=== PATIENT | female | born 1940 | race Caucasian/White ===

== ENCOUNTER → 2018-06-30 | Outpatient (CLI) | payer MEDICARE, MEDICAID ==
--- NOTE | 2018-06-30 11:47 | Diagnostic Imaging Report ---
INDICATION: Swallowing difficulty. TECHNIQUE: The procedure was performed in conjunction with speech pathology. Videofluoroscopy was performed during swallowing of barium of multiple consistencies. Patient ingested water and applesauce consistency as well as pear and ham consistency. Total of 49 seconds of fluoroscopy was utilized. FINDINGS: Oral phase is unremarkable. There is normal epiglottic tilt and laryngeal elevation. No penetration or aspiration was observed. There is moderate residue noted with the ham consistency in the vallecula. IMPRESSION: Vallecular residue. The study is otherwise unremarkable. Dictated by: Dictated on workstation # [id number]
== END ==
LOC: RAD 10:31
PROVIDERS: ATTEND Pediatrics
DX: R13.12 Dysphagia, oropharyngeal phase (principal); R11.2 Nausea with vomiting, unspecified
CPT/HCPCS: 74230

== ENCOUNTER → 2018-12-25 | Outpatient (CLI) | payer MEDICARE, MEDICAID ==
--- NOTE | 2018-12-25 12:21 | Diagnostic Imaging Report ---
INDICATION: Dysphagia. FINDINGS: Procedure was performed in conjunction with speech pathology. Videofluoroscopy was performed during swallowing of barium at multiple consistencies. Patient ingested thin as well as nectar and honey consistency. Patient also ingested pur?e as well as mechanical soft and meat consistency. Total of 59 seconds of fluoroscopic time was utilized. The oral phase is unremarkable. There is normal epiglottic tilt and laryngeal elevation. No laryngeal penetration or aspiration was observed. No significant residue is seen. IMPRESSION: Unremarkable modified barium swallow study. Dictated by: Dictated on workstation # [id number]
== END ==
LOC: RAD 09:57
PROVIDERS: ATTEND Pediatrics
DX: R13.10 Dysphagia, unspecified (principal)
CPT/HCPCS: 74230

== ENCOUNTER → 2019-01-26 | Outpatient (CLI) | payer OTHER, MEDICAID ==
[2019-01-26 09:47] LABS: CALCIUM 8.4 MG/DL (8.5-10.1); CREATININE SERUM 0.95 MG/DL (0.60-1.30); POTASSIUM 3.8 MMOL/L (3.6-5.0)
== END ==
LOC: LAB FS 09:07
PROVIDERS: ATTEND Pediatrics
DX: J44.9 Chronic obstructive pulmonary disease, unspecified (principal); E56.9 Vitamin deficiency, unspecified; I10 Essential (primary) hypertension
CPT/HCPCS: 36415; 80048

== ENCOUNTER 2021-10-07 10:48 | Inpatient (IN) | payer MEDICARE, MEDICAID ==
[~2021-10-07] VITALS: Ht 172.7 cm; Wt 70.0 kg
[2021-10-07] VITALS (8 sets, daily range): BP systolic 114–161; BP diastolic 57–74
[2021-10-07] MEDS ORDERED: NS IV 1000 ML 1,000 ML IV STA (10:59)
--- NOTE | 2021-10-07 11:02 | ED General ---
General Chief Complaint: General Problems/Pain Stated Complaint: CRITICAL LAB VALUES Source of Information: Patient, EMS, Assisted Records History of Present Illness Date Seen by Provider: Oct 07, 2021 Time Seen by Provider: 10:48 Initial Comments 81-year-old female presenting from [facility] by EMS. Patient was sent to the emergency department by the provider covering for Dr. Sandra, her primary care physician. She has been having increased cough and some sore t hroat in the last 2 days. She was found to have a urinary tract infection off of a urinalysis from yesterday. Her chest x-ray showed a pleural effusion and some atelectasis. She does have a history of COPD and uses oxygen by nasal cannula as a supplemental oxygen delivery chronically. She reportedly had a temperature up to 99.9 yesterday. Her labs had shown some worsening of her chronic renal insufficiency where she chronically runs around 1.5-2 for her creatinine with a GFR around 30 she had blood work yesterday that showed her creatinine was up to 2.7 with a GFR of 18 and a BUN of 63. She also has chronic low calcium that tends to run between 7 and 8 but when rechecked yesterday it came back at 6.2. She has chronic anemia with hemoglobin that runs 6.8-7.5. Yesterday when they checked her lab her hemoglobin was at 6.5. She does have an elevated MCV of 100. Her urinalysis showed moderate leukocyte esterase with 3+ bacteria and 40-50 white blood cells. She also had some proteinuria with 100 mg/dL of protein. She was to start Zithromax today for her chest x-ray showing atelectasis and pleural effusion with possible infection in her lung. When the provider covering for Dr. Sandra saw her labs they had EMS transport her for evaluation based on her abnormal lab values. Timing/Duration: 1-2 Days Severity: Moderate Associated Systoms: No Chest Pain; Cough; No Diaphoresis; Fever/Chills (subjective); No Headaches; Malaise; No Nausea/Vomiting; Shortness of Air (increased from baseline), Weakness (generalized) Allergies and Home Medications Allergies Coded Allergies: aspirin (Verified Allergy, Unknown, 08/21/05) diazepam (Verified Allergy, Unknown, 08/21/05) ibuprofen (Verified Allergy, Unknown, 08/21/05) phenobarbital (Verified Allergy, Unknown, 08/21/05) Patient Home Medication List Home Medication List Reviewed: Yes Review of Systems Review of Systems Constitutional: No chills; fever (low grade yesterday), malaise, weakness EENTM: nose congestion Respiratory: cough, phlegm (yellow colored mucus), short of breath; No stridor, No wheezing Cardiovascular: edema (chronic edema in BLE. pt states she does not walk and h as to be pushed in a wheelchair) Gastrointestinal: No abdominal pain, No nausea, No vomiting Genitourinary: frequency Musculoskeletal: joint pain (chronic pain in joints and feet from arthritis) Skin: No rash Psychiatric/Neurological: See HPI Hematologic/Lymphatic: Denies Blood Clots Past Euhuxon-Gfigdf-Xelpfx Hx Patient Social History Tobacco Use?: No Smokeless Tobacco Frequency: Unknown if Ever Used Use of E-Cig and/or Vaping dev: No Substance use?: No Alcohol Use?: No Past Medical History Surgery/Hospitalization HX: COPD, Hypertension, Chronic Atrial Fibrillation, Hypothyroid, Bipolar/Schizophrenia, Chronic Anemia, Seizures, Type II Diabetes, Chronic hypocalcemia Physical Exam Vital Signs Vital Signs - First Documented 10/07/21 10:54 Temp 36.1 Pulse 72 Resp 18 B/P (MAP) 114/57 (76) Pulse Ox 96 O2 Delivery Nasal Cannula O2 Flow Rate 2.00 Capillary Refill : Height, Weight, BMI Height: '" Weight: lbs. oz. kg; BMI Method: General Appearance: No Apparent Distress, Chronically ill, Obese HEENT: PERRL/EOMI, Pharynx Normal, Moist Mucous Membranes Neck: Full Range of Motion, Normal Inspection, Non Tender, Supple Respiratory: Chest Non Tender, No Accessory Muscle Use, No Respiratory Distress, Decreased Breath Sounds, Rales Cardiovascular: Normal Peripheral Pulses, Irregularly Irregular Gastrointestinal: Normal Bowel Sounds, No Pulsatile Mass, Non Tender, Soft Rectal: Deferred Extremity: Normal Capillary Refill, Pedal Edema (1 + BLE edema), Other (protective padded heel and foot wraps in place and wearing support stockings for compression) Neurologic/Psychiatric: Alert, Oriented x3, customer care representative II-XII Norm as Tested Skin: Warm/Dry Focused Exam Lactate Level 10/07/21 10:50: Lactic Acid Level 0.57 Lactic Acid Level Laboratory Tests Test 10/07/21 10:50 Lactic Acid Level 0.57 MMOL/L (0.50-2.00) Progress/Results/Core Measures Suspected Sepsis SIRS Temperature: Pulse: Respiratory Rate: Laboratory Tests 10/07/21 10:50: White Blood Count 9.8 Blood Pressure / Mean: 10/07/21 10:50: Lactic Acid Level 0.57 Laboratory Tests 10/07/21 10:50: Creatinine 2.85H, Platelet Count 191, Total Bilirubin 0.2 Results/Orders Lab Results Laboratory Tests Test 10/07/21 10:50 10/07/21 11:10 10/07/21 11:26 Range/Units White Blood Count 9.8 4.3-11.0 10^3/uL Red Blood Count 2.17 L 3.80-5.11 10^6/uL Hemoglobin 6.7 *L 11.5-16.0 g/dL Hematocrit 21 L 35-52 % Mean Corpuscular Volume 95 80-99 fL Mean Corpuscular Hemoglobin 31 25-34 pg Mean Corpuscular Hemoglobin Concent 33 32-36 g/dL Red Cell Distribution Width 12.9 10.0-14.5 % Platelet Count 191 130-400 10^3/uL Mean Platelet Volume 10.1 9.0-12.2 fL Immature Granulocyte % (Auto) 1 % Neutrophils (%) (Auto) 83 H 42-75 % Lymphocytes (%) (Auto) 10 L 12-44 % Monocytes (%) (Auto) 5 0-12 % Eosinophils (%) (Auto) 1 0-10 % Basophils (%) (Auto) 0 0-10 % Neutrophils # (Auto) 8.1 H 1.8-7.8 10^3/uL Lymphocytes # (Auto) 1.0 1.0-4.0 10^3/uL Monocytes # (Auto) 0.5 0.0-1.0 10^3/uL Eosinophils # (Auto) 0.1 0.0-0.3 10^3/uL Basophils # (Auto) 0.0 0.0-0.1 10^3/uL Immature Granulocyte # (Auto) 0.1 0.0-0.1 10^3/uL Sodium Level 138 135-145 MMOL/L Potassium Level 3.8 3.6-5.0 MMOL/L Chloride Level 105 98-107 MMOL/L Carbon Dioxide Level 18 L 21-32 MMOL/L Anion Gap 15 H 5-14 MMOL/L Blood Urea Nitrogen 65 H 7-18 MG/DL Creatinine 2.85 H 0.60-1.30 MG/DL Estimat Glomerular Filtration Rate 16 BUN/Creatinine Ratio 23 Glucose Level 106 H 70-105 MG/DL Lactic Acid Level 0.57 0.50-2.00 MMOL/L Calcium Level 6.2 L 8.5-10.1 MG/DL Corrected Calcium 6.9 L 8.5-10.1 MG/DL Magnesium Level 1.0 *L 1.6-2.4 MG/DL Total Bilirubin 0.2 0.1-1.0 MG/DL Aspartate Amino Transf (AST/SGOT) 16 5-34 U/L Alanine Aminotransferase (ALT/SGPT) 8 0-55 U/L Alkaline Phosphatase 101 40-136 U/L C-Reactive Protein 23.42 H <0.50 MG/DL Pro-B-Type Natriuretic Peptide 4451.0 H <75.0 PG/ML Total Protein 6.8 6.4-8.2 GM/DL Albumin 3.1 L 3.2-4.5 GM/DL Influenza Type A (RT-PCR) Not Detected Not Detecte Influenza Type B (RT-PCR) Not Detected Not Detecte SARS-CoV-2 RNA (RT-PCR) Not Detected Not Detecte Urine Color YELLOW Urine Clarity SL CLOUDY Urine pH 6.0 5-9 Urine Specific Girard 1.010 L 1.016-1.022 Urine Protein 1+ H NEGATIVE Urine Glucose (UA) NEGATIVE NEGATIVE Urine Ketones NEGATIVE NEGATIVE Urine Nitrite NEGATIVE NEGATIVE Urine Bilirubin NEGATIVE NEGATIVE Urine Urobilinogen 0.2 < = 1.0 MG/DL Urine Leukocyte Esterase 2+ H NEGATIVE Urine RBC (Auto) TRACE-I H NEGATIVE Urine RBC 0-2 /HPF Urine WBC 50-100 H /HPF Urine Squamous Epithelial Cells 0-2 /HPF Urine Crystals NONE /LPF Urine Bacteria LARGE H /HPF Urine Casts NONE /LPF Urine Mucus NEGATIVE /LPF Urine Culture Indicated YES Blood Gas Puncture Site L RADIAL Blood Gas Patient Temperature 36.1 Arterial Blood pH 7.36 L 7.37-7.43 Arterial Blood Partial Pressure CO2 30 L 35-45 MMHG Arterial Blood Partial Pressure O2 135 H 79-93 MMHG Arterial Blood HCO3 17 *L 23-27 MMOL/L Arterial Blood Total CO2 18.0 L 21.0-31.0 MMOL/L Arterial Blood Oxygen Saturation 99 94-100 % Arterial Blood Base Excess -7.4 L -2.5-2.5 MMOL/L John Test NA Blood Gas Ventilator Setting NO Blood Gas Inspired Oxygen 2 L My Orders Orders - DHEERAJ SPENCER MD Cbc With Automated Diff (10/07/21 10:54) Comprehensive Metabolic Panel (10/07/21 10:54) Blood Culture (10/07/21 10:54) Chest 1 View Ap/Pa Only (10/07/21 10:54) Magnesium (10/07/21 10:54) Ekg Tracing (10/07/21 10:54) O2 (10/07/21 10:54) Ed Iv/Invasive Line Start (10/07/21 10:54) Sputum Culture (10/07/21 10:54) Monitor-Rhythm Ecg Trace Only (10/07/21 10:54) Crp Fs (10/07/21 10:54) Lactic Acid Analyzer (10/07/21 10:54) Ua Culture If Indicated (10/07/21 10:54) Probnp Fs (10/07/21 10:54) Straight Cath For Spec.-Adult (10/07/21 10:54) Covid 19 Inhouse Test (10/07/21 10:54) Isolation Central Supply Req (10/07/21 10:54) Arterial Blood Gas (10/07/21 10:54) Ns Iv 1000 Ml (Sodium Chloride 0.9%) (10/07/21 10:59) Code/Resuscitation (10/07/21 11:07) Influenza A And B By Pcr (10/07/21 10:50) Urine Culture (10/07/21 11:10) Magnesium 2 Gm/50 Ml Ivpb (Magnesium 2 G (10/07/21 12:03) Ceftriaxone 1 Gm Pre-Mix (Rocephin 1 Gm (10/07/21 12:03) Magnesium 1 Gm/100 Ml Ivpb (Magnesium Nair (10/07/21 12:40) Ed Admission (Communication) (10/07/21 12:57) Calc Gluc 1 Gm/100 Ml Ivpb (Calcium Gluc (10/07/21 13:17) Vital Signs/I&O 10/07/21 10/07/21 10/07/21 10:54 11:00 13:43 Temp 36.1 Pulse 72 Resp 18 71 B/P (MAP) 114/57 (76) 126/67 Pulse Ox 96 97 100 O2 Delivery Nasal Cannula Nasal Cannula Nasal Cannula O2 Flow Rate 2.00 2.00 2.00 Capillary Refill : Progress Note #1: Progress Note Recheck labs and CXR with blood cultures and UA with culture, sputum culture, Lactic Acid. Give NS 1 Liter bolus for hydration. Differential diagnosis includes pneumonia, sepsis, renal failure, dehydration Progress Note #2: Progress Note Lab continues to show low hemoglobin of 6.9. Her creatinine is at 2.85 with an elevated BUN. This is above her baseline creatinine of 1.7-2. Her lactic acid is normal at 0.5. She does have an elevated CRP and proBNP. Her urine continues to show signs of infection with leukocyte Esterace and white blood cells with bacteria. Magnesium 1.0 and Calcium corrected at 6.9. Will start to supplement her Magnesium and Calcium while giving Rocephin 1 gm IV to help cover her pneumonia and UTI. Will contact Dr. Martin for hospitalist service about admit since her PCP, Dr. Sandra, is out of town this week and not available to manage the patient. Progress Note #3: Progress Note D/w Dr. Martin and she will admit the patient to floor status in [place]. will continue with electrolyte replacement and if additional antibiotics are needed she will add them. ECG Initial ECG Impression Date: Oct 07, 2021 Initial ECG Impression Time: 11:21 Initial ECG Rate: 71 Initial ECG Rhythm: Normal Sinus Initial ECG Comparisson: No Previous ECG Available Comment Normal sinus rhythm with a heart rate of 71 bpm. Low QRS voltage. IN interval [address] elevation. QT interval 447 ms with a QTc interval 469 ms. No prior tracing available for comparison. Diagnostic Imaging Diagonstic Imaging: Xray Plain Films/CT/US/NM/MRI: chest Comments [facility], [place] NAME: VADIM SHARMA [facility] REC#: [id number] PT STATUS: REG ER : 1940 PHYSICIAN: DHEERAJ SPENCER MD ADMIT DATE: 10/07/21/ER FS Draft Date of Exam:10/07/21 CHEST 1 VIEW AP/PA ONLY Indication Chest pain and shortness of breath. Findings: The left diaphragm is obscured. There is dense airspace opacity in the left lung base. There is likely at least some component of volume loss however while an element of atelectasis is felt present pneumonia radiographically suspected, correlate clinically. There are background emphysematous changes in the lungs. The right lung nonfocal. Heart size within normal limits. No failure pattern. Impression: Findings suspicious for left lower lobe pneumonia and partial atelectasis, underlying COPD with clear right lung and no overt failure pattern. Dictated on workstation # [id number] Dict: 10/07/21 1126 Trans: 10/07/21 1133 CV [id number] Interpreted by: VERA PA Electronically signed by: Reviewed: Reviewed by Me Departure Communication (Admissions) Time/Spoke to Admitting Phy: 12:53 d/w Dr. Martin for hospitalist service since pt follows with Dr. Sandra. Dr. Sandra is out of town this week so will admit to [facility] for hydration and electrolyte replacement as well as antibiotics for pneumonia and UTI Impression Primary Impression: Pneumonia of left lower lobe due to infectious organism Additional Impressions: Cystitis without hematuria Anemia Qualified Codes: D64.9 - Anemia, unspecified Hypomagnesemia Hypocalcemia Acute kidney injury superimposed on CKD Disposition: 30 STILL A PATIENT Condition: Stable Admissions Decision to Admit Reason: Admit from ER (General) Decision to Admit/Date: Oct 07, 2021 Time/Decision to Admit Time: 12:53 Departure-Patient Inst. Referrals: SHOSHANA SANDRA MD (PCP/Family) Primary Care Physician DHEERAJ SPENCER MD Oct 07, 2021 11:02
[2021-10-07 11:12] LABS: BASOPHILS % (AUTO) 0 % (0-10); EOSINOPHILS # (AUTO) 0.1 10^3/uL (0.0-0.3); EOSINOPHILS % (AUTO) 1 % (0-10); HEMATOCRIT 21 % (35-52); LYMPHOCYTES % (AUTO) 10 % (12-44); MEAN CORPUSCULAR HEMOGLOBIN 31 pg (25-34); MEAN CORPUSCULAR HGB CONC 33 g/dL (32-36); MEAN CORPUSCULAR VOLUME 95 fL (80-99); MEAN PLATELET VOLUME 10.1 fL (9.0-12.2); MONOCYTES # (AUTO) 0.5 10^3/uL (0.0-1.0); MONOCYTES % (AUTO) 5 % (0-12); NEUTROPHILS # (AUTO) 8.1 10^3/uL (1.8-7.8); NEUTROPHILS % (AUTO) 83 % (42-75); PLATELET COUNT 191 10^3/uL (130-400); WHITE BLOOD COUNT 9.8 10^3/uL (4.3-11.0)
[2021-10-07 11:23] LABS: BILIRUBIN,URINE NEGATIVE (NEGATIVE); CLARITY,URINE SL CLOUDY; COLOR,URINE YELLOW; GLUCOSE, URINE (UA) NEGATIVE (NEGATIVE); KETONES,URINE NEGATIVE (NEGATIVE); LEUKOCYTE ESTERASE ,URINE 2+ (NEGATIVE); NITRITE,URINE NEGATIVE (NEGATIVE); PROTEIN,URINE 1+ (NEGATIVE)
[2021-10-07 11:24] LABS: HEMOGLOBIN 6.7 g/dL (11.5-16.0)
--- NOTE | 2021-10-07 11:34 | Diagnostic Imaging Report ---
Indication Chest pain and shortness of breath. Findings: The left diaphragm is obscured. There is dense airspace opacity in the left lung base. There is likely at least some component of volume loss however while an element of atelectasis is felt present pneumonia radiographically suspected, correlate clinically. There are background emphysematous changes in the lungs. The right lung nonfocal. Heart size within normal limits. No failure pattern. Impression: Findings suspicious for left lower lobe pneumonia and partial atelectasis, underlying COPD with clear right lung and no overt failure pattern. Dictated by: Dictated on workstation # [id number]
[2021-10-07 11:47] LABS: BACTERIA,URINE LARGE /HPF; RBC,URINE 0-2 /HPF; SQUAMOUS EPITHELIAL CELL,UR 0-2 /HPF; WBC,URINE 50-100 /HPF
[2021-10-07 11:50] LABS: CALCIUM 6.2 MG/DL (8.5-10.1); CREATININE SERUM 2.85 MG/DL (0.60-1.30); POTASSIUM 3.8 MMOL/L (3.6-5.0)
[2021-10-07 11:51] LABS: BILIRUBIN,TOTAL 0.2 MG/DL (0.1-1.0); TOTAL PROTEIN 6.8 GM/DL (6.4-8.2)
[2021-10-07 11:52] LABS: ALBUMIN 3.1 GM/DL (3.2-4.5)
[2021-10-07 11:54] LABS: ABG PCO2 30 MMHG (35-45); ABG PH 7.36 (7.37-7.43); ABG PO2 135 MMHG (79-93)
[2021-10-07 11:56] LABS: ABG BASE EXCESS -7.4 MMOL/L (-2.5-2.5); ABG OXYGEN SATURATION 99 % (94-100)
[2021-10-07 11:57] LABS: INSPIRED O2 2 L; PATIENT TEMP 36.1; VENTILATOR NO
[2021-10-07] MEDS ORDERED: cefTRIAXone 1 GM PRE-MIX 50 ML IV STA (12:03)
[2021-10-07] MEDS ORDERED: MAGNESIUM 2 GM/50 ML IVPB 50 ML IV STA (12:03)
[2021-10-07] MEDS ORDERED: MAGNESIUM 1 GM/100 ML IVPB 100 ML IV STA (12:40)
[2021-10-07] MEDS ORDERED: CALC GLUC 1 GM/100 ML IV ONE (13:17)
[2021-10-07] MEDS ORDERED: ANTACID SUSP 30 ML UDC (MYLANTA) PO PRN (15:30)
[2021-10-07] MEDS ORDERED: ONDANSETRON 4 MG/2 ML (SDV) Z0FRAN IV PRN (15:30)
[2021-10-07] MEDS ORDERED: polyethylene glycoL POWDER 17 GM (MIRALAX) PACK PO PRN (15:30)
--- NOTE | 2021-10-07 15:39 | History & Physical-Hospitalist ---
History of Present Illness HPI/Chief Complaint Patient is an 81-year-old female who was sent to the emergency department by [facility] due to abnormal labs and cough. Patient is able to tell me that she has had increased cough and a little bit of sore throat. She at first denies any sputum production but then endorses this. She had lab work done which showed multiple abnormalities that were slightly worse than her baseline. She had a hemoglobin of 6.7 down from her baseline around 7.5 and had a mildly elevated creatinine and BUN. She was also found to be hypokalemic and quite hypomagnesemic. She was admitted for further management. Source: patient Date Seen 10/07/21 Time Seen by a Provider: 15:26 Attending Physician Peng Cueva MD PCP Admitting Physician: Oneida Martin MD Attending Physician: Oneida Martin MD Referring Physician Date of Admission Oct 07, 2021 at 14:52 Home Medications & Allergies Home Medications Reviewed patient Home Medication Reconciliation performed by pharmacy medication reconciliations computer system technician and/or nursing. Patients Allergies have been reviewed. Allergies Allergies Coded Allergies aspirin (Verified Allergy, Unknown, 08/21/05) diazepam (Verified Allergy, Unknown, 08/21/05) ibuprofen (Verified Allergy, Unknown, 08/21/05) phenobarbital (Verified Allergy, Unknown, 08/21/05) Past Eflyzkg-Hdvetz-Uwcvav Hx Patient Social History Employed/Student: retired Tobacco Use?: No Smokeless Tobacco Frequency: Unknown if Ever Used Use of E-Cig and/or Vaping dev: No Substance use?: No Alcohol Use?: No Current Status Primary Language: Indonesian Preferred Spoken Language: Indonesian Family Medical History Reviewed Nursing Family Hx No Pertinent Family Hx Review of Systems Constitutional: No chills, No fever; malaise EENTM: no symptoms reported Respiratory: cough Cardiovascular: no symptoms reported Gastrointestinal: no symptoms reported Genitourinary: no symptoms reported Musculoskeletal: no symptoms reported Skin: no symptoms reported Psychiatric/Neurological: No Symptoms Reported Physical Exam Physical Exam Vital Signs Vital Signs - First Documented 10/08/21 10/08/21 01:00 03:29 Temp 36.1 Pulse 74 Resp 22 B/P (MAP) 112/59 (76) Pulse Ox 99 O2 Delivery Nasal Cannula O2 Flow Rate 2.00 Capillary Refill : Height, Weight, BMI Height: '" Weight: lbs. oz. kg; BMI Method: General Appearance: No Apparent Distress, Chronically ill HEENT: PERRL/EOMI, Moist Mucous Membranes; No Scleral Icterus (L), No Scleral Icterus (R) Neck: Normal Inspection, Supple Respiratory: Lungs Clear Cardiovascular: Regular Rate, Rhythm, No Murmur Gastrointestinal: Normal Bowel Sounds, Non Tender, Soft Extremity: Normal Capillary Refill, No Calf Tenderness, No Pedal Edema Neurologic/Psychiatric: Alert, Oriented x3, Normal Mood/Affect; No Aphasia, No Facial Droop Skin: Normal Color, Warm/Dry Results Results/Procedures Labs Patient resulted labs reviewed. Imaging: Reviewed Imaging Report Imaging [facility], [place] NAME: VADIM SHARMA [facility] REC#: [id number] PT STATUS: REG ER : 1940 PHYSICIAN: DHEERAJ SPENCER MD ADMIT DATE: 10/07/21/ER FS Signed Date of Exam:10/07/21 CHEST 1 VIEW AP/PA ONLY Indication Chest pain and shortness of breath. Findings: The left diaphragm is obscured. There is dense airspace opacity in the left lung base. There is likely at least some component of volume loss however while an element of atelectasis is felt present pneumonia radiographically suspected, correlate clinically. There are background emphysematous changes in the lungs. The right lung nonfocal. Heart size within normal limits. No failure pattern. Impression: Findings suspicious for left lower lobe pneumonia and partial atelectasis, underlying COPD with clear right lung and no overt failure pattern. Dictated by: Dictated on workstation # [id number] Dict: 10/07/21 1126 Trans: 10/07/21 1205 [facility] [id number] Interpreted by: VERA PA Electronically signed by: VERA PA 10/07/21 1205 Assessment/Plan Admission Diagnosis PNA UTI Admission Status: Inpatient Order (span 2 midnights) Reason for Inpatient Admission: see below Assessment and Plan PNA- left lowe lobe UTI Continue on IV abx Await cultures Does not met sepsis criteria Acute kidney injury Hypomagnesemia Hypocalcemia Creatinine 2.85 Last check years ago was 0.8 IVF Monitor UOP Attempt to get records Replace electrolytes as needed Anemia last check was many years ago and 14 Now 6.7 Has not complaints of bleeding Will recheck prior to transfusion but if accurate transfuse x1 DVT ppx: SCDs only for anemia Diagnosis/Problems Diagnosis/Problems (1) Acute kidney injury superimposed on CKD Status: Acute (2) Pneumonia of left lower lobe due to infectious organism Status: Acute (3) Hypocalcemia Status: Acute (4) Hypomagnesemia Status: Acute (5) Cystitis without hematuria Status: Acute (6) Anemia Status: Acute Qualifiers: Anemia type: unspecified type Qualified Codes: D64.9 - Anemia, unspecified ONEIDA MARTIN MD Oct 07, 2021 15:39
--- NOTE | 2021-10-07 15:44 | Physical Therapy Evaluation ---
PT Evaluation-General Medical Diagnosis Admission Date Oct 07, 2021 at 14:52 Medical Diagnosis: TRICE, anemia Onset Date: Oct 07, 2021 Therapy Diagnosis Therapy Diagnosis: impaired mobility Referral Physician: Mario Reason for Referral: Evaluation/Treatment Medical History Additional Medical History Past Medical History Surgery/Hospitalization HX: COPD, Hypertension, Chronic Atrial Fibrillation, Hypothyroid, Bipolar/Schizophrenia, Chronic Anemia, Seizures, Type II Diabetes, Chronic hypocalcemia Reviewed History: Yes Social History Home: Retirement Prior Prior Level of Function SCALE: Activities may be completed with or without assistive devices. 2-Evdwhrbgko-foffojj completes the activity by him/herself with no assistance from a helper. 5-Set-up or Clean-up Assistance-helper sets up or cleans up; patient completes activity. [place] assists only prior to or following the activity. 4-Supervision or Touching Assistance-helper provides verbal cues and/or touching/steadying and/or contact guard assistance as patient completes activity. Assistance may be provided throughout the activity or intermittently. 3-Partial/Moderate Assistance-helper does LESS THAN HALF the effort. [place] lifts, holds or supports trunk or limbs, but provides less than half the effort. 2-Substantial/Maximal Assistance-helper does MORE THAN HALF the effort. [place] lifts or holds trunk or limbs and provides more than half the effort. 7-Hbrtfzuuh-tvbrzm does ALL the effort. Patient does none of the effort to complete the activity. Or, the assistance of 2 or more helpers is required for the patient to complete the activity. If activity was not attempted, code reason: 7-Patient Refused. 9-Not Applicable-not attempted and the patient did not perform the activity before the current illness, exacerbation or injury. 10-Not Attempted due to Environmental Limitations-(lack of equipment, weather restraints, etc.). 88-Not Attempted due to Medical Conditions or Safety Concerns. Bed Mobility: 2 Transfers (B,C,W/C): 2 Gait: 88 Stairs: 9 Wheelchair Mobility: 3 Prior Devices Use: Manual wheelchair PT Evaluation-Current Subjective Patient in bed pre tx, has no pain at rest but states severe pain with activity in legs due to arthritis, patient just got to her room from the ER and states she doesn't want to get out of bed or sit to the side of the bed at this time. Pt/Family Goals none stated Objective Patient Orientation: Person, Place, Situation Attachments: Oxygen ROM/Strength ROM Lower Extremities significantly limited in both legs, has bilateral plantarflexion contractures, left knee flexion contracture Strength Lower Extremities LLE (hip flexion 2/5, knee flexion 3/5, knee extension 3/5, dorsiflexion 1/5), RLE (hip flexion 2/5, knee flexion 3/5, knee extension 3/5, dorsiflexion 1/5) Sensory Hearing: Impaired Treatment BLE supine exercises x20 HS, AP, AAROM Assessment/Needs Patient in bed post tx with nurse call, phone, tray, all needs met. Patient states she doesn't ambulate at the custodial and that staff transfers her to a . Rehab Potential: Poor PT Spare Hand Carding Goals [facility]iary Goals PT [facility]it[facility]iary Goals Time Frame: Oct 14, 2021 Roll Left & Right (QC): 3 Sit to Lying (QC): 3 Lying-Sitting on Side/Bed(QC): 3 Sit to Stand (QC): 3 Chair/Ylj-hh-Usrjm Xfer(QC): 3 PT Plan Problem List Problem List: Activity Tolerance, Functional Strength, Safety, Balance, Gait, Transfer, Bed Mobility, ROM Treatment/Plan Treatment Plan: Continue Plan of Care Treatment Plan: Bed Mobility, Education, Functional Activity Cassi, Functional Strength, Gait, Safety, Therapeutic Exercise, Transfers Treatment Duration: Oct 14, 2021 Frequency: 6 times per week Estimated Hrs Per Day: .25 hour per day Patient and/or Family Agrees t: Yes Safety Risks/Education Patient Education: Correct Positioning, Safety Issues Teaching Recipient: Patient Teaching Methods: Demonstration, Discussion Response to Teaching: Reinforcement Needed Discharge Recommendations Plan Patient will perform bed mobility and transfer training, balance and endurance training, functional strengthening, and education, to improve functional mobility and independence at home. Therapy Discharge Recommendati: Other, See Comments (NH) Time/GCodes Time In: 1529 Time Out: 1538 Total Billed Treatment Time: 9 Total Billed Treatment 1 visit BRONWYN HOLMAN PT Oct 07, 2021 15:44
[2021-10-07] MEDS ORDERED: RT-ALBUTEROL/IPRATROPIUM 3 ML (DUONEB) VIAL INH PRN (15:45)
--- NOTE | 2021-10-07 15:46 | Occupational Therapy Eval ---
OT Evaluation-General/PLF Medical Diagnosis Admission Date Oct 07, 2021 at 14:52 Medical Diagnosis: TRICE, anemia Onset Date: Oct 05, 2021 Therapy Diagnosis Therapy Diagnosis: n/a Referral Physician: Mario Referral Reason: Evaluation/Treatment Medical History Additional Medical History COPD, Hypertension, Chronic Atrial Fibrillation, Hypothyroid, Bipolar/Schizophrenia, Chronic Anemia, Seizures, Type II Diabetes, Chronic hypocalcemia Current History ED by provider due to increased cough, sore throat last couple of days. Found to have UTI, pleural effusion and atelectasis Social History Home: [facility] ADL-Prior Level of Function SCALE: Activities may be completed with or without assistive devices. 2-Neitdjzrrd-ysamlmu completes the activity by him/herself with no assistance from a helper. 5-Set-up or Clean-up Assistance-helper sets up or cleans up; patient completes activity. [place] assists only prior to or following the activity. 4-Supervision or Touching Assistance-helper provides verbal cues and/or touching/steadying and/or contact guard assistance as patient completes activity. Assistance may be provided throughout the activity or intermittently. 3-Partial/Moderate Assistance-helper does LESS THAN HALF the effort. [place] lifts, holds or supports trunk or limbs, but provides less than half the effort. 2-Substantial/Maximal Assistance-helper does MORE THAN HALF the effort. [place] lifts or holds trunk or limbs and provides more than half the effort. 8-Vdwvchphi-qhwevv does ALL the effort. Patient does none of the effort to complete the activity. Or, the assistance of 2 or more helpers is required for the patient to complete the activity. If activity was not attempted, code reason: 7-Patient Refused. 9-Not Applicable-not attempted and the patient did not perform the activity before the current illness, exacerbation or injury. 10-Not Attempted due to Environmental Limitations-(lack of equipment, weather restraints, etc.). 88-Not Attempted due to Medical Conditions or Safety Concerns. ADL PLOF Comments Pt reports having assistance with all ADLS at PLOF, UE/LE dressing, bathing, and toileting. She does not ambulate, transfers to w/c with assistance from NH staff, and assistance with w/c mobility. Self Care: Needed Some Help Functional Cognition: Unknown OT Current Status Subjective Pt in bed, agreeable to OT evaluation. Mental Status/Objective Patient Orientation: Person, Situation Attachments: Oxygen Current Upper Extremity ROM BUE WFL, shoulder flexion to approx 90 degrees. Decreased finger movement due to arthritis Upper Extremity Coordination decreased due to arthritis Upper Extremity Strength grossly 3/5 ADL-Treatment Eating (QC): 5 (Per pt report.) On/Off Footwear (QC): 1 (Per clinical judgment.) Toileting Hygiene (QC): 1 (Per clinical judgment) Other Treatments Pt in bed, agreeable to OT evaluation. Pt provided information about PLOF at alf, indicating she requires assistance with all ADLS. She declined transferring OOB or getting EOB on this date due to just getting admitted to her room. OT educated pt on UE exercises in order to increase BUE Strength, activity tolerance, and pulmonary function, she verbalized understanding. Pt completes x5 reps BUE shoulder flexion, elbow flexion/extension and finger flexion/extension within her ROM. Post tx, pt in bed, call light in reach and all needs met. Education OT Patient Education: Correct positioning, Energy conservation, Exercise program, Modified ADL techniques, Progress toward Goal/Update tx plan, Purpose of tx/functional activities, Rehab process Teaching Recipient: Patient Teaching Methods: Demonstration, Discussion Response to Teaching: Verbalize Understanding, Return Demonstration OT Cathode Maker Goals Cathode Maker Goals 1=Demonstrate adherence to instructed precautions during ADL tasks. 2=Patient will verbalize/demonstrate understanding of assistive devices/modifications for ADL. 3=Patient will improve strength/tolerance for activity to enable patient to perform ADL's. OT Education/Plan Problem List/Assessment Assessment: No Skilled OT Needs ID'd No skilled OT services indicates, as pt is at her PLOF, requiring assistance with all ADLS and functional transfers/mobility. D/C from OT. Discharge Recommendations Plan/Recommendations: Discharge/Goals Met Treatment Plan/Plan of Care Patient would benefit from OT for education, treatment and training to promote independence in ADL's, mobility, safety and/or upper extremity function for ADL's. Plan of Care: ADL Retraining, UE Funct Exercise/Act Treatment Duration: Oct 07, 2021 Frequency: 1 time per week (eval only) Estimated Hrs Per Day: .25 hour per day Rehab Potential: Guarded Time/GCodes Start Time: 15:29 Stop Time: 15:38 Total Time Billed (hr/min): 9 Billed Treatment Time 1, EVL RM COOPER OT Oct 07, 2021 15:46
[2021-10-07 15:52] LABS: HEMATOCRIT 22 % (35-52); MEAN CORPUSCULAR HEMOGLOBIN 31 pg (25-34); MEAN CORPUSCULAR HGB CONC 31 g/dL (32-36); MEAN CORPUSCULAR VOLUME 100 fL (80-99); MEAN PLATELET VOLUME 9.7 fL (9.0-12.2); PLATELET COUNT 190 10^3/uL (130-400); WHITE BLOOD COUNT 8.4 10^3/uL (4.3-11.0)
[2021-10-07 15:56] LABS: HEMOGLOBIN 6.8 g/dL (11.5-16.0)
[2021-10-07 15:57] LABS: POTASSIUM 3.9 MMOL/L (3.6-5.0)
[2021-10-07 15:58] LABS: CALCIUM 6.7 MG/DL (8.5-10.1)
[2021-10-07 16:03] LABS: CREATININE SERUM 2.62 MG/DL (0.60-1.30)
[2021-10-07 16:05] LABS: MAGNESIUM 1.4 MG/DL (1.6-2.4)
[2021-10-07] MEDS ORDERED: NS IV 500 ML 500 ML IV SCH (17:30)
[2021-10-07] MEDS ORDERED: MAGNESIUM 1 GM/100 ML IVPB 100 ML IV ONE (18:00)
[2021-10-07] MEDS: RT-ALBUTEROL/IPRATROPIUM 3 ML (DUONEB) VIAL INH SCH (19:50)
[2021-10-07] MEDS: ACETAMINOPHEN 325 MG TABLET PO PRN (22:38)
[2021-10-07] MEDS: MELATONIN 3 MG TABLET PO PRN (22:38)
[2021-10-08] VITALS (7 sets, daily range): BP systolic 112–131; BP diastolic 57–64
[2021-10-08] MEDS: RT-ALBUTEROL/IPRATROPIUM 3 ML (DUONEB) VIAL INH SCH ×3 (03:31→21:27)
[2021-10-08 06:36] LABS: POTASSIUM 4.3 MMOL/L (3.6-5.0)
[2021-10-08 06:37] LABS: CALCIUM 6.8 MG/DL (8.5-10.1)
[2021-10-08 06:40] LABS: HEMATOCRIT 23 % (35-52); HEMOGLOBIN 7.6 g/dL (11.5-16.0); MEAN CORPUSCULAR HEMOGLOBIN 31 pg (25-34); MEAN CORPUSCULAR HGB CONC 33 g/dL (32-36); MEAN CORPUSCULAR VOLUME 94 fL (80-99); PLATELET COUNT 199 10^3/uL (130-400)
[2021-10-08 06:42] LABS: CREATININE SERUM 2.54 MG/DL (0.60-1.30)
[2021-10-08 06:44] LABS: MAGNESIUM 1.6 MG/DL (1.6-2.4)
--- NOTE | 2021-10-08 09:27 | Progress Note - Hospitalist ---
Subjective HPI/CC On Admission Date Seen by Provider: Oct 08, 2021 Time Seen by Provider: 09:20 Subjective/Events-last exam Pt reports doing well. No complaints. Making jokes even. Reports feeling much better from yesterday. Finishing up breakfast. Focused Exam Lactate Level 10/07/21 10:50: Lactic Acid Level 0.57 Objective Exam Vital Signs Vital Signs Date Time Temp Pulse Resp B/P (MAP) Pulse Ox O2 Delivery O2 Flow Rate FiO2 10/08/21 08:44 36.4 67 29 118/58 (78) 97 Nasal Cannula 2.00 10/07/21 15:37 28 Capillary Refill : General Appearance: No Apparent Distress, Chronically ill Respiratory: Lungs Clear, No Respiratory Distress Cardiovascular: Regular Rate, Rhythm, No Murmur Gastrointestinal: Normal Bowel Sounds, Non Tender, Soft Neurologic/Psychiatric: Alert, Oriented x3 Results/Procedures Lab Laboratory Tests 10/07/21 10:50 10/07/21 15:40 10/08/21 05:42 10/08/21 06:27 Patient resulted labs reviewed. Imaging: Reviewed Imaging Report Assessment/Plan Assessment and Plan Assess & Plan/Chief Complaint PNA- left lower lobe UTI Continue on IV abx Await cultures Does not met sepsis criteria Wean oxygen as able Acute kidney injury on CKD-POA Hypomagnesemia Hypocalcemia Creatinine 2.54- near baseline [facility] records indicate baseline around 2 Replace electrolytes as needed- improved today Anemia- acute on chronic last check was many years ago and 14 [facility] records reveal baseline around 7.5 Has not complaints of bleeding s/p 1 unit pRBCs and up to 7.6 DVT ppx: SCDs only for anemia Diagnosis/Problems Diagnosis/Problems (1) Acute kidney injury superimposed on CKD Status: Acute (2) Pneumonia of left lower lobe due to infectious organism Status: Acute (3) Hypocalcemia Status: Acute (4) Hypomagnesemia Status: Acute (5) Cystitis without hematuria Status: Acute (6) Anemia Status: Acute Qualifiers: Anemia type: unspecified type Qualified Codes: D64.9 - Anemia, unspecified ONEIDA BLANCHARD MD Oct 08, 2021 09:27
--- NOTE | 2021-10-08 10:29 | Physical Therapy Daily Note ---
PT Daily Note-Current Subjective Patient reports they use a [place] lift on her at the [place]. Noted bilateral LE edema and redness with increase c/o patient to palpation. Incontinent BM. Mental Status Patient Orientation: Person Transfers SCALE: Activities may be completed with or without assistive devices. 4-Phscvnfjcz-rkewaps completes the activity by him/herself with no assistance from a helper. 5-Set-up or Clean-up Assistance-helper sets up or cleans up; patient completes activity. [place] assists only prior to or following the activity. 4-Supervision or Touching Assistance-helper provides verbal cues and/or touching/steadying and/or contact guard assistance as patient completes activity. Assistance may be provided throughout the activity or intermittently. 3-Partial/Moderate Assistance-helper does LESS THAN HALF the effort. [place] lifts, holds or supports trunk or limbs, but provides less than half the effort. 2-Substantial/Maximal Assistance-helper does MORE THAN HALF the effort. [place] lifts or holds trunk or limbs and provides more than half the effort. 6-Gpfxrudzc-rytbbg does ALL the effort. Patient does none of the effort to complete the activity. Or, the assistance of 2 or more helpers is required for the patient to complete the activity. If activity was not attempted, code reason: 7-Patient Refused. 9-Not Applicable-not attempted and the patient did not perform the activity before the current illness, exacerbation or injury. 10-Not Attempted due to Environmental Limitations-(lack of equipment, weather restraints, etc.). 88-Not Attempted due to Medical Conditions or Safety Concerns. Roll Left & Right (QC): 1 (x 2 with patient yelling with all movement) Gait Training Does the Patient Walk?: No and Walking Goal NOT indicated Exercises Supine Ex: Heel Slides, Straight leg raise, Hip abd/add Supine Reps: 12 Assessment Patient incontinent BM requiring complete bed change. Dependent of 2 with all rolling and repositioning. Patient tolerates minimal activity. PT Adjunct Instructor In Economics Goals Adjunct Instructor In Economics Goals PT Retirement Goals Time Frame: Oct 14, 2021 Roll Left & Right (QC): 3 Sit to Lying (QC): 3 Lying-Sitting on Side/Bed(QC): 3 Sit to Stand (QC): 3 Chair/Zaw-wb-Foidg Xfer(QC): 3 PT Plan Treatment/Plan Treatment Plan: Continue Plan of Care, Modify Plan, see comments (decrease to 5/wk due to LOF) Treatment Plan: Bed Mobility, Education, Functional Activity Cassi, Functional Strength, Gait, Safety, Therapeutic Exercise, Transfers Treatment Duration: Oct 14, 2021 Frequency: 5 times per week Estimated Hrs Per Day: .25 hour per day Patient and/or Family Agrees t: Yes Time/GCodes Time In: 915 Time Out: 925 Total Billed Treatment Time: 10 Total Billed Treatment 1 visit FA 10 min LOUIS PRINCE PT Oct 08, 2021 10:29
[2021-10-08] MEDS ORDERED: cefTRIAXone 1 GM IV (PRE-MIX) 50 ML IV SCH (12:00)
[2021-10-08] MEDS ORDERED: LISI2.5T13 PO (12:53)
[2021-10-08] MEDS ORDERED: FLT11013 IH (12:53)
[2021-10-08] MEDS ORDERED: SODI104S3 NSEACH (12:53)
[2021-10-08] MEDS ORDERED: POLY17PO6 PO ×2 (12:53)
[2021-10-08] MEDS ORDERED: METO2.5T PO (12:53)
[2021-10-08] MEDS ORDERED: AMIO400T5 PO (12:53)
[2021-10-08] MEDS ORDERED: FURO20TA4 PO (12:53)
[2021-10-08] MEDS ORDERED: MENT118G TP (12:53)
[2021-10-08] MEDS ORDERED: CEPH500C PO (12:53)
[2021-10-08] MEDS ORDERED: CYCL10TA25 PO (12:53)
[2021-10-08] MEDS ORDERED: CETI10TA17 PO (12:53)
[2021-10-08] MEDS ORDERED: LORA-404 PO (12:53)
[2021-10-08] MEDS ORDERED: GUAI118S37 PO (12:53)
[2021-10-08] MEDS ORDERED: LOPE2CAP PO (12:53)
[2021-10-08] MEDS ORDERED: SIMV20TA26 PO (12:53)
[2021-10-08] MEDS ORDERED: AZIT250T12 PO (12:53)
[2021-10-08] MEDS ORDERED: SERT-413 PO (12:53)
[2021-10-08] MEDS ORDERED: TRM50T PO (12:53)
[2021-10-08] MEDS ORDERED: MULT-422 PO (12:53)
[2021-10-08] MEDS ORDERED: ONDA-105 PO (12:53)
[2021-10-08] MEDS ORDERED: MONT-40 PO (12:53)
[2021-10-08] MEDS ORDERED: ALBU90AE IH (12:53)
[2021-10-08] MEDS ORDERED: LEVO88TA54 PO (12:53)
[2021-10-08] MEDS ORDERED: NYST15OI13 TP (12:53)
[2021-10-08] MEDS ORDERED: MENT71OI TP ×2 (12:53)
[2021-10-08] MEDS ORDERED: CYAN-41 PO (12:53)
[2021-10-08] MEDS ORDERED: ACHD5005 PO ×2 (12:53)
[2021-10-08] MEDS ORDERED: ACET325T38 PO (12:53)
[2021-10-08] MEDS ORDERED: DEXA6TAB PO (12:53)
[2021-10-08] MEDS ORDERED: PHEN100C11 PO (12:53)
[2021-10-08] MEDS ORDERED: LURA40TA2 PO (12:53)
[2021-10-08] MEDS ORDERED: DONE10TA41 PO (12:53)
[2021-10-08] MEDS ORDERED: MAG355OR16 PO (12:53)
[2021-10-08] MEDS ORDERED: OXYB5TAB13 PO (12:53)
[2021-10-08] MEDS ORDERED: FERR325T18 PO (12:53)
[2021-10-08] MEDS ORDERED: ARIP10TA55 PO (12:53)
[2021-10-08] MEDS: MELATONIN 3 MG TABLET PO PRN (20:20)
[2021-10-08] MEDS: ACETAMINOPHEN 325 MG TABLET PO PRN (20:20)
[2021-10-09 03:46] VITALS: BP 154/69
[2021-10-09 05:55] LABS: HEMATOCRIT 24 % (35-52); HEMOGLOBIN 7.6 g/dL (11.5-16.0); MEAN CORPUSCULAR HEMOGLOBIN 30 pg (25-34); MEAN CORPUSCULAR HGB CONC 32 g/dL (32-36); MEAN CORPUSCULAR VOLUME 94 fL (80-99); MEAN PLATELET VOLUME 10.3 fL (9.0-12.2); PLATELET COUNT 239 10^3/uL (130-400); WHITE BLOOD COUNT 6.8 10^3/uL (4.3-11.0)
[2021-10-09 06:09] LABS: POTASSIUM 3.7 MMOL/L (3.6-5.0)
[2021-10-09 06:10] LABS: CALCIUM 7.2 MG/DL (8.5-10.1)
[2021-10-09 06:14] LABS: CREATININE SERUM 2.58 MG/DL (0.60-1.30)
[2021-10-09] MEDS: RT-ALBUTEROL/IPRATROPIUM 3 ML (DUONEB) VIAL INH SCH (07:38)
[2021-10-09 08:42] VITALS: BP 158/67
[2021-10-09] MEDS ORDERED: cefTRIAXone 1 GM PRE-MIX 50 ML IV SCH (09:00)
--- NOTE | 2021-10-09 09:06 | Discharge Inst-Simple/Standard ---
Discharge Inst-Standard Discharge Medications New, Converted or Re-Newed RX: Transmitted to Pharmacy Patient Instructions/Follow Up Plan of Care/Instructions/FU: Please continue to take your medications as written. Please follow up with your primary care doctor to follow up this hospital stay. Activity as Tolerated: Yes Discharge Diet: Low Sodium Diet Return to The Hospital For: Chest pain, shortness of breath, cough, fever, weakness, if you feel you are getting worse. ONEIDA BLANCHARD MD Oct 09, 2021 09:01
--- NOTE | 2021-10-09 09:25 | Discharge Summary ---
Diagnosis/Chief Complaint Date of Admission Oct 07, 2021 at 14:52 Date of Discharge Discharge Date: Oct 09, 2021 Admission Diagnosis PNA UTI Primary Care Peng Cueva MD Discharge Diagnosis (1) Acute kidney injury superimposed on CKD Status: Acute (2) Pneumonia of left lower lobe due to infectious organism Status: Acute (3) Hypocalcemia Status: Acute (4) Hypomagnesemia Status: Acute (5) Cystitis without hematuria Status: Acute (6) Anemia Status: Acute Discharge Summary Discharge Physical Exam Allergies: Coded Allergies: aspirin (Verified Allergy, Unknown, 08/21/05) diazepam (Verified Allergy, Unknown, 08/21/05) ibuprofen (Verified Allergy, Unknown, 08/21/05) phenobarbital (Verified Allergy, Unknown, 08/21/05) Vitals & I&Os Vital Signs Date Time Temp Pulse Resp B/P (MAP) Pulse Ox O2 Delivery O2 Flow Rate FiO2 10/09/21 12:16 10/09/21 08:42 36.5 65 18 96 Room Air 10/08/21 11:57 2.00 General Appearance: No Apparent Distress, Chronically ill Cardiovascular: Regular Rate, Rhythm Neurologic/Psychiatric: Alert, Oriented x3 Hospital Course Patient was admitted to the hospital secondary to multiple electrolyte abnormalities in conjunction with anemia and CKD. She was given 1 unit packed red blood cells which improved her hemoglobin. Her electrolytes were replaced. She was also found to have pneumonia and was treated with IV antibiotics. She was able to be discharged back home to her group home in stable improved condition to follow-up with her primary care physician, Dr. Cueva. Labs (last 24 hrs) Microbiology 10/07/21 Blood Culture - Final, Complete Staph, Coag Neg (EDUCATION REVIEWER) 10/07/21 Urine Culture - Final, Complete Mixed Bacterial [place] Klebsiella aerogenes Susceptibility To Follow 10/07/21 Gram Stain - Final, Complete 10/07/21 Sputum Culture - Final, Complete Usual upper respiratory [place] Patient resulted labs reviewed. Pending Labs Imaging: Reviewed Imaging Report Discussion & Recommendations Discharge Planning: >30 minutes discharge planning Discharge Home Medications: Active Scripts Active Reported Nystatin 100,000 Unit/Gram Oint...g. 1 Applic TP Q6H PRN APPLY TO OPAL/BUTTOCK AREA Calmoseptine Ointment (Menthol/Lanolin/Calamine/Znox) 0.44 %-20.6 % Oint 1 Applic TP DAILY PRN APPLY TO BUTTOCKS Calmoseptine Ointment (Menthol/Lanolin/Calamine/Znox) 0.44 %-20.6 % Oint 1 Applic TP BID APPLY TO BUTTOCKS Biofreeze (Menthol) 4 % Gel..ml. 1 Applic TP BID APPLY TO THE RIGHT SIDE OF THE NECK Tussin Dm Syrup (Guaifenesin/Dextromethorphan) 100 Mg-10 Mg/5 Ml Syrup 10 Ml PO Q4H PRN Miralax (Polyethylene Glycol 3350) 17 Gram Powd.pack 17 Gm PO Q12H PRN Maalox Advanced Suspension (Mag Hydrox/Aluminum Hyd/Simeth) 200 Mg-200 Mg-20 Mg/5 Ml Oral.susp 30 Ml PO Q4H PRN Loperamide (Loperamide HCl) 2 Mg Capsule 2 Mg PO Q4H PRN MDD 8 CAPS Hydrocodone-Acetamin 5-325 mg (Hydrocodone/Acetaminophen) 5 Mg-325 Mg Tablet 1 Tab PO Q6H PRN Tylenol (Acetaminophen) 325 Mg Tablet 650 Mg PO Q4H PRN Ativan (Lorazepam) 0.5 Mg Tablet 0.5 Mg PO TID Tramadol HCl 50 Mg Tablet 100 Mg PO HS TAKES 2 (50MG) TABS Hydrocodone-Acetamin 5-325 mg (Hydrocodone/Acetaminophen) 5 Mg-325 Mg Tablet 1 Tab PO DAILY Proair Respiclick (Albuterol Sulfate) 90 Mcg Aer.pow.ba 2 Puff IH Q4H PRN Cephalexin 500 Mg Capsule 500 Mg PO TID Phenytoin Sodium Extended 100 Mg Capsule 100 Mg PO BID [place] (Sodium Chloride) 0.65 % [place] 1 [place] NSEACH BID Flovent Hfa 110 mcg (Fluticasone Propionate) 110 Mcg/Actuation Aero 2 Puff IH BID Ferrous Sulfate 325 Mg (65 Mg Iron) Tablet 325 Mg PO BID Cyclobenzaprine HCl 10 Mg Tablet 10 Mg PO BID Amiodarone HCl 400 Mg Tablet 200 Mg PO BID TAKES OF A 400MG TAB Cetirizine HCl 10 Mg Tablet 10 Mg PO DAILY Azithromycin 250 Mg Tablet 250 Mg PO DAILY FIRST DOSE 10-07-2021 #6/5 DAY SUPPLY Vitamin B-12 (Cyanocobalamin (Vitamin B-12)) 1,000 Mcg Tablet 1,000 Mcg PO DAILY One Daily Plus Minerals (Multivitamin with Minerals) 1 Each Tablet 1 Each PO DAILY Simvastatin 20 Mg Tablet 20 Mg PO HS Sertraline HCl 50 Mg Tablet 50 Mg PO DAILY Oxybutynin Chloride 5 Mg Tablet 5 Mg PO DAILY Montelukast Sodium 10 Mg Tablet 10 Mg PO DAILY Miralax (Polyethylene Glycol 3350) 17 Gram Powd.pack 17 Gm PO DAILY Metolazone 2.5 Mg Tablet 2.5 Mg PO DAILY Lisinopril 2.5 Mg Tablet 2.5 Mg PO DAILY HOLD IS SBP IS LESS THAN 100 Levothyroxine Sodium 88 Mcg Tablet 88 Mcg PO DAILY Latuda (Lurasidone HCl) 40 Mg Tablet 40 Mg PO 1700 ADMINISTER WITH FOOD Furosemide 20 Mg Tablet 20 Mg PO DAILY Donepezil HCl 10 Mg Tablet 10 Mg PO DAILY Dexamethasone 6 Mg Tablet 6 Mg PO DAILY START DATE 10-07-2021 X 8 DAYS, LAST DOSE 10-15-2021 Aripiprazole 10 Mg Tablet 10 Mg PO DAILY Instructions to patient/family Please see electronic discharge instructions given to patient. Problem Qualifiers (1) Anemia: Anemia type: unspecified type Qualified Codes: D64.9 - Anemia, unspecified ONEIDA BLANCHARD MD Oct 09, 2021 09:25
== END 2021-10-09 12:16 | DRG 682 ==
LOC: EDUNIT# 10:48 → ER FS 10:50 → 4TH 14:52
PROVIDERS: ADMIT Family Medicine; ATTEND Family Medicine
DX: N17.9 Acute kidney failure, unspecified (principal); J18.9 Pneumonia, unspecified organism; N39.0 Urinary tract infection, site not specified; J44.0 Chronic obstructive pulmonary disease with (acute) lower respiratory infection; I48.20 Chronic atrial fibrillation, unspecified; E83.42 Hypomagnesemia; E83.51 Hypocalcemia; F31.9 Bipolar disorder, unspecified; F20.9 Schizophrenia, unspecified; E03.9 Hypothyroidism, unspecified; N18.9 Chronic kidney disease, unspecified; I12.9 Hypertensive chronic kidney disease with stage 1 through stage 4 chronic kidney disease, or unspecified chronic kidney disease; D63.1 Anemia in chronic kidney disease; Z99.81 Dependence on supplemental oxygen; Z20.822 Contact with and (suspected) exposure to COVID-19
CPT/HCPCS: 36415; 51701; 71045; 80048; 80053; 81000; 82805; 83605; 83735; 83880; 85025; 85027; 86141; 86850; 86900; 86901; 86920; 87040; 87070; 87077; 87088; 87186; 87205; 87636; 93005; 94640; 94760

== ENCOUNTER → 2021-10-16 | Outpatient (CLI) | payer MEDICARE, MEDICAID ==
[~2021-10-16] MED LIST: ACET325T38 PO; ACHD5005 PO; ALBU90AE IH; AMIO400T5 PO; ARIP10TA55 PO; AZIT250T12 PO; CEPH500C PO; CETI10TA17 PO; CYAN-41 PO; CYCL10TA25 PO; DEXA6TAB PO; DONE10TA41 PO; FERR325T18 PO; FLT11013 IH; FURO20TA4 PO; GUAI118S37 PO; LEVO88TA54 PO; LISI2.5T13 PO; LOPE2CAP PO; LORA-404 PO; LURA40TA2 PO; MAG355OR16 PO; MENT118G TP; MENT71OI TP; METO2.5T PO; MONT-40 PO; MULT-422 PO; NYST15OI13 TP; ONDA-105 PO; OXYB5TAB13 PO; PHEN100C11 PO; POLY17PO6 PO; SERT-413 PO; SIMV20TA26 PO; SODI104S3 NSEACH; TRM50T PO
[2021-10-16 16:23] LABS: HEMATOCRIT 29 % (35-52); HEMOGLOBIN 9.4 g/dL (11.5-16.0); MEAN CORPUSCULAR HEMOGLOBIN 30 pg (25-34); MEAN CORPUSCULAR HGB CONC 32 g/dL (32-36); MEAN CORPUSCULAR VOLUME 93 fL (80-99); MEAN PLATELET VOLUME 10.3 fL (9.0-12.2); PLATELET COUNT 371 10^3/uL (130-400); WHITE BLOOD COUNT 9.4 10^3/uL (4.3-11.0)
[2021-10-16 16:42] LABS: CREATININE SERUM 2.17 MG/DL (0.60-1.30); POTASSIUM 5.8 MMOL/L (3.6-5.0)
== END ==
PROVIDERS: ATTEND Pediatrics
DX: N18.9 Chronic kidney disease, unspecified (principal); D63.1 Anemia in chronic kidney disease
CPT/HCPCS: 80048; 85027

== ENCOUNTER → 2021-10-26 | Outpatient (CLI) | payer MEDICARE, MEDICAID ==
[2021-10-26 18:23] LABS: POTASSIUM 4.4 MMOL/L (3.6-5.0)
[2021-10-26 18:24] LABS: ALBUMIN 3.4 GM/DL (3.2-4.5); BILIRUBIN,TOTAL 0.2 MG/DL (0.1-1.0); CREATININE SERUM 2.71 MG/DL (0.60-1.30); TOTAL PROTEIN 6.3 GM/DL (6.4-8.2)
[2021-10-26 18:31] LABS: CALCIUM 5.9 MG/DL (8.5-10.1)
== END ==
PROVIDERS: ATTEND Pediatrics
DX: E56.9 Vitamin deficiency, unspecified (principal)
CPT/HCPCS: 80053

== ENCOUNTER → 2021-10-27 | Outpatient (CLI) | payer MEDICARE, MEDICAID ==
[2021-10-27 10:16] LABS: HEMATOCRIT 23 % (35-52); HEMOGLOBIN 7.4 g/dL (11.5-16.0); MEAN CORPUSCULAR HEMOGLOBIN 30 pg (25-34); MEAN CORPUSCULAR HGB CONC 32 g/dL (32-36); MEAN CORPUSCULAR VOLUME 94 fL (80-99); MEAN PLATELET VOLUME 10.4 fL (9.0-12.2); PLATELET COUNT 224 10^3/uL (130-400); WHITE BLOOD COUNT 8.2 10^3/uL (4.3-11.0)
== END ==
LOC: LAB FS 10:08
PROVIDERS: ATTEND Pediatrics
DX: E56.9 Vitamin deficiency, unspecified (principal)
CPT/HCPCS: 83970; 84100; 85027

== ENCOUNTER 2021-10-30 13:40 | Inpatient (IN) | payer MEDICARE, MEDICAID ==
[~2021-10-30] VITALS: Ht 170 cm; Wt 90.4 kg
--- NOTE | 2021-10-30 13:47 | ED General ---
General Stated Complaint: LOW HEMOGLOBIN History of Present Illness Date Seen by Provider: Oct 30, 2021 Time Seen by Provider: 13:47 Initial Comments 81-year-old female with PMH of Alzheimer's dementia/anemia of chronic disease/COPD/HTN/GERD/schizophrenia/A. fib/seizure disorder/hypothyroidism/CHF, is brought in by EMS from the long-term for labs drawn yesterday which resulted in low Hb . [place] staff also stated pt had diarrhea yesterday and her neighbor is positive for COVID. Pt appears pale and lethargic in the ER. Patien t complains of abdominal pain as well. Denies chest pain, nausea and vomiting, SOB, palpitations, cough. Allergies and Home Medications Allergies Coded Allergies: aspirin (Verified Allergy, Unknown, 08/21/05) diazepam (Verified Allergy, Unknown, 08/21/05) ibuprofen (Verified Allergy, Unknown, 08/21/05) phenobarbital (Verified Allergy, Unknown, 08/21/05) Patient Home Medication List Home Medication List Reviewed: Yes Acetaminophen (Tylenol) 325 Mg Tablet, 650 MG PO Q4H PRN for PAIN-MILD (1-4), (Reported) Entered as Reported by: CANDELARIO GARCIA on 10/08/21 1253 Albuterol Sulfate (Proair Respiclick) 90 Mcg Aer.pow.ba, 2 PUFF IH Q4H PRN for SHORTNESS OF BREATH, (Reported) Entered as Reported by: CANDELARIO GARCIA on 10/08/21 1253 Amiodarone HCl (Amiodarone HCl) 400 Mg Tablet, 200 MG PO BID, (Reported) Entered as Reported by: CANDELARIO GARCIA on 10/08/21 1253 Aripiprazole (Aripiprazole) 10 Mg Tablet, 10 MG PO DAILY, (Reported) Entered as Reported by: CANDELARIO GARCIA on 10/08/21 1253 Azithromycin (Azithromycin) 250 Mg Tablet, 250 MG PO DAILY, (Reported) Entered as Reported by: CANDELARIO GARCIA on 10/08/21 1253 Cephalexin (Cephalexin) 500 Mg Capsule, 500 MG PO TID, (Reported) Entered as Reported by: CANDELARIO GARCIA on 10/08/21 1253 Cetirizine HCl (Cetirizine HCl) 10 Mg Tablet, 10 MG PO DAILY, (Reported) Entered as Reported by: CANDELARIO GARCIA on 10/08/21 125 Cyanocobalamin (Vitamin B-12) (Vitamin B-12) 1,000 Mcg Tablet, 1,000 MCG PO DAILY, (Reported) Entered as Reported by: CANDELARIO GARCIA on 10/08/21 125 Cyclobenzaprine HCl (Cyclobenzaprine HCl) 10 Mg Tablet, 10 MG PO BID, (Reported) Entered as Reported by: CANDELARIO GARCIA on 10/08/21 125 Dexamethasone (Dexamethasone) 6 Mg Tablet, 6 MG PO DAILY, (Reported) Entered as Reported by: CANDELARIO GARCIA on 10/08/21 125 Donepezil HCl (Donepezil HCl) 10 Mg Tablet, 10 MG PO DAILY, (Reported) Entered as Reported by: CANDELARIO GARCIA on 10/08/21 125 Ferrous Sulfate (Ferrous Sulfate) 325 Mg (65 Mg Iron) Tablet, 325 MG PO BID, (Reported) Entered as Reported by: CANDELARIO GARCIA on 10/08/21 125 Fluticasone Propionate (Flovent Hfa 110 mcg) 110 Mcg/Actuation Aero, 2 PUFF IH BID, (Reported) Entered as Reported by: CANDELARIO GARCIA on 10/08/21 125 Furosemide (Furosemide) 20 Mg Tablet, 20 MG PO DAILY, (Reported) Entered as Reported by: CANDELARIO GARCIA on 10/08/21 125 Guaifenesin/Dextromethorphan (Tussin Dm Syrup) 100 Mg-10 Mg/5 Ml Syrup, 10 ML PO Q4H PRN for COUGH, (Reported) Entered as Reported by: CANDELARIO GARCIA on 10/08/21 125 Hydrocodone/Acetaminophen (Hydrocodone-Acetamin 5-325 mg) 5 Mg-325 Mg Tablet, 1 TAB PO DAILY, (Reported) Entered as Reported by: CANDELARIO GARCIA on 10/08/21 125 Hydrocodone/Acetaminophen (Hydrocodone-Acetamin 5-325 mg) 5 Mg-325 Mg Tablet, 1 TAB PO Q6H PRN for PAIN-MODERATE (5-7), (Reported) Entered as Reported by: CANDELARIO GARCIA on 10/08/21 125 Levothyroxine Sodium (Levothyroxine Sodium) 88 Mcg Tablet, 88 MCG PO DAILY, (Reported) Entered as Reported by: CANDELARIO GARCIA on 10/08/21 125 Lisinopril (Lisinopril) 2.5 Mg Tablet, 2.5 MG PO DAILY, (Reported) Entered as Reported by: CANDELARIO GARCIA on 10/08/21 125 Loperamide HCl (Loperamide) 2 Mg Capsule, 2 MG PO Q4H PRN for DIARRHEA, (Reported) Entered as Reported by: CANDELARIO GARCIA on 10/08/21 125 Lorazepam (Ativan) 0.5 Mg Tablet, 0.5 MG PO TID, (Reported) Entered as Reported by: CANDELARIO GARCIA on 10/08/21 125 Lurasidone HCl (Latuda) 40 Mg Tablet, 40 MG PO 1700, (Reported) Entered as Reported by: CANDELARIO GARCIA on 10/08/21 125 Mag Hydrox/Aluminum Hyd/Simeth (Maalox Advanced Suspension) 200 Mg-200 Mg-20 Mg/5 Ml Oral.susp, 30 ML PO Q4H PRN for INDIGESTION, (Reported) Entered as Reported by: CANDELARIO GARCIA on 10/08/21 125 Menthol (Biofreeze) 4 % Gel..ml., 1 APPLIC TP BID, (Reported) Entered as Reported by: CANDELARIO GARCIA on 10/08/211252 Menthol/Lanolin/Calamine/Znox (Calmoseptine Ointment) 0.44 %-20.6 % Oint, 1 APPLIC TP BID, (Reported) Entered as Reported by: CANDELARIO GARCIA on 10/08/211252 Menthol/Lanolin/Calamine/Znox (Calmoseptine Ointment) 0.44 %-20.6 % Oint, 1 APPLIC TP DAILY PRN for REDNESS, (Reported) Entered as Reported by: CANDELARIO GARCIA on 10/08/21 125 Metolazone (Metolazone) 2.5 Mg Tablet, 2.5 MG PO DAILY, (Reported) Entered as Reported by: CANDELARIO GARCIA on 10/08/21 125 Montelukast Sodium (Montelukast Sodium) 10 Mg Tablet, 10 MG PO DAILY, (Reported) Entered as Reported by: CANDELARIO GARCIA on 10/08/21 125 Multivitamin with Minerals (One Daily Plus Minerals) 1 Each Tablet, 1 EACH PO DAILY, (Reported) Entered as Reported by: CANDELARIO GARCIA on 10/08/21 125 Nystatin (Nystatin) 100,000 Unit/Gram Oint...g., 1 APPLIC TP Q6H PRN for RASH, (Reported) Entered as Reported by: CANDELARIO GARCIA on 10/08/21 125 Oxybutynin Chloride (Oxybutynin Chloride) 5 Mg Tablet, 5 MG PO DAILY, (Reported) Entered as Reported by: CANDELARIO GARCIA on 10/08/21 125 Phenytoin Sodium Extended (Phenytoin Sodium Extended) 100 Mg Capsule, 100 MG PO BID, (Reported) Entered as Reported by: CANDELARIO GARCIA on 10/08/21 125 Polyethylene Glycol 3350 (Miralax) 17 Gram Powd.pack, 17 GM PO DAILY, (Reported) Entered as Reported by: CANDELARIO GARCIA on 10/08/21 125 Polyethylene Glycol 3350 (Miralax) 17 Gram Powd.pack, 17 GM PO Q12H PRN for CONSTIPATION-2ND LINE, (Reported) Entered as Reported by: CANDELARIO GARCIA on 10/08/21 125 Sertraline HCl (Sertraline HCl) 50 Mg Tablet, 50 MG PO DAILY, (Reported) Entered as Reported by: CANDELARIO GARCIA on 10/08/21 125 Simvastatin (Simvastatin) 20 Mg Tablet, 20 MG PO HS, (Reported) Entered as Reported by: CANDELARIO GARCIA on 10/08/21 125 Sodium Chloride ([place]) 0.65 % [place], 1 SPRAY NSEACH BID, (Reported) Entered as Reported by: CANDELARIO GARCIA on 10/08/21 125 Tramadol HCl (Tramadol HCl) 50 Mg Tablet, 100 MG PO HS, (Reported) Entered as Reported by: CANDELARIO GARCIA on 10/08/21 125 Review of Systems Review of Systems Constitutional: no symptoms reported EENTM: no symptoms reported Respiratory: no symptoms reported Cardiovascular: no symptoms reported Gastrointestinal: abdominal pain, diarrhea Genitourinary: no symptoms reported Musculoskeletal: no symptoms reported Skin: no symptoms reported Psychiatric/Neurological: No Symptoms Reported Hematologic/Lymphatic: No Symptoms Reported Immunological/Allergic: no symptoms reported Past [place] Hx Past Medical History Surgery/Hospitalization HX: COPD, Hypertension, Chronic Atrial Fibrillation, Hypothyroid, Bipolar/Schizophrenia, Chronic Anemia, Seizures, Type II Diabetes, Chronic hypocalcemia Family Medical History No Pertinent Family Hx Physical Exam Vital Signs Vital Signs - First Documented 10/30/21 13:55 Temp 37.2 Pulse 80 Resp 18 B/P (MAP) 138/56 (83) Pulse Ox 93 O2 Delivery Nasal Cannula Capillary Refill : Height, Weight, BMI Height: '" Weight: lbs. oz. kg; 23.47 BMI Method: General Appearance: No Apparent Distress HEENT: PERRL/EOMI, Normal ENT Inspection, Pharynx Normal Neck: Full Range of Motion, Normal Inspection, Non Tender, Supple Respiratory: Chest Non Tender, Lungs Clear, Normal Breath Sounds, No Accessory Muscle Use, No Respiratory Distress Cardiovascular: Regular Rate, Rhythm, Other (pedal edema present bilaterally) Gastrointestinal: Normal Bowel Sounds, No Organomegaly, Soft, Tenderness (appears to be diffuse but more in the ivan-umbilical area) Back: Normal Inspection, No CVA Tenderness, No Vertebral Tenderness Extremity: Normal Range of Motion Neurologic/Psychiatric: Alert, Oriented x3, No Motor/Sensory Deficits, Normal Mood/Affect Skin: Normal Color, Warm/Dry Lymphatic: No Adenopathy Focused Exam Lactate Level 10/30/21 13:50: Lactic Acid Level 0.58 Lactic Acid Level Laboratory Tests Test 10/30/21 13:50 Lactic Acid Level 0.58 MMOL/L (0.50-2.00) Progress/Results/Core Measures Suspected Sepsis SIRS Temperature: Pulse: Respiratory Rate: Laboratory Tests 10/30/21 13:50: White Blood Count 5.3 Blood Pressure / Mean: 10/30/21 13:50: Lactic Acid Level 0.58 Laboratory Tests 10/30/21 13:50: Creatinine 2.76H, INR Comment 1.1, Platelet Count 197, Total Bilirubin 0.2 Results/Orders Lab Results Laboratory Tests Test 10/30/21 13:50 10/30/21 14:20 10/30/21 14:25 10/30/21 14:40 Range/Units White Blood Count 5.3 4.3-11.0 10^3/uL Red Blood Count 2.21 L 3.80-5.11 10^6/uL Hemoglobin 6.7 *L 11.5-16.0 g/dL Hematocrit 21 L 35-52 % Mean Corpuscular Volume 93 80-99 fL Mean Corpuscular Hemoglobin 30 25-34 pg Mean Corpuscular Hemoglobin Concent 33 32-36 g/dL Red Cell Distribution Width 12.9 10.0-14.5 % Platelet Count 197 130-400 10^3/uL Mean Platelet Volume 9.5 9.0-12.2 fL Immature Granulocyte % (Auto) 0 % Neutrophils (%) (Auto) 59 42-75 % Lymphocytes (%) (Auto) 26 12-44 % Monocytes (%) (Auto) 11 0-12 % Eosinophils (%) (Auto) 3 0-10 % Basophils (%) (Auto) 0 0-10 % Neutrophils # (Auto) 3.1 1.8-7.8 10^3/uL Lymphocytes # (Auto) 1.4 1.0-4.0 10^3/uL Monocytes # (Auto) 0.6 0.0-1.0 10^3/uL Eosinophils # (Auto) 0.2 0.0-0.3 10^3/uL Basophils # (Auto) 0.0 0.0-0.1 10^3/uL Immature Granulocyte # (Auto) 0.0 0.0-0.1 10^3/uL Prothrombin Time 14.1 12.2-14.7 SEC INR Comment 1.1 0.8-1.4 Activated Partial Thromboplast Time 34 24-35 SEC D-Dimer 3.62 H 0.00-0.49 UG/ML Sodium Level 139 135-145 MMOL/L Potassium Level 4.0 3.6-5.0 MMOL/L Chloride Level 100 98-107 MMOL/L Carbon Dioxide Level 24 21-32 MMOL/L Anion Gap 15 H 5-14 MMOL/L Blood Urea Nitrogen 57 H 7-18 MG/DL Creatinine 2.76 H 0.60-1.30 MG/DL Estimat Glomerular Filtration Rate 17 BUN/Creatinine Ratio 21 Glucose Level 91 70-105 MG/DL Lactic Acid Level 0.58 0.50-2.00 MMOL/L Calcium Level 5.8 *L 8.5-10.1 MG/DL Corrected Calcium 6.6 L 8.5-10.1 MG/DL Magnesium Level 0.9 *L 1.6-2.4 MG/DL Total Bilirubin 0.2 0.1-1.0 MG/DL Aspartate Amino Transf (AST/SGOT) 11 5-34 U/L Alanine Aminotransferase (ALT/SGPT) 9 0-55 U/L Alkaline Phosphatase 119 40-136 U/L Troponin I < 0.30 <0.30 NG/ML C-Reactive Protein 11.89 H <0.50 MG/DL Pro-B-Type Natriuretic Peptide 4750.0 H <450.0 PG/ML Total Protein 6.7 6.4-8.2 GM/DL Albumin 3.0 L 3.2-4.5 GM/DL Influenza Type A (RT-PCR) Not Detected Not Detecte Influenza Type B (RT-PCR) Not Detected Not Detecte SARS-CoV-2 RNA (RT-PCR) Not Detected Not Detecte Stool Occult Blood Immunoassay NEGATIVE NEGATIVE Urine Color PALE YELLOW Urine Clarity CLOUDY Urine pH 6.5 5-9 Urine Specific [place] 1.010 L 1.016-1.022 Urine Protein TRACE H NEGATIVE Urine Glucose (UA) NEGATIVE NEGATIVE Urine Ketones NEGATIVE NEGATIVE Urine Nitrite NEGATIVE NEGATIVE Urine Bilirubin NEGATIVE NEGATIVE Urine Urobilinogen 0.2 < = 1.0 MG/DL Urine Leukocyte Esterase 3+ H NEGATIVE Urine RBC (Auto) TRACE-I H NEGATIVE Urine RBC NONE /HPF Urine WBC >100 H /HPF Urine Squamous Epithelial Cells RARE /HPF Urine Crystals NONE /LPF Urine Bacteria LARGE H /HPF Urine Casts NONE /LPF Urine Mucus NEGATIVE /LPF Urine Culture Indicated YES My Orders Orders - PADMINI LEWIS MD Cbc With Automated Diff (10/30/21 13:48) Comprehensive Metabolic Panel (10/30/21 13:48) Fibrin Degradation Products (10/30/21 13:48) Lactic Acid Analyzer (10/30/21 13:48) Magnesium (10/30/21 13:48) Protime With Inr (10/30/21 13:48) Partial Thromboplastin Time (10/30/21 13:48) Ua Culture If Indicated (10/30/21 13:48) Blood Culture (10/30/21 13:48) Probnp Fs (10/30/21 13:48) Crp Fs (10/30/21 13:48) Troponin I Fs (10/30/21 13:48) Chest 1 View Ap/Pa Only (10/30/21 13:57) Occult Blood Stool (10/30/21 13:57) Covid 19 Inhouse Test (10/30/21 14:13) Influenza A And B By Pcr (10/30/21 14:13) Fecal Occult Bedside (10/30/21 14:13) Ct Abdomen/Pelvis Wo (10/30/21 13:56) Urine Culture (10/30/21 14:40) Magnesium 1 Gm/100 Ml Ivpb (Magnesium Nair (10/30/21 15:15) Bumetanide Injection (Bumex Injection) (10/30/21 15:15) Magnesium 1 Gm/100 Ml Ivpb (Magnesium Nair (10/30/21 15:27) Bumetanide Injection (Bumex Injection) (10/30/21 15:28) Piperacillin Sodium/Tazobactam (Zosyn Vi (10/30/21 15:45) Vancomycin Injection (Vancomycin Injecti (10/30/21 15:45) Vancomycin Injection (Vancomycin Injecti (10/30/21 15:40) Piperacillin Sodium/Tazobactam (Zosyn Vi (10/30/21 15:40) Ns (Ivpb) (Sodium Chloride 0.9%) (10/30/21 15:40) Ns (Ivpb) (Sodium Chloride 0.9% Ivpb Bag (10/30/21 15:41) Medications Given in ED Current Medications Medications Dose Ordered Sig/Jay Route Start Time Stop Time Status Last Admin Dose Admin Bumetanide 1 mg ONCE ONCE IV 10/30/21 15:15 10/30/21 15:16 UNV 10/30/21 15:34 1 MG Magnesium Sulfate/ Dextrose 100 ml @ 100 mls/hr ONCE ONCE IV 10/30/21 15:15 10/30/21 16:14 10/30/21 15:30 100 MLS/HR Piperacillin Sod/ Tazobactam Sod 4.5 gm/Sodium Chloride 100 ml @ 200 mls/hr ONCE ONCE IV 10/30/21 15:45 10/30/21 16:14 UNV 10/30/21 15:51 200 MLS/HR Vital Signs/I&O 10/30/21 13:55 Temp 37.2 Pulse 80 Resp 18 B/P (MAP) 138/56 (83) Pulse Ox 93 O2 Delivery Nasal Cannula Capillary Refill : Progress Note : Progress Note 1. ACUTE ON CHRONIC ANEMIA: - Hb is 6.7, Hct is 21 - Occult blood is negative - CT ABD: - Needs to be transferred for blood transfusion, no blood in [place] ER 2. UTI with HYDROURETERONEPHRITIS: - UA is positive for leukocyte esterase, WBC, bacteria, RBCs - ZOSYN iv will cover this 3. PNEUMONIA/ EPYEMA: - Vanc & Zosyn iv - WIll need transfer to ICU, and will need surgical / IR assessment for drainage 4. HYPOMAGNESEMIA: - s. Mg is 0.9 - Mag sulfate iv STAT given 5. ELEVATED D-DIMER: - D-dimer is 3.62 - Cannot do CTA chest due to elevated creatinine level. - Will need to transfer to do VQ scan, and will need u/s dopplers to rule out DVT 6. ACUTE KIDNEY INJURY: - s. creatinine is 2.76, BUN is 57 - Unable to give contrast with these numbers 7. ABDOMINAL PAIN: ACUTE COLITIS - CT ABD: Bowel wall thickening in the descending and sigmoid colon suggestive of colitis. Fatty infiltration is noted in the bowel wall of the ascending and proximal transverse colon suggestive of prior colitis. No bowel obstruction. No free fluid or free air. Jbinctpx-nt-ivrzke bilateral hydroureteronephrosis with moderate distention of the urinary bladder. No obstructing calculi are seen. There is bladder wall thickening which may suggest cystitis. Small left-sided pleural effusion with thickening of the pleura. This appearance can be seen with chronic pleural effusion or empyema. Additional left basilar opacities are present, which could represent atelectasis or infection. Distended gallbladder with small gallstones layering in the neck of the gallbladder. If indicated, consider liver/gallbladder ultrasound to further evaluate. - COVID Test negative 8. BILATERAL CELLULITIS: - Based on clinical exam - Blood cultures sent - CRP elevated: 11.89 - Will start on Zosyn iv and Vanco - Will need u/s dopplers to rule out DVT 9. ACUTE CHF EXACERBATION: - BNP is 4750 - s. Albumin is 3.0 - Bumetanide 1mg iv STAT - Would benefit from Cardiology consult Diagnostic Imaging Diagonstic Imaging: Xray, CT Plain Films/CT/US/NM/MRI: chest, abdomen Comments [facility], [place] NAME: VADIM SHARMA [facility] REC#: [id number] PT STATUS: REG ER : 1940 PHYSICIAN: PADMINI LEWIS MD ADMIT DATE: 10/30/21/ER FS Signed Date of Exam:10/30/21 CT ABDOMEN/PELVIS WO PROCEDURE: CT abdomen and pelvis without contrast. TECHNIQUE: Multiple contiguous axial images were obtained through the abdomen and pelvis without the use of intravenous contrast. Auto Exposure Controls were utilized during the CT exam to meet ALARA standards for radiation dose reduction. INDICATION: Abdominal pain. Diarrhea. COMPARISON: None. FINDINGS: The heart is prominent. Small pleural effusion is seen on the left with thickening of the pleura. Consolidative opacities are visualized in the left lung base. There is trace right-sided pleural effusion with right basilar opacities. Bilateral wvjnzapb-qk-eqtpsm hydroureteronephrosis is visualized with moderate distention of the urinary bladder. No obstructing calculi are seen. There is bladder wall thickening. The gallbladder is distended. Small gallstones are layering within the neck of the gallbladder. The liver, spleen, pancreas, and adrenal glands have a normal noncontrast CT appearance. There is no pathologically enlarged mesenteric or retroperitoneal adenopathy. The bowel loops are nondilated. There is fatty infiltration of the bowel wall of the ascending and proximal transverse colon. Mild bowel wall thickening is seen in the descending and sigmoid colon. There is no free fluid or free air. No acute osseous abnormalities. There is calcified aortic and iliac atherosclerotic plaque without aneurysm. There is no free air, loculated collection, or adenopathy in the pelvis. IMPRESSION: 1. Bowel wall thickening in the descending and sigmoid colon, suggestive of colitis. Fatty infiltration is noted in the bowel wall of the ascending and proximal transverse colon suggestive of prior colitis. No bowel obstruction. No free fluid or free air. 2. Xobqusaf-rc-rreyss bilateral hydroureteronephrosis with moderate distention of the urinary bladder. No obstructing calculi are seen. There is bladder wall thickening which may suggest cystitis. Recommend correlation with UA. Tan catheterization may also be indicated to decompress. 3. Small left-sided pleural effusion with thickening of the pleura. This appearance can be seen with chronic pleural effusion or empyema. Additional left basilar opacities are present, which could represent atelectasis or infection. 4. Distended gallbladder with small gallstones layering in the neck of the gallbladder. If indicated, consider liver/gallbladder ultrasound to further evaluate. Dictated by: Dictated on workstation # [id number] Dict: 10/30/21 1459 Trans: 10/30/21 1520 [id number] Interpreted by: PATRICE WOODY DO Electronically signed by: PATRICE WOODY DO 10/30/21 1520 [facility], [place] NAME: VADIM SHARMA [facility] REC#: [id number] PT STATUS: REG ER : 1940 PHYSICIAN: PADMINI LEWIS MD ADMIT DATE: 10/30/21/ER FS Draft Date of Exam:10/30/21 CHEST 1 VIEW AP/PA ONLY CLINICAL INDICATION: Patient with low hemoglobin. EXAM: Portable chest x-ray upright view. COMPARISON: Chest x-ray dated 10/07/2021. FINDINGS: There is stable consolidation involving left lung base. Left pleural effusion cannot be completely excluded. There is no pneumothorax. Pulmonary vasculature and cardiac silhouette within normal limits. There are degenerative spurs involving the thoracic spine. IMPRESSION: Stable consolidation of the left lung base which may represent atelectasis versus infiltrate. There is also concern for left pleural effusion. Chest x-ray PA and lateral views may help better evaluate. Dictated on workstation # [id number] Dict: 10/30/21 1407 Trans: 10/30/21 1414 CVB [id number] Interpreted by: DMITRY MORILLO MD Electronically signed by: Departure Communication (Admissions) Time/Spoke to Admitting Phy: 16:[address] Ortiz, will admit to ICU Impression Primary Impression: Acute anemia Additional Impressions: CAP (community acquired pneumonia) Qualified Codes: J18.9 - Pneumonia, unspecified organism Empyema Acute exacerbation of CHF (congestive heart failure) Qualified Codes: I50.9 - Heart failure, unspecified Elevated d-dimer Cellulitis of lower extremity Qualified Codes: L03.119 - Cellulitis of unspecified part of limb Hypomagnesemia Acute cystitis with hematuria Disposition: 30 STILL A PATIENT Condition: Stable Admissions Decision to Admit Reason: Admit from ER (General) Decision to Admit/Date: Oct 30, 2021 Time/Decision to Admit Time: 15:00 Transfer Transfer Reason: Exceeds level of care Time Spoke to Accepting Phy: 16:00 Transfer Facility: [facility] Method of Transfer: EMS Departure-Patient Inst. Referrals: SHOSHANA SANDRA MD (PCP) Primary Care Physician PADMINI LEWIS MD Oct 30, 2021 13:47
[2021-10-30 14:02] LABS: BASOPHILS % (AUTO) 0 % (0-10); EOSINOPHILS # (AUTO) 0.2 10^3/uL (0.0-0.3); EOSINOPHILS % (AUTO) 3 % (0-10); HEMATOCRIT 21 % (35-52); LYMPHOCYTES # (AUTO) 1.4 10^3/uL (1.0-4.0); LYMPHOCYTES % (AUTO) 26 % (12-44); MEAN CORPUSCULAR HEMOGLOBIN 30 pg (25-34); MEAN CORPUSCULAR HGB CONC 33 g/dL (32-36); MEAN CORPUSCULAR VOLUME 93 fL (80-99); MEAN PLATELET VOLUME 9.5 fL (9.0-12.2); MONOCYTES # (AUTO) 0.6 10^3/uL (0.0-1.0); MONOCYTES % (AUTO) 11 % (0-12); NEUTROPHILS # (AUTO) 3.1 10^3/uL (1.8-7.8); NEUTROPHILS % (AUTO) 59 % (42-75); PLATELET COUNT 197 10^3/uL (130-400); WHITE BLOOD COUNT 5.3 10^3/uL (4.3-11.0)
[2021-10-30 14:08] LABS: HEMOGLOBIN 6.7 g/dL (11.5-16.0)
--- NOTE | 2021-10-30 14:14 | Diagnostic Imaging Report ---
CLINICAL INDICATION: Patient with low hemoglobin. EXAM: Portable chest x-ray upright view. COMPARISON: Chest x-ray dated 10/07/2021. FINDINGS: There is stable consolidation involving left lung base. Left pleural effusion cannot be completely excluded. There is no pneumothorax. Pulmonary vasculature and cardiac silhouette within normal limits. There are degenerative spurs involving the thoracic spine. IMPRESSION: Stable consolidation of the left lung base which may represent atelectasis versus infiltrate. There is also concern for left pleural effusion. Chest x-ray PA and lateral views may help better evaluate. Dictated by: Dictated on workstation # [id number]
[2021-10-30 14:29] LABS: CARBON DIOXIDE 24 MMOL/L (21-32); CHLORIDE 100 MMOL/L (98-107); SODIUM 139 MMOL/L (135-145)
[2021-10-30 14:30] LABS: BUN/CREATININE RATIO 21; CREATININE SERUM 2.76 MG/DL (0.60-1.30); GFR ESTIMATED 17; GLUCOSE 91 MG/DL (70-105)
[2021-10-30 14:31] LABS: CALCIUM 5.8 MG/DL (8.5-10.1)
[2021-10-30 14:32] LABS: ALANINE AMINOTRANSFERASE 9 U/L (0-55); ALKALINE PHOSPHATASE 119 U/L (40-136); BILIRUBIN,TOTAL 0.2 MG/DL (0.1-1.0); MAGNESIUM 0.9 MG/DL (1.6-2.4); TOTAL PROTEIN 6.7 GM/DL (6.4-8.2)
[2021-10-30 14:36] LABS: FIBRIN DEGRADATION PRODUCTS 3.62 UG/ML (0.00-0.49); INR 1.1 (0.8-1.4); PROTHROMBIN TIME PATIENT 14.1 SEC (12.2-14.7)
[2021-10-30 14:44] LABS: BILIRUBIN,URINE NEGATIVE (NEGATIVE); CLARITY,URINE CLOUDY; GLUCOSE, URINE (UA) NEGATIVE (NEGATIVE); KETONES,URINE NEGATIVE (NEGATIVE); LEUKOCYTE ESTERASE ,URINE 3+ (NEGATIVE); NITRITE,URINE NEGATIVE (NEGATIVE); PH,URINE 6.5 (5-9); PROTEIN,URINE TRACE (NEGATIVE)
[2021-10-30 14:51] LABS: BACTERIA,URINE LARGE /HPF; COLOR,URINE PALE YELLOW; SQUAMOUS EPITHELIAL CELL,UR RARE /HPF; WBC,URINE >100 /HPF
[2021-10-30] MEDS ORDERED: BUMETANIDE 1 MG/4 ML (BUMEX) VIAL IV ONE (15:15)
[2021-10-30] MEDS ORDERED: MAGNESIUM 1 GM/100 ML IVPB 100 ML IV ONE ×2 (15:15→15:27)
--- NOTE | 2021-10-30 15:16 | Diagnostic Imaging Report ---
PROCEDURE: CT abdomen and pelvis without contrast. TECHNIQUE: Multiple contiguous axial images were obtained through the abdomen and pelvis without the use of intravenous contrast. Auto Exposure Controls were utilized during the CT exam to meet ALARA standards for radiation dose reduction. INDICATION: Abdominal pain. Diarrhea. COMPARISON: None. FINDINGS: The heart is prominent. Small pleural effusion is seen on the left with thickening of the pleura. Consolidative opacities are visualized in the left lung base. There is trace right-sided pleural effusion with right basilar opacities. Bilateral alixsqbu-cv-ygwumu hydroureteronephrosis is visualized with moderate distention of the urinary bladder. No obstructing calculi are seen. There is bladder wall thickening. The gallbladder is distended. Small gallstones are layering within the neck of the gallbladder. The liver, spleen, pancreas, and adrenal glands have a normal noncontrast CT appearance. There is no pathologically enlarged mesenteric or retroperitoneal adenopathy. The bowel loops are nondilated. There is fatty infiltration of the bowel wall of the ascending and proximal transverse colon. Mild bowel wall thickening is seen in the descending and sigmoid colon. There is no free fluid or free air. No acute osseous abnormalities. There is calcified aortic and iliac atherosclerotic plaque without aneurysm. There is no free air, loculated collection, or adenopathy in the pelvis. IMPRESSION: 1. Bowel wall thickening in the descending and sigmoid colon, suggestive of colitis. Fatty infiltration is noted in the bowel wall of the ascending and proximal transverse colon suggestive of prior colitis. No bowel obstruction. No free fluid or free air. 2. Rhdgpeal-dw-tpebuf bilateral hydroureteronephrosis with moderate distention of the urinary bladder. No obstructing calculi are seen. There is bladder wall thickening which may suggest cystitis. Recommend correlation with UA. Tan catheterization may also be indicated to decompress. 3. Small left-sided pleural effusion with thickening of the pleura. This appearance can be seen with chronic pleural effusion or empyema. Additional left basilar opacities are present, which could represent atelectasis or infection. 4. Distended gallbladder with small gallstones layering in the neck of the gallbladder. If indicated, consider liver/gallbladder ultrasound to further evaluate. Dictated by: Dictated on workstation # [id number]
[2021-10-30] MEDS ORDERED: BUMETANIDE 2.5 MG/10 ML (BUMEX) VIAL ONE (15:28)
[2021-10-30] MEDS ORDERED: PIPERACILLIN/TAZO 4.5 GM VIAL (ZOSYN) IV ONE (15:40)
[2021-10-30] MEDS ORDERED: VANCOMYCIN 1000 MG/VIAL ONE (15:40)
[2021-10-30] MEDS ORDERED: NS (IVPB) 250 ML ONE (15:40)
[2021-10-30] MEDS ORDERED: NS (IVPB) 100 ML ONE (15:41)
[2021-10-30] MEDS ORDERED: VANCOMYCIN INJECTION 1,000 MG in NS (IVPB) 250 ML IV ONE (15:45)
[2021-10-30] MEDS ORDERED: PIPERACILLIN SODIUM/TAZOBACTAM 4.5 GM in NS (IVPB) 100 ML IV ONE (15:45)
[2021-10-30] MEDS ORDERED: ONDANSETRON 4 MG (ZOFRAN) ORAL DISSOLVE TAB PO PRN (17:45)
[2021-10-30] MEDS ORDERED: diphenhydrAMINE 25 MG TAB (BENADRYL) PO PRN (17:45)
[2021-10-30] MEDS ORDERED: ANTACID SUSP 30 ML UDC (MYLANTA) PO PRN (17:45)
[2021-10-30] MEDS ORDERED: polyethylene glycoL POWDER 17 GM (MIRALAX) PACK PO PRN (17:45)
[2021-10-30] MEDS ORDERED: diphenhydrAMINE 50 MG/ML INJ (BENADRYL) IVP PRN (17:45)
[2021-10-30] MEDS ORDERED: ACETAMINOPHEN 325 MG TABLET PO PRN (17:45)
[2021-10-30] MEDS ORDERED: ONDANSETRON 4 MG/2 ML (SDV) Z0FRAN IV PRN (17:45)
[2021-10-30] MEDS ORDERED: BISACODYL 10 MG SUPP (DULCOLAX) PR PRN (17:45)
[2021-10-30 18:20] VITALS: BP 130/51
[2021-10-30] MEDS ORDERED: RT-ALBUTEROL SULF 2.5 MG/3 ML PRE-MIX VIAL INH PRN (18:30)
[2021-10-30] MEDS: MAGNESIUM 1 GM/100 ML IVPB 100 ML IV SCH ×3 (18:32→20:00)
[2021-10-30] MEDS: cefTRIAXone 1 GM PRE-MIX 50 ML IV SCH (18:32)
[2021-10-30] MEDS ORDERED: NS IV 500 ML 500 ML ONE (19:23)
[2021-10-30] MEDS: PHENYTOIN 100 MG (DILANTIN) CAP PO SCH (20:19)
[2021-10-30 20:45] VITALS: BP 136/62
[2021-10-30 21:10] VITALS: BP 149/76
--- NOTE | 2021-10-30 21:14 | Tele-ICU Progress Note ---
Subjective Date Seen by a Provider: Oct 30, 2021 Time Seen by a Provider: 20:30 Subjective/Events-last exam TeleICU consult (Tele-ICU Physician , consultation) 81 yo F new ICU admission for possible pneumonia, symptomatic anemia. Awake on video assessment. Not in distress on RA. Admitted via ED with symptomatic anemia, dyspnea. CXR showed LLL opacity and effusion present since 10/07/21. No fever or leukocytosis. COVID and influenza negative. Orders received for blood cultures, pRBC transfusion and antibiotics per Dr. Ortiz. Available chart/ vitals / labs / Images reviewed H&P is from ER notes Patient's information available about PMH, allergy reviewed in EMR. ROS as per chart and RN report Video assessment done using teleICU camera, rest of exam as per RN Consultants: N/A Hospital course: 81 yo F admitted with LLL opacity, pleural effusion, anemia. A/P 1. Possible pneumonia. Empiric IV abx have been ordered per Dr. Ortiz. Check procal in AM. Rule out other causes. Findings appear similar to prior CXR in September. Consider chest CT and/or Pulmonary consult in AM 2. Dyspnea. Multifactorial. Not in distress or hypoxic at this time 3. Anemia. pRBC ordered for Hgb < 7. Montior for acute bleed Lines: (Central Line Necessity Reviewed) Tan: N/A OG: N/A Nutrition: Per routine Analgesia: N/A VTE Prophylaxis: SCDs Stress Ulcer Prophylaxis: N/A Plans in collaboration with bedside consultants and Primary MD. Recommend RN to reach out if any questions or concerns Sepsis Event Evaluation Height, Weight, BMI Height: '" Weight: lbs. oz. kg; 29.75 BMI Method: Focused Exam Lactate Level 10/30/21 13:50: Lactic Acid Level 0.58 Exam Exam Patient acknowledged, consented, and participated in this virtual visit which was conducted using real time audio/video Vital Signs Date Time Temp Pulse Resp B/P (MAP) Pulse Ox O2 Delivery O2 Flow Rate FiO2 10/30/21 20:45 36.3 105 29 136/62 98 Room Air 10/30/21 20:00 92 20 136/62 97 Room Air 10/30/21 19:00 84 20 144/64 98 Room Air 10/30/21 19:00 90 10/30/21 18:38 99 Room Air 10/30/21 18:20 36.9 80 98 21 10/30/21 18:15 98 Room Air 10/30/21 18:15 36.9 92 16 134/74 99 Room Air 10/30/21 18:04 81 10/30/21 18:00 84 25 115/67 99 Room Air 10/30/21 16:23 36.9 81 18 130/51 98 Room Air 10/30/21 13:55 37.2 80 18 138/56 (83) 93 Nasal Cannula Height & Weight Height: '" Weight: lbs. oz. kg; 29.75 BMI Method: General Appearance: No Apparent Distress HEENT: PERRL/EOMI, Normal ENT Inspection, Pharynx Normal Neck: Full Range of Motion, Normal Inspection, Non Tender, Supple Respiratory: Chest Non Tender, Lungs Clear, Normal Breath Sounds, No Accessory Muscle Use, No Respiratory Distress Cardiovascular: Regular Rate, Rhythm, Other Extremity: Normal Range of Motion Neurologic/Psychiatric: Alert, Oriented x3, No Motor/Sensory Deficits, Normal Mood/Affect Skin: Normal Color, Warm/Dry Lymphatic: No Adenopathy Results Lab Laboratory Tests 10/30/21 13:50 Assessment/Plan Assessment/Plan See above ISRRAEL JACQUES MD Oct 30, 2021 21:14
[2021-10-30] MEDS: MELATONIN 3 MG TABLET PO PRN (21:20)
[2021-10-30] MEDS: DOCUSATE SODIUM 100 MG (COLACE) CAP PO SCH (21:59)
[2021-10-30] MEDS: CYCLOBENZAPRINE 10 MG (FLEXERIL) TAB PO PRN (22:27)
[2021-10-30 23:07] LABS: CALCIUM 6.3 MG/DL (8.5-10.1)
[2021-10-30 23:11] LABS: CREATININE SERUM 2.75 MG/DL (0.60-1.30)
[2021-10-30 23:13] LABS: MAGNESIUM 1.5 MG/DL (1.6-2.4)
[2021-10-30 23:30] VITALS: BP 136/69
[2021-10-31 04:58] LABS: BASOPHILS % (AUTO) 0 % (0-10); EOSINOPHILS % (AUTO) 0 % (0-10); HEMATOCRIT 32 % (35-52); HEMOGLOBIN 10.6 g/dL (11.5-16.0); LYMPHOCYTES # (AUTO) 0.9 10^3/uL (1.0-4.0); LYMPHOCYTES % (AUTO) 9 % (12-44); MEAN CORPUSCULAR HEMOGLOBIN 30 pg (25-34); MEAN CORPUSCULAR HGB CONC 33 g/dL (32-36); MEAN CORPUSCULAR VOLUME 90 fL (80-99); MEAN PLATELET VOLUME 9.5 fL (9.0-12.2); MONOCYTES # (AUTO) 0.8 10^3/uL (0.0-1.0); MONOCYTES % (AUTO) 8 % (0-12); NEUTROPHILS # (AUTO) 8.1 10^3/uL (1.8-7.8); NEUTROPHILS % (AUTO) 82 % (42-75); PLATELET COUNT 249 10^3/uL (130-400); WHITE BLOOD COUNT 9.9 10^3/uL (4.3-11.0)
[2021-10-31 05:20] LABS: CALCIUM 6.5 MG/DL (8.5-10.1); CREATININE SERUM 2.69 MG/DL (0.60-1.30); MAGNESIUM 1.5 MG/DL (1.6-2.4); PHOSPHORUS 5.2 MG/DL (2.3-4.7); POTASSIUM 4.1 MMOL/L (3.6-5.0)
[2021-10-31] MEDS: POTASSIUM CL 10MEQ/50ML IVPB 50 ML IV SCH (05:23)
[2021-10-31] MEDS: KCL 20 MEQ TAB (K-DUR) PO SCH (05:23)
[2021-10-31] MEDS: MAGNESIUM 1 GM/100 ML IVPB 100 ML IV SCH ×2 (05:23→06:06)
[2021-10-31] MEDS: LEVOTHYROXINE 88 MCG (LEVOTHORID) TAB PO SCH (06:06)
[2021-10-31] MEDS ORDERED: LEVOTHYROXINE 75 MCG (LEVOTHROID) TABLET PO SCH (06:30)
[2021-10-31] MEDS: AMIODARONE 200 MG (CORDARONE) TAB PO SCH ×2 (08:28→20:08)
[2021-10-31] MEDS: PHENYTOIN 100 MG (DILANTIN) CAP PO SCH ×2 (08:29→20:07)
[2021-10-31] MEDS: CYCLOBENZAPRINE 10 MG (FLEXERIL) TAB PO PRN ×2 (08:29→22:03)
[2021-10-31] MEDS: OXYBUTYNIN (DITROPAN) 5 MG TAB PO SCH ×2 (08:29→20:07)
[2021-10-31] MEDS: DOCUSATE SODIUM 100 MG (COLACE) CAP PO SCH ×2 (08:35→20:07)
--- NOTE | 2021-10-31 09:02 | Tele-ICU Progress Note ---
Progress Note video rounds completed 81 y/o female admitted with PNA and anemia Received 1 unit PRBC Hgb this am 10.6 Focused Exam Lactate Level 10/30/21 13:50: Lactic Acid Level 0.58 Height, Weight, BMI Height: '" Weight: lbs. oz. kg; 29.75 BMI Method: Labs Laboratory Tests 10/30/21 13:50 10/30/21 22:43 10/31/21 04:48 Results Results/Procedures Labs Laboratory Tests 10/30/21 13:50 10/30/21 22:43 10/31/21 04:48 Patient resulted labs reviewed. Results Labs Labs Laboratory Tests 10/30/21 13:50: White Blood Count 5.3, Red Blood Count 2.21L, Hemoglobin 6.7*L, Hematocrit 21L, Mean Corpuscular Volume 93, Mean Corpuscular Hemoglobin 30, Mean Corpuscular Hemoglobin Concent 33, Red Cell Distribution Width 12.9, Platelet Count 197, Mean Platelet Volume 9.5, Immature Granulocyte % (Auto) 0, Neutrophils (%) (Auto) 59, Lymphocytes (%) (Auto) 26, Monocytes (%) (Auto) 11, Eosinophils (%) (Auto) 3, Basophils (%) (Auto) 0, Neutrophils # (Auto) 3.1, Lymphocytes # (Auto) 1.4, Monocytes # (Auto) 0.6, Eosinophils # (Auto) 0.2, Basophils # (Auto) 0.0, Immature Granulocyte # (Auto) 0.0, Prothrombin Time 14.1, INR Comment 1.1, Activated Partial Thromboplast Time 34, D-Dimer 3.62H, Sodium Level 139, Potassium Level 4.0, Chloride Level 100, Carbon Dioxide Level 24, Anion Gap 15H, Blood Urea Nitrogen 57H, Creatinine 2.76H, Estimat Glomerular Filtration Rate 17, BUN/Creatinine Ratio 21, Glucose Level 91, Lactic Acid Level 0.58, Calcium Level 5.8*L, Corrected Calcium 6.6L, Magnesium Level 0.9*L, Total Bilirubin 0.2, Aspartate Amino Transf (AST/SGOT) 11, Alanine Aminotransferase (ALT/SGPT) 9, Alkaline Phosphatase 119, Troponin I < 0.30, C-Reactive Protein 11.89H, Pro-B-Type Natriuretic Peptide 4750.0H, Total Protein 6.7, Albumin 3.0L 7/22/22 14:20: Influenza Type A (RT-PCR) Not Detected, Influenza Type B (RT-PCR) Not Detected, SARS-CoV-2 RNA (RT-PCR) Not Detected 10/30/21 14:25: Stool Occult Blood Immunoassay NEGATIVE 10/30/21 14:40: Urine Color PALE YELLOW, Urine Clarity CLOUDY, Urine pH 6.5, Urine Specific [place] 1.010L, Urine Protein TRACEH, Urine Glucose (UA) NEGATIVE, Urine Ketones NEGATIVE, Urine Nitrite NEGATIVE, Urine Bilirubin NEGATIVE, Urine Urobilinogen 0.2, Urine Leukocyte Esterase 3+H, Urine RBC (Auto) TRACE-IH, Urine RBC NONE, Urine WBC >100H, Urine Squamous Epithelial Cells RARE, Urine Crystals NONE, Urine Bacteria LARGEH, Urine Casts NONE, Urine Mucus NEGATIVE, Urine Culture Indicated YES 10/30/21 18:20: 10/30/21 22:43: Sodium Level 141, Potassium Level 4.0, Chloride Level 102, Carbon Dioxide Level 19L, Anion Gap 20H, Blood Urea Nitrogen 53H, Creatinine 2.75H, Estimat Glomerular Filtration Rate 17, BUN/Creatinine Ratio 19, Glucose Level 121H, Calcium Level 6.3L, Magnesium Level 1.5L, Procalcitonin 0.27H 10/31/21 04:48: Sodium Level 141, Potassium Level 4.1, Chloride Level 103, Carbon Dioxide Level 17L, Anion Gap 21H, Blood Urea Nitrogen 53H, Creatinine 2.69H, Estimat Glomerular Filtration Rate 17, BUN/Creatinine Ratio 20, Glucose Level 140H, Calcium Level 6.5L, Magnesium Level 1.5L, White Blood Count 9.9, Red Blood Count 3.57L, Hemoglobin 10.6#L, Hematocrit 32L, Mean Corpuscular Volume 90, Mean Corpuscular Hemoglobin 30, Mean Corpuscular Hemoglobin Concent 33, Red Cell Distribution Width 14.1, Platelet Count 249, Mean Platelet Volume 9.5, Immature Granulocyte % (Auto) 1, Neutrophils (%) (Auto) 82H, Lymphocytes (%) (Auto) 9L, Monocytes (%) (Auto) 8, Eosinophils (%) (Auto) 0, Basophils (%) (Auto) 0, Neutrophils # (Auto) 8.1H, Lymphocytes # (Auto) 0.9L, Monocytes # (Auto) 0.8, Eosinophils # (Auto) 0.0, Basophils # (Auto) 0.0, Immature Granulocyte # (Auto) 0.1, Phosphorus Level 5.2H ADILENE MEDINA MD Oct 31, 2021 09:02
--- NOTE | 2021-10-31 10:03 | Diagnostic Imaging Report ---
PROCEDURE: US Venous Lower Ext Roc. TECHNIQUE: Multiple Real-time grayscale images were obtained over the lower extremities in various projections, bilaterally. Additional duplex Doppler and color Doppler images were also obtained. INDICATION: Swelling. COMPARISON: None available. FINDINGS: Normal flow, compression, and augmentation within the visualized deep venous structures of the bilateral lower extremities. IMPRESSION: No evidence of deep venous thrombosis within the bilateral lower extremities. Dictated by: Dictated on workstation # [id number]
--- NOTE | 2021-10-31 13:25 | History & Physical-Hospitalist ---
History of Present Illness HPI/Chief Complaint Joi Abreu is an 81 year old female with PMH HTN, AFib, CHF, CKD 4, COPD, hypothyroidism, seizure disorder, dementia, who presented from [facility] with low hemoglobin. She is not lightheaded or dizzy. She denies fevers and chills. She is not short of breath. She denies cough. She denies abdominal pain. She denies nausea and vomiting. She reports diarrhea. She has not had any blood in her stools. She denies dysuria. She is incontinent. She has not noticed any blood in her urine. She has bilateral foot pain which she says is due to arthritis. She has not noticed any change in leg swelling. She is not ambulatory at baseline. Source: patient Exam Limitations: no limitations Date Seen 10/31/21 Time Seen by a Provider: 09:00 Attending Physician Peng Cueva MD PCP Admitting Physician: David Baltazar MD Attending Physician: David Baltazar MD Referring Physician Date of Admission Oct 30, 2021 at 17:43 Home Medications & Allergies Home Medications Reviewed patient Home Medication Reconciliation performed by pharmacy medication reconciliations sanitation technician and/or nursing. Patients Allergies have been reviewed. Allergies Allergies Coded Allergies aspirin (Verified Allergy, Unknown, 08/21/05) diazepam (Verified Allergy, Unknown, 08/21/05) ibuprofen (Verified Allergy, Unknown, 08/21/05) phenobarbital (Verified Allergy, Unknown, 08/21/05) Past Nnaifjb-Nfuhhd-Kihdiu Hx Patient Social History Tobacco Use?: No Use of E-Cig and/or Vaping dev: No Substance use?: No Alcohol Use?: No Alcohol Frequency: Once in a while Current Status Primary Language: Bermudian Preferred Spoken Language: Bermudian Past Medical History COPD Atrial Fibrillation, Hypertension Seizure Disorder Renal Failure Hypothyroidsim Family Medical History No Pertinent Family Hx Review of Systems Constitutional: no symptoms reported EENTM: no symptoms reported Respiratory: no symptoms reported Cardiovascular: no symptoms reported Gastrointestinal: diarrhea Genitourinary: no symptoms reported Physical Exam Physical Exam Vital Signs Vital Signs - First Documented 10/30/21 10/30/21 13:55 18:20 Temp 37.2 Pulse 80 Resp 18 B/P (MAP) 138/56 (83) Pulse Ox 93 O2 Delivery Nasal Cannula FiO2 21 Capillary Refill : Height, Weight, BMI Height: '" Weight: lbs. oz. kg; 29.75 BMI Method: General Appearance: No Apparent Distress, WD/WN HEENT: PERRL/EOMI, Pharynx Normal Neck: Normal Inspection, Supple Respiratory: Lungs Clear, Normal Breath Sounds, No Respiratory Distress Cardiovascular: Regular Rate, Rhythm, No Edema, No Murmur Gastrointestinal: Normal Bowel Sounds, Non Tender, Soft Genital/Rectal: Other (bright red blood and clots in catheter) Extremity: Non Tender, Inflammation, Pedal Edema Neurologic/Psychiatric: Alert, Oriented x3, Normal Mood/Affect, Motor Weakness Skin: Normal Color, Warm/Dry Results Results/Procedures Labs Laboratory Tests 10/30/21 13:50 10/30/21 22:43 10/31/21 04:48 Patient resulted labs reviewed. Imaging: Reviewed Imaging Report Assessment/Plan Admission Diagnosis Symptomatic anemia Admission Status: Inpatient Order (span 2 midnights) Reason for Inpatient Admission: Urinary retention UTI Assessment and Plan Symptomatic anemia Hgb 6.7 on arrival Likely due to CKD Iron stueies, B12, folate pending Occult blood negative Bright red blood in melchor s/p 1 unit PRBC Hgb increased to 10 CKD 4 Urinary retention Bilateral hydroureteronephrosis UTI Hyperphosphatemia Melchor in place Urine culture pending Started on Rocephin Cr 2.5, stable Consult Urology Hypomagnesemia Monitor and replace as needed Pleural effusion Small, peristent, stable Likely due to chronic heart failure Elevated d-dimer Venous doppler negative No symptoms of PE Low risk for PE per Wells Score HTN AFib Hypothyroidism COPD Seizure disorder Dementia Continue home meds DVT prophylaxis: Lovenox Diagnosis/Problems Diagnosis/Problems (1) Symptomatic anemia Status: Acute (2) Urinary tract obstruction Status: Acute (3) UTI (urinary tract infection) Status: Acute (4) CKD (chronic kidney disease) stage 4, GFR 15-29 ml/min Status: Chronic (5) Bilateral hydronephrosis Status: Acute (6) Pleural effusion Status: Chronic (7) Elevated d-dimer Status: Acute (8) Hypomagnesemia Status: Acute DAVID BALTAZAR MD Oct 31, 2021 13:25
[2021-10-31] MEDS: ENOXAPARIN INJECTION 30 MG/0.3 ML SYR SC SCH (15:56)
[2021-10-31] MEDS: cefTRIAXone 1 GM PRE-MIX 50 ML IV SCH (17:17)
[2021-10-31] MEDS: DONEPEZIL 10 MG (ARICEPT) TAB PO SCH (20:07)
[2021-10-31] MEDS: MONTELUKAST 10 MG (SINGULAIR) TAB PO SCH (20:07)
[2021-10-31] MEDS: MELATONIN 3 MG TABLET PO PRN (20:08)
[2021-10-31] MEDS: SERTRALINE 50 MG (ZOLOFT) TABLET PO SCH (20:08)
[2021-11-01] MEDS: LORazepam 0.5 MG (ATIVAN) TABLET PO PRN ×2 (04:42→11:52)
[2021-11-01] MEDS: LEVOTHYROXINE 88 MCG (LEVOTHORID) TAB PO SCH (04:42)
[2021-11-01 06:24] LABS: BASOPHILS % (AUTO) 0 % (0-10); EOSINOPHILS # (AUTO) 0.3 10^3/uL (0.0-0.3); EOSINOPHILS % (AUTO) 4 % (0-10); HEMATOCRIT 27 % (35-52); HEMOGLOBIN 8.9 g/dL (11.5-16.0); LYMPHOCYTES % (AUTO) 14 % (12-44); MEAN CORPUSCULAR HEMOGLOBIN 31 pg (25-34); MEAN CORPUSCULAR HGB CONC 33 g/dL (32-36); MEAN CORPUSCULAR VOLUME 94 fL (80-99); MEAN PLATELET VOLUME 9.7 fL (9.0-12.2); MONOCYTES # (AUTO) 0.7 10^3/uL (0.0-1.0); MONOCYTES % (AUTO) 9 % (0-12); NEUTROPHILS # (AUTO) 5.1 10^3/uL (1.8-7.8); NEUTROPHILS % (AUTO) 71 % (42-75); PLATELET COUNT 214 10^3/uL (130-400); WHITE BLOOD COUNT 7.2 10^3/uL (4.3-11.0)
[2021-11-01 06:30] LABS: POTASSIUM 3.8 MMOL/L (3.6-5.0)
[2021-11-01 06:32] LABS: CALCIUM 6.7 MG/DL (8.5-10.1)
[2021-11-01] MEDS: POTASSIUM CL 10MEQ/50ML IVPB 50 ML IV SCH (06:33)
[2021-11-01] MEDS: KCL 20 MEQ TAB (K-DUR) PO SCH (06:33)
[2021-11-01 06:36] LABS: CREATININE SERUM 2.57 MG/DL (0.60-1.30); PHOSPHORUS 4.8 MG/DL (2.3-4.7)
[2021-11-01 06:39] LABS: MAGNESIUM 1.9 MG/DL (1.6-2.4)
[2021-11-01] MEDS: MAGNESIUM 1 GM/100 ML IVPB 100 ML IV SCH (06:41)
[2021-11-01] MEDS: OXYBUTYNIN (DITROPAN) 5 MG TAB PO SCH ×2 (08:37→19:29)
[2021-11-01] MEDS: DOCUSATE SODIUM 100 MG (COLACE) CAP PO SCH ×2 (08:37→19:29)
[2021-11-01] MEDS: PHENYTOIN 100 MG (DILANTIN) CAP PO SCH ×2 (08:37→19:29)
[2021-11-01] MEDS: AMIODARONE 200 MG (CORDARONE) TAB PO SCH ×2 (08:37→19:29)
[2021-11-01] MEDS: CYCLOBENZAPRINE 10 MG (FLEXERIL) TAB PO PRN (14:17)
[2021-11-01] MEDS: ENOXAPARIN INJECTION 30 MG/0.3 ML SYR SC SCH (14:18)
[2021-11-01] MEDS: cefTRIAXone 1 GM PRE-MIX 50 ML IV SCH (17:19)
--- NOTE | 2021-11-01 17:28 | Progress Note - Hospitalist ---
Subjective HPI/CC On Admission Date Seen by Provider: Nov 01, 2021 Time Seen by Provider: 11:25 Joi Abreu is an 81 year old female with PMH HTN, AFib, CHF, CKD 4, COPD, hypothyroidism, seizure disorder, dementia, who presented from [facility] with low hemoglobin. She is not lightheaded or dizzy. She denies fevers and chills. She is not short of breath. She denies cough. She denies abdominal pain. She denies nausea and vomiting. She reports diarrhea. She has not had any blood in her stools. She denies dysuria. She is incontinent. She has not noticed any blood in her urine. She has bilateral foot pain which she says is due to arthritis. She has not noticed any change in leg swelling. She is not ambulatory at baseline. Subjective/Events-last exam She is feeling better. She asks about removing her melchor. We discussed her urinary retention and the need to leave it in for now. She wants to go back home today but we discussed waiting for urology evaluation tomorrow and then reassessing for possible discharge. Focused Exam Lactate Level 10/30/21 13:50: Lactic Acid Level 0.58 Objective Exam Vital Signs Vital Signs Date Time Temp Pulse Resp B/P (MAP) Pulse Ox O2 Delivery O2 Flow Rate FiO2 11/01/21 08:32 98 Room Air 11/01/21 07:57 36.4 75 18 149/68 10/30/21 18:20 21 Capillary Refill : General Appearance: No Apparent Distress, Obese Respiratory: Lungs Clear, No Respiratory Distress Cardiovascular: Regular Rate, Rhythm, No Murmur Gastrointestinal: Normal Bowel Sounds, Soft Genital/Rectal: Other (melchor with gross hematuria and clots visible in the catheter tubing) Extremity: Normal Inspection, No Pedal Edema Neurologic/Psychiatric: Alert, Normal Mood/Affect Skin: Normal Color, Warm/Dry Results/Procedures Lab Laboratory Tests 11/01/21 06:12 Patient resulted labs reviewed. Imaging: Reviewed Imaging Report Assessment/Plan Assessment and Plan Assess & Plan/Chief Complaint Symptomatic anemia Anemia of chronic disease Hgb 6.7 on arrival Likely due to CKD Iron studies indicative of anemia of chronic disease B12 and folate normal Occult blood negative Bright red blood in melchor s/p 1 unit PRBC Hgb improved, stable CKD 4 Urinary retention Bilateral hydroureteronephrosis UTI Hyperphosphatemia Metabolic acidosis Melchor in place Urine culture pending Continue Rocephin Cr 2.5, stable Urology consulted, will see Tuesday morning Begin sodium bicarb and phoslo Pleural effusion Small, peristent, stable Likely due to chronic heart failure Elevated d-dimer Venous doppler negative No symptoms of PE Low risk for PE per Wells Score HTN AFib Hypothyroidism COPD Seizure disorder Dementia Continue home meds DVT prophylaxis: Lovenox Hypomagnesemia, resolved Diagnosis/Problems Diagnosis/Problems (1) Symptomatic anemia Status: Acute (2) Urinary tract obstruction Status: Acute (3) UTI (urinary tract infection) Status: Acute (4) CKD (chronic kidney disease) stage 4, GFR 15-29 ml/min Status: Chronic (5) Bilateral hydronephrosis Status: Acute (6) Pleural effusion Status: Chronic (7) Elevated d-dimer Status: Acute (8) Hypomagnesemia Status: Acute DAVID BALTAZAR MD Nov 01, 2021 17:28
[2021-11-01] MEDS: CALCIUM ACETATE 667 MG CAP (PHOSLO) PO SCH ×2 (18:30→19:34)
[2021-11-01] MEDS: MELATONIN 3 MG TABLET PO PRN (19:29)
[2021-11-01] MEDS: SERTRALINE 50 MG (ZOLOFT) TABLET PO SCH (19:30)
[2021-11-01] MEDS: MONTELUKAST 10 MG (SINGULAIR) TAB PO SCH (19:30)
[2021-11-01] MEDS: SODIUM BICARBONATE 650 MG TABLET PO SCH (19:30)
[2021-11-01] MEDS: DONEPEZIL 10 MG (ARICEPT) TAB PO SCH (19:34)
[2021-11-02] MEDS: CYCLOBENZAPRINE 10 MG (FLEXERIL) TAB PO PRN (03:09)
[2021-11-02 03:26] LABS: BASOPHILS % (AUTO) 1 % (0-10); EOSINOPHILS # (AUTO) 0.5 10^3/uL (0.0-0.3); EOSINOPHILS % (AUTO) 7 % (0-10); HEMATOCRIT 26 % (35-52); HEMOGLOBIN 8.5 g/dL (11.5-16.0); LYMPHOCYTES # (AUTO) 1.8 10^3/uL (1.0-4.0); LYMPHOCYTES % (AUTO) 26 % (12-44); MEAN CORPUSCULAR HEMOGLOBIN 30 pg (25-34); MEAN CORPUSCULAR HGB CONC 33 g/dL (32-36); MEAN CORPUSCULAR VOLUME 92 fL (80-99); MEAN PLATELET VOLUME 9.8 fL (9.0-12.2); MONOCYTES # (AUTO) 0.7 10^3/uL (0.0-1.0); MONOCYTES % (AUTO) 10 % (0-12); NEUTROPHILS % (AUTO) 56 % (42-75); PLATELET COUNT 243 10^3/uL (130-400); WHITE BLOOD COUNT 7.1 10^3/uL (4.3-11.0)
[2021-11-02 03:34] LABS: POTASSIUM 4.1 MMOL/L (3.6-5.0)
[2021-11-02 03:35] LABS: CALCIUM 7.1 MG/DL (8.5-10.1)
[2021-11-02 03:39] LABS: CREATININE SERUM 2.39 MG/DL (0.60-1.30)
[2021-11-02 03:42] LABS: MAGNESIUM 1.8 MG/DL (1.6-2.4)
[2021-11-02] MEDS: KCL 20 MEQ TAB (K-DUR) PO SCH (04:29)
[2021-11-02] MEDS: MAGNESIUM 1 GM/100 ML IVPB 100 ML IV SCH (04:29)
[2021-11-02] MEDS: POTASSIUM CL 10MEQ/50ML IVPB 50 ML IV SCH (04:29)
[2021-11-02] MEDS: LEVOTHYROXINE 88 MCG (LEVOTHORID) TAB PO SCH (05:42)
[2021-11-02] MEDS: CALCIUM ACETATE 667 MG CAP (PHOSLO) PO SCH ×2 (08:59→12:26)
[2021-11-02] MEDS: SODIUM BICARBONATE 650 MG TABLET PO SCH ×2 (09:00→12:26)
[2021-11-02] MEDS: DOCUSATE SODIUM 100 MG (COLACE) CAP PO SCH (09:00)
[2021-11-02] MEDS: OXYBUTYNIN (DITROPAN) 5 MG TAB PO SCH (09:00)
[2021-11-02] MEDS: AMIODARONE 200 MG (CORDARONE) TAB PO SCH (09:00)
[2021-11-02] MEDS: PHENYTOIN 100 MG (DILANTIN) CAP PO SCH (09:00)
--- NOTE | 2021-11-02 09:39 | Discharge Inst-Simple/Standard ---
Discharge Inst-Standard Discharge Medications New, Converted or Re-Newed RX: Transmitted to Pharmacy Patient Instructions/Follow Up Plan of Care/Instructions/FU: Please continue to take your medications as written. Please follow up with your primary care doctor to follow up this hospital stay. Activity as Tolerated: Yes Discharge Diet: Low Sodium Diet Return to The Hospital For: Chest pain, shortness of breath, fever, weakness, if you feel you are getting worse. ONEIDA BLANCHARD MD Nov 02, 2021 09:39
[2021-11-02] MEDS ORDERED: FERR325T18 PO (09:41)
--- NOTE | 2021-11-02 09:55 | Physical Therapy Evaluation ---
PT Evaluation-General Medical Diagnosis Admission Date Oct 30, 2021 at 17:43 Medical Diagnosis: pneumonia Onset Date: Oct 30, 2021 Therapy Diagnosis Therapy Diagnosis: debility/weakness Precautions Precautions/Isolations: Seizure, Fall Prevention Referral Physician: Mario Reason for Referral: Evaluation/Treatment Medical History Pertinent Medical History: Atrial Fib, COPD, Dementia, Heart Failure, HTN, Renal Insufficiency Additional Medical History schizophrenia Current History EMS from [place] due to SOA Reviewed History: Yes Social History Home: Retirement Prior Prior Level of Function SCALE: Activities may be completed with or without assistive devices. 1-Vplbebsajk-svsigab completes the activity by him/herself with no assistance from a helper. 5-Set-up or Clean-up Assistance-helper sets up or cleans up; patient completes activity. [place] assists only prior to or following the activity. 4-Supervision or Touching Assistance-helper provides verbal cues and/or touching/steadying and/or contact guard assistance as patient completes activity. Assistance may be provided throughout the activity or intermittently. 3-Partial/Moderate Assistance-helper does LESS THAN HALF the effort. [place] lifts, holds or supports trunk or limbs, but provides less than half the effort. 2-Substantial/Maximal Assistance-helper does MORE THAN HALF the effort. [place] lifts or holds trunk or limbs and provides more than half the effort. 3-Kxzklqnlh-rzxmpb does ALL the effort. Patient does none of the effort to complete the activity. Or, the assistance of 2 or more helpers is required for the patient to complete the activity. If activity was not attempted, code reason: 7-Patient Refused. 9-Not Applicable-not attempted and the patient did not perform the activity before the current illness, exacerbation or injury. 10-Not Attempted due to Environmental Limitations-(lack of equipment, weather restraints, etc.). 88-Not Attempted due to Medical Conditions or Safety Concerns. Bed Mobility: 1 Transfers (B,C,W/C): 1 (Jonas Lift) Indoor Mobility (Ambulation): Not [place] Stairs: Not [place] Prior Devices Use: Manual wheelchair, Mechanical lift PT Evaluation-Current Subjective Patient incontinent BM. PCT present with PT to cleanse and change patient. Pain Numeric Pain Scale: 10-Worst Possible Pain Location: Right, Left Location Body Site: Knee Pain Description: Chronic Comment: with PROM Objective Patient Orientation: Confused Attachments: Tan Catheter ROM/Strength ROM Lower Extremities bilateral limited due to arthritis and pain Strength Lower Extremities 2-/5 grossly bilateral LE Integumentary/Posture Integumentary refer to nursing notes Bowel Incontinence: Yes Bladder Incontinence: Tan Cath Neuromuscular (Tone, Coordination, Reflexes) diminished with all Sensory Vision: Functional Hearing: Functional Transfers Roll Left to Right (QC): 1 (x 2) Assessment/Needs Patient is currently at [facility] with all mobility and is a Jonas lift transfer at [place]. No skilled PT indicated. Rehab Potential: Poor PT Plan Treatment/Plan Treatment Plan: Discontinue PT, goals met Treatment Duration: Nov 02, 2021 Frequency: 1 time per week Estimated Hrs Per Day: .25 hour per day Time/GCodes Time In: 813 Time Out: 833 Total Billed Treatment Time: 20 Total Billed Treatment 1 visit EVModC 20 min LOUIS PRINCE PT Nov 02, 2021 09:55
--- NOTE | 2021-11-02 13:22 | Discharge Summary ---
Diagnosis/Chief Complaint Date of Admission Oct 30, 2021 at 17:43 Date of Discharge Discharge Date: Nov 02, 2021 Admission Diagnosis Symptomatic anemia Primary Care Peng Cueva MD Discharge Diagnosis (1) Symptomatic anemia Status: Acute (2) Urinary tract obstruction Status: Acute (3) UTI (urinary tract infection) Status: Acute (4) CKD (chronic kidney disease) stage 4, GFR 15-29 ml/min Status: Chronic (5) Bilateral hydronephrosis Status: Acute (6) Pleural effusion Status: Chronic (7) Elevated d-dimer Status: Acute (8) Hypomagnesemia Status: Acute Discharge Summary Discharge Physical Exam Allergies: Coded Allergies: aspirin (Verified Allergy, Unknown, 08/21/05) diazepam (Verified Allergy, Unknown, 08/21/05) ibuprofen (Verified Allergy, Unknown, 08/21/05) phenobarbital (Verified Allergy, Unknown, 08/21/05) Vitals & I&Os Vital Signs Date Time Temp Pulse Resp B/P (MAP) Pulse Ox O2 Delivery O2 Flow Rate FiO2 11/02/21 08:28 36.6 82 20 130/60 98 Room Air 10/30/21 18:20 21 Hospital Course Labs (last 24 hrs) Laboratory Tests 11/02/21 03:14: White Blood Count 7.1, Red Blood Count 2.83L, Hemoglobin 8.5L, Hematocrit 26L, Mean Corpuscular Volume 92, Mean Corpuscular Hemoglobin 30, Mean Corpuscular Hemoglobin Concent 33, Red Cell Distribution Width 13.8, Platelet Count 243, Mean Platelet Volume 9.8, Immature Granulocyte % (Auto) 1, Neutrophils (%) (Auto) 56, Lymphocytes (%) (Auto) 26, Monocytes (%) (Auto) 10, Eosinophils (%) (Auto) 7, Basophils (%) (Auto) 1, Neutrophils # (Auto) 4.0, Lymphocytes # (Auto) 1.8, Monocytes # (Auto) 0.7, Eosinophils # (Auto) 0.5H, Basophils # (Auto) 0.0, Immature Granulocyte # (Auto) 0.1, Sodium Level 137, Potassium Level 4.1, Chloride Level 100, Carbon Dioxide Level 20L, Anion Gap 17H, Blood Urea Nitrogen 59H, Creatinine 2.39H, Estimat Glomerular Filtration Rate 20, BUN/Creatinine Ratio 25, Glucose Level 93, Calcium Level 7.1L, Phosphorus Level 4.0, Magnesium Level 1.8 Microbiology 10/30/21 MRSA Screen - Final, Complete MRSA not isolated 10/30/21 Urine Culture - Preliminary, Resulted Enterococcus faecium Mixed Bacterial Lalita 10/30/21 Blood Culture - Preliminary, Resulted No growth Patient resulted labs reviewed. Imaging: Reviewed Imaging Report Discharge Home Medications: Active Scripts Active Ferrous Sulfate 325 Mg (65 Mg Iron) Tablet 325 Mg PO Q48H 30 Days Reported Nystatin 100,000 Unit/Gram Oint...g. 1 Applic TP Q6H PRN APPLY TO OPAL/BUTTOCK AREA Calmoseptine Ointment (Menthol/Lanolin/Calamine/Znox) 0.44 %-20.6 % Oint 1 Applic TP DAILY PRN APPLY TO BUTTOCKS Calmoseptine Ointment (Menthol/Lanolin/Calamine/Znox) 0.44 %-20.6 % Oint 1 Applic TP BID APPLY TO BUTTOCKS Biofreeze (Menthol) 4 % Gel..ml. 1 Applic TP BID APPLY TO THE RIGHT SIDE OF THE NECK Tussin Dm Syrup (Guaifenesin/Dextromethorphan) 100 Mg-10 Mg/5 Ml Syrup 10 Ml PO Q4H PRN Miralax (Polyethylene Glycol 3350) 17 Gram Powd.pack 17 Gm PO Q12H PRN Maalox Advanced Suspension (Mag Hydrox/Aluminum Hyd/Simeth) 200 Mg-200 Mg-20 Mg/5 Ml Oral.susp 30 Ml PO Q4H PRN Loperamide (Loperamide HCl) 2 Mg Capsule 2 Mg PO Q4H PRN MDD 8 CAPS Hydrocodone-Acetamin 5-325 mg (Hydrocodone/Acetaminophen) 5 Mg-325 Mg Tablet 1 Tab PO Q6H PRN Tylenol (Acetaminophen) 325 Mg Tablet 650 Mg PO Q4H PRN Ativan (Lorazepam) 0.5 Mg Tablet 0.5 Mg PO TID Tramadol HCl 50 Mg Tablet 100 Mg PO HS TAKES 2 (50MG) TABS Hydrocodone-Acetamin 5-325 mg (Hydrocodone/Acetaminophen) 5 Mg-325 Mg Tablet 1 Tab PO DAILY Proair Respiclick (Albuterol Sulfate) 90 Mcg Aer.pow.ba 2 Puff IH Q4H PRN Cephalexin 500 Mg Capsule 500 Mg PO TID Phenytoin Sodium Extended 100 Mg Capsule 100 Mg PO BID [place] (Sodium Chloride) 0.65 % [place] 1 [place] NSEACH BID Flovent Hfa 110 mcg (Fluticasone Propionate) 110 Mcg/Actuation Aero 2 Puff IH BID Cyclobenzaprine HCl 10 Mg Tablet 10 Mg PO BID Amiodarone HCl 400 Mg Tablet 200 Mg PO BID TAKES OF A 400MG TAB Cetirizine HCl 10 Mg Tablet 10 Mg PO DAILY Vitamin B-12 (Cyanocobalamin (Vitamin B-12)) 1,000 Mcg Tablet 1,000 Mcg PO DAILY One Daily Plus Minerals (Multivitamin with Minerals) 1 Each Tablet 1 Each PO DAILY Simvastatin 20 Mg Tablet 20 Mg PO HS Sertraline HCl 50 Mg Tablet 50 Mg PO DAILY Oxybutynin Chloride 5 Mg Tablet 5 Mg PO DAILY Montelukast Sodium 10 Mg Tablet 10 Mg PO DAILY Miralax (Polyethylene Glycol 3350) 17 Gram Powd.pack 17 Gm PO DAILY Metolazone 2.5 Mg Tablet 2.5 Mg PO DAILY Lisinopril 2.5 Mg Tablet 2.5 Mg PO DAILY HOLD IS SBP IS LESS THAN 100 Levothyroxine Sodium 88 Mcg Tablet 88 Mcg PO DAILY Latuda (Lurasidone HCl) 40 Mg Tablet 40 Mg PO 1700 ADMINISTER WITH FOOD Furosemide 20 Mg Tablet 20 Mg PO DAILY Donepezil HCl 10 Mg Tablet 10 Mg PO DAILY Aripiprazole 10 Mg Tablet 10 Mg PO DAILY Instructions to patient/family Please see electronic discharge instructions given to patient. ONEIDA BLANCHARD MD Nov 02, 2021 13:22
[2021-11-02 15:00] VITALS: BP 130/60
[2021-11-02] MEDS: ENOXAPARIN INJECTION 30 MG/0.3 ML SYR SC SCH (15:00)
--- NOTE | 2021-11-03 04:02 | CONSULTATION REPORT ---
DATE OF SERVICE: SUMMARY: An 81-year-old white lady admitted because of acute pneumonia, but also cystitis without hematuria. She was started on antibiotic. Tan catheter was inserted because a CAT scan showing bilateral hydronephrosis secondary to a large bladder and retention. Again, the catheter showed some gross hematuria. We will start hydration. The patient denies any previous similar episodes. She apparently has history of retention. She wants to go home and wanted the catheter out before dismissal. The plan from Dr. Martin states we [facility], which I do not have any objection. IMPRESSION: Gross hematuria, possibly either cystitis or decompression of bladder distention. PLAN: We will remove the Tan catheter lateral cord to the jail. I would like to see her back tomorrow at the office and we will perform a cystoscopy to check with the inside of the bladder or any mucosal lesions. Then we will manage accordingly. No lesions. We will address the neurogenic bladder retention to prevent this from happening again and to take care of the bilateral hydronephrosis. The plan was fully explained to the patient. She seems to understand and she said that she signed her own consents. CC: Sintia Martin - requested, unable to deliver. Job ID: [id number] DocumentID: [id number] Dictated Date: 11/02/2021 21:29:55 Social Media Marketing Analyst Date: 11/03/2021 04:02:28 Dictated By: INDY GREEN MD
--- NOTE | 2021-11-03 18:24 | Physician Query Clarification ---
Physician Query-General Query to Physician: The medical record reflects the following clinical scenario: The patient, in the setting of History/Risk factors, Advanced age, COPD Clinical Findings Per Chest Xray: "Stable consolidation of the left lung base which may represent atelectasis versus infiltrate", CT Scan: "...Additional left basilar opacities are present, which could represent atelectasis or infection". No Sputum, on RA, no cough, Documentation of decreased lung sounds, Wheezes, RR 18 on admission increased as high as 29, Admission T 37.2, PCT 0.27. Treatment IV Vancomycin and Zosyn and Ceftriaxone, albuterol, Question: Do you agree with the impression of Pneumonia per Alejandro York? 1. Yes; will document Pneumonia, present on admission in the Progress Notes 2. No; will continue current documentation in the Progress Notes 3. Other; will document explanation of clinical findings 4. Clinically undetermined; no explanation for clinical findings Please clarify and document your clinical opinion in the Progress Notes and Discharge Summary including the definitive and/or presumptive diagnosis, (suspected or probable), related to the above clinical findings. Please include clinical findings supporting your diagnosis. In responding to this query, please exercise your independent professional judgment. The purpose of this communication is to more accurately reflect the complexity of your patients condition. The fact that a question is asked does not imply that any particular answer is desired or expected. Thank you for timely response to this clarification. Hailey Krueger RN, MSN Clinical Front Desk [phone] [email or web address] PHYSICIAN RESPONSE: Based on the clinical findings in the record, please respond to the query above on this document as an addendum. Physician Response: Physician Response 2 If you have questions please contact: Scrubber System Attendant: Ext: Thank you for your time and cooperation. Clinical Front Desk/Scrubber System Attendant This is a permanent part of the medical record HAILEY KRUEGER Nov 03, 2021 18:24 ONEIDA BLANCHARD MD Nov 04, 2021 11:57
--- NOTE | 2021-11-04 03:17 | Physician Query Clarification ---
PQ-Uncertain Diagnosis Admission/Discharge Admission Date: Oct 30, 2021 at 17:43 Discharge Date: Nov 02, 2021 at 15:00 ONEIDA Hernandez MD The medical record reflects the following clinical scenario: History/Risk Factors: 81 y/o female patient presented with symptomatic anemia likely due to CKD, pneumonia was documented in medical record. Clinical Findings: WBC- 5.3, chest X-ray may present atelectasis or infiltrates, wheezing, RR-18. Treatment: IV Vancomycin and Zosyn and Ceftriaxone, Albuterol. Question: Is pneumonia a clinically valid diagnosis? Pneumonia was documented in the ER provider notes, 10/30 with no further documentation in the medical record. Please document a response in Progress Note or Discharge Summary. 1. Yes, clinically valid, condition resolved. 2. No, condition ruled out. 3. Other, with explanation of clinical findings. 4. Undetermined, no explanation for clinical findings. PHYSICIAN RESPONSE Diagnosis clinically valid: No, conditon ruled out In responding to this query, please exercise your independent professional judgment. The purpose of this communication is to more accurately reflect the complexity of your patients condition. The fact that a question is asked does not imply that any particular answer is desired or expected. Thank you for your timely response to this clarification. Requestors name: [ ] Phone # [ ] THIS PHYSICIAN QUERY FORM IS A PERMANENT PART OF THE MEDICAL RECORD GOYOMEHNAZ Nov 04, 2021 03:17 ONEIDA BLANCHARD MD Nov 04, 2021 11:57
== END 2021-11-02 15:00 | DRG 292 ==
LOC: ER FS 13:40 → EDUNIT# 13:40 → ICU 17:43 → 4TH 10-31 15:13
PROVIDERS: ADMIT Internal Medicine; ATTEND Internal Medicine
DX: I13.0 Hypertensive heart and chronic kidney disease with heart failure and stage 1 through stage 4 chronic kidney disease, or unspecified chronic kidney disease (principal); N18.4 Chronic kidney disease, stage 4 (severe); N13.6 Pyonephrosis; J90 Pleural effusion, not elsewhere classified; L03.119 Cellulitis of unspecified part of limb; E87.2 Acidosis; I50.9 Heart failure, unspecified; D63.1 Anemia in chronic kidney disease; I48.91 Unspecified atrial fibrillation; E03.9 Hypothyroidism, unspecified; G40.909 Epilepsy, unspecified, not intractable, without status epilepticus; F03.90 Unspecified dementia, unspecified severity, without behavioral disturbance, psychotic disturbance, mood disturbance, and anxiety; R33.9 Retention of urine, unspecified; E83.39 Other disorders of phosphorus metabolism; E83.42 Hypomagnesemia; F20.9 Schizophrenia, unspecified; E11.22 Type 2 diabetes mellitus with diabetic chronic kidney disease; Z20.822 Contact with and (suspected) exposure to COVID-19; J43.9 Emphysema, unspecified; R06.00 Dyspnea, unspecified; E83.51 Hypocalcemia; R31.0 Gross hematuria
CPT/HCPCS: 36415; 71045; 74176; 80048; 80053; 81000; 82274; 82607; 82728; 82746; 83540; 83550; 83605; 83735; 83880; 84100; 84145; 84484; 85025; 85379; 85610; 85730; 86141; 86850; 86900; 86901; 86920; 87040; 87077; 87081; 87088; 87186; 87636; 93970; 94664; 94760

== ENCOUNTER → 2021-10-30 | Outpatient (CLI) | payer MEDICARE, MEDICAID ==
[2021-10-30 11:05] LABS: BASOPHILS % (AUTO) 0 % (0-10); EOSINOPHILS # (AUTO) 0.2 10^3/uL (0.0-0.3); EOSINOPHILS % (AUTO) 4 % (0-10); LYMPHOCYTES # (AUTO) 1.2 10^3/uL (1.0-4.0); LYMPHOCYTES % (AUTO) 24 % (12-44); MEAN CORPUSCULAR HEMOGLOBIN 29 pg (25-34); MEAN CORPUSCULAR HGB CONC 32 g/dL (32-36); MEAN CORPUSCULAR VOLUME 92 fL (80-99); MONOCYTES # (AUTO) 0.6 10^3/uL (0.0-1.0); MONOCYTES % (AUTO) 11 % (0-12); NEUTROPHILS # (AUTO) 3.1 10^3/uL (1.8-7.8); NEUTROPHILS % (AUTO) 61 % (42-75); PLATELET COUNT 199 10^3/uL (130-400); WHITE BLOOD COUNT 5.1 10^3/uL (4.3-11.0)
[2021-10-30 11:10] LABS: HEMATOCRIT 20 % (35-52); HEMOGLOBIN 6.5 g/dL (11.5-16.0)
[2021-10-30 12:03] LABS: POTASSIUM 4.2 MMOL/L (3.6-5.0)
[2021-10-30 12:04] LABS: CREATININE SERUM 2.76 MG/DL (0.60-1.30)
[2021-10-30 12:06] LABS: BILIRUBIN,TOTAL 0.2 MG/DL (0.1-1.0); CALCIUM 5.4 MG/DL (8.5-10.1); TOTAL PROTEIN 5.7 GM/DL (6.4-8.2)
== END ==
PROVIDERS: ATTEND Pediatrics
DX: E56.9 Vitamin deficiency, unspecified (principal)
CPT/HCPCS: 80053; 80185; 85025

== ENCOUNTER 2022-02-24 12:20 | Emergency (ER) | payer MEDICARE, MEDICAID ==
--- NOTE | 2022-02-24 12:29 | ED General ---
General Stated Complaint: SEIZURE-LIKE ACTIVITY Source of Information: EMS Exam Limitations: Physical Impairments History of Present Illness Date Seen by Provider: Feb 24, 2022 Time Seen by Provider: 12:20 Initial Comments 81-year-old female presents from [facility] facility for seizure-like activity. She has a known seizure disorder, takes phenytoin. It was recently decreased from 3 times daily to twice daily, and then increased once again a couple of days ago to 3 times daily. She had a witnessed seizure activity prior to arrival. The patient is nonverbal at baseline and is reportedly back to her normal mental baseline. She is unable to provide any history and history obtained via EMS. Did not know much about the seizure, without a lasted a few minutes and was reported as generalized tonic-clonic type activity. No reported trauma. The patient is a DNR, DNI Allergies and Home Medications Allergies Coded Allergies: aspirin (Verified Allergy, Unknown, 08/21/05) diazepam (Verified Allergy, Unknown, 08/21/05) ibuprofen (Verified Allergy, Unknown, 08/21/05) phenobarbital (Verified Allergy, Unknown, 08/21/05) Patient Home Medication List Home Medication List Reviewed: Yes Acetaminophen (Tylenol) 325 Mg Tablet, 650 MG PO Q4H PRN for PAIN-MILD (1-4), (Reported) Entered as Reported by: CANDELARIO GARCIA on 10/08/21 1253 Albuterol Sulfate (Proair Respiclick) 90 Mcg Aer.pow.ba, 2 PUFF IH Q4H PRN for SHORTNESS OF BREATH, (Reported) Entered as Reported by: CANDELARIO GARCIA on 10/08/21 1253 Amiodarone HCl (Amiodarone HCl) 400 Mg Tablet, 200 MG PO BID, (Reported) Entered as Reported by: CANDELARIO GARCIA on 10/08/21 1253 Aripiprazole (Aripiprazole) 10 Mg Tablet, 10 MG PO DAILY, (Reported) Entered as Reported by: CANDELARIO GARCIA on 10/08/21 1253 Cephalexin (Cephalexin) 500 Mg Capsule, 500 MG PO TID, (Reported) Entered as Reported by: CANDELARIO GARCIA on 10/08/21 1253 Cetirizine HCl (Cetirizine HCl) 10 Mg Tablet, 10 MG PO DAILY, (Reported) Entered as Reported by: CANDELARIO GARCIA on 10/08/21 1253 Cyanocobalamin (Vitamin B-12) (Vitamin B-12) 1,000 Mcg Tablet, 1,000 MCG PO DAILY, (Reported) Entered as Reported by: CANDELARIO GARCIA on 10/08/21 125 Cyclobenzaprine HCl (Cyclobenzaprine HCl) 10 Mg Tablet, 10 MG PO BID, (Reported) Entered as Reported by: CANDELARIO GARCIA on 10/08/21 125 Donepezil HCl (Donepezil HCl) 10 Mg Tablet, 10 MG PO DAILY, (Reported) Entered as Reported by: CANDELARIO GARCIA on 10/08/21 125 Ferrous Sulfate (Ferrous Sulfate) 325 Mg (65 Mg Iron) Tablet, 325 MG PO Q48H Prescribed by: ONEIDA BLANCHARD on 11/02/21 0941 Fluticasone Propionate (Flovent Hfa 110 mcg) 110 Mcg/Actuation Aero, 2 PUFF IH BID, (Reported) Entered as Reported by: CANDELARIO GARCIA on 10/08/21 125 Furosemide (Furosemide) 20 Mg Tablet, 20 MG PO DAILY, (Reported) Entered as Reported by: CANDELARIO GARCIA on 10/08/21 125 Guaifenesin/Dextromethorphan (Tussin Dm Syrup) 100 Mg-10 Mg/5 Ml Syrup, 10 ML PO Q4H PRN for COUGH, (Reported) Entered as Reported by: CANDELARIO GARCIA on 10/08/21 125 Hydrocodone/Acetaminophen (Hydrocodone-Acetamin 5-325 mg) 5 Mg-325 Mg Tablet, 1 TAB PO DAILY, (Reported) Entered as Reported by: CANDELARIO GARCIA on 10/08/21 125 Hydrocodone/Acetaminophen (Hydrocodone-Acetamin 5-325 mg) 5 Mg-325 Mg Tablet, 1 TAB PO Q6H PRN for PAIN-MODERATE (5-7), (Reported) Entered as Reported by: CANDELARIO GARCIA on 10/08/21 125 Levothyroxine Sodium (Levothyroxine Sodium) 88 Mcg Tablet, 88 MCG PO DAILY, (Reported) Entered as Reported by: CANDELARIO GARCIA on 10/08/21 125 Lisinopril (Lisinopril) 2.5 Mg Tablet, 2.5 MG PO DAILY, (Reported) Entered as Reported by: CANDELARIO GARCIA on 10/08/21 125 Loperamide HCl (Loperamide) 2 Mg Capsule, 2 MG PO Q4H PRN for DIARRHEA, (Reported) Entered as Reported by: CANDELARIO GARCIA on 10/08/21 125 Lorazepam (Ativan) 0.5 Mg Tablet, 0.5 MG PO TID, (Reported) Entered as Reported by: CANDELARIO GARCIA on 10/08/21 125 Lurasidone HCl (Latuda) 40 Mg Tablet, 40 MG PO 1700, (Reported) Entered as Reported by: CANDELARIO GARCIA on 10/08/21 125 Mag Hydrox/Aluminum Hyd/Simeth (Maalox Advanced Suspension) 200 Mg-200 Mg-20 Mg/5 Ml Oral.susp, 30 ML PO Q4H PRN for INDIGESTION, (Reported) Entered as Reported by: CANDELARIO GARCIA on 10/08/21 125 Menthol (Biofreeze) 4 % Gel..ml., 1 APPLIC TP BID, (Reported) Entered as Reported by: CANDELARIO GARCIA on 10/08/21 125 Menthol/Lanolin/Calamine/Znox (Calmoseptine Ointment) 0.44 %-20.6 % Oint, 1 AP PLIC TP BID, (Reported) Entered as Reported by: CANDELARIO GARCIA on 10/08/211252 Menthol/Lanolin/Calamine/Znox (Calmoseptine Ointment) 0.44 %-20.6 % Oint, 1 APPLIC TP DAILY PRN for REDNESS, (Reported) Entered as Reported by: CANDELARIO GARCIA on 10/08/21 125 Metolazone (Metolazone) 2.5 Mg Tablet, 2.5 MG PO DAILY, (Reported) Entered as Reported by: CANDELARIO GARCIA on 10/08/21 125 Montelukast Sodium (Montelukast Sodium) 10 Mg Tablet, 10 MG PO DAILY, (Reported) Entered as Reported by: CANDELARIO GARCIA on 10/08/21 125 Multivitamin with Minerals (One Daily Plus Minerals) 1 Each Tablet, 1 EACH PO DAILY, (Reported) Entered as Reported by: CANDELARIO GARCIA on 10/08/21 125 Nystatin (Nystatin) 100,000 Unit/Gram Oint...g., 1 APPLIC TP Q6H PRN for RASH, (Reported) Entered as Reported by: CANDELARIO GARCIA on 10/08/21 125 Oxybutynin Chloride (Oxybutynin Chloride) 5 Mg Tablet, 5 MG PO DAILY, (Reported) Entered as Reported by: CANDELARIO GARCIA on 10/08/21 125 Phenytoin Sodium Extended (Phenytoin Sodium Extended) 100 Mg Capsule, 100 MG PO BID, (Reported) Entered as Reported by: CANDELARIO GARCIA on 10/08/21 125 Polyethylene Glycol 3350 (Miralax) 17 Gram Powd.pack, 17 GM PO DAILY, (Reported) Entered as Reported by: CANDELARIO GARCIA on 10/08/21 125 Polyethylene Glycol 3350 (Miralax) 17 Gram Powd.pack, 17 GM PO Q12H PRN for CONSTIPATION-2ND LINE, (Reported) Entered as Reported by: CANDELARIO GARCIA on 10/08/21 125 Sertraline HCl (Sertraline HCl) 50 Mg Tablet, 50 MG PO DAILY, (Reported) Entered as Reported by: CANDELARIO GARCIA on 10/08/21 125 Simvastatin (Simvastatin) 20 Mg Tablet, 20 MG PO HS, (Reported) Entered as Reported by: CANDELARIO GARCIA on 10/08/21 125 Sodium Chloride (Moore) 0.65 % [place], 1 SPRAY NSEACH BID, (Reported) Entered as Reported by: CANDELARIO GARCIA on 10/08/21 125 Tramadol HCl (Tramadol HCl) 50 Mg Tablet, 100 MG PO HS, (Reported) Entered as Reported by: CANDELARIO GARCIA on 10/08/21 125 Review of Systems Review of Systems Constitutional: no symptoms reported EENTM: no symptoms reported Respiratory: no symptoms reported Cardiovascular: no symptoms reported Gastrointestinal: no symptoms reported Genitourinary: no symptoms reported Musculoskeletal: no symptoms reported Skin: no symptoms reported Psychiatric/Neurological: No Symptoms Reported Hematologic/Lymphatic: No Symptoms Reported Immunological/Allergic: no symptoms reported History obtained mostly from EMS report. Patient unable to give any review of systems Past Sakdeyw-Plokcm-Zyrpaa Hx Past Medical History Surgery/Hospitalization HX: COPD, Hypertension, Chronic Atrial Fibrillation, Hypothyroid, Bipolar/Schizophrenia, Chronic Anemia, Seizures, Type II Diabetes, Chronic hypocalcemia COPD Atrial Fibrillation, Hypertension Seizure Disorder Renal Failure Hypothyroidsim Family Medical History No Pertinent Family Hx All provided history is obtained via previous records. Patient unable to give any history. Physical Exam Vital Signs Vital Signs - First Documented 02/24/22 12:21 Temp 36.1 Pulse 94 Resp 18 B/P (MAP) 169/77 (107) Pulse Ox 98 Capillary Refill : Height, Weight, BMI Height: '" Weight: lbs. oz. kg; 31.28 BMI Method: General Appearance: No Apparent Distress, WD/WN HEENT: PERRL/EOMI, TMs Normal, Normal ENT Inspection, Pharynx Normal Neck: Full Range of Motion, Normal Inspection, Non Tender, Supple Respiratory: Chest Non Tender, Lungs Clear, Normal Breath Sounds, No Accessory Muscle Use, No Respiratory Distress Cardiovascular: Regular Rate, Rhythm, No Edema, No Gallop, No JVD, No Murmur, Normal Peripheral Pulses Gastrointestinal: Normal Bowel Sounds, No Organomegaly, No Pulsatile Mass, Non Tender, Soft Extremity: Normal Capillary Refill, Normal Range of Motion, Non Tender, Swelling (3+ pitting edema bilateral lower extremities) Neurologic/Psychiatric: Alert, Other (Patient is unable to comply with a full neurologic exam however she does move her upper extremities spontaneously. Lower extremities have chronic edema. I have not seen her move her lower extremities.) Skin: Normal Color, Warm/Dry Lymphatic: No Adenopathy Progress/Results/Core Measures Suspected Sepsis SIRS Temperature: Pulse: Respiratory Rate: Blood Pressure / Mean: Results/Orders Lab Results Laboratory Tests Test 02/24/22 12:27 Range/Units My Orders Orders - TRENT GOMEZantin (Phenytoin) (02/24/22 12:29) Vital Signs/I&O 02/24/22 12:21 Temp 36.1 Pulse 94 Resp 18 B/P (MAP) 169/77 (107) Pulse Ox 98 Capillary Refill : Departure Communication (Admissions) Patient is hemodynamically stable. She is nonverbal at baseline reported. Her mental baseline. This facility does not process phenytoin levels directly. This is a send out. We did go ahead and draw this today with a reference later. She had recently been increased back to 3 times daily from her phenytoin. She is discharged in stable condition back to the nursing facility. Impression Primary Impression: Seizure Disposition: 01 HOME, SELF-CARE Condition: Stable Departure-Patient Inst. Referrals: SHOSHANA SANDRA MD (PCP) Primary Care Physician Patient Instructions: Seizures, Adult ED Add. Discharge Instructions: Continue medication as previously prescribed. We have sent a phenytoin level a nd your doctor will need to follow this up. Return to the emergency department for any severe concerns. Follow-up with your primary doctor for any nonemergent needs. TRENT GOMEZ DO Feb 24, 2022 12:29
[2022-02-24 12:53] VITALS: BP 169/77
== END 2022-02-24 13:19 | disposition home or self-care (01) ==
LOC: EDUNIT# 12:20 → ER FS 12:22
DX: G40.909 Epilepsy, unspecified, not intractable, without status epilepticus (principal)
CPT/HCPCS: 36415; 80185; 99283

== ENCOUNTER 2022-04-06 03:07 | Inpatient (IN) | payer MEDICARE, MEDICAID ==
[~2022-04-06] VITALS: Ht 167 cm; Wt 84.9 kg
[2022-04-06] MEDS ORDERED: RT-ALBUTEROL/IPRATROPIUM 3 ML (DUONEB) VIAL INH ONE (03:45)
[2022-04-06] MEDS ORDERED: methylPREDNISolone 125 MG (Solu-MEDROL) VIAL IVP ONE (03:45)
--- NOTE | 2022-04-06 03:53 | ED Dyspnea ---
General Stated Complaint: TROUBLE BREATHING Source of Information: EMS, Residential Records Exam Limitations: Other (On CPAP) History of Present Illness Date Seen by Provider: Apr 06, 2022 Time Seen by Provider: 03:27 Initial Comments 81-year-old female patient resident of [facility] with DNR brought in by EMS because of shortness of breath on high pox ER. Patient had O2 sat of 86% reported by [facility] and had DuoNeb and oxygen without improvement of her condition. EMS gave another dose of DuoNeb and started on CPAP with increase of O2 sat to 92%. Patient had tachypnea with respiratory rate of 44. Patient roommate was positive for COVID and flu and the patient had negative COVID and flu test 1 day ago. Patient was seen by CPAP and unable to give history. Allergies and Home Medications Allergies Coded Allergies: aspirin (Verified Allergy, Unknown, 08/21/05) diazepam (Verified Allergy, Unknown, 08/21/05) ibuprofen (Verified Allergy, Unknown, 08/21/05) phenobarbital (Verified Allergy, Unknown, 08/21/05) Patient Home Medication List Home Medication List Reviewed: Yes Acetaminophen (Tylenol) 325 Mg Tablet, 650 MG PO Q4H PRN for PAIN-MILD (1-4), (Reported) Entered as Reported by: CANDELARIO GARCIA on 10/08/21 1253 Albuterol Sulfate (Proair Respiclick) 90 Mcg Aer.pow.ba, 2 PUFF IH Q4H PRN for SHORTNESS OF BREATH, (Reported) Entered as Reported by: CANDELARIO GARCIA on 10/08/21 1253 Amiodarone HCl (Amiodarone HCl) 400 Mg Tablet, 200 MG PO BID, (Reported) Entered as Reported by: CANDELARIO GARCIA on 10/08/21 1253 Aripiprazole (Aripiprazole) 10 Mg Tablet, 10 MG PO DAILY, (Reported) Entered as Reported by: CANDELAROI GARCIA on 10/08/21 1253 Cephalexin (Cephalexin) 500 Mg Capsule, 500 MG PO TID, (Reported) Entered as Reported by: CANDELARIO GARCIA on 10/08/21 1253 Cetirizine HCl (Cetirizine HCl) 10 Mg Tablet, 10 MG PO DAILY, (Reported) Entered as Reported by: CANDELARIO GARCIA on 10/08/21 1253 Cyanocobalamin (Vitamin B-12) (Vitamin B-12) 1,000 Mcg Tablet, 1,000 MCG PO DAILY, (Reported) Entered as Reported by: CANDELARIO GARCIA on 10/08/21 125 Cyclobenzaprine HCl (Cyclobenzaprine HCl) 10 Mg Tablet, 10 MG PO BID, (Reported) Entered as Reported by: CANDELARIO GARCIA on 10/08/21 125 Donepezil HCl (Donepezil HCl) 10 Mg Tablet, 10 MG PO DAILY, (Reported) Entered as Reported by: CANDELARIO GARCIA on 10/08/21 125 Ferrous Sulfate (Ferrous Sulfate) 325 Mg (65 Mg Iron) Tablet, 325 MG PO Q48H Prescribed by: ONEIDA BLANCHARD on 11/02/21 0941 Fluticasone Propionate (Flovent Hfa 110 mcg) 110 Mcg/Actuation Aero, 2 PUFF IH BID, (Reported) Entered as Reported by: CANDELARIO GARCIA on 10/08/21 125 Furosemide (Furosemide) 20 Mg Tablet, 20 MG PO DAILY, (Reported) Entered as Reported by: CANDELARIO GARCIA on 10/08/21 125 Guaifenesin/Dextromethorphan (Tussin Dm Syrup) 100 Mg-10 Mg/5 Ml Syrup, 10 ML PO Q4H PRN for COUGH, (Reported) Entered as Reported by: CANDELARIO GARCIA on 10/08/21 125 Hydrocodone/Acetaminophen (Hydrocodone-Acetamin 5-325 mg) 5 Mg-325 Mg Tablet, 1 TAB PO DAILY, (Reported) Entered as Reported by: CANDELARIO GARCIA on 10/08/21 125 Hydrocodone/Acetaminophen (Hydrocodone-Acetamin 5-325 mg) 5 Mg-325 Mg Tablet, 1 TAB PO Q6H PRN for PAIN-MODERATE (5-7), (Reported) Entered as Reported by: CANDELARIO GARCIA on 10/08/21 125 Levothyroxine Sodium (Levothyroxine Sodium) 88 Mcg Tablet, 88 MCG PO DAILY, (Re ported) Entered as Reported by: CANDELARIO GARCIA on 10/08/21 125 Lisinopril (Lisinopril) 2.5 Mg Tablet, 2.5 MG PO DAILY, (Reported) Entered as Reported by: CANDELARIO GARCIA on 10/08/21 125 Loperamide HCl (Loperamide) 2 Mg Capsule, 2 MG PO Q4H PRN for DIARRHEA, (Reported) Entered as Reported by: CANDELARIO GARCIA on 10/08/21 125 Lorazepam (Ativan) 0.5 Mg Tablet, 0.5 MG PO TID, (Reported) Entered as Reported by: CANDELARIO GARCIA on 10/08/21 125 Lurasidone HCl (Latuda) 40 Mg Tablet, 40 MG PO 1700, (Reported) Entered as Reported by: CANDELARIO GARCIA on 10/08/21 125 Mag Hydrox/Aluminum Hyd/Simeth (Maalox Advanced Suspension) 200 Mg-200 Mg-20 Mg/5 Ml Oral.susp, 30 ML PO Q4H PRN for INDIGESTION, (Reported) Entered as Reported by: CANDELARIO GARCIA on 10/08/21 125 Menthol (Biofreeze) 4 % Gel..ml., 1 APPLIC TP BID, (Reported) Entered as Reported by: CANDELARIO GARCIA on 10/08/211252 Menthol/Lanolin/Calamine/Znox (Calmoseptine Ointment) 0.44 %-20.6 % Oint, 1 APPLIC TP BID, (Reported) Entered as Reported by: CANDELARIO GARCIA on 10/08/211252 Menthol/Lanolin/Calamine/Znox (Calmoseptine Ointment) 0.44 %-20.6 % Oint, 1 APPLIC TP DAILY PRN for REDNESS, (Reported) Entered as Reported by: CADNELARIO GARCIA on 10/08/21 125 Metolazone (Metolazone) 2.5 Mg Tablet, 2.5 MG PO DAILY, (Reported) Entered as Reported by: CANDELARIO GARCIA on 10/08/21 125 Montelukast Sodium (Montelukast Sodium) 10 Mg Tablet, 10 MG PO DAILY, (Reported) Entered as Reported by: CANDELARIO GARCIA on 10/08/21 125 Multivitamin with Minerals (One Daily Plus Minerals) 1 Each Tablet, 1 EACH PO DAILY, (Reported) Entered as Reported by: CANDELARIO GARCIA on 10/08/21 125 Nystatin (Nystatin) 100,000 Unit/Gram Oint...g., 1 APPLIC TP Q6H PRN for RASH, (Reported) Entered as Reported by: CANDELARIO GARCIA on 10/08/21 125 Oxybutynin Chloride (Oxybutynin Chloride) 5 Mg Tablet, 5 MG PO DAILY, (Reported) Entered as Reported by: CANDELARIO GARCIA on 10/08/21 125 Phenytoin Sodium Extended (Phenytoin Sodium Extended) 100 Mg Capsule, 100 MG PO BID, (Reported) Entered as Reported by: CANDELARIO GARCIA on 10/08/21 125 Polyethylene Glycol 3350 (Miralax) 17 Gram Powd.pack, 17 GM PO DAILY, (Reported) Entered as Reported by: CANDELARIO GARCIA on 10/08/21 125 Polyethylene Glycol 3350 (Miralax) 17 Gram Powd.pack, 17 GM PO Q12H PRN for CONSTIPATION-2ND LINE, (Reported) Entered as Reported by: CANDELARIO GARCIA on 10/08/21 125 Sertraline HCl (Sertraline HCl) 50 Mg Tablet, 50 MG PO DAILY, (Reported) Entered as Reported by: CANDELARIO GARCIA on 10/08/21 125 Simvastatin (Simvastatin) 20 Mg Tablet, 20 MG PO HS, (Reported) Entered as Reported by: CANDELARIO GARCIA on 10/08/21 125 Sodium Chloride ([place]) 0.65 % [place], 1 SPRAY NSEACH BID, (Reported) Entered as Reported by: CANDELARIO GARCIA on 10/08/21 125 Tramadol HCl (Tramadol HCl) 50 Mg Tablet, 100 MG PO HS, (Reported) Entered as Reported by: CANDELARIO GARCIA on 10/08/21 125 Review of Systems Review of Systems Constitutional: other (Unable to obtain because patient has respiratory distress on CPAP) Past Uaaniwo-Mipwkx-Jkvhag Hx Past Medical History Surgery/Hospitalization HX: COPD, Hypertension, Chronic Atrial Fibrillation, Hypothyroid, Bipolar/Schizophrenia, Chronic Anemia, Seizures, Type II Diabetes, Chronic hypocalcemia COPD Atrial Fibrillation, Hypertension Seizure Disorder Renal Failure Hypothyroidsim Family Medical History No Pertinent Family Hx All provided history is obtained via previous records. Patient unable to give any history. Physical Exam Vital Signs Vital Signs - First Documented 04/06/22 04/06/22 03:27 03:50 Temp 37.3 Pulse 134 Resp 44 B/P (MAP) 159/68 (98) Pulse Ox 92 O2 Delivery NIV CPAP O2 Flow Rate 15.00 FiO2 60 Capillary Refill : Height, Weight, BMI Height: '" Weight: lbs. oz. kg; 31.28 BMI Method: General Appearance: Moderate Distress HEENT: PERRL/EOMI, TMs Normal Neck: Full Range of Motion Respiratory: Accessory Muscle Use, Decreased Breath Sounds, Rales, Respiratory Distress Cardiovascular: Tachycardia Gastrointestinal: Non Tender, Soft Extremity: Pedal Edema (3+ bilateral) Neurologic/Psychiatric: Alert, Other (Moves all extremities) Skin: Normal Color Focused Exam Lactate Level 04/06/22 03:50: Lactic Acid Level 2.69*H 04/06/22 05:50: Lactic Acid Level 1.35 Lactic Acid Level Laboratory Tests Test 04/06/22 03:50 04/06/22 05:50 Lactic Acid Level 2.69 MMOL/L (0.50-2.00) *H 1.35 MMOL/L (0.50-2.00) Progress/Results/Core Measures Results/Orders Lab Results Laboratory Tests Test 04/06/22 03:43 04/06/22 03:44 04/06/22 03:50 04/06/22 04:02 Range/Units Bedside Blood Gas pH (LAB) 7.331 7.310-7.410 Bedside Blood Gas pCO2 (LAB) 39.0 L 41.0-51.0 mmHg Bedside Blood Gas pO2 (LAB) 16 *L 80-105 mmHg Bedside Blood Gas HCO3 (LAB) 20.6 L 23.0-28.0 mmol/L POC Blood Gas Total CO2 Calc 22 L 24-29 mmol/L Bedside Bl Gas O2 Saturation (Calc) 19 L 95-98 % Bedside Arterial Blood Base Excess -5 L -2-3 mmol/L Venous Blood pH 7.33 7.31-7.41 Venous Blood Partial Pressure CO2 39 L 40-52 MMHG Venous Blood HCO3 21 L 22-28 MMOL/L White Blood Count 14.6 H 4.3-11.0 10^3/uL Red Blood Count 2.76 L 3.80-5.11 10^6/uL Hemoglobin 8.5 L 11.5-16.0 g/dL Hematocrit 25 L 35-52 % Mean Corpuscular Volume 91 80-99 fL Mean Corpuscular Hemoglobin 31 25-34 pg Mean Corpuscular Hemoglobin Concent 34 32-36 g/dL Red Cell Distribution Width 13.8 10.0-14.5 % Platelet Count 337 130-400 10^3/uL Mean Platelet Volume 10.2 9.0-12.2 fL Immature Granulocyte % (Auto) 1 % Neutrophils (%) (Auto) 84 H 42-75 % Lymphocytes (%) (Auto) 8 L 12-44 % Monocytes (%) (Auto) 7 0-12 % Eosinophils (%) (Auto) 0 0-10 % Basophils (%) (Auto) 0 0-10 % Neutrophils # (Auto) 12.2 H 1.8-7.8 10^3/uL Lymphocytes # (Auto) 1.2 1.0-4.0 10^3/uL Monocytes # (Auto) 1.0 0.0-1.0 10^3/uL Eosinophils # (Auto) 0.1 0.0-0.3 10^3/uL Basophils # (Auto) 0.0 0.0-0.1 10^3/uL Immature Granulocyte # (Auto) 0.1 0.0-0.1 10^3/uL Neutrophils % (Manual) 79 % Lymphocytes % (Manual) 13 % Monocytes % (Manual) 4 % Band Neutrophils 4 % Platelet Estimate NORMAL Blood Morphology Comment NORMAL Prothrombin Time 14.1 12.2-14.7 SEC INR Comment 1.0 0.8-1.4 Activated Partial Thromboplast Time 33 24-35 SEC Sodium Level 132 L 135-145 MMOL/L Potassium Level 5.0 3.6-5.0 MMOL/L Chloride Level 90 L 98-107 MMOL/L Carbon Dioxide Level 18 L 21-32 MMOL/L Anion Gap 24 H 5-14 MMOL/L Blood Urea Nitrogen 67 H 7-18 MG/DL Creatinine 2.82 H 0.60-1.30 MG/DL Estimat Glomerular Filtration Rate 16 BUN/Creatinine Ratio 24 Glucose Level 171 H 70-105 MG/DL Lactic Acid Level 2.69 *H 0.50-2.00 MMOL/L Calcium Level 5.9 *L 8.5-10.1 MG/DL Corrected Calcium 6.2 L 8.5-10.1 MG/DL Magnesium Level 1.0 *L 1.6-2.4 MG/DL Total Bilirubin 0.3 0.1-1.0 MG/DL Direct Bilirubin 0.2 0.0-0.3 MG/DL Aspartate Amino Transf (AST/SGOT) 21 5-34 U/L Alanine Aminotransferase (ALT/SGPT) 13 0-55 U/L Alkaline Phosphatase 144 H 40-136 U/L Troponin I < 0.30 <0.30 NG/ML Pro-B-Type Natriuretic Peptide 94483.0 H <450.0 PG/ML Total Protein 8.3 H 6.4-8.2 GM/DL Albumin 3.6 3.2-4.5 GM/DL Influenza Type A (RT-PCR) Not Detected Not Detecte Influenza Type B (RT-PCR) Not Detected Not Detecte SARS-CoV-2 RNA (RT-PCR) Not Detected Not Detecte Test 04/06/22 04:43 04/06/22 05:50 Range/Units Lactic Acid Level 1.35 0.50-2.00 MMOL/L My Orders Orders - ANTONIO TATE MD Cbc With Automated Diff (04/06/22 03:34) Comprehensive Metabolic Panel (04/06/22 03:34) Chest 1 View Ap/Pa Only (04/06/22 03:34) Albuterol/Ipra Inhalation Soln (Duoneb I (04/06/22 03:45) Magnesium (04/06/22 03:34) Ekg Tracing (04/06/22 03:34) O2 (04/06/22 03:34) Ed Iv/Invasive Line Start (04/06/22 03:34) Monitor-Rhythm Ecg Trace Only (04/06/22 03:34) Urinalysis (04/06/22 03:34) Urine Culture (04/06/22 03:34) Protime With Inr (04/06/22 03:34) Partial Thromboplastin Time (04/06/22 03:34) Ed Iv/Invasive Line Start (04/06/22 03:34) Ed Iv/Invasive Line Start (04/06/22 03:34) Troponin I Riley (04/06/22 03:34) O2 (04/06/22 03:34) Lactic Acid Analyzer (04/06/22 03:34) Influenza A And B By Pcr (04/06/22 03:34) Svn Small Volume Nebulizer (04/06/22 03:34) Covid 19 Inhouse Test (04/06/22 03:34) Methylprednisolone Sod Succ (Solu-Medrol (04/06/22 03:45) Albuterol Pre-Mix Nebs (Rt) (Proventil (04/06/22 04:10) Manual Differential (04/06/22 03:50) Albuterol Pre-Mix Nebs (Rt) (Proventil (04/06/22 04:30) Svn Small Volume Nebulizer (04/06/22 04:24) Ceftriaxone 1 Gm Pre-Mix (Rocephin 1 Gm (04/06/22 04:30) Blood Culture (04/06/22 04:24) Probnp Fs (04/06/22 03:50) Magnesium 1 Gm/100 Ml Ivpb (Magnesium Nair (04/06/22 04:45) Calc Gluc 1 Gm/100 Ml Ivpb (Calcium Gluc (04/06/22 04:45) Hiv 1/2 Antibody (04/06/22 04:36) Hiv 1 Rna Quant Viral Load Pcr (04/06/22 04:36) Hepatitis C Antibody (04/06/22 04:36) Hepatitis B Surface Antibody (04/06/22 04:36) Venous Blood Gas (04/06/22 03:44) Cefepime Injection (Maxipime Injection) (04/06/22 05:00) Bilirubin,Direct (04/06/22 04:43) Blood Culture (04/06/22 04:43) Medications Given in ED Current Medications Medications Dose Ordered Sig/Jay Route Start Time Stop Time Status Last Admin Dose Admin Albuterol Sulfate 2.5 mg ONCE ONCE INH 04/06/22 04:30 04/06/22 04:31 DC 04/06/22 04:26 2.5 MG Calcium Gluconate/ Sodium Chloride 100 ml @ 120 mls/hr ONCE ONCE IV 04/06/22 04:45 04/06/22 05:34 DC 04/06/22 05:04 120 MLS/HR Cefepime HCl 1000 mg/Sodium Chloride 50 ml @ 100 mls/hr ONCE ONCE IV 04/06/22 05:00 04/06/22 05:29 DC 04/06/22 05:01 100 MLS/HR Ceftriaxone Sodium/Dextrose 50 ml @ 100 mls/hr ONCE ONCE IV 04/06/22 04:30 04/06/22 04:59 DC 04/06/22 04:45 100 MLS/HR Methylprednisolone Sodium Succinate 125 mg ONCE ONCE IVP 04/06/22 03:45 04/06/22 03:46 DC 04/06/22 04:08 125 MG Vital Signs/I&O 04/06/22 04/06/22 04/06/22 04/06/22 03:27 03:50 03:55 04:26 Temp 37.3 Pulse 134 Resp 44 B/P (MAP) 159/68 (98) Pulse Ox 92 92 94 94 O2 Delivery NIV CPAP NIV Bilevel NIV Bilevel NIV Bilevel O2 Flow Rate 15.00 FiO2 60 50 60 04/06/22 04:30 O2 Delivery NIV Bilevel FiO2 50 Progress Progress Note : Progress Note 81-year-old patient with history of DNR and exposure to COVID and flu at her [facility] brought in by EMS because of hypoxia at 86 and tachypnea at 44. Patient was a started on CPAP by EMS and had O2 sat of high 80s. Patient was changed to BiPAP with using smaller size facial mask (medium size ) with improvement of O2 sat at 99% and 60% of oxygen and oxygen decreased to 50%. Heart rate gradually decreased to 90s. Tachycardia improved. Chest x-ray showed right lower lobe infiltrate and increased pulmonary markers. Rocephin was started after blood culture. Patient had magnesium of 1.0 and calcium of 6.2 and IV calcium and magnesium was ordered. Patient had history of hypomagnesemia and hypocalcemia but the last lab in November 02, 2021 was in normal range. Patient had elevation of BUN/creatinine without new change and hemoglobin of 8.5 with history of chronic anemia with hemoglobin of 8.5 in October 2021. BNP was more than 10,000. Lactic acid was 2.6. Because of sepsis and CHF no IV fluid or Lasix was started. Contacted [facility] for possible transfer but they did not have telemetry bed. On-call hospitalist at [facility] Dr. Brown was consulted at 0449 and recommended to start cefepime and also advance diet as tolerated. He was informed that patient is on BiPAP and most likely is not able to tolerate taking off of the BiPAP or oral feeding but he recommended to put order for later on today. Initial ECG Impression Date: Apr 06, 2022 Initial ECG Impression Time: 04:05 Initial ECG Rhythm: S.Tach Initial ECG Intervals EKG interpreted by me. EKG at 0405 showed sinus tachycardia at rate of 110. Right axis deviation, VT interval of 171 and QT of 383, Q waves in anteroseptal leads, no acute ST and T wave elevation. Diagnostic Imaging Plain Films/CT/US/NM/MRI: chest Comments 1 view chest x-ray interpreted by me and showed cardiomegaly with right lower lobe infiltrate and increased vascular markings. Critical Care Note Critical Care Start Time: 03:27 Stop Time: 05:02 Total Time (minutes) 95 minutes Departure Communication (Admissions) Time/Spoke to Admitting Phy: 04:49 Dr Brown accepted admission at 0 449. He recommended to start cefepime. He recommended to start diet and advance as tolerated, informed that patient is in respiratory distress on BiPAP but he recommended to put the order for blue leather sorter order. Impression Primary Impression: Acute respiratory distress Additional Impressions: Right lower lobe pneumonia Qualified Codes: J18.9 - Pneumonia, unspecified organism Hypomagnesemia Hypocalcemia Chronic anemia Chronic renal insufficiency Qualified Codes: N18.9 - Chronic kidney disease, unspecified Sepsis Qualified Codes: A41.9 - Sepsis, unspecified organism Acute exacerbation of CHF (congestive heart failure) Qualified Codes: I50.9 - Heart failure, unspecified Hypoxia Disposition: 30 STILL A PATIENT Condition: Critical Admissions Decision to Admit Reason: Admit from ER (General) Decision to Admit/Date: Apr 06, 2022 Time/Decision to Admit Time: 04:49 Transfer Method of Transfer: EMS Departure-Patient Inst. Referrals: SHOSHANA SANDRA MD (PCP/Family) Primary Care Physician ANTONIO TATE MD Apr 06, 2022 03:53
[2022-04-06 04:04] LABS: BASOPHILS % (AUTO) 0 % (0-10); EOSINOPHILS # (AUTO) 0.1 10^3/uL (0.0-0.3); EOSINOPHILS % (AUTO) 0 % (0-10); HEMATOCRIT 25 % (35-52); HEMOGLOBIN 8.5 g/dL (11.5-16.0); LYMPHOCYTES # (AUTO) 1.2 10^3/uL (1.0-4.0); LYMPHOCYTES % (AUTO) 8 % (12-44); MEAN CORPUSCULAR HEMOGLOBIN 31 pg (25-34); MEAN CORPUSCULAR HGB CONC 34 g/dL (32-36); MEAN CORPUSCULAR VOLUME 91 fL (80-99); MEAN PLATELET VOLUME 10.2 fL (9.0-12.2); MONOCYTES % (AUTO) 7 % (0-12); NEUTROPHILS # (AUTO) 12.2 10^3/uL (1.8-7.8); NEUTROPHILS % (AUTO) 84 % (42-75); PLATELET COUNT 337 10^3/uL (130-400); WHITE BLOOD COUNT 14.6 10^3/uL (4.3-11.0)
[2022-04-06] MEDS ORDERED: RT-ALBUTEROL SULF 2.5 MG/3 ML PRE-MIX VIAL ONE (04:10)
[2022-04-06 04:30] LABS: CARBON DIOXIDE 18 MMOL/L (21-32); CHLORIDE 90 MMOL/L (98-107); SODIUM 132 MMOL/L (135-145)
[2022-04-06] MEDS ORDERED: cefTRIAXone 1 GM PRE-MIX 50 ML IV ONE (04:30)
[2022-04-06] MEDS ORDERED: RT-ALBUTEROL SULF 2.5 MG/3 ML PRE-MIX VIAL INH ONE (04:30)
[2022-04-06 04:31] LABS: ALANINE AMINOTRANSFERASE 13 U/L (0-55); ALKALINE PHOSPHATASE 144 U/L (40-136); BILIRUBIN,TOTAL 0.3 MG/DL (0.1-1.0); BUN/CREATININE RATIO 24; CREATININE SERUM 2.82 MG/DL (0.60-1.30); GFR ESTIMATED 16; GLUCOSE 171 MG/DL (70-105)
[2022-04-06 04:32] LABS: ALBUMIN 3.6 GM/DL (3.2-4.5); TOTAL PROTEIN 8.3 GM/DL (6.4-8.2)
[2022-04-06 04:34] LABS: CALCIUM 5.9 MG/DL (8.5-10.1)
[2022-04-06] MEDS ORDERED: CALC GLUC 1 GM/100 ML IVPB 100 ML IV ONE (04:45)
[2022-04-06] MEDS ORDERED: CEFEPIME INJECTION 1,000 MG in NS (IVPB) 50 ML IV ONE (05:00)
[2022-04-06 05:02] LABS: PROTHROMBIN TIME PATIENT 14.1 SEC (12.2-14.7)
[2022-04-06 05:17] LABS: BAND NEUTROPHILS 4 %; LYMPHOCYTES % (MANUAL) 13 %; MONOCYTES % (MANUAL) 4 %; NEUTROPHILS % (MANUAL) 79 %
[2022-04-06 05:18] LABS: PLATELET ESTIMATE NORMAL; RBC MORPH NORMAL
[2022-04-06] MEDS: MAGNESIUM 1 GM/100 ML IVPB 100 ML IV SCH ×2 (05:35→12:04)
--- NOTE | 2022-04-06 06:05 | Diagnostic Imaging Report ---
CHEST 1 VIEW AP/PA ONLY Indication: Shortness of breath. Comparison: 10/30/2021 Findings: Persistent left lower lobe consolidations with air bronchograms. Potential small left pleural effusion is unchanged. No pneumothorax. Stable cardiac silhouette. Impression: 1. Unchanged left lower lobe consolidations and small pleural effusion. Dictated by: Dictated on workstation # [id number]
[2022-04-06 07:55] LABS: CLARITY,URINE CLOUDY; COLOR,URINE YELLOW
[2022-04-06 07:56] LABS: BILIRUBIN,URINE NEGATIVE (NEGATIVE); GLUCOSE, URINE (UA) NEGATIVE (NEGATIVE); KETONES,URINE NEGATIVE (NEGATIVE); LEUKOCYTE ESTERASE ,URINE 3+ (NEGATIVE); NITRITE,URINE NEGATIVE (NEGATIVE); PROTEIN,URINE 3+ (NEGATIVE); WBC,URINE >100 /HPF
[2022-04-06 07:57] LABS: AMORPHOUS SEDIMENT,UR FEW AMOR PHOSPHATE /LPF; BACTERIA,URINE MODERATE /HPF
--- NOTE | 2022-04-06 09:08 | History & Physical ---
MEÑO MCBRIDE 04/06/22 0908: History of Present Illness History of Present Illness Reason for visit/HPI Ms. Abreu is an 81 year old female with a PMHx of COPD, HTN, atrial fibrillation, T2 DM, chronic anemia, seizure disorder, hypothyroidism, and bipolar/schizophrenia who presents to [facility] via EMS transfer with acute respira tory failure with hypoxia. Per the ED provider report, this patient is a long term resident who began demonstrating SOA with an SpO2 of 86%. Duoneb therapy was initiated and the patient was placed on CPAP with some improvement. The patient's roommate has recently tested positive for COVID and influenza. The patient's serology for COVID and flu is negative. The patient was transferred to the ICU for BiPap therapy and monitoring. The patient is resting in bed this morning and is drifting in and out of sleep. The patient denies CP and SOA. Patient reports pain in bilateral lower extremities. A complete history and ROS is unable to be obtained due to patient disposition. The patient is oriented to person and place. Date of Admission Apr 06, 2022 at 07:03 Date Seen by a Provider: Apr 06, 2022 Time Seen by a Provider: 08:45 I consulted on this patient on 04/06/22 09:01 Attending Physician Peng Cueva MD Admitting Physician Admitting Physician: Joseluis Brown MD Attending Physician: Joseluis Brown MD Consult Allergies and Home Medications Allergies Coded Allergies: aspirin (Verified Allergy, Unknown, 08/21/05) diazepam (Verified Allergy, Unknown, 08/21/05) ibuprofen (Verified Allergy, Unknown, 08/21/05) phenobarbital (Verified Allergy, Unknown, 08/21/05) Patient Home Medication List Home Medication List Reviewed: Yes Acetaminophen (Tylenol) 325 Mg Tablet, 650 MG PO Q4H PRN for PAIN-MILD (1-4), (Reported) Entered as Reported by: CANDELARIO GARCIA on 10/08/211252 Last Action: Continued Albuterol Sulfate (Proair Respiclick) 90 Mcg Aer.pow.ba, 2 PUFF IH Q4H PRN for SHORTNESS OF BREATH, (Reported) Entered as Reported by: CANDELARIO GARCIA on 10/08/211252 Last Action: Held Amiodarone HCl (Amiodarone HCl) 200 Mg Tablet, 200 MG PO BID, (Reported) Entered as Reported by: CANDELARIO GARCIA on 04/06/221137 Last Action: Continued Aripiprazole (Aripiprazole) 10 Mg Tablet, 10 MG PO DAILY, (Reported) Entered as Reported by: CANDELARIO GARCIA on 10/08/211252 Last Action: Continued Ascorbate Calcium (Vitamin C) 500 Mg Tablet, 500 MG PO BID, (Reported) Entered as Reported by: CANDELARIO GARCIA on 04/06/221137 Last Action: Held Bisacodyl (Bisacodyl) 10 Mg Supp.rect, 10 MG RC Q12H PRN for CONSTIPATION-4TH LINE, (Reported) Entered as Reported by: CANDELARIO GARCIA on 04/06/221137 Last Action: Held Cephalexin (Cephalexin) 500 Mg Capsule, 500 MG PO TID, (Reported) Entered as Reported by: CANDELARIO GARCIA on 10/08/211252 Last Action: Held Cetirizine HCl (Cetirizine HCl) 10 Mg Tablet, 10 MG PO DAILY, (Reported) Entered as Reported by: CANDELARIO GARCIA on 10/08/211252 Last Action: Converted Cyanocobalamin (Vitamin B-12) (Vitamin B-12) 1,000 Mcg Tablet, 1,000 MCG PO DAILY, (Reported) Entered as Reported by: CANDELARIO GARCIA on 10/08/211252 Last Action: Held Cyclobenzaprine HCl (Cyclobenzaprine HCl) 10 Mg Tablet, 10 MG PO BID, (Reported) Entered as Reported by: CANDELARIO GARCIA on 10/08/211252 Last Action: Held Donepezil HCl (Donepezil HCl) 10 Mg Tablet, 10 MG PO 1800, (Reported) Entered as Reported by: CANDELARIO GARCIA on 10/08/211252 Last Action: Continued Ferrous Sulfate (Ferrous Sulfate) 325 Mg (65 Mg Iron) Tablet, 325 MG PO Q48H, (Reported) Entered as Reported by: CANDELARIO GARCIA on 04/06/221137 Last Action: Held Fluticasone Propionate (Flovent Hfa 110 mcg) 110 Mcg/Actuation Aero, 2 PUFF IH BID, (Reported) Entered as Reported by: CANDELARIO GARCIA on 10/08/211252 Last Action: Converted Furosemide (Furosemide) 40 Mg Tablet, 40 MG PO DAILY, (Reported) Entered as Reported by: CANDELARIO GARCIA on 04/06/221137 Last Action: Held Guaifenesin/Dextromethorphan (Tussin Dm Syrup) 100 Mg-10 Mg/5 Ml Syrup, 10 ML PO Q4H PRN for COUGH, (Reported) Entered as Reported by: CANDELARIO GARCIA on 10/08/211252 Last Action: Continued Hydrocodone/Acetaminophen (Hydrocodone-Acetamin 5-325 mg) 5 Mg-325 Mg Tablet, 1 TAB PO DAILY, (Reported) Entered as Reported by: CANDELARIO GARCIA on 10/08/211252 Last Action: Held Hydrocodone/Acetaminophen (Hydrocodone-Acetamin 5-325 mg) 5 Mg-325 Mg Tablet, 1 TAB PO Q6H PRN for PAIN-MODERATE (5-7), (Reported) Entered as Reported by: CANDELARIO GARCIA on 10/08/211252 Last Action: Continued Levothyroxine Sodium (Levothyroxine Sodium) 88 Mcg Tablet, 88 MCG PO DAILY, (Reported) Entered as Reported by: CANDELARIO GARCIA on 10/08/211252 Last Action: Continued Lisinopril (Lisinopril) 2.5 Mg Tablet, 2.5 MG PO DAILY, (Reported) Entered as Reported by: CANDELARIO GARCIA on 10/08/211252 Last Action: Converted Loperamide HCl (Loperamide) 2 Mg Capsule, 2 MG PO Q4H PRN for DIARRHEA, (Reported) Entered as Reported by: CANDELARIO GARCIA on 10/08/211252 Last Action: Held Lorazepam (Ativan) 0.5 Mg Tablet, 0.25 MG PO TID, (Reported) Entered as Reported by: CANDELARIO GARCIA on 04/06/221137 Last Action: Held Lurasidone HCl (Latuda) 40 Mg Tablet, 40 MG PO 1700, (Reported) Entered as Reported by: CANDELARIO GARCIA on 10/08/211252 Last Action: Converted Mag Hydrox/Aluminum Hyd/Simeth (Maalox Advanced Suspension) 200 Mg-200 Mg-20 Mg/5 Ml Oral.susp, 30 ML PO Q4H PRN for INDIGESTION, (Reported) Entered as Reported by: CANDELARIO GARCIA on 10/08/211252 Last Action: Held Menthol (Biofreeze) 4 % Gel..ml., 1 APPLIC TP Q4H PRN for PAIN-BREAKTHROUGH, (Reported) Entered as Reported by: CANDELARIO GARCIA on 10/08/211252 Last Action: Held Menthol/Lanolin/Calamine/Znox (Calmoseptine Ointment) 0.44 %-20.6 % Oint, 1 APPLIC TP Q6H PRN for SKIN CONDITIONS, (Reported) Entered as Reported by: CANDELARIO GARCIA on 10/08/211252 Last Action: Held Metolazone (Metolazone) 2.5 Mg Tablet, 2.5 MG PO DAILY, (Reported) Entered as Reported by: CANDELARIO GARCIA on 10/08/211252 Last Action: Held Montelukast Sodium (Montelukast Sodium) 10 Mg Tablet, 10 MG PO DAILY, (Reported) Entered as Reported by: CANDELARIO GARCIA on 10/08/211252 Last Action: Continued Multivitamin with Minerals (One Daily Plus Minerals) 1 Each Tablet, 1 EACH PO DAILY, (Reported) Entered as Reported by: CANDELARIO GARCIA on 10/08/211252 Last Action: Held Oxybutynin Chloride (Oxybutynin Chloride) 5 Mg Tablet, 5 MG PO DAILY, (Reported) Entered as Reported by: CANDELARIO GARCIA on 10/08/211252 Last Action: Continued Phenytoin Sodium Extended (Phenytoin Sodium Extended) 100 Mg Capsule, 200 MG PO BID, (Reported) Entered as Reported by: CANDELARIO GARCIA on 10/08/211252 Last Action: Continued Polyethylene Glycol 3350 (Miralax) 17 Gram Powd.pack, 17 GM PO DAILY, (Reported) Entered as Reported by: CANDELARIO GARCIA on 10/08/211252 Last Action: Held Polyethylene Glycol 3350 (Miralax) 17 Gram Powd.pack, 17 GM PO Q12H PRN for CONSTIPATION-2ND LINE, (Reported) Entered as Reported by: CANDELARIO GARCIA on 10/08/211252 Last Action: Continued Potassium Chloride (Potassium Chloride) 20 Meq Tab.er.prt, 20 MEQ PO DAILY, (Reported) Entered as Reported by: CANDELARIO GARCIA on 04/06/22 1138 Last Action: Held Sertraline HCl (Sertraline HCl) 50 Mg Tablet, 50 MG PO DAILY, (Reported) Entered as Reported by: CANDELARIO GARCIA on 10/08/211252 Last Action: Continued Simvastatin (Simvastatin) 20 Mg Tablet, 20 MG PO HS, (Reported) Entered as Reported by: CANDELARIO GARCIA on 10/08/211252 Last Action: Converted Sodium Bicarbonate (Sodium Bicarbonate) 650 Mg Tablet, 1,300 MG PO TID, (Reported) Entered as Reported by: CANDELARIO GARCIA on 04/06/22 115 Last Action: Continued Sodium Chloride ([place]) 0.65 % [facility], 1 SPRAY NSEACH BID, (Reported) Entered as Reported by: CANDELARIO GARCIA on 10/08/211252 Last Action: Held Tramadol HCl (Tramadol HCl) 50 Mg Tablet, 100 MG PO HS, (Reported) Entered as Reported by: CANDELARIO GARCIA on 10/08/211252 Last Action: Continued Discontinued Medications Amiodarone HCl (Amiodarone HCl) 400 Mg Tablet, 200 MG PO BID, (Reported) Discontinued Reason: Duplicate Order Entered as Reported by: CANDELARIO GARCIA on 10/08/211252 Last Action: Discontinued Ferrous Sulfate (Ferrous Sulfate) 325 Mg (65 Mg Iron) Tablet, 325 MG PO Q48H Discontinued Reason: Duplicate Order Prescribed by: ONEIDA MARTIN on 11/02/21 0953 Last Action: Discontinued Furosemide (Furosemide) 20 Mg Tablet, 20 MG PO DAILY, (Reported) Discontinued Reason: No Longer Taking Entered as Reported by: CANDELARIO GARCIA on 10/08/211252 Last Action: Discontinued Lorazepam (Ativan) 0.5 Mg Tablet, 0.5 MG PO TID, (Reported) Discontinued Reason: Duplicate Order Entered as Reported by: CANDELARIO GARCIA on 10/08/211252 Last Action: Discontinued Menthol/Lanolin/Calamine/Znox (Calmoseptine Ointment) 0.44 %-20.6 % Oint, 1 APPLIC TP BID, (Reported) Discontinued Reason: Duplicate Order Entered as Reported by: CANDELARIO GARCIA on 10/08/211252 Last Action: Discontinued Nystatin (Nystatin) 100,000 Unit/Gram Oint...g., 1 APPLIC TP Q6H PRN for RASH, (Reported) Discontinued Reason: No Longer Taking Entered as Reported by: CANDELARIO GARCIA on 10/08/21 1253 Last Action: Discontinued Past Etewovw-Tlvxwc-Cpugiq Hx Immunizations Up To Date First/Initial COVID19 Vaccinat: 2020 Second COVID19 Vaccination Julio: 2020 Current Status Advance Directives: Yes Advance Directive Location: Copy from prev record Primary Language: Cambodian Preferred Spoken Language: Cambodian Sensory deficits: Vision impairment Past Medical History COPD Atrial Fibrillation, Hypertension Seizure Disorder Renal Failure Hypothyroidsim Family Medical History No Pertinent Family Hx All provided history is obtained via previous records. Patient unable to give any history. Review of Systems ROS-Unable to Obtain: Unable to obtain complete ROS Respiratory: No short of breath Cardiovascular: No chest pain Musculoskeletal: other (bilateral lower extremity pain) Physical Exam Vital Signs Vital Signs - First Documented 04/06/22 04/06/22 03:27 03:50 Temp 37.3 Pulse 134 Resp 44 B/P (MAP) 159/68 (98) Pulse Ox 92 O2 Delivery NIV CPAP O2 Flow Rate 15.00 FiO2 60 Capillary Refill : Less Than 3 Seconds Height, Weight, BMI Height: '" Weight: lbs. oz. kg; 31.28 BMI Method: General Appearance: No Apparent Distress, Other (Resting in bed with BiPap therapy.) Respiratory: No Accessory Muscle Use, Crackles (bilateral and diffuse, more significant in the R upper and lower lung gifford) Cardiovascular: Regular Rate, Rhythm; No No Edema (+3 bilateral LE edema); Other Gastrointestinal: Normal Bowel Sounds, Non Tender, Soft Extremity: No Calf Tenderness; No No Pedal Edema; Pedal Edema (+3 bilateral), Other (Erythema of bilateral LE) Neurologic/Psychiatric: No Alert; Other (Oriented to person and place) Skin: Warm/Dry Comments NAME: VADIM ABREU João FRIED REC#: [id number] PT STATUS: ADM IN : 1940 PHYSICIAN: ANTONIO TATE MD ADMIT DATE: 04/06/22/ICU Signed Date of Exam:04/06/22 CHEST 1 VIEW AP/PA ONLY CHEST 1 VIEW AP/PA ONLY Indication: Shortness of breath. Comparison: 10/30/2021 Findings: Persistent left lower lobe consolidations with air bronchograms. Potential small left pleural effusion is unchanged. No pneumothorax. Stable cardiac silhouette. Impression: 1. Unchanged left lower lobe consolidations and small pleural effusion. Dictated by: Dictated on workstation # [id number] Dict: 04/06/2203 Trans: 04/06/2251 [id number] Interpreted by: MICHAEL HOBSON MD Electronically signed by: MICHAEL HOBSON MD 04/06/2251 Assessment/Plan Assessment and Plan 1. Acute respiratory failure with hypoxia likely secondary to pneumonia vs. COPD exacerbation vs. CHF exacerbation -BiPap therapy and monitoring. Wean as tolerated -Solumedrol 62.5mg Q8H IV -Duoneb 3ml RTQ4H IH 2. Heart failure -ProBNP of 10,307 on 04/06 with significant bilateral LE edema -Echocardiogram -Lasix therapy after afternoon labs have resulted to prevent further electrolyte imbalance 3. Left lower lobe pneumonia - health care associated due to patient's residence in long term -Cefepime 1000mg - 50mls @ 1000mls/hr Q8H IV -BiPap therapy for respiratory support 4. Hypocalcemia - Corrected Ca 6.2 on 04/06 -04/06 PM BMP -Calcium glutamate 1gm once IV administered in [place] [facility] 5. Hypomagnesemia - Mg 1.0 on 04/06 -04/06 PM Mg -Magnesium sulfate 1gm once IV administered in [place] [facility] - confirm with ED, patient should receive 2gm total for initial replacement 6. Possible acute cystitis - +3 leuk. esterase, neg nitrite on 04/06 -Coverage with cefepime, send urine for culture -Monitor for symptoms 7. Hyponatremia - Na 132 on 04/06 -Monitor with AM CMP 8. Bipolar & Schizophrenia -Resume home medication aripiprazole 10mg PO qd 9. HTN -Monitor BP 10. Chronic anemia - Hgb 8.5 -Monitor with AM CBC 11. Elevated anion gap - 24 on 04/06 -Likely secondary to lactic acidosis (lactic acid 2.69 -> 1.35 on 04/06) and/or uremia with BUN 67, Cr 2.82 -Monitor with AM BMP 12. Acute on chronic kidney injury/disease -Monitor BUN, Cr -Do not initiate IV fluids due to CHF Admission Diagnosis Admission Status: Inpatient Order (span 2 midnights) Reason for Inpatient Admission: Acute respiratory failure with hypoxia ONEIDA MARTIN MD 04/06/22 1233: Allergies and Home Medications Allergies Coded Allergies: aspirin (Verified Allergy, Unknown, 08/21/05) diazepam (Verified Allergy, Unknown, 08/21/05) ibuprofen (Verified Allergy, Unknown, 08/21/05) phenobarbital (Verified Allergy, Unknown, 08/21/05) Patient Home Medication List Home Medication List Reviewed: Yes Acetaminophen (Tylenol) 325 Mg Tablet, 650 MG PO Q4H PRN for PAIN-MILD (1-4), (Reported) Entered as Reported by: CANDELARIO GARCIA on 10/08/211252 Last Action: Continued Albuterol Sulfate (Proair Respiclick) 90 Mcg Aer.pow.ba, 2 PUFF IH Q4H PRN for SHORTNESS OF BREATH, (Reported) Entered as Reported by: CANDELARIO GARCIA on 10/08/211252 Last Action: Held Amiodarone HCl (Amiodarone HCl) 200 Mg Tablet, 200 MG PO BID, (Reported) Entered as Reported by: CANDELARIO GARCIA on 04/06/221137 Last Action: Continued Aripiprazole (Aripiprazole) 10 Mg Tablet, 10 MG PO DAILY, (Reported) Entered as Reported by: CANDELARIO GARCIA on 10/08/211252 Last Action: Continued Ascorbate Calcium (Vitamin C) 500 Mg Tablet, 500 MG PO BID, (Reported) Entered as Reported by: CANDELARIO GARCIA on 04/06/221137 Last Action: Held Bisacodyl (Bisacodyl) 10 Mg Supp.rect, 10 MG RC Q12H PRN for CONSTIPATION-4TH LINE, (Reported) Entered as Reported by: CANDELARIO GARCIA on 04/06/221137 Last Action: Held Cephalexin (Cephalexin) 500 Mg Capsule, 500 MG PO TID, (Reported) Entered as Reported by: CANDELARIO GARCIA on 10/08/211252 Last Action: Held Cetirizine HCl (Cetirizine HCl) 10 Mg Tablet, 10 MG PO DAILY, (Reported) Entered as Reported by: CANDELARIO GARCIA on 10/08/211252 Last Action: Converted Cyanocobalamin (Vitamin B-12) (Vitamin B-12) 1,000 Mcg Tablet, 1,000 MCG PO DAILY, (Reported) Entered as Reported by: CANDELARIO GARCIA on 10/08/211252 Last Action: Held Cyclobenzaprine HCl (Cyclobenzaprine HCl) 10 Mg Tablet, 10 MG PO BID, (Reported) Entered as Reported by: CANDELARIO GARCIA on 10/08/211252 Last Action: Held Donepezil HCl (Donepezil HCl) 10 Mg Tablet, 10 MG PO 1800, (Reported) Entered as Reported by: CANDELARIO GARCIA on 10/08/211252 Last Action: Continued Ferrous Sulfate (Ferrous Sulfate) 325 Mg (65 Mg Iron) Tablet, 325 MG PO Q48H, (Reported) Entered as Reported by: CANDELARIO GARCIA on 04/06/221137 Last Action: Held Fluticasone Propionate (Flovent Hfa 110 mcg) 110 Mcg/Actuation Aero, 2 PUFF IH BID, (Reported) Entered as Reported by: CANDELARIO GARCIA on 10/08/211252 Last Action: Converted Furosemide (Furosemide) 40 Mg Tablet, 40 MG PO DAILY, (Reported) Entered as Reported by: CANDELARIO GARCIA on 04/06/221137 Last Action: Held Guaifenesin/Dextromethorphan (Tussin Dm Syrup) 100 Mg-10 Mg/5 Ml Syrup, 10 ML PO Q4H PRN for COUGH, (Reported) Entered as Reported by: CANDELARIO GARCIA on 10/08/211252 Last Action: Continued Hydrocodone/Acetaminophen (Hydrocodone-Acetamin 5-325 mg) 5 Mg-325 Mg Tablet, 1 TAB PO DAILY, (Reported) Entered as Reported by: CANDELARIO GARCIA on 10/08/211252 Last Action: Held Hydrocodone/Acetaminophen (Hydrocodone-Acetamin 5-325 mg) 5 Mg-325 Mg Tablet, 1 TAB PO Q6H PRN for PAIN-MODERATE (5-7), (Reported) Entered as Reported by: CANDELARIO GARCIA on 10/08/211252 Last Action: Continued Levothyroxine Sodium (Levothyroxine Sodium) 88 Mcg Tablet, 88 MCG PO DAILY, (Reported) Entered as Reported by: CANDELARIO GARCIA on 10/08/211252 Last Action: Continued Lisinopril (Lisinopril) 2.5 Mg Tablet, 2.5 MG PO DAILY, (Reported) Entered as Reported by: CANDELARIO GARCIA on 10/08/211252 Last Action: Converted Loperamide HCl (Loperamide) 2 Mg Capsule, 2 MG PO Q4H PRN for DIARRHEA, (Rep orted) Entered as Reported by: CANDELARIO GARCIA on 10/08/211252 Last Action: Held Lorazepam (Ativan) 0.5 Mg Tablet, 0.25 MG PO TID, (Reported) Entered as Reported by: CANDELARIO GARCIA on 04/06/22 113 Last Action: Held Lurasidone HCl (Latuda) 40 Mg Tablet, 40 MG PO 1700, (Reported) Entered as Reported by: CANDELARIO GARCIA on 10/08/211252 Last Action: Converted Mag Hydrox/Aluminum Hyd/Simeth (Maalox Advanced Suspension) 200 Mg-200 Mg-20 Mg/5 Ml Oral.susp, 30 ML PO Q4H PRN for INDIGESTION, (Reported) Entered as Reported by: CANDELARIO GARCIA on 10/08/211252 Last Action: Held Menthol (Biofreeze) 4 % Gel..ml., 1 APPLIC TP Q4H PRN for PAIN-BREAKTHROUGH, (Reported) Entered as Reported by: CANDELARIO GARCIA on 10/08/211252 Last Action: Held Menthol/Lanolin/Calamine/Znox (Calmoseptine Ointment) 0.44 %-20.6 % Oint, 1 APPLIC TP Q6H PRN for SKIN CONDITIONS, (Reported) Entered as Reported by: CANDELARIO GARCIA on 10/08/211252 Last Action: Held Metolazone (Metolazone) 2.5 Mg Tablet, 2.5 MG PO DAILY, (Reported) Entered as Reported by: CANDELARIO GARCIA on 10/08/211252 Last Action: Held Montelukast Sodium (Montelukast Sodium) 10 Mg Tablet, 10 MG PO DAILY, (Reported) Entered as Reported by: CANDELARIO GARCIA on 10/08/211252 Last Action: Continued Multivitamin with Minerals (One Daily Plus Minerals) 1 Each Tablet, 1 EACH PO DAILY, (Reported) Entered as Reported by: CANDELARIO GARCIA on 10/08/211252 Last Action: Held Oxybutynin Chloride (Oxybutynin Chloride) 5 Mg Tablet, 5 MG PO DAILY, (Reported) Entered as Reported by: CANDELARIO GARCIA on 10/08/211252 Last Action: Continued Phenytoin Sodium Extended (Phenytoin Sodium Extended) 100 Mg Capsule, 200 MG PO BID, (Reported) Entered as Reported by: CANDELARIO GARCIA on 10/08/211252 Last Action: Continued Polyethylene Glycol 3350 (Miralax) 17 Gram Powd.pack, 17 GM PO DAILY, (Reported) Entered as Reported by: CANDELARIO GARCIA on 10/08/211252 Last Action: Held Polyethylene Glycol 3350 (Miralax) 17 Gram Powd.pack, 17 GM PO Q12H PRN for CONSTIPATION-2ND LINE, (Reported) Entered as Reported by: CANDELARIO GARCIA on 10/08/211252 Last Action: Continued Potassium Chloride (Potassium Chloride) 20 Meq Tab.er.prt, 20 MEQ PO DAILY, (Reported) Entered as Reported by: CANDELARIO GARCIA on 04/06/22 113 Last Action: Held Sertraline HCl (Sertraline HCl) 50 Mg Tablet, 50 MG PO DAILY, (Reported) Entered as Reported by: CANDELARIO GARCIA on 10/08/211252 Last Action: Continued Simvastatin (Simvastatin) 20 Mg Tablet, 20 MG PO HS, (Reported) Entered as Reported by: CANDELARIO GARCIA on 10/08/211252 Last Action: Converted Sodium Bicarbonate (Sodium Bicarbonate) 650 Mg Tablet, 1,300 MG PO TID, (Reporte d) Entered as Reported by: CANDELARIO GARCIA on 04/06/22 115 Last Action: Continued Sodium Chloride ([place]) 0.65 % [facility], 1 SPRAY NSEACH BID, (Reported) Entered as Reported by: CANDELARIO GARCIA on 10/08/211252 Last Action: Held Tramadol HCl (Tramadol HCl) 50 Mg Tablet, 100 MG PO HS, (Reported) Entered as Reported by: CANDELARIO GARCIA on 10/08/211252 Last Action: Continued Discontinued Medications Amiodarone HCl (Amiodarone HCl) 400 Mg Tablet, 200 MG PO BID, (Reported) Discontinued Reason: Duplicate Order Entered as Reported by: CANDELARIO GARCIA on 10/08/211252 Last Action: Discontinued Ferrous Sulfate (Ferrous Sulfate) 325 Mg (65 Mg Iron) Tablet, 325 MG PO Q48H Discontinued Reason: Duplicate Order Prescribed by: ONEIDA MARTIN on 11/02/21 0928 Last Action: Discontinued Furosemide (Furosemide) 20 Mg Tablet, 20 MG PO DAILY, (Reported) Discontinued Reason: No Longer Taking Entered as Reported by: CANDELARIO GARCIA on 10/08/211252 Last Action: Discontinued Lorazepam (Ativan) 0.5 Mg Tablet, 0.5 MG PO TID, (Reported) Discontinued Reason: Duplicate Order Entered as Reported by: CANDELARIO GARCIA on 10/08/211252 Last Action: Discontinued Menthol/Lanolin/Calamine/Znox (Calmoseptine Ointment) 0.44 %-20.6 % Oint, 1 APPLIC TP BID, (Reported) Discontinued Reason: Duplicate Order Entered as Reported by: CANDELARIO GARCIA on 10/08/211252 Last Action: Discontinued Nystatin (Nystatin) 100,000 Unit/Gram Oint...g., 1 APPLIC TP Q6H PRN for RASH, (Reported) Discontinued Reason: No Longer Taking Entered as Reported by: CANDELARIO GARCIA on 10/08/211252 Last Action: Discontinued Review of Systems Constitutional: see HPI Assessment/Plan Assessment and Plan Patient is being admitted to the hospital due to acute respiratory failure that is likely multifactorial from pneumonia and COPD exacerbation with a component of CHF. She does not not have a known history here of heart failure but does take amiodarone so likely has a history of atrial fibrillation. I will get a 2D echo we will consult cardiology. She does have a leukocytosis and will be t reated with cefepime given consolidation on x-ray. She does have known COPD and we will continue steroids as well. Her roommate in the long term is positive for COVID so will discuss with pharmacy about prophylactic therapy for her exposure. She had multiple electrolyte abnormalities in the emergency room which were replaced and appear to be somewhat chronic. I will repeat a BMP now. We will continue care in the ICU and consult telemetry ICU. She will be placed on COVID precautions given exposure. I will consider repeating COVID swab in a couple of days as today's test was negative. Supervisory-Addendum Brief Verification & Attestation Participated in pt care: history, MDM, physical Personally performed: exam, history, MDM, supervision of care Care discussed with: Medical Student Procedures: n/a Results interpretation: Verified all documentation Verification and Attestation of Medical Student E/M Service A medical student performed and documented this service in my presence. I reviewed and verified all information documented by the medical student and made modifications to such information, when appropriate. I personally performed the physical exam and medical decision making. Oneida Martin, Apr 06, 2022,12:31 MEÑO MCBRIDE Apr 06, 2022 09:08 ONEIDA MARTIN MD Apr 06, 2022 12:33
[2022-04-06 10:54] VITALS: BP 119/68
[2022-04-06] MEDS: RT-ALBUTEROL/IPRATROPIUM 3 ML (DUONEB) VIAL IH SCH ×4 (10:54→22:21)
[2022-04-06] MEDS ORDERED: AMIO200T65 PO (11:38)
[2022-04-06] MEDS ORDERED: POTA-179 PO (11:38)
[2022-04-06] MEDS ORDERED: FURO40TA4 PO (11:38)
[2022-04-06] MEDS ORDERED: LORA-404 PO (11:38)
[2022-04-06] MEDS ORDERED: FERR-74 PO (11:38)
[2022-04-06] MEDS ORDERED: BISA10SU8 RC (11:38)
[2022-04-06] MEDS ORDERED: ASCO-262 PO (11:38)
[2022-04-06] MEDS ORDERED: NF-SODBICA PO (11:58)
[2022-04-06] MEDS ORDERED: MAGNESIUM 1 GM/100 ML IVPB 100 ML IV ONE (12:01)
[2022-04-06] MEDS: LORazepam 0.5 MG (ATIVAN) TABLET PO PRN (12:05)
[2022-04-06] MEDS: methylPREDNISolone 125 MG (Solu-MEDROL) VIAL IV SCH ×2 (12:05→20:30)
[2022-04-06] MEDS ORDERED: HYDROcodone/APAP 5 MG/325 MG (LORTAB) TAB PO PRN (12:15)
[2022-04-06] MEDS ORDERED: guaiFENesin/DM (ROBITUSSIN DM) 10 ML UDC PO PRN (12:15)
[2022-04-06] MEDS ORDERED: polyethylene glycoL POWDER 17 GM (MIRALAX) PACK PO PRN (12:15)
[2022-04-06] MEDS ORDERED: ACETAMINOPHEN 325 MG TABLET PO PRN (12:15)
[2022-04-06 12:18] LABS: POTASSIUM 4.4 MMOL/L (3.6-5.0)
[2022-04-06 12:19] LABS: CALCIUM 6.1 MG/DL (8.5-10.1)
[2022-04-06 12:24] LABS: CREATININE SERUM 3.15 MG/DL (0.60-1.30)
[2022-04-06 12:26] LABS: MAGNESIUM 1.4 MG/DL (1.6-2.4)
[2022-04-06] MEDS ORDERED: FUROSEMIDE 40 MG/4 ML INJ (LASIX) IVP ONE (12:30)
--- NOTE | 2022-04-06 12:57 | Consultation-Cardiology ---
HPI-Cardiology Cardiology Consultation Date of Consultation 04/06/22 Date of Admission Time Seen by Provider: 12:51 Indication: Acute respiratory failure HPI 81-year-old lady with history of COPD, hypertension, atrial fibrillation and diabetes mellitus. Patient is a [facility] resident, she was transferred to the hospital by EMS due to hypoxia and respiratory failure, during my evaluation patient was on BiPAP. Unable to provide full history, history was obtained by reviewing her record and visiting with her briefly. Patient's roommate was diagnosed with COVID-19 and pneumonia, she has been having increasing dyspnea and fatigue. She was noted to have hypoxemia and she was placed on CPAP. She was tested negative for COVID and influenza. She was noted to have few episodes of tachycardia with questionable atrial fibrillation. Home Medications & Allergies Allergies: Coded Allergies: aspirin (Verified Allergy, Unknown, 08/21/05) diazepam (Verified Allergy, Unknown, 08/21/05) ibuprofen (Verified Allergy, Unknown, 08/21/05) phenobarbital (Verified Allergy, Unknown, 08/21/05) Home Medication List Reviewed: Yes [id number] Hx Patient Social History Marital Status: single Employed/Student: retired Have you traveled recently?: No Immunizations Up To Date Date of Influenza Vaccine: Feb 04, 2022 Past Medical History Discussed below Family Medical History Significant Family History: No Pertinent Family Hx Review of Systems-General Review of Systems Constitutional: malaise, other (Unable to obtain because patient has respiratory distress on CPAP) Respiratory: short of breath Cardiovascular: see HPI Gastrointestinal: see HPI Genitourinary: see HPI Musculoskeletal: see HPI, other (bilateral lower extremity pain) Reviewed Test Results Reviewed Test Results Lab Laboratory Tests Test 04/06/22 03:43 04/06/22 03:44 04/06/22 03:50 04/06/22 04:02 Range/Units Bedside Blood Gas pH (LAB) 7.331 7.310-7.410 Bedside Blood Gas pCO2 (LAB) 39.0 L 41.0-51.0 mmHg Bedside Blood Gas pO2 (LAB) 16 *L 80-105 mmHg Bedside Blood Gas HCO3 (LAB) 20.6 L 23.0-28.0 mmol/L POC Blood Gas Total CO2 Calc 22 L 24-29 mmol/L Bedside Bl Gas O2 Saturation (Calc) 19 L 95-98 % Bedside Arterial Blood Base Excess -5 L -2-3 mmol/L Venous Blood pH 7.33 7.31-7.41 Venous Blood Partial Pressure CO2 39 L 40-52 MMHG Venous Blood HCO3 21 L 22-28 MMOL/L White Blood Count 14.6 H 4.3-11.0 10^3/uL Red Blood Count 2.76 L 3.80-5.11 10^6/uL Hemoglobin 8.5 L 11.5-16.0 g/dL Hematocrit 25 L 35-52 % Mean Corpuscular Volume 91 80-99 fL Mean Corpuscular Hemoglobin 31 25-34 pg Mean Corpuscular Hemoglobin Concent 34 32-36 g/dL Red Cell Distribution Width 13.8 10.0-14.5 % Platelet Count 337 130-400 10^3/uL Mean Platelet Volume 10.2 9.0-12.2 fL Immature Granulocyte % (Auto) 1 % Neutrophils (%) (Auto) 84 H 42-75 % Lymphocytes (%) (Auto) 8 L 12-44 % Monocytes (%) (Auto) 7 0-12 % Eosinophils (%) (Auto) 0 0-10 % Basophils (%) (Auto) 0 0-10 % Neutrophils # (Auto) 12.2 H 1.8-7.8 10^3/uL Lymphocytes # (Auto) 1.2 1.0-4.0 10^3/uL Monocytes # (Auto) 1.0 0.0-1.0 10^3/uL Eosinophils # (Auto) 0.1 0.0-0.3 10^3/uL Basophils # (Auto) 0.0 0.0-0.1 10^3/uL Immature Granulocyte # (Auto) 0.1 0.0-0.1 10^3/uL Neutrophils % (Manual) 79 % Lymphocytes % (Manual) 13 % Monocytes % (Manual) 4 % Band Neutrophils 4 % Platelet Estimate NORMAL Blood Morphology Comment NORMAL Prothrombin Time 14.1 12.2-14.7 SEC INR Comment 1.0 0.8-1.4 Activated Partial Thromboplast Time 33 24-35 SEC Sodium Level 132 L 135-145 MMOL/L Potassium Level 5.0 3.6-5.0 MMOL/L Chloride Level 90 L 98-107 MMOL/L Carbon Dioxide Level 18 L 21-32 MMOL/L Anion Gap 24 H 5-14 MMOL/L Blood Urea Nitrogen 67 H 7-18 MG/DL Creatinine 2.82 H 0.60-1.30 MG/DL Estimat Glomerular Filtration Rate 16 BUN/Creatinine Ratio 24 Glucose Level 171 H 70-105 MG/DL Lactic Acid Level 2.69 *H 0.50-2.00 MMOL/L Calcium Level 5.9 *L 8.5-10.1 MG/DL Corrected Calcium 6.2 L 8.5-10.1 MG/DL Magnesium Level 1.0 *L 1.6-2.4 MG/DL Total Bilirubin 0.3 0.1-1.0 MG/DL Direct Bilirubin 0.2 0.0-0.3 MG/DL Aspartate Amino Transf (AST/SGOT) 21 5-34 U/L Alanine Aminotransferase (ALT/SGPT) 13 0-55 U/L Alkaline Phosphatase 144 H 40-136 U/L Troponin I < 0.30 <0.30 NG/ML Pro-B-Type Natriuretic Peptide 02455.0 H <450.0 PG/ML Total Protein 8.3 H 6.4-8.2 GM/DL Albumin 3.6 3.2-4.5 GM/DL HIV (1&2) Antibody Rapid NEGATIVE Influenza Type A (RT-PCR) Not Detected Not Detecte Influenza Type B (RT-PCR) Not Detected Not Detecte SARS-CoV-2 RNA (RT-PCR) Not Detected Not Detecte Test 04/06/22 04:43 04/06/22 05:50 04/06/22 07:05 04/06/22 11:45 Range/Units Lactic Acid Level 1.35 0.50-2.00 MMOL/L Urine Color YELLOW Urine Clarity CLOUDY Urine pH 7.0 5-9 Urine Specific Blain 1.01 1.016-1.022 Urine Protein 3+ H NEGATIVE Urine Glucose (UA) NEGATIVE NEGATIVE Urine Ketones NEGATIVE NEGATIVE Urine Nitrite NEGATIVE NEGATIVE Urine Bilirubin NEGATIVE NEGATIVE Urine Urobilinogen 0.2 < = 1.0 MG/DL Urine Leukocyte Esterase 3+ H NEGATIVE Urine RBC (Auto) 2+ H NEGATIVE Urine RBC NONE /HPF Urine WBC >100 H /HPF Urine Squamous Epithelial Cells 10-25 H /HPF Urine Crystals PRESENT H /LPF Urine Amorphous Sediment FEW PIPPA PHOSPHATE H /LPF Urine Bacteria MODERATE H /HPF Urine Casts NONE /LPF Urine Mucus NEGATIVE /LPF Urine Culture Indicated YES Sodium Level 133 L 135-145 MMOL/L Potassium Level 4.4 3.6-5.0 MMOL/L Chloride Level 93 L 98-107 MMOL/L Carbon Dioxide Level 16 L 21-32 MMOL/L Anion Gap 24 H 5-14 MMOL/L Blood Urea Nitrogen 69 H 7-18 MG/DL Creatinine 3.15 H 0.60-1.30 MG/DL Estimat Glomerular Filtration Rate 14 BUN/Creatinine Ratio 22 Glucose Level 154 H 70-105 MG/DL Calcium Level 6.1 L 8.5-10.1 MG/DL Magnesium Level 1.4 L 1.6-2.4 MG/DL Physical Exam Physical Exam Vital Signs Vital Signs - First Documented 04/06/22 04/06/22 03:27 03:50 Temp 37.3 Pulse 134 Resp 44 B/P (MAP) 159/68 (98) Pulse Ox 92 O2 Delivery NIV CPAP O2 Flow Rate 15.00 FiO2 60 Capillary Refill : Less Than 3 Seconds Height, Weight, BMI Height: '" Weight: lbs. oz. kg; 32.32 BMI Method: General Appearance: No Apparent Distress, Other (Resting in bed with BiPap therapy.) HEENT: PERRL/EOMI, TMs Normal Neck: Full Range of Motion Respiratory: No Accessory Muscle Use, Crackles (bilateral and diffuse, more significant in the R upper and lower lung gifford) Cardiovascular: Regular Rate, Rhythm; No No Edema (+3 bilateral LE edema); Other Gastrointestinal: Normal Bowel Sounds, Non Tender, Soft Extremity: No Calf Tenderness; No No Pedal Edema; Pedal Edema (+3 bilateral), Other (Erythema of bilateral LE) Neurologic/Psychiatric: No Alert; Other (Oriented to person and place) Skin: Warm/Dry A/P-Cardiology Admission Diagnosis Acute respiratory failure Pneumonia Congestive heart failure Paroxysmal atrial fibrillation Assessment/Plan Acute respiratory failure, currently on BiPAP Patient has chest x-ray suggestive of pneumonia. Started on Solu-Medrol and BiPAP Managed by medical team Congestive heart failure, acute left ventricular systolic dysfunction Her proBNP was 10,307. We do not have previous evaluation, no previous echo We will evaluate 2D echocardiogram, patient has been on metolazone as an outpatient Will hold for now and use Lasix and monitor closely Paroxysmal atrial fibrillation, patient was noted to be on amiodarone, I do not have any previous cardiac history. There was questionable transient episode of atrial fibrillation on telemetry. Could be artifact. We will continue monitoring for now. Has not been on oral anticoagulation, will use DVT prophylaxis for now and monitor Evaluate 2D echo Exposures to COVID-19 and influenza recently. Patient was tested negative. Electrolyte imbalance, being corrected and monitored Acute on chronic renal failure, history of chronic kidney disease. Worsening at this time, continue to monitor closely UTI, managed by medical team History of bipolar disorder and schizophrenia, managed by medical team Hypertension, monitor blood pressure Hyperlipidemia maintained on simvastatin Hypothyroidism, maintained on levothyroxine, managed by medical team Anemia, continue to monitor H&H EV ARMANDO MD Apr 06, 2022 12:57
[2022-04-06] MEDS: SODIUM BICARBONATE 650 MG TABLET PO SCH ×2 (12:58→21:25)
[2022-04-06] MEDS: CEFEPIME INJECTION 1,000 MG in NS (IVPB) 50 ML IV SCH ×2 (13:05→21:27)
--- NOTE | 2022-04-06 13:46 | Tele-ICU Consult ---
History of Present Illness History of Present Illness Date Seen by Provider: Apr 06, 2022 Time Seen by Provider: 10:22 Date of Admission (Tele-ICU Physician , consultation as per request of PCP Service provided via interactive audio and video telecommunications E-CARE system to a patient admitted to ICU bed in [facility]. Available chart/ vitals / labs / Images reviewed H&P is from ER notes Patient's information available about PMH, Shx, Fhx allergy reviewed inEMR. ROS as per chart and RN report Now in ICU, hemodynamically stable Video assessment done using teleICU camera, rest of exam as per RN Discussed with RN. Consultants: uri Hospital course: 04-06: +Sev Sepsis Covid/Flu Neg 81 y/o F (from [place]) - Pneumonia - Resp Filure - CHF - BiPAP. 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 Discussed with RN to reach out if any questions or concerns A total of 31 minutes of critical care time was devoted to this patient today, required to treat and/or prevent further deterioration of critical care condition ( as above ) I am remotely monitoring this patient from another state. I am unable to do the bedside exam, and history/physical and pertinent information is taken from other notes in the computer and bedside staff. . Reason for Visit: Acute respiratory failure Allergies and Home Medications Allergies Coded Allergies: aspirin (Verified Allergy, Unknown, 08/21/05) diazepam (Verified Allergy, Unknown, 08/21/05) ibuprofen (Verified Allergy, Unknown, 08/21/05) phenobarbital (Verified Allergy, Unknown, 08/21/05) Home Medications Acetaminophen 325 Mg Tablet, 650 MG PO Q4H PRN for PAIN-MILD (1-4), (Reported) Albuterol Sulfate 90 Mcg Aer.pow.ba, 2 PUFF IH Q4H PRN for SHORTNESS OF BREATH, (Reported) Amiodarone HCl 200 Mg Tablet, 200 MG PO BID, (Reported) Aripiprazole 10 Mg Tablet, 10 MG PO DAILY, (Reported) Ascorbate Calcium 500 Mg Tablet, 500 MG PO BID, (Reported) Bisacodyl 10 Mg Supp.rect, 10 MG RC Q12H PRN for CONSTIPATION-4TH LINE, (Re ported) Cephalexin 500 Mg Capsule, 500 MG PO TID, (Reported) Cetirizine HCl 10 Mg Tablet, 10 MG PO DAILY, (Reported) Cyanocobalamin (Vitamin B-12) 1,000 Mcg Tablet, 1,000 MCG PO DAILY, (Reported) Cyclobenzaprine HCl 10 Mg Tablet, 10 MG PO BID, (Reported) Donepezil HCl 10 Mg Tablet, 10 MG PO 1800, (Reported) Ferrous Sulfate 325 Mg (65 Mg Iron) Tablet, 325 MG PO Q48H, (Reported) Fluticasone Propionate 110 Mcg/Actuation Aero, 2 PUFF IH BID, (Reported) Furosemide 40 Mg Tablet, 40 MG PO DAILY, (Reported) Guaifenesin/Dextromethorphan 100 Mg-10 Mg/5 Ml Syrup, 10 ML PO Q4H PRN for COUGH, (Reported) Hydrocodone/Acetaminophen 5 Mg-325 Mg Tablet, 1 TAB PO DAILY, (Reported) Hydrocodone/Acetaminophen 5 Mg-325 Mg Tablet, 1 TAB PO Q6H PRN for PAIN-MODERATE (5-7), (Reported) Levothyroxine Sodium 88 Mcg Tablet, 88 MCG PO DAILY, (Reported) Lisinopril 2.5 Mg Tablet, 2.5 MG PO DAILY, (Reported) HOLD IS SBP IS LESS THAN 100 Loperamide HCl 2 Mg Capsule, 2 MG PO Q4H PRN for DIARRHEA, (Reported) Lorazepam 0.5 Mg Tablet, 0.25 MG PO TID, (Reported) TAKES OF A 0.5MG TAB Lurasidone HCl 40 Mg Tablet, 40 MG PO 1700, (Reported) ADMINISTER WITH FOOD Mag Hydrox/Aluminum Hyd/Simeth 200 Mg-200 Mg-20 Mg/5 Ml Oral.susp, 30 ML PO Q4H PRN for INDIGESTION, (Reported) Menthol 4 % Gel..ml., 1 APPLIC TP Q4H PRN for PAIN-BREAKTHROUGH, (Reported) APPLY NECK Menthol/Lanolin/Calamine/Znox 0.44 %-20.6 % Oint, 1 APPLIC TP Q6H PRN for SKIN CONDITIONS, (Reported) Metolazone 2.5 Mg Tablet, 2.5 MG PO DAILY, (Reported) Montelukast Sodium 10 Mg Tablet, 10 MG PO DAILY, (Reported) Multivitamin with Minerals 1 Each Tablet, 1 EACH PO DAILY, (Reported) Oxybutynin Chloride 5 Mg Tablet, 5 MG PO DAILY, (Reported) Phenytoin Sodium Extended 100 Mg Capsule, 200 MG PO BID, (Reported) TAKES 2 (100MG) CAPS Polyethylene Glycol 3350 17 Gram Powd.pack, 17 GM PO DAILY, (Reported) Polyethylene Glycol 3350 17 Gram Powd.pack, 17 GM PO Q12H PRN for CONSTIPATION- 2ND LINE, (Reported) Potassium Chloride 20 Meq Tab.er.prt, 20 MEQ PO DAILY, (Reported) Sertraline HCl 50 Mg Tablet, 50 MG PO DAILY, (Reported) Simvastatin 20 Mg Tablet, 20 MG PO HS, (Reported) Sodium Bicarbonate 650 Mg Tablet, 1,300 MG PO TID, (Reported) TAKES 2 (650MG) TABS Sodium Chloride 0.65 % Alfred, 1 SPRAY NSEACH BID, (Reported) Tramadol HCl 50 Mg Tablet, 100 MG PO HS, (Reported) TAKES 2 (50MG) TABS Past Medical/Social/Family Hx Patient Social History Marrital Status: single Employed/Student: retired Tobacco Use?: No Pt stated abuse/neglect: No Immunizations Up To Date Influenza Vaccine Up-to-Date: Yes; Up-to-Date First/Initial COVID19 Vaccinat: 2020 Second COVID19 Vaccination Julio: 2020 Current Status Advance Directives: Yes Advance Directive Location: Copy from prev record Communicates: Verbally Primary Language: Burundian Preferred Spoken Language: Burundian Is interpretation needed?: No Sensory deficits: Vision impairment, Hearing impairment Family Medical History Family Hx: All provided history is obtained via previous records. Patient unable to give any history. Review of Systems Constitutional: see HPI Focused Exam Lactate Level 04/06/22 03:50: Lactic Acid Level 2.69*H 04/06/22 05:50: Lactic Acid Level 1.35 Height, Weight, BMI Height: '" Weight: lbs. oz. kg; 32.32 BMI Method: Exam Exam Patient acknowledged, consented, and participated in this virtual visit which was conducted using real time audio/video Vital Signs Date Time Temp Pulse Resp B/P (MAP) Pulse Ox O2 Delivery O2 Flow Rate FiO2 04/06/22 13:00 85 28 131/76 (94) 98 NIV Bilevel 40.00 04/06/22 12:57 88 04/06/22 12:00 36.4 04/06/22 12:00 90 32 151/84 (106) 96 NIV Bilevel 40.00 04/06/22 12:00 NIV Bilevel 95.00 40 04/06/22 11:20 NIV Bilevel 40.00 04/06/22 11:00 78 22 121/70 (87) 96 NIV Bilevel 50.00 04/06/22 10:54 99 24 99 35.00 04/06/22 10:00 81 24 124/71 (88) 97 NIV Bilevel 50.00 04/06/22 09:00 83 26 126/72 (90) 98 NIV Bilevel 50.00 04/06/22 08:00 89 26 135/73 (93) 98 NIV Bilevel 50.00 04/06/22 07:45 93 32 139/75 (96) 99 NIV Bilevel 50.00 04/06/22 07:41 98 04/06/22 07:30 99 42 151/99 (116) 99 NIV Bilevel 50.00 04/06/22 07:15 99 13 133/78 (96) 100 NIV Bilevel 50.00 04/06/22 07:10 101 13 118/84 (95) 100 NIV Bilevel 50.00 04/06/22 07:00 NIV Bilevel 98.00 50 04/06/22 07:00 99 38 100 50.00 04/06/22 06:27 37.3 85 25 122/53 99 NIV Bilevel 50.00 04/06/22 04:30 NIV Bilevel 50 04/06/22 04:26 94 NIV Bilevel 60 04/06/22 03:55 94 NIV Bilevel 50 04/06/22 03:50 92 NIV Bilevel 60 04/06/22 03:27 37.3 134 44 159/68 (98) 92 NIV CPAP 15.00 I & O 04/06/22 07:00 Intake Total 275 ml Balance 275 ml Height & Weight Height: '" Weight: lbs. oz. kg; 32.32 BMI Method: General Appearance: No Apparent Distress, Other (Resting in bed with BiPap therapy.) HEENT: PERRL/EOMI, TMs Normal Neck: Full Range of Motion Respiratory: No Accessory Muscle Use, Crackles (bilateral and diffuse, more significant in the R upper and lower lung gifford) Cardiovascular: Regular Rate, Rhythm; No No Edema (+3 bilateral LE edema); Other Capillary Refill: Less Than 3 Seconds Extremity: No Calf Tenderness; No No Pedal Edema; Pedal Edema (+3 bilateral), O ther (Erythema of bilateral LE) Neurologic/Psychiatric: No Alert; Other (Oriented to person and place) Skin: Warm/Dry Results Lab Laboratory Tests 04/06/22 03:50 04/06/22 11:45 Assessment/Plan Assessment/Plan 1 JOHN CRUZ MD Apr 06, 2022 13:46
[2022-04-06 14:23] VITALS: BP 119/68
[2022-04-06] MEDS ORDERED: NON-FORMULARY MEDICATION 1 EA EA (Lurasidone HCl (Latuda) 40 MG) PO SCH (17:00)
[2022-04-06] MEDS: DONEPEZIL 10 MG (ARICEPT) TAB PO SCH (17:17)
[2022-04-06 19:21] VITALS: BP 114/66
[2022-04-06] MEDS: AMIODARONE 200 MG (CORDARONE) TAB PO SCH (21:24)
[2022-04-06] MEDS: AtorvaSTATin TABLET 10 MG TABLET PO SCH (21:25)
[2022-04-06] MEDS: PHENYTOIN 100 MG (DILANTIN) CAP PO SCH (21:25)
[2022-04-06 21:32] LABS: HEPATITIS C ANTIBODY C Non-Reactive (Non-Reactive)
[2022-04-06 22:21] VITALS: BP 184/83
[2022-04-07] VITALS (7 sets, daily range): BP systolic 106–129; BP diastolic 50–72
[2022-04-07] MEDS: RT-ALBUTEROL/IPRATROPIUM 3 ML (DUONEB) VIAL IH SCH (02:15)
[2022-04-07] MEDS: methylPREDNISolone 125 MG (Solu-MEDROL) VIAL IV SCH ×3 (03:54→20:31)
[2022-04-07 04:24] LABS: POTASSIUM 3.8 MMOL/L (3.6-5.0)
[2022-04-07 04:26] LABS: BASOPHILS % (AUTO) 0 % (0-10); EOSINOPHILS % (AUTO) 0 % (0-10); LYMPHOCYTES # (AUTO) 0.5 10^3/uL (1.0-4.0); LYMPHOCYTES % (AUTO) 5 % (12-44); MEAN CORPUSCULAR HEMOGLOBIN 31 pg (25-34); MEAN CORPUSCULAR HGB CONC 34 g/dL (32-36); MEAN CORPUSCULAR VOLUME 92 fL (80-99); MEAN PLATELET VOLUME 10.5 fL (9.0-12.2); MONOCYTES # (AUTO) 0.5 10^3/uL (0.0-1.0); MONOCYTES % (AUTO) 5 % (0-12); NEUTROPHILS # (AUTO) 8.4 10^3/uL (1.8-7.8); NEUTROPHILS % (AUTO) 89 % (42-75); PLATELET COUNT 255 10^3/uL (130-400); WHITE BLOOD COUNT 9.4 10^3/uL (4.3-11.0)
[2022-04-07 04:29] LABS: CREATININE SERUM 3.21 MG/DL (0.60-1.30); PHOSPHORUS 7.3 MG/DL (2.3-4.7)
[2022-04-07 04:32] LABS: MAGNESIUM 1.7 MG/DL (1.6-2.4)
[2022-04-07 04:38] LABS: HEMOGLOBIN 6.5 g/dL (11.5-16.0)
[2022-04-07 04:39] LABS: HEMATOCRIT 19 % (35-52)
[2022-04-07] MEDS ORDERED: NS IV 500 ML 500 ML IV SCH ×2 (05:15)
[2022-04-07] MEDS ORDERED: CALC GLUC 1 GM/100 ML IVPB 100 ML IV ONE (05:15)
[2022-04-07] MEDS: CEFEPIME INJECTION 1,000 MG in NS (IVPB) 50 ML IV SCH ×2 (05:20→17:10)
[2022-04-07] MEDS: LEVOTHYROXINE 88 MCG (LEVOTHORID) TAB PO SCH (05:34)
[2022-04-07] MEDS: AMIODARONE 200 MG (CORDARONE) TAB PO SCH ×2 (08:51→20:32)
[2022-04-07] MEDS: SERTRALINE 50 MG (ZOLOFT) TABLET PO SCH (08:51)
[2022-04-07] MEDS: PHENYTOIN 100 MG (DILANTIN) CAP PO SCH ×2 (08:51→20:32)
[2022-04-07] MEDS: MONTELUKAST 10 MG (SINGULAIR) TAB PO SCH (08:51)
[2022-04-07] MEDS: LORATADINE (CLARITIN) 10 MG TAB PO SCH (08:51)
[2022-04-07] MEDS: OXYBUTYNIN (DITROPAN) 5 MG TAB PO SCH (08:51)
[2022-04-07] MEDS: SODIUM BICARBONATE 650 MG TABLET PO SCH ×3 (08:51→20:32)
[2022-04-07] MEDS: lisINopril 5 MG (PRINIVIL) TABLET PO SCH (08:52)
--- NOTE | 2022-04-07 09:29 | Progress Note ---
MEÑO MCBRIDE 04/07/22 0929: Subjective Date Seen by a Provider: Apr 07, 2022 Time Seen by a Provider: 08:30 Subjective/Events-last exam Ms. Abreu is an 81 year old female with a PMHx of COPD, HTN, atrial fibrillation, T2 DM, chronic anemia, seizure disorder, hypothyroidism, and bipolar/schizophrenia who presents to [facility] via EMS transfer with acute respiratory failure with hypoxia. This morning patient is resting upright in bed receiving a blood transfusion due to Hgb of 6.5. Patient reports fatigue but denies dizziness or weakness. Patient has a PMHx of chronic anemia. Patient denies having a BM since arrival. Patient denies abdominal pain, N/V/D. Patient denies CP, SOA at rest, or heart palpitations. Patient was transitioned from BiPap to supplemental O2 via nasal cannula around 00:00 on 04/07. Patient has been tolerating this well using 6L -> 3L. Cardiology has been consulted s/p episodes of tachycardia on 04/06 and has seen the patient. Review of Systems General: Fatigue HEENT: No Head Aches Pulmonary: No Dyspnea, No Cough Cardiovascular: No: Chest Pain, Palpitations Gastrointestinal: No: Nausea, Vomiting, Abdominal Pain, Diarrhea Genitourinary: No Dysuria Neurological: No: Weakness, Numbness Focused Exam Lactate Level 04/06/22 03:50: Lactic Acid Level 2.69*H 04/06/22 05:50: Lactic Acid Level 1.35 Objective Exam Last Set of Vital Signs Vital Signs Date Time Temp Pulse Resp B/P (MAP) Pulse Ox O2 Delivery O2 Flow Rate FiO2 04/07/22 08:16 Nasal Cannula 3.00 04/07/22 08:08 36.1 84 20 95 04/06/22 19:45 40 Capillary Refill : Less Than 3 Seconds I&O Intake and Output 04/07/22 00:00 Intake Total 1200 ml Output Total 1140 ml Balance 60 ml Intake Oral 750 ml IV Total 450 ml Output Urine Total 1140 ml # Bowel Movements 1 Daily Weight Change No General: Alert Lungs: Other (bilateral diffuse coarse breath sounds) Heart: Regular Rate, No Murmurs Abdomen: Normal Bowel Sounds, Soft, No Tenderness Extremities: Other (bilateral LE/pedal edema +3) Neuro: Normal Speech Psych/Mental Status: Mood NL Results Lab Laboratory Tests 04/06/22 11:45: Sodium Level 133L, Potassium Level 4.4, Chloride Level 93L, Carbon Dioxide Level 16L, Anion Gap 24H, Blood Urea Nitrogen 69H, Creatinine 3.15H, Estimat Glomerular Filtration Rate 14, BUN/Creatinine Ratio 22, Glucose Level 154H, Ca lcium Level 6.1L, Magnesium Level 1.4L 04/07/22 03:47: Sodium Level 135, Potassium Level 3.8, Chloride Level 97L, Carbon Dioxide Level 16L, Anion Gap 22H, Blood Urea Nitrogen 78H, Creatinine 3.21H, Estimat Glomerular Filtration Rate 14, BUN/Creatinine Ratio 24, Glucose Level 123H, Calcium Level 6.0*L, Magnesium Level 1.7, White Blood Count 9.4, Red Blood Count 2.09L, Hemoglobin 6.5#*L, Hematocrit 19*L, Mean Corpuscular Volume 92, Mean Corpuscular Hemoglobin 31, Mean Corpuscular Hemoglobin Concent 34, Red Cell Distribution Width 13.6, Platelet Count 255, Mean Platelet Volume 10.5, Immature Granulocyte % (Auto) 1, Neutrophils (%) (Auto) 89H, Lymphocytes (%) (Auto) 5L, Monocytes (%) (Auto) 5, Eosinophils (%) (Auto) 0, Basophils (%) (Auto) 0, Neutrophils # (Auto) 8.4H, Lymphocytes # (Auto) 0.5L, Monocytes # (Auto) 0.5, Eosinophils # (Auto) 0.0, Basophils # (Auto) 0.0, Immature Granulocyte # (Auto) 0.1, Phosphorus Level 7.3H 04/07/22 06:50: Influenza Type A (RT-PCR) DetectedH, Influenza Type B (RT-PCR) Not Detected, SARS-CoV-2 RNA (RT-PCR) Not Detected Microbiology 04/06/22 Urine Culture - Preliminary, Resulted Gram Positive Cocci In Chains Assessment/Plan Assessment/Plan Assess & Plan/Chief Complaint 1. Acute respiratory failure with hypoxia likely secondary to pneumonia vs. COPD exacerbation vs. CHF exacerbation -BiPap therapy and monitoring. Wean as tolerated -> transitioned to 3L NC, plan to transfer to fourth floor with telemetry on 04/07 -Solumedrol 62.5mg Q8H IV -Duoneb 3ml RTQ4H IH -PT once Hgb stabilizes -Flu A positive - administer Tamiflu 30mg PO BID x5 days 2. Heart failure -ProBNP of 10,307 on 04/06 with significant bilateral LE edema -Echocardiogram -Lasix therapy if Mg and Ca are stable -Appreciate plan per Cardiology 3. Left lower lobe pneumonia - health care associated due to [facility] [place] [facility] -Cefepime 1000mg - 50mls @ 1000mls/hr Q8H IV -Supplemental O2 for respiratory support 4. Hypocalcemia - Corrected Ca 6.2 on 04/06 -> Ca 6.0 on 04/07 -Replace with calcium glutamate 1gm once IV -AM BMP 5. Hypomagnesemia - Mg 1.0 on 04/06 -> 1.7 on 04/07 -Continue to monitor, replace if Mg <1.7 6. Possible acute cystitis - +3 leuk. esterase, neg nitrite on 04/06 -Coverage with cefepime, send urine for culture -> gram + cocci in chains -Monitor for symptoms 7. Hyponatremia - Na 132 on 04/06 -> resolved with 135 on 04/07 -Monitor with AM CMP 8. Bipolar & Schizophrenia -Resume home medication aripiprazole 10mg PO qd 9. HTN -Monitor BP -Resume home medications and appreciate plan per Cardiology 10. Chronic anemia, likely secondary to CKD - Hgb 8.5 on 04/06 -> Hgb 6.5 on 04/07 -Monitor with AM CBC and INR -Blood transfusion administered -PM Hgb/Hct/ Monitor for signs/symptoms of bleeding ie hypotension, tachycardia, hematemasis, hemoptysis, hematochezia/melena, pallor -FOBT once patient has BM 11. Elevated anion gap - 24 on 04/06 -> 22 on 04/07 -Likely secondary to lactic acidosis (lactic acid 2.69 -> 1.35 on 04/06) and/or uremia with BUN 67, Cr 2.82 -Monitor with AM BMP 12. Acute on chronic kidney injury/disease -Monitor BUN, Cr -Do not initiate IV fluids due to CHF -Worsening BUN, Cr on 04/07: BUN 78, Cr 3.21. Run NS 500ml IV with blood products. Continue to monitor 13. Hyperphosphatemia - 7.3 on 04/07 -Likely secondary to CKD -Continue to monitor, consider calcium acetate if kidney function continues to decline with increasing PO4 14. Pulmonary hypertension with pulm artery pressure of 25-30mmHg -Continue plan per Cardiology Clinical Quality Measures Admission Status Admission Dx 1. Acute respiratory failure with hypoxia likely secondary to pneumonia vs. COPD exacerbation vs. CHF exacerbation -BiPap therapy and monitoring. Wean as tolerated -Solumedrol 62.5mg Q8H IV -Duoneb 3ml RTQ4H IH 2. Heart failure -ProBNP of 10,307 on 04/06 with significant bilateral LE edema -Echocardiogram -Lasix therapy after afternoon labs have resulted to prevent further electrolyte imbalance 3. Left lower lobe pneumonia - health care associated due to patient's residence [facility] -Cefepime 1000mg - 50mls @ 1000mls/hr Q8H IV -BiPap therapy for respiratory support 4. Hypocalcemia - Corrected Ca 6.2 on 04/06 -04/06 PM BMP -Calcium glutamate 1gm once IV administered in [place] [facility] 5. Hypomagnesemia - Mg 1.0 on 04/06 -04/06 PM Mg -Magnesium sulfate 1gm once IV administered in [place] [facility] - confirm with ED, patient should receive 2gm total for initial replacement 6. Possible acute cystitis - +3 leuk. esterase, neg nitrite on 04/06 -Coverage with cefepime, send urine for culture -Monitor for symptoms 7. Hyponatremia - Na 132 on 04/06 -Monitor with AM CMP 8. Bipolar & Schizophrenia -Resume home medication aripiprazole 10mg PO qd 9. HTN -Monitor BP 10. Chronic anemia - Hgb 8.5 -Monitor with AM CBC 11. Elevated anion gap - 24 on 04/06 -Likely secondary to lactic acidosis (lactic acid 2.69 -> 1.35 on 04/06) and/or uremia with BUN 67, Cr 2.82 -Monitor with AM BMP 12. Acute on chronic kidney injury/disease -Monitor BUN, Cr -Do not initiate IV fluids due to CHF SINTIA MARTIN MD 04/07/22 1205: Assessment/Plan Assessment/Plan Assess & Plan/Chief Complaint Patient reports feeling better today. Asking about when she can go home. Discussed her lab results and need for transfusion and further workup for her heart. Unit of blood finishing now. Will transfer out of the ICU as is on 3lpm NC. Supervisory-Addendum Brief Verification & Attestation Participated in pt care: history, MDM, physical Personally performed: exam, history, MDM, supervision of care Care discussed with: Medical Student Procedures: n/a Results interpretation: Verified all documentation Verification and Attestation of Medical Student E/M Service A medical student performed and documented this service in my presence. I reviewed and verified all information documented by the medical student and made modifications to such information, when appropriate. I personally performed the physical exam and medical decision making. Sintia Martin, Apr 07, 2022,11:57 MEÑO MCBRIDE Apr 07, 2022 09:29 SINTIA MARTIN MD Apr 07, 2022 12:05
[2022-04-07] MEDS: FLUTICASONE 100 MCG 14's (ARNUITY) IH SCH (10:27)
[2022-04-07] MEDS: RT-ALBUTEROL HFA 8.5 GM INHALER IH SCH ×4 (10:27→22:11)
[2022-04-07] MEDS ORDERED: OSELTAMIVIR 30 MG (TAMIFLU) CAPSULE PO ONE (11:00)
--- NOTE | 2022-04-07 11:10 | Tele-ICU Progress Note ---
Subjective Date Seen by a Provider: Apr 07, 2022 Time Seen by a Provider: 11:10 Subjective/Events-last exam (Tele-ICU Physician , Progress Note ) Service provided via interactive audio and video telecommunications E-CARE system to a patient admitted to ICU bed in [facility]. Available chart/ vitals / labs / Images reviewed Video assessment done using teleICU camera, rest of exam as per RN Discussed with RN Events overnight : Afebrile hemodynamically stable Respiratory - I/O = Drips: Pressors- no Consultants: uri Hospital course: 04-06: +Sev Sepsis Covid/Flu Neg 81 y/o F (from [place]) - Pneumonia - Resp Filure - CHF - BiPAP. 04/07 - 3 L nc A/P Acute hypoxic resp failure, AECOPD +CHF-?viral syndrome + PNA - BIPAPA 23/11 50% , rr 25 TV 550s MV 13L - today on 3 L nc AECOPD - nebs and SM IV - ? 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 Discussed with RN to reach out if any questions or concerns A total of 22 minutes of critical care time was devoted to this patient today, required to treat and/or prevent further deterioration of critical care condition ( as above ) I am remotely monitoring this patient from another state. I am unable to do the bedside exam, and history/physical and pertinent information is taken from other notes in the computer and bedside staff. . Sepsis Event Evaluation Height, Weight, BMI Height: '" Weight: lbs. oz. kg; 32.32 BMI Method: Focused Exam Lactate Level 04/06/22 03:50: Lactic Acid Level 2.69*H 04/06/22 05:50: Lactic Acid Level 1.35 Exam Exam Patient acknowledged, consented, and participated in this virtual visit which was conducted using real time audio/video Vital Signs Date Time Temp Pulse Resp B/P (MAP) Pulse Ox O2 Delivery O2 Flow Rate FiO2 04/07/22 10:27 95 High Flow N/C 3.00 04/07/22 10:00 89 43 111/52 (71) 97 Nasal Cannula 3.00 04/07/22 09:00 80 20 115/54 (74) 97 Nasal Cannula 3.00 04/07/22 08:16 Nasal Cannula 3.00 04/07/22 08:08 36.1 84 20 106/50 95 Nasal Cannula 3.00 04/07/22 08:00 80 16 117/58 (77) 96 Nasal Cannula 6.00 04/07/22 07:55 95 Nasal Cannula 3.00 04/07/22 07:52 36.4 79 24 107/53 Nasal Cannula 6.00 04/07/22 07:06 75 04/07/22 07:00 78 18 114/52 (72) 97 Nasal Cannula 6.00 04/07/22 06:00 81 16 116/58 (77) 97 Nasal Cannula 6.00 04/07/22 05:00 74 21 103/47 (65) 100 Nasal Cannula 6.00 04/07/22 04:00 36.2 90 24 114/53 (73) 97 Nasal Cannula 6.00 04/07/22 04:00 Nasal Cannula 6.00 04/07/22 03:00 81 18 99/51 (67) 98 04/07/22 02:15 96 High Flow N/C 8.00 04/07/22 02:00 85 18 101/53 (69) 97 Nasal Cannula 8.00 04/07/22 01:00 90 04/07/22 01:00 91 24 119/ 100 04/07/22 00:00 36.7 80 20 110/54 (72) 97 Nasal Cannula 6.00 04/06/22 23:58 Nasal Cannula 6.00 04/06/22 23:00 93 28 130/63 (85) 99 NIV Bilevel 40.00 04/06/22 22:21 99 31 99 40.00 04/06/22 22:00 90 34 184/85 (118) 98 40.00 04/06/22 21:00 73 20 101/50 (67) 99 NIV Bilevel 40.00 04/06/22 20:00 88 24 112/86 (95) 98 NIV Bilevel 40.00 04/06/22 19:45 NIV Bilevel 40 04/06/22 19:45 36.5 04/06/22 19:21 99 24 99 40.00 04/06/22 19:00 75 20 114/62 (79) 99 NIV Bilevel 40.00 04/06/22 19:00 80 04/06/22 18:05 High Flow N/C 8.00 04/06/22 18:00 80 22 112/58 (76) 100 NIV Bilevel 40.00 04/06/22 17:00 87 20 132/68 (89) 99 NIV Bilevel 40.00 04/06/22 16:00 76 23 123/66 (85) 98 NIV Bilevel 40.00 04/06/22 16:00 NIV Bilevel 95.00 40 04/06/22 15:49 36.3 04/06/22 15:00 81 24 135/68 (90) 99 NIV Bilevel 40.00 04/06/22 14:30 NIV Bilevel 40.00 04/06/22 14:23 99 24 99 40.00 04/06/22 14:00 77 21 133/78 (96) 90 NIV Bilevel 40.00 04/06/22 13:00 85 28 131/76 (94) 98 NIV Bilevel 40.00 04/06/22 12:57 88 04/06/22 12:00 36.4 04/06/22 12:00 90 32 151/84 (106) 96 NIV Bilevel 40.00 04/06/22 12:00 NIV Bilevel 95.00 40 04/06/22 11:20 NIV Bilevel 40.00 I & O 04/07/22 07:00 Intake Total 975 ml Output Total 1340 ml Balance -365 ml Height & Weight Height: '" Weight: lbs. oz. kg; 32.32 BMI Method: General Appearance: No Apparent Distress, Other (Resting in bed with BiPap therapy.) HEENT: PERRL/EOMI, TMs Normal Neck: Full Range of Motion Respiratory: No Accessory Muscle Use, Crackles (bilateral and diffuse, more significant in the R upper and lower lung gifford) Cardiovascular: Regular Rate, Rhythm; No No Edema (+3 bilateral LE edema); Other Capillary Refill: Less Than 3 Seconds Extremity: No Calf Tenderness; No No Pedal Edema; Pedal Edema (+3 bilateral), Other (Erythema of bilateral LE) Neurologic/Psychiatric: No Alert; Other (Oriented to person and place) Skin: Warm/Dry Results Lab Laboratory Tests 04/06/22 03:50 04/06/22 11:45 04/07/22 03:47 Assessment/Plan Assessment/Plan 1 JOHN CRUZ MD Apr 07, 2022 11:10
--- NOTE | 2022-04-07 11:30 | Physical Therapy Evaluation ---
PT Evaluation-General Medical Diagnosis Admission Date Apr 06, 2022 at 07:03 Medical Diagnosis: acute resp. failure, flu Onset Date: Apr 06, 2022 Therapy Diagnosis Therapy Diagnosis: impaired mobility Precautions Precautions/Isolations: Contact Isolation, Droplet Isolation Referral Physician: Mario Reason for Referral: Evaluation/Treatment Medical History Pertinent Medical History: Atrial Fib, COPD, Dementia, Heart Failure, HTN, Renal Insufficiency Additional Medical History Past Medical History COPD Atrial Fibrillation, Hypertension Seizure Disorder Renal Failure Hypothyroidsim Reviewed History: Yes Social History Home: Intermediate Prior Prior Level of Function SCALE: Activities may be completed with or without assistive devices. 4-Ytxozteskj-zlhmuhg completes the activity by him/herself with no assistance from a helper. 5-Set-up or Clean-up Assistance-helper sets up or cleans up; patient completes activity. Kuna assists only prior to or following the activity. 4-Supervision or Touching Assistance-helper provides verbal cues and/or touching/steadying and/or contact guard assistance as patient completes activity. Assistance may be provided throughout the activity or intermittently. 3-Partial/Moderate Assistance-helper does LESS THAN HALF the effort. Kuna lifts, holds or supports trunk or limbs, but provides less than half the effort. 2-Substantial/Maximal Assistance-helper does MORE THAN HALF the effort. Kuna lifts or holds trunk or limbs and provides more than half the effort. 8-Yubzxnodd-xmnthw does ALL the effort. Patient does none of the effort to complete the activity. Or, the assistance of 2 or more helpers is required for the patient to complete the activity. If activity was not attempted, code reason: 7-Patient Refused. 9-Not Applicable-not attempted and the patient did not perform the activity before the current illness, exacerbation or injury. 10-Not Attempted due to Environmental Limitations-(lack of equipment, weather restraints, etc.). 88-Not Attempted due to Medical Conditions or Safety Concerns. Bed Mobility: 1 Transfers (B,C,W/C): 1 Patient uses a kalin lift from bed to WC PT Evaluation-Current Subjective Patient in bed pre tx, agrees to PT, has no complaints of pain. Patient has had a BM and needs cleaned. Pt/Family Goals none stated Objective Patient Orientation: Person, Place Attachments: Oxygen, Tan Catheter, IV ROM/Strength ROM Lower Extremities limited knee extension and dorsiflexion Sensory Hearing: Functional Transfers Roll Left to Right (QC): 1 Patient rolls from side to side with dependence, nurse aide assists with cleaning and turning and changing pads and sheets. Treatment BLE supine exercises x15 (QS, GS, HS) Assessment/Needs Patient in bed post tx with nurse call, phone, tray, all needs met. Nurse in room. Patient has impaired mobility, doesn't ambulate or perform transfers on her own. 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 Goals PT Printing Machine Operator Goals Time Frame: Apr 14, 2022 Roll Left & Right (QC): 2 Sit to Lying (QC): 2 Lying-Sitting on Side/Bed(QC): 2 PT Plan Problem List Problem List: Activity Tolerance, Functional Strength, Safety, Balance, Gait, Transfer, Bed Mobility, ROM Treatment/Plan Treatment Plan: Continue Plan of Care Treatment Plan: Bed Mobility, Education, Functional Activity Cassi, Functional Strength, Safety, Therapeutic Exercise Treatment Duration: Apr 14, 2022 Frequency: 6 times per week Estimated Hrs Per Day: .25 hour per day Patient and/or Family Agrees t: Yes Safety Risks/Education Patient Education: Correct Positioning, Safety Issues Teaching Recipient: Patient Teaching Methods: Demonstration, Discussion Response to Teaching: Reinforcement Needed Discharge Recommendations Plan Patient will perform bed mobility and transfer training, balance and endurance training, functional strengthening, and education, to improve functional mobility and independence at home. Therapy Discharge Recommendati: Other, See Comments (NH) Time Time In: 1055 Time Out: 1117 DATE: Apr 07, 2022 Total Billed Treatment Time: 22 Total Billed Treatment 1 visit BRONWYN STEPHENSON PT Apr 07, 2022 11:30
--- NOTE | 2022-04-07 12:28 | Cardiology Progress Note ---
Subjective Date Seen by Provider: Apr 07, 2022 Time Seen by Provider: 12:24 Subjective/Events-last exam Patient is sitting up in bed, reports dyspnea is improving. Denies any chest pain. Focused Exam Lactate Level 04/06/22 03:50: Lactic Acid Level 2.69*H 04/06/22 05:50: Lactic Acid Level 1.35 Objective-Cardiology Exam Last Set of Vital Signs Vital Signs 04/07/22 04/07/22 13:44 16:25 Temp 36.7 Pulse 74 Resp 20 B/P (MAP) 109/62 (78) Pulse Ox 100 O2 Delivery High Flow N/C O2 Flow Rate 3.00 FiO2 50 I&O Intake and Output 04/07/22 00:00 Intake Total 1200 ml Output Total 1140 ml Balance 60 ml Intake Oral 750 ml IV Total 450 ml Output Urine Total 1140 ml # Bowel Movements 1 Daily Weight Change No General: Alert Lungs: Other (bilateral diffuse coarse breath sounds) Heart: Regular Rate, No Murmurs Abdomen: Normal Bowel Sounds, Soft, No Tenderness Extremities: Other (bilateral LE/pedal edema +2) Neuro: Normal Speech Psych/Mental Status: Mood NL Results Lab Laboratory Tests 04/07/22 03:47 A/P-Cardiology Admission Diagnosis Acute respiratory failure Pneumonia Congestive heart failure Paroxysmal atrial fibrillation Assessment/Plan Influenza A +, acute respiratory insufficiency, improving slowly Acute respiratory failure, slowly improving. Patient has chest x-ray suggestive of pneumonia. Started on Solu-Medrol and BiPAP Managed by medical team Congestive heart failure, acute left ventricular systolic dysfunction 2D Echo done 04/06/22 showing EF 40-45%, grade 1 diastolic dysfunction, mild MR, Pa 25-30mmHg. Bilateral pleural effusions noted. Patient has been on metolazone as an outpatient. Will hold for now and use Lasix and monitor closely Paroxysmal atrial fibrillation, patient was noted to be on amiodarone. There was questionable transient episode of atrial fibrillation on telemetry. Could be artifact. We will continue monitoring for now. Has not been on oral anticoagulation, will use DVT prophylaxis for now and monitor Electrolyte imbalance, being corrected and monitored Acute on chronic renal failure, history of chronic kidney disease. Worsening at this time, continue to monitor closely UTI, managed by medical team History of bipolar disorder and schizophrenia, managed by medical team Hypertension, monitor blood pressure Hyperlipidemia maintained on simvastatin Hypothyroidism, maintained on levothyroxine, managed by medical team Anemia, continue to monitor H&H Supervisory-Addendum Brief Supervisory Addendum Participated in pt care: history, MDM, physical Personally performed: exam, history, MDM Care discussed with: ODIN Results interpretation: Verified all documentation Notes: Patient was seen and evaluated with Evin, examination performed, management plan was discussed, agree with the current scribed note, I made few changes to the note using Italic font Patient was seen at bedside, laying down comfortably, still having some shortness of breath, having significant tremor affecting the quality of her telemetry. Continue to monitor blood pressure and lipids, no changes are recommended. EVIN SIMON Apr 07, 2022 12:28 EV ARMANDO MD Apr 07, 2022 17:02
[2022-04-07] MEDS: DONEPEZIL 10 MG (ARICEPT) TAB PO SCH (17:10)
[2022-04-07] MEDS: AtorvaSTATin TABLET 10 MG TABLET PO SCH (20:32)
[2022-04-07] MEDS: LORazepam 0.5 MG (ATIVAN) TABLET PO PRN (22:10)
[2022-04-08] VITALS (8 sets, daily range): BP systolic 106–123; BP diastolic 54–62
[2022-04-08] MEDS: RT-ALBUTEROL HFA 8.5 GM INHALER IH SCH ×5 (02:38→22:38)
[2022-04-08] MEDS: methylPREDNISolone 125 MG (Solu-MEDROL) VIAL IV SCH ×3 (04:03→22:43)
[2022-04-08 05:36] LABS: BASOPHILS % (AUTO) 0 % (0-10); EOSINOPHILS % (AUTO) 0 % (0-10); LYMPHOCYTES # (AUTO) 0.4 10^3/uL (1.0-4.0); LYMPHOCYTES % (AUTO) 5 % (12-44); MEAN CORPUSCULAR HGB CONC 34 g/dL (32-36); MEAN CORPUSCULAR VOLUME 91 fL (80-99); MEAN PLATELET VOLUME 10.4 fL (9.0-12.2); MONOCYTES # (AUTO) 0.5 10^3/uL (0.0-1.0); MONOCYTES % (AUTO) 7 % (0-12); NEUTROPHILS # (AUTO) 6.6 10^3/uL (1.8-7.8); NEUTROPHILS % (AUTO) 87 % (42-75); PLATELET COUNT 238 10^3/uL (130-400); WHITE BLOOD COUNT 7.6 10^3/uL (4.3-11.0)
[2022-04-08 05:42] LABS: MEAN CORPUSCULAR HEMOGLOBIN 30 pg (25-34)
[2022-04-08 05:43] LABS: HEMOGLOBIN 6.8 g/dL (11.5-16.0)
[2022-04-08 05:44] LABS: HEMATOCRIT 20 % (35-52)
[2022-04-08 05:49] LABS: POTASSIUM 3.4 MMOL/L (3.6-5.0)
[2022-04-08] MEDS: LEVOTHYROXINE 88 MCG (LEVOTHORID) TAB PO SCH (05:53)
[2022-04-08] MEDS: CEFEPIME INJECTION 1,000 MG in NS (IVPB) 50 ML IV SCH ×2 (05:54→17:45)
[2022-04-08 05:55] LABS: CREATININE SERUM 3.31 MG/DL (0.60-1.30); PHOSPHORUS 6.8 MG/DL (2.3-4.7)
[2022-04-08 05:57] LABS: MAGNESIUM 1.5 MG/DL (1.6-2.4)
[2022-04-08 05:59] LABS: CALCIUM 5.6 MG/DL (8.5-10.1)
[2022-04-08] MEDS ORDERED: NS IV 500 ML 500 ML IV SCH (08:15)
--- NOTE | 2022-04-08 08:25 | Cardiology Progress Note ---
Subjective Date Seen by Provider: Apr 08, 2022 Time Seen by Provider: 08:24 Subjective/Events-last exam Patient in bed, no new complaints. Continues to complain of nonproductive cough Focused Exam Lactate Level 04/06/22 03:50: Lactic Acid Level 2.69*H 04/06/22 05:50: Lactic Acid Level 1.35 Objective-Cardiology Exam Last Set of Vital Signs Vital Signs 04/07/22 04/08/22 13:44 09:31 Temp 37.2 Pulse 80 Resp 20 B/P (MAP) 122/61 Pulse Ox 97 O2 Delivery Nasal Cannula O2 Flow Rate 2.00 FiO2 50 I&O Intake and Output 04/08/22 00:00 Intake Total 2087 ml Output Total 550 ml Balance 1537 ml Intake Oral 1437 ml IV Total 650 ml Output Urine Total 550 ml General: Alert Lungs: Other (bilateral diffuse coarse breath sounds) Heart: Regular Rate, No Murmurs Abdomen: Normal Bowel Sounds, Soft, No Tenderness Extremities: Other (bilateral LE/pedal edema +2) Neuro: Normal Speech Psych/Mental Status: Mood NL Results Lab Laboratory Tests 04/08/22 05:24 A/P-Cardiology Admission Diagnosis Acute respiratory failure Pneumonia Congestive heart failure Paroxysmal atrial fibrillation Assessment/Plan Influenza A +, acute respiratory insufficiency, improving slowly. Patient has chest x-ray suggestive of pneumonia. Managed by medical team Congestive heart failure, acute left ventricular systolic dysfunction 2D Echo done 04/06/22 showing EF 40-45%, grade 1 diastolic dysfunction, mild MR, Pa 25-30mmHg. Bilateral pleural effusions noted. Patient has been on metolazone as an outpatient. Will hold for now and use Lasix and monitor closely Paroxysmal atrial fibrillation, patient was noted to be on amiodarone. There was questionable transient episode of atrial fibrillation on telemetry. Could be artifact. We will continue monitoring for now. Has not been on oral anticoagulation, will use DVT prophylaxis for now and monitor Electrolyte imbalance, being corrected and monitored Acute on chronic renal failure, history of chronic kidney disease. Worsening at this time, continue to monitor closely UTI, managed by medical team History of bipolar disorder and schizophrenia, managed by medical team Hypertension, monitor blood pressure Hyperlipidemia maintained on simvastatin Hypothyroidism, maintained on levothyroxine, managed by medical team Anemia, transfuse and continue to monitor H&H Patient was evaluated with Jane, I reviewed the note, discussed the management plan Patient is receiving blood transfusion, has further drop in her H&H Still having some dyspnea, Lasix is on hold. Continue to monitor closely. JANE SIMON Apr 08, 2022 08:25 EV ARMANDO MD Apr 08, 2022 10:01
--- NOTE | 2022-04-08 08:27 | Progress Note ---
MEÑO MCBRIDE 04/08/22 0827: Subjective Date Seen by a Provider: Apr 08, 2022 Time Seen by a Provider: 08:10 Subjective/Events-last exam Ms. Abreu is an 81 year old female with a PMHx of COPD, HTN, atrial fibrillation, T2 DM, chronic anemia, seizure disorder, hypothyroidism, and bipolar/schizophrenia who presented to [facility] via EMS transfer with acute respiratory failure with hypoxia on 04/06. Patient is sitting upright in bed eating breakfast this morning with PCT. PCT reports patient is edentate and is not tolerating solids well. PCT will help patient eat oatmeal and drink fluids but will avoid harder solids to avoid aspiration. Patient denies head ache, chest pain, SOA, abdominal pain, N/V/D. The patient remains hemodynamically stable with HR 82, BP 121/59, however Hgb was 6.8 s/p one blood transfusion on 04/07. FOBT was negative. Chronic anemia is likely secondary to CKD. Patient will receive a repeat blood transfusion this morning with repeat Hgb/Hct. Review of Systems General: Fatigue, Appetite HEENT: No Head Aches Pulmonary: No Dyspnea Cardiovascular: No: Chest Pain Gastrointestinal: No: Nausea, Vomiting, Abdominal Pain, Diarrhea Focused Exam Lactate Level 04/06/22 03:50: Lactic Acid Level 2.69*H 04/06/22 05:50: Lactic Acid Level 1.35 Objective Exam Last Set of Vital Signs Vital Signs Date Time Temp Pulse Resp B/P (MAP) Pulse Ox O2 Delivery O2 Flow Rate FiO2 04/08/22 08:08 36.8 74 18 112/60 (77) 100 High Flow N/C 2.00 04/07/22 13:44 50 Capillary Refill : Less Than 3 Seconds I&O Intake and Output 04/08/22 00:00 Intake Total 2087 ml Output Total 550 ml Balance 1537 ml Intake Oral 1437 ml IV Total 650 ml Output Urine Total 550 ml General: Alert, No Acute Distress HEENT: Atraumatic Lungs: Other (Mildly coarse breath sounds bilaterally) Heart: Regular Rate Abdomen: Normal Bowel Sounds, Soft Extremities: Other (+3 pedal edema bilaterally, +2 LE edema bilaterally) Neuro: Normal Speech Psych/Mental Status: Mental Status NL, Mood NL Results Lab Laboratory Tests 04/07/22 10:00: Stool Occult Blood Immunoassay NEGATIVE 04/08/22 05:24: White Blood Count 7.6, Red Blood Count 2.23L, Hemoglobin 6.8*L, Hematocrit 20*L, Mean Corpuscular Volume 91, Mean Corpuscular Hemoglobin 30, Mean Corpuscular Hemoglobin Concent 34, Red Cell Distribution Width 14.4, Platelet Count 238, Mean Platelet Volume 10.4, Immature Granulocyte % (Auto) 1, Neutrophils (%) (Auto) 87H, Lymphocytes (%) (Auto) 5L, Monocytes (%) (Auto) 7, Eosinophils (%) (Auto) 0, Basophils (%) (Auto) 0, Neutrophils # (Auto) 6.6, Lymphocytes # (Auto) 0.4L, Monocytes # (Auto) 0.5, Eosinophils # (Auto) 0.0, Basophils # (Auto) 0.0, Immature Granulocyte # (Auto) 0.1, Sodium Level 134L, Potassium Level 3.4L, Chloride Level 95L, Carbon Dioxide Level 17L, Anion Gap 22H, Blood Urea Nitrogen 86H, Creatinine 3.31H, Estimat Glomerular Filtration Rate 13, BUN/Creatinine Ratio 26, Glucose Level 146H, Calcium Level 5.6*L, Phosphorus Level 6.8H, Magnesium Level 1.5L Microbiology 04/06/22 Urine Culture - Preliminary, Resulted Gram Positive Cocci In Chains 04/06/22 Blood Culture - Preliminary, Resulted No growth Assessment/Plan Assessment/Plan Assess & Plan/Chief Complaint 1. Acute respiratory failure with hypoxia likely secondary to pneumonia vs. COPD exacerbation vs. CHF exacerbation -BiPap therapy and monitoring. Wean as tolerated -> transitioned to 3L NC, plan to transfer to fourth floor with telemetry on 04/07 -> transitioned to 1L NC 04/08 -Solumedrol 62.5mg Q8H IV -Duoneb 3ml RTQ4H IH -PT once Hgb stabilizes -Flu A positive - administer Tamiflu 30mg PO BID x5 days -Continue PT 2. Heart failure -ProBNP of 10,307 on 04/06 with significant bilateral LE edema -Echocardiogram -Lasix therapy if Mg and Ca are stable -Appreciate plan per Cardiology 3. Left lower lobe pneumonia - health care associated due to patient's residence in long-term -Cefepime 1000mg - 50mls @ 1000mls/hr Q8H IV -Supplemental O2 for respiratory support 4. Hypocalcemia - Corrected Ca 6.2 on 04/06 -> Ca 6.0 on 04/07 -> Ca 5.6 on 04/08 -Replace with calcium glutamate 1gm IV -AM BMP 5. Hypomagnesemia - Mg 1.0 on 04/06 -> 1.7 on 04/07 -> Mg 1.5 04/08 -Continue to monitor, replace if Mg <1.7 -> Replace with magnesium sulfate 2gm IV once 04/08 -AM Mg 6. Possible acute cystitis - +3 leuk. esterase, neg nitrite on 04/06 -Coverage with cefepime, send urine for culture -> gram + cocci in chains -Monitor for symptoms 7. Hyponatremia - Na 132 on 04/06 -> resolved with 135 on 04/07 -> Na 134 on 04/08, continue to monitor -Monitor with AM CMP 8. Bipolar & Schizophrenia -Resume home medication aripiprazole 10mg PO qd 9. HTN -Monitor BP -Resume home medications and appreciate plan per Cardiology 10. Chronic anemia, likely secondary to CKD - Hgb 8.5 on 04/06 -> Hgb 6.5 on 04/07 -> Hgb 6.8 on 04/08, repeat blood transfusion, monitor Hgb/Hct 2hr post transfusion -Monitor with AM CBC and INR -Blood transfusion administered 04/07, repeat on 04/08 -PM Hgb/Hct/ Monitor for signs/symptoms of bleeding ie hypotension, tachycardia, hematemasis, hemoptysis, hematochezia/melena, pallor -FOBT once patient has BM -> negative on 04/07 11. Elevated anion gap - 24 on 04/06 -> 22 on 04/07 -> 22 on 04/08 -Likely secondary to uremia with BUN 86, Cr 3.31 -Monitor with AM BMP 12. Acute on chronic kidney injury/disease -Monitor BUN, Cr -Do not initiate IV fluids due to CHF -04/08: BUN 86, Cr 3.31. Continue to monitor. This appears to be baseline for patient -04/08 Consult Nephrology, consider initiating sodium bicarbonate 13. Hyperphosphatemia - 7.3 on 04/07 -> 6.8 on 04/08 -Likely secondary to CKD -Continue to monitor, consider calcium acetate if kidney function continues to decline with increasing PO4 14. Pulmonary hypertension with pulm artery pressure of 25-30mmHg -Continue plan per Cardiology 15. Transition diet to soft foods to prevent aspiration Clinical Quality Measures Admission Status Admission Dx 1. Acute respiratory failure with hypoxia likely secondary to pneumonia vs. COPD exacerbation vs. CHF exacerbation -BiPap therapy and monitoring. Wean as tolerated -Solumedrol 62.5mg Q8H IV -Duoneb 3ml RTQ4H IH 2. Heart failure -ProBNP of 10,307 on 04/06 with significant bilateral LE edema -Echocardiogram -Lasix therapy after afternoon labs have resulted to prevent further electrolyte imbalance 3. Left lower lobe pneumonia - health care associated due to patient's residence in long-term -Cefepime 1000mg - 50mls @ 1000mls/hr Q8H IV -BiPap therapy for respiratory support 4. Hypocalcemia - Corrected Ca 6.2 on 04/06 -04/06 PM BMP -Calcium glutamate 1gm once IV administered in [place] [facility] 5. Hypomagnesemia - Mg 1.0 on 04/06 -04/06 PM Mg -Magnesium sulfate 1gm once IV administered in [place] [facility] - confirm with ED, patient should receive 2gm total for initial replacement 6. Possible acute cystitis - +3 leuk. esterase, neg nitrite on 04/06 -Coverage with cefepime, send urine for culture -Monitor for symptoms 7. Hyponatremia - Na 132 on 04/06 -Monitor with AM CMP 8. Bipolar & Schizophrenia -Resume home medication aripiprazole 10mg PO qd 9. HTN -Monitor BP 10. Chronic anemia - Hgb 8.5 -Monitor with AM CBC 11. Elevated anion gap - 24 on 04/06 -Likely secondary to lactic acidosis (lactic acid 2.69 -> 1.35 on 04/06) and/or uremia with BUN 67, Cr 2.82 -Monitor with AM BMP 12. Acute on chronic kidney injury/disease -Monitor BUN, Cr -Do not initiate IV fluids due to CHF SINTIA MARTIN MD 04/08/22 1153: Assessment/Plan Assessment/Plan Assess & Plan/Chief Complaint Pt reports doing ok today. Working with PT. Reports she is normally lift dependent at her facility and does not walk. She also does not wear oxygen at home. I titrated her down to 1lpm while in the room. 1 unit pRBCs transfusing currently. Plan to discuss with nephrology given CKD though no apparent indication for dialysis at this time. Supervisory-Addendum Brief Verification & Attestation Participated in pt care: history, MDM, physical Personally performed: exam, history, MDM, supervision of care Care discussed with: Medical Student Procedures: n/a Results interpretation: Verified all documentation Verification and Attestation of Medical Student E/M Service A medical student performed and documented this service in my presence. I reviewed and verified all information documented by the medical student and made modifications to such information, when appropriate. I personally performed the physical exam and medical decision making. Sintia Martin, Apr 08, 2022,11:51 MEÑO MCBRIDE Apr 08, 2022 08:27 SINTIA MARTIN MD Apr 08, 2022 11:53
[2022-04-08] MEDS: SODIUM BICARBONATE 650 MG TABLET PO SCH ×3 (09:20→22:42)
[2022-04-08] MEDS: PHENYTOIN 100 MG (DILANTIN) CAP PO SCH ×2 (09:20→22:43)
[2022-04-08] MEDS: OXYBUTYNIN (DITROPAN) 5 MG TAB PO SCH (09:20)
[2022-04-08] MEDS: SERTRALINE 50 MG (ZOLOFT) TABLET PO SCH (09:20)
[2022-04-08] MEDS: LORATADINE (CLARITIN) 10 MG TAB PO SCH (09:21)
[2022-04-08] MEDS: AMIODARONE 200 MG (CORDARONE) TAB PO SCH ×2 (09:21→22:41)
[2022-04-08] MEDS: lisINopril 5 MG (PRINIVIL) TABLET PO SCH (09:21)
[2022-04-08] MEDS: MONTELUKAST 10 MG (SINGULAIR) TAB PO SCH (09:21)
--- NOTE | 2022-04-08 10:34 | Physical Therapy Daily Note ---
PT Daily Note-Current Subjective Patient in bed pre tx, agrees to PT, has no complaints of pain. Patient is getting blood. Pain Section J - Health Conditions 1. Rarely or not at all 2. Occasionally 3. Frequently 4. Almost constantly 8. Unable to answer Pain Effect on Sleep: 1 Pain Interference with Therapy: 1 Pain Interference w/Day-to-Day: 1 Appearance Patient in bed post tx with nurse call, phone, tray, all needs met, SCD's on, heel float on pillows and laying on left side with pillow support, bed alarm on. Mental Status Patient Orientation: Person, Confused Attachments: IV Transfers SCALE: Activities may be completed with or without assistive devices. 7-Zmswiaggcl-bltsspy completes the activity by him/herself with no assistance from a helper. 5-Set-up or Clean-up Assistance-helper sets up or cleans up; patient completes activity. [place] assists only prior to or following the activity. 4-Supervision or Touching Assistance-helper provides verbal cues and/or touching/steadying and/or contact guard assistance as patient completes activity. Assistance may be provided throughout the activity or intermittently. 3-Partial/Moderate Assistance-helper does LESS THAN HALF the effort. [place] lifts, holds or supports trunk or limbs, but provides less than half the effort. 2-Substantial/Maximal Assistance-helper does MORE THAN HALF the effort. [place] lifts or holds trunk or limbs and provides more than half the effort. 1-Mibgenoms-oecfmi does ALL the effort. Patient does none of the effort to complete the activity. Or, the assistance of 2 or more helpers is required for the patient to complete the activity. If activity was not attempted, code reason: 7-Patient Refused. 9-Not Applicable-not attempted and the patient did not perform the activity before the current illness, exacerbation or injury. 10-Not Attempted due to Environmental Limitations-(lack of equipment, weather restraints, etc.). 88-Not Attempted due to Medical Conditions or Safety Concerns. Exercises Supine Ex: Ankle pumps, Quad Set, Heel Slides, Straight leg raise, Hip abd/add Supine Reps: 20 (all AAROM BLE) bilateral manual ankle stretching Treatments LE ROM and stretching. Assessment Current Status: Poor Progress Poor participation, patient is dependent for mobility, using kalin for transfers, try one more day and if patient doesn't have improved participation, then DC PT Water Quality Analyst Goals Detention Goals PT Water Quality Analyst Goals Time Frame: Apr 14, 2022 Roll Left & Right (QC): 2 Sit to Lying (QC): 2 Lying-Sitting on Side/Bed(QC): 2 PT Plan Problem List Problem List: Activity Tolerance, Functional Strength, Safety, Balance, Gait, Transfer, Bed Mobility, ROM Treatment/Plan Treatment Plan: Continue Plan of Care Treatment Plan: Bed Mobility, Education, Functional Activity Cassi, Functional Strength, Safety, Therapeutic Exercise Treatment Duration: Apr 14, 2022 Frequency: 6 times per week Estimated Hrs Per Day: .25 hour per day Patient and/or Family Agrees t: Yes Safety Risks/Education Patient Education: Correct Positioning, Safety Issues Teaching Recipient: Patient Teaching Methods: Demonstration, Discussion Response to Teaching: Reinforcement Needed Time Time In: 1012 Time Out: 1025 DATE: Apr 08, 2022 Total Billed Treatment Time: 13 Total Billed Treatment 1 visit EX 13' BRONWYN MISHRA PT Apr 08, 2022 10:34
[2022-04-08] MEDS ORDERED: CALC GLUC 1 GM/100 ML IVPB 100 ML IV NR (11:30)
[2022-04-08] MEDS: FLUTICASONE 100 MCG 14's (ARNUITY) IH SCH (12:03)
[2022-04-08] MEDS: OSELTAMIVIR 30 MG (TAMIFLU) CAPSULE PO SCH (12:11)
[2022-04-08 16:41] LABS: HEMOGLOBIN 8.2 g/dL (11.5-16.0)
[2022-04-08] MEDS: DONEPEZIL 10 MG (ARICEPT) TAB PO SCH (17:46)
--- NOTE | 2022-04-08 19:17 | Physician Query Clarification ---
Physician Query-General Query to Physician: The medical record reflects the following clinical scenario: The patient, in the setting of History/Risk factors, healthcare acquired pneumonia, influenza AHF with elevated ProBNP, UTI Clinical Findings admission VS/Labs: HR 134, RR 44, BP 159/68, SpO2 92% sat on 15 L T 37.3, WBC 14.6 lactic acid 2.69 then 1.35 proBNP 10,307, Urine culture with Entercoccus faecium, Treatment Day of admission: NS 500ML given in setting of Heart failure, Cefepime on admission and daily IV, Ceftriaxone X 1, Question: Do you agree with the impression of Sepsis/Severe Sepsis per Dr. Umesh Bourgeois and Dr. Finn Camarillo? 1. Yes; will document Severe Sepsis, present on admission in the Progress Notes 2. No; will continue current documentation in the Progress Notes 3. Other; will document explanation of clinical findings 4. Clinically undetermined; no explanation for clinical findings Please clarify and document your clinical opinion in the Progress Notes and Discharge Summary including the definitive and/or presumptive diagnosis, (suspected or probable), related to the above clinical findings. Please include clinical findings supporting your diagnosis. In responding to this query, please exercise your independent professional judgment. The purpose of this communication is to more accurately reflect the complexity of your patients condition. The fact that a question is asked does not imply that any particular answer is desired or expected. Thank you for timely response to this clarification. Hailey Gallardo RN, MSN Clinical Elevator Operator [phone] PHYSICIAN RESPONSE: Based on the clinical findings in the record, please respond to the query above on this document as an addendum. Physician Response: Physician Response not my patient If you have questions please contact: Personal Assistant: Ext: Thank you for your time and cooperation. Clinical Elevator Operator/Personal Assistant This is a permanent part of the medical record HAILEY GALLARDO Apr 08, 2022 19:17 TINA IGLESIAS DO Apr 08, 2022 20:18
[2022-04-08] MEDS: AtorvaSTATin TABLET 10 MG TABLET PO SCH (22:41)
[2022-04-08] MEDS: LORazepam 0.5 MG (ATIVAN) TABLET PO PRN (22:42)
[2022-04-09] VITALS (7 sets, daily range): BP systolic 119–156; BP diastolic 56–70
[2022-04-09] MEDS: RT-ALBUTEROL HFA 8.5 GM INHALER IH SCH ×3 (01:37→22:37)
[2022-04-09] MEDS: methylPREDNISolone 125 MG (Solu-MEDROL) VIAL IV SCH ×2 (05:00→12:32)
[2022-04-09 06:28] LABS: BASOPHILS % (AUTO) 0 % (0-10); EOSINOPHILS % (AUTO) 0 % (0-10); HEMATOCRIT 23 % (35-52); LYMPHOCYTES # (AUTO) 1.3 10^3/uL (1.0-4.0); LYMPHOCYTES % (AUTO) 13 % (12-44); MEAN CORPUSCULAR HEMOGLOBIN 30 pg (25-34); MEAN CORPUSCULAR HGB CONC 35 g/dL (32-36); MEAN CORPUSCULAR VOLUME 88 fL (80-99); MEAN PLATELET VOLUME 10.5 fL (9.0-12.2); MONOCYTES # (AUTO) 0.8 10^3/uL (0.0-1.0); MONOCYTES % (AUTO) 8 % (0-12); NEUTROPHILS # (AUTO) 7.6 10^3/uL (1.8-7.8); NEUTROPHILS % (AUTO) 77 % (42-75); PLATELET COUNT 256 10^3/uL (130-400); WHITE BLOOD COUNT 9.9 10^3/uL (4.3-11.0)
[2022-04-09 06:30] LABS: POTASSIUM 3.4 MMOL/L (3.6-5.0)
[2022-04-09 06:36] LABS: CREATININE SERUM 3.22 MG/DL (0.60-1.30); PHOSPHORUS 5.8 MG/DL (2.3-4.7)
[2022-04-09 06:38] LABS: MAGNESIUM 1.4 MG/DL (1.6-2.4)
[2022-04-09 06:44] LABS: CALCIUM 5.4 MG/DL (8.5-10.1)
[2022-04-09] MEDS: LEVOTHYROXINE 88 MCG (LEVOTHORID) TAB PO SCH (07:48)
[2022-04-09] MEDS: CEFEPIME INJECTION 1,000 MG in NS (IVPB) 50 ML IV SCH ×2 (07:48→18:34)
[2022-04-09] MEDS: lisINopril 5 MG (PRINIVIL) TABLET PO SCH (08:52)
[2022-04-09] MEDS: AMIODARONE 200 MG (CORDARONE) TAB PO SCH ×2 (08:59→22:00)
[2022-04-09] MEDS: MONTELUKAST 10 MG (SINGULAIR) TAB PO SCH (08:59)
[2022-04-09] MEDS: SERTRALINE 50 MG (ZOLOFT) TABLET PO SCH (09:01)
[2022-04-09] MEDS: LORATADINE (CLARITIN) 10 MG TAB PO SCH (09:01)
[2022-04-09] MEDS: SODIUM BICARBONATE 650 MG TABLET PO SCH ×3 (09:01→22:00)
[2022-04-09] MEDS: OXYBUTYNIN (DITROPAN) 5 MG TAB PO SCH (09:02)
[2022-04-09] MEDS: PHENYTOIN 100 MG (DILANTIN) CAP PO SCH ×2 (09:02→22:00)
--- NOTE | 2022-04-09 10:27 | Progress Note ---
MEÑO MCBRIDE 04/09/22 10:27am: Subjective Date Seen by a Provider: Apr 09, 2022 Time Seen by a Provider: 08:05 Subjective/Events-last exam Ms. Abreu is an 81 year old female with a PMHx of COPD, HTN, atrial fibrillation, T2 DM, chronic anemia, seizure disorder, hypothyroidism, and bipolar/schizophrenia who presented to [facility] via EMS transfer with acute respiratory failure with hypoxia on 04/06. Patient is sitting upright in bed this morning. Patient states she is feeling well this morning. Patient is currently not receiving any supplemental O2. Patient denies head ache, chest pain, SOA, abdominal pain, weakness, or feeling lightheaded/dizzy. Patient's mood and disposition appears stable and at her baseline. Review of Systems General: No Fatigue HEENT: No Head Aches Pulmonary: No Dyspnea Cardiovascular: No: Chest Pain, Palpitations Gastrointestinal: No: Nausea, Vomiting, Abdominal Pain, Diarrhea, Constipation Neurological: No: Weakness Objective Exam Last Set of Vital Signs Vital Signs Date Time Temp Pulse Resp B/P (MAP) Pulse Ox O2 Delivery O2 Flow Rate FiO2 04/09/22 09:14 Room Air 04/09/22 08:47 36.6 75 95 21 04/09/22 08:27 18 135/65 (88) 04/08/22 18:16 Capillary Refill : Less Than 3 Seconds I&O Intake and Output 04/09/22 00:00 Intake Total 1140 ml Output Total 375 ml Balance 765 ml Intake Oral 1090 ml IV Total 50 ml Output Urine Total 375 ml General: Alert, Cooperative Lungs: Other (coarse breath sounds bilaterally, no wheezing or crackles) Heart: Regular Rate Abdomen: Normal Bowel Sounds, Soft, No Tenderness Extremities: Other (bilateral LE and pedal edema +2) Psych/Mental Status: Mood NL Results Lab Laboratory Tests 04/08/22 16:25: Hemoglobin 8.2#L, Hematocrit 23L 04/09/22 06:00: Hemoglobin 8.0L, Hematocrit 23L, White Blood Count 9.9, Red Blood Count 2.63L, Mean Corpuscular Volume 88, Mean Corpuscular Hemoglobin 30, Mean Corpuscular Hemoglobin Concent 35, Red Cell Distribution Width 14.6H, Platelet Count 256, Mean Platelet Volume 10.5, Immature Granulocyte % (Auto) 1, Neutrophils (%) (Auto) 77H, Lymphocytes (%) (Auto) 13, Monocytes (%) (Auto) 8, Eosinophils (%) (Auto) 0, Basophils (%) (Auto) 0, Neutrophils # (Auto) 7.6, Lymphocytes # (Auto) 1.3, Monocytes # (Auto) 0.8, Eosinophils # (Auto) 0.0, Basophils # (Auto) 0.0, Immature Granulocyte # (Auto) 0.1, Sodium Level 133L, Potassium Level 3.4L, Chlo ride Level 95L, Carbon Dioxide Level 18L, Anion Gap 20H, Blood Urea Nitrogen 91H , Creatinine 3.22H, Estimat Glomerular Filtration Rate 14, BUN/Creatinine Ratio 28, Glucose Level 97, Calcium Level 5.4*L, Phosphorus Level 5.8H, Magnesium L evel 1.4L Microbiology 04/06/22 Urine Culture - Preliminary, Resulted Enterococcus faecium Susceptibility To Follow See Comments 04/06/22 Blood Culture - Preliminary, Resulted No growth Assessment/Plan Assessment/Plan Assess & Plan/Chief Complaint 1. Acute respiratory failure with hypoxia likely secondary to pneumonia vs. COPD exacerbation vs. CHF exacerbation -Patient does not require supplemental O2 at this time, continue to monitor SpO2 -Solumedrol 62.5mg Q8H IV -Duoneb 3ml RTQ4H IH -Flu A positive - administer Tamiflu 30mg PO BID x5 days -Continue PT - PT advised that they will attempt again on 04/09 but will discontinue if patient does not demonstrate increased motivation to participate 2. Heart failure -ProBNP of 10,307 on 04/06 with significant bilateral LE edema -Echocardiogram -Appreciate plan per Cardiology 3. Left lower lobe pneumonia - health care associated due to patient's residence in assisted -Cefepime 1000mg - 50mls @ 1000mls/hr Q8H IV -Supplemental O2 for respiratory support -> currently stable using RA on 04/09 4. Hypocalcemia - Ca 5.4 on 04/09 -Replace with calcium glutamate 1gm IV -AM BMP 5. Hypomagnesemia - Mg 1.4 on 04/09 -Continue to monitor, replace if Mg <1.7 -Replace with magnesium sulfate 2gm IV -AM Mg 6. Possible acute cystitis - +3 leuk. esterase, neg nitrite on 04/06 -Coverage with cefepime, send urine for culture -> gram + cocci in chains -Monitor for symptoms 7. Hyponatremia - Na 133 on 04/09 -Monitor with AM CMP 8. Bipolar & Schizophrenia -Resume home medication aripiprazole 10mg PO qd 9. HTN -Monitor BP -Resume home medications and appreciate plan per Cardiology 10. Chronic anemia, likely secondary to CKD -> Hgb stable at 8.0 on 04/09 s/p blood transfusion x2 -Monitor with AM CBC -Blood transfusion administered 04/07, 04/08 -Monitor for signs/symptoms of bleeding ie hypotension, tachycardia, hematemasis, hemoptysis, hematochezia/melena, pallor -FOBT negative on 04/07 11. Elevated anion gap - 20 on 04/09 -Likely secondary to uremia with BUN 91, Cr 3.22 -Monitor with AM BMP 12. Acute on chronic kidney injury/disease -Monitor BUN, Cr -Do not initiate IV fluids due to CHF -Continue to replace electrolytes -Appreciate plan per Nephrology; evaluate Vitamin D level, bicarbonate therapy 13. Hyperphosphatemia - 5.8 on 04/09 -Likely secondary to CKD -Continue to monitor, consider calcium acetate if kidney function continues to decline with increasing PO4 14. Pulmonary hypertension with pulm artery pressure of 25-30mmHg -Continue plan per Cardiology 15. Transition diet to soft foods to prevent aspiration Clinical Quality Measures Admission Status Admission Dx 1. Acute respiratory failure with hypoxia likely secondary to pneumonia vs. COPD exacerbation vs. CHF exacerbation -BiPap therapy and monitoring. Wean as tolerated -Solumedrol 62.5mg Q8H IV -Duoneb 3ml RTQ4H IH 2. Heart failure -ProBNP of 10,307 on 04/06 with significant bilateral LE edema -Echocardiogram -Lasix therapy after afternoon labs have resulted to prevent further electrolyte imbalance 3. Left lower lobe pneumonia - health care associated due to patient's residence in assisted -Cefepime 1000mg - 50mls @ 1000mls/hr Q8H IV -BiPap therapy for respiratory support 4. Hypocalcemia - Corrected Ca 6.2 on 04/06 -04/06 PM BMP -Calcium glutamate 1gm once IV administered in [place] [facility] 5. Hypomagnesemia - Mg 1.0 on 04/06 -04/06 PM Mg -Magnesium sulfate 1gm once IV administered in [place] [facility] - confirm with ED, patient should receive 2gm total for initial replacement 6. Possible acute cystitis - +3 leuk. esterase, neg nitrite on 04/06 -Coverage with cefepime, send urine for culture -Monitor for symptoms 7. Hyponatremia - Na 132 on 04/06 -Monitor with AM CMP 8. Bipolar & Schizophrenia -Resume home medication aripiprazole 10mg PO qd 9. HTN -Monitor BP 10. Chronic anemia - Hgb 8.5 -Monitor with AM CBC 11. Elevated anion gap - 24 on 04/06 -Likely secondary to lactic acidosis (lactic acid 2.69 -> 1.35 on 04/06) and/or uremia with BUN 67, Cr 2.82 -Monitor with AM BMP 12. Acute on chronic kidney injury/disease -Monitor BUN, Cr -Do not initiate IV fluids due to CHF ONEIDA BLANCHARD MD 04/09/22 12:40pm: Supervisory-Addendum Brief Verification & Attestation Participated in pt care: history, MDM, physical Personally performed: exam, history, MDM, supervision of care Care discussed with: Medical Student Procedures: n/a Results interpretation: Verified all documentation Patient reports feeling well today. She is off of oxygen. She has quite a flat demeanor and does not give much for review of systems other than agreeing to mo st questions. We did discuss her electrolyte abnormalities and how nephrology would see her today. Given lab findings she will likely remain in the hospital over the weekend to ensure stability of her labs and then return to assisted hopefully early next week. She is agreeable to this plan. We will change steroids to oral prednisone. We will get a vitamin D level and start on vitamin D supplementation. I did review her urine culture and she does have Enterococcus growing but has no symptoms and has multiple organisms so this is likely a contaminant. We will continue currently on only cefepime for superimposed pneumonia but should she have any urinary symptoms or signs of infection we will add coverage for Enterococcus. MEÑO MCBRIDE Apr 09, 2022 10:27 am ONEIDA BLANCHARD MD Apr 09, 2022 12:40 pm
[2022-04-09] MEDS ORDERED: CALC GLUC 1 GM/100 ML IVPB 100 ML IV ONE (10:30)
--- NOTE | 2022-04-09 10:31 | Physical Therapy Daily Note ---
PT Daily Note-Current Subjective Patient in bed pre tx, doesn't talk when asked questions but does open eyes. Pain Section J - Health Conditions 1. Rarely or not at all 2. Occasionally 3. Frequently 4. Almost constantly 8. Unable to answer Pain Effect on Sleep: 1 Pain Interference with Therapy: 1 Pain Interference w/Day-to-Day: 1 Appearance Patient in recliner post tx with nurse call, phone, tray, chair alarm on. Mental Status Patient Orientation: Person, Confused Attachments: Tan Catheter Transfers SCALE: Activities may be completed with or without assistive devices. 0-Kskvbbeqnv-iwfxjfy completes the activity by him/herself with no assistance from a helper. 5-Set-up or Clean-up Assistance-helper sets up or cleans up; patient completes activity. [place] assists only prior to or following the activity. 4-Supervision or Touching Assistance-helper provides verbal cues and/or touching/steadying and/or contact guard assistance as patient completes activity. Assistance may be provided throughout the activity or intermittently. 3-Partial/Moderate Assistance-helper does LESS THAN HALF the effort. Paterson lifts, holds or supports trunk or limbs, but provides less than half the effort. 2-Substantial/Maximal Assistance-helper does MORE THAN HALF the effort. [place] lifts or holds trunk or limbs and provides more than half the effort. 8-Jtdvyjwcs-pfqzht does ALL the effort. Patient does none of the effort to complete the activity. Or, the assistance of 2 or more helpers is required for the patient to complete the activity. If activity was not attempted, code reason: 7-Patient Refused. 9-Not Applicable-not attempted and the patient did not perform the activity before the current illness, exacerbation or injury. 10-Not Attempted due to Environmental Limitations-(lack of equipment, weather restraints, etc.). 88-Not Attempted due to Medical Conditions or Safety Concerns. Roll Left & Right (QC): 1 Chair/Mzz-pb-Dtiiy Xfer(QC): 1 Patient has had a BM and is dependent for rolling and cleaning, after cleaning, new pad and kalin sling is placed and patient is hoyered over to the recliner. Patient doesn't help when asked to help lift legs or roll. Exercises Seated Therapy Exercises: Ankle pumps, Long arc quads Seated Reps: 5 (patient will only do a few reps) Treatments cleaning BM, rolling, kalin transfer, LE ROM Assessment Current Status: Poor Progress No participation from patient today, patient will be discharged from PT services at this time. PT Line Assigner Goals Jail Goals PT Jail Goals Time Frame: Apr 14, 2022 Roll Left & Right (QC): 2 Sit to Lying (QC): 2 Lying-Sitting on Side/Bed(QC): 2 PT Plan Problem List Problem List: Activity Tolerance, Functional Strength, Safety, Balance, Gait, Transfer, Bed Mobility, ROM Treatment/Plan Treatment Plan: Discontinue PT Treatment Plan: Bed Mobility, Education, Functional Activity Cassi, Functional Strength, Safety, Therapeutic Exercise Treatment Duration: Apr 14, 2022 Frequency: 6 times per week Estimated Hrs Per Day: .25 hour per day Patient and/or Family Agrees t: Yes Safety Risks/Education Patient Education: Transfer Techniques, Correct Positioning, Safety Issues Teaching Recipient: Patient Teaching Methods: Demonstration, Discussion Response to Teaching: Unable to Comprehend Discharge Recommendations Plan DC Time Time In: 0943 Time Out: 1005 DATE: Apr 09, 2022 Total Billed Treatment Time: 22 Total Billed Treatment 1 visit FA 22' BRONWYN MISHRA PT Apr 09, 2022 10:31
--- NOTE | 2022-04-09 11:48 | Cardiology Progress Note ---
Subjective Date Seen by Provider: Apr 09, 2022 Time Seen by Provider: 11:45 Subjective/Events-last exam Patient was seen at bedside, sitting comfortably in a chair. No new complaint Review of Systems General: No Chills, No Night Sweats; Fatigue; No Malaise, No Appetite, No Other HEENT: No Head Aches, No Visual Changes, No Eye Pain, No Ear Pain, No Dysphasia, No Sinus Congestion, No Post Nasal Drip, No Sore Throat, No Other Pulmonary: Dyspnea; No Cough, No Pleuritic Chest Pain, No Other Cardiovascular: No: Chest Pain, Palpitations, Orthopnea, Paroxysmal Noc. Dyspnea, Edema, Lt Headedness, Other Objective-Cardiology Exam Last Set of Vital Signs Vital Signs 04/08/22 04/09/22 04/09/22 04/09/22 11:33 08:27 08:47 09:14 Temp 36.6 Pulse 75 Resp 18 B/P (MAP) 135/65 (88) Pulse Ox 95 O2 Delivery Room Air O2 Flow Rate 1.00 FiO2 21 I&O Intake and Output 04/09/22 00:00 Intake Total 1140 ml Output Total 375 ml Balance 765 ml Intake Oral 1090 ml IV Total 50 ml Output Urine Total 375 ml General: Alert, Cooperative HEENT: Atraumatic Lungs: Other (coarse breath sounds bilaterally, no wheezing or crackles) Heart: Regular Rate Abdomen: Normal Bowel Sounds, Soft, No Tenderness Extremities: No Clubbing, Other (bilateral LE and pedal edema +2) Skin: No Rashes Neuro: Normal Speech Psych/Mental Status: Mood NL Results Lab Laboratory Tests 04/08/22 16:25 04/09/22 06:00 A/P-Cardiology Admission Diagnosis Acute respiratory failure Pneumonia Congestive heart failure Paroxysmal atrial fibrillation Assessment/Plan Influenza A +, acute respiratory insufficiency, improving slowly. Patient has chest x-ray suggestive of pneumonia. Managed by medical team Congestive heart failure, acute left ventricular systolic dysfunction 2D Echo done 04/06/22 showing EF 40-45%, grade 1 diastolic dysfunction, mild MR, Pa 25-30mmHg. Bilateral pleural effusions noted. Patient has been on metolazone as an outpatient. Currently metolazone and Lasix are on hold. Continue to monitor renal function Paroxysmal atrial fibrillation, patient was noted to be on amiodarone. There was questionable transient episode of atrial fibrillation on telemetry. Could be artifact. We will continue monitoring for now. Has not been on oral anticoagulation, will use DVT prophylaxis for now and monitor Acute on chronic renal failure, history of chronic kidney disease. Worsening at this time, Discontinue metolazone, discontinue lisinopril Continue to monitor renal function UTI, managed by medical team History of bipolar disorder and schizophrenia, managed by medical team Hypertension, monitor blood pressure Hyperlipidemia maintained on simvastatin Hypothyroidism, maintained on levothyroxine, managed by medical team Anemia, transfuse and continue to monitor H&H EV ARMANDO MD Apr 09, 2022 11:47
[2022-04-09] MEDS: OSELTAMIVIR 30 MG (TAMIFLU) CAPSULE PO SCH (12:32)
[2022-04-09] MEDS: VITAMIN D3 125 MCG (5,000 UNITS) CAPSULE PO SCH (13:39)
--- NOTE | 2022-04-09 16:41 | Consultation ---
History of Present Illness History of Present Illness Patient Consulted On(julio/time) 04/09/22 16:34 Date Seen by Provider: Apr 09, 2022 Time Seen by Provider: 16:42 Reason for Visit: Acute respiratory failure History of Present Illness Mrs. Abreu is a very pleasant 81 y/o WF with h/o COPD, HTN, atrial fibrillation, T2 DM, chronic anemia, seizure disorder, hypothyroidism, and b ipolar/schizophrenia who presented to the hospital with soa on 04/06. found to have influenza. Has been having loose stools. Did receive ivf on admission. Pt tolerating po well. Able to answer simple questions but slow to respond. Alert. Allergies and Home Medications Allergies Coded Allergies: aspirin (Verified Allergy, Unknown, 08/21/05) diazepam (Verified Allergy, Unknown, 08/21/05) ibuprofen (Verified Allergy, Unknown, 08/21/05) phenobarbital (Verified Allergy, Unknown, 08/21/05) Patient Home Medication List Home Medication List Reviewed: Yes Acetaminophen (Tylenol) 325 Mg Tablet, 650 MG PO Q4H PRN for PAIN-MILD (1-4), (Reported) Entered as Reported by: CANDELARIO GARCIA on 10/08/211252 Last Action: Continued Albuterol Sulfate (Proair Respiclick) 90 Mcg Aer.pow.ba, 2 PUFF IH Q4H PRN for SHORTNESS OF BREATH, (Reported) Entered as Reported by: CANDELARIO GARCIA on 10/08/211252 Last Action: Held Amiodarone HCl (Amiodarone HCl) 200 Mg Tablet, 200 MG PO BID, (Reported) Entered as Reported by: CANDELARIO GARCIA on 04/06/221137 Last Action: Continued Aripiprazole (Aripiprazole) 10 Mg Tablet, 10 MG PO DAILY, (Reported) Entered as Reported by: CANDELARIO GARCIA on 10/08/211252 Last Action: Continued Ascorbate Calcium (Vitamin C) 500 Mg Tablet, 500 MG PO BID, (Reported) Entered as Reported by: CANDELARIO GARCIA on 04/06/221137 Last Action: Held Bisacodyl (Bisacodyl) 10 Mg Supp.rect, 10 MG RC Q12H PRN for CONSTIPATION-4TH LINE, (Reported) Entered as Reported by: CANDELARIO GARCIA on 04/06/221137 Last Action: Held Cephalexin (Cephalexin) 500 Mg Capsule, 500 MG PO TID, (Reported) Entered as Reported by: CANDELARIO GARCIA on 10/08/211252 Last Action: Held Cetirizine HCl (Cetirizine HCl) 10 Mg Tablet, 10 MG PO DAILY, (Reported) Entered as Reported by: CANDELARIO GARCIA on 10/08/211252 Last Action: Converted Cyanocobalamin (Vitamin B-12) (Vitamin B-12) 1,000 Mcg Tablet, 1,000 MCG PO DA RASHAD, (Reported) Entered as Reported by: CANDELARIO GARCIA on 10/08/211252 Last Action: Held Cyclobenzaprine HCl (Cyclobenzaprine HCl) 10 Mg Tablet, 10 MG PO BID, (Reported) Entered as Reported by: CANDELARIO GARCIA on 10/08/211252 Last Action: Held Donepezil HCl (Donepezil HCl) 10 Mg Tablet, 10 MG PO 1800, (Reported) Entered as Reported by: CANDELARIO GARCIA on 10/08/211252 Last Action: Continued Ferrous Sulfate (Ferrous Sulfate) 325 Mg (65 Mg Iron) Tablet, 325 MG PO Q48H, (Reported) Entered as Reported by: CANDELARIO GARCIA on 04/06/221137 Last Action: Held Fluticasone Propionate (Flovent Hfa 110 mcg) 110 Mcg/Actuation Aero, 2 PUFF IH BID, (Reported) Entered as Reported by: CANDELARIO GARCIA on 10/08/211252 Last Action: Converted Furosemide (Furosemide) 40 Mg Tablet, 40 MG PO DAILY, (Reported) Entered as Reported by: CANDELARIO GARCIA on 04/06/221137 Last Action: Held Guaifenesin/Dextromethorphan (Tussin Dm Syrup) 100 Mg-10 Mg/5 Ml Syrup, 10 ML PO Q4H PRN for COUGH, (Reported) Entered as Reported by: CANDELARIO GARCIA on 10/08/211252 Last Action: Continued Hydrocodone/Acetaminophen (Hydrocodone-Acetamin 5-325 mg) 5 Mg-325 Mg Tablet, 1 TAB PO DAILY, (Reported) Entered as Reported by: CANDELARIO GARCIA on 10/08/211252 Last Action: Held Hydrocodone/Acetaminophen (Hydrocodone-Acetamin 5-325 mg) 5 Mg-325 Mg Tablet, 1 TAB PO Q6H PRN for PAIN-MODERATE (5-7), (Reported) Entered as Reported by: CANDELARIO GARCIA on 10/08/211252 Last Action: Continued Levothyroxine Sodium (Levothyroxine Sodium) 88 Mcg Tablet, 88 MCG PO DAILY, (Reported) Entered as Reported by: CANDELARIO GARCIA on 10/08/211252 Last Action: Continued Lisinopril (Lisinopril) 2.5 Mg Tablet, 2.5 MG PO DAILY, (Reported) Entered as Reported by: CANDELARIO GARCIA on 10/08/211252 Last Action: Converted Loperamide HCl (Loperamide) 2 Mg Capsule, 2 MG PO Q4H PRN for DIARRHEA, (Reported) Entered as Reported by: CANDELARIO GARCIA on 10/08/211252 Last Action: Held Lorazepam (Ativan) 0.5 Mg Tablet, 0.25 MG PO TID, (Reported) Entered as Reported by: CANDELARIO GARCIA on 04/06/22 113 Last Action: Held Lurasidone HCl (Latuda) 40 Mg Tablet, 40 MG PO 1700, (Reported) Entered as Reported by: CANDELARIO GARCIA on 10/08/211252 Last Action: Converted Mag Hydrox/Aluminum Hyd/Simeth (Maalox Advanced Suspension) 200 Mg-200 Mg-20 Mg/5 Ml Oral.susp, 30 ML PO Q4H PRN for INDIGESTION, (Reported) Entered as Reported by: CANDELARIO GARCIA on 10/08/211252 Last Action: Held Menthol (Biofreeze) 4 % Gel..ml., 1 APPLIC TP Q4H PRN for PAIN-BREAKTHROUGH, (Reported) Entered as Reported by: CANDELARIO GARCIA on 10/08/211252 Last Action: Held Menthol/Lanolin/Calamine/Znox (Calmoseptine Ointment) 0.44 %-20.6 % Oint, 1 APPLIC TP Q6H PRN for SKIN CONDITIONS, (Reported) Entered as Reported by: CANDELARIO GARCIA on 10/08/211252 Last Action: Held Metolazone (Metolazone) 2.5 Mg Tablet, 2.5 MG PO DAILY, (Reported) Entered as Reported by: CANDELARIO GARCIA on 10/08/211252 Last Action: Held Montelukast Sodium (Montelukast Sodium) 10 Mg Tablet, 10 MG PO DAILY, (Reported) Entered as Reported by: CANDELARIO GARCIA on 10/08/211252 Last Action: Continued Multivitamin with Minerals (One Daily Plus Minerals) 1 Each Tablet, 1 EACH PO D AILChi, (Reported) Entered as Reported by: CANDELARIO GARCIA on 10/08/211252 Last Action: Held Oxybutynin Chloride (Oxybutynin Chloride) 5 Mg Tablet, 5 MG PO DAILY, (Reported) Entered as Reported by: CANDELARIO GARCIA on 10/08/211252 Last Action: Continued Phenytoin Sodium Extended (Phenytoin Sodium Extended) 100 Mg Capsule, 200 MG PO BID, (Reported) Entered as Reported by: CANDELARIO GARCIA on 10/08/211252 Last Action: Continued Polyethylene Glycol 3350 (Miralax) 17 Gram Powd.pack, 17 GM PO DAILY, (Reported) Entered as Reported by: CANDELARIO GARCIA on 10/08/211252 Last Action: Held Polyethylene Glycol 3350 (Miralax) 17 Gram Powd.pack, 17 GM PO Q12H PRN for CONSTIPATION-2ND LINE, (Reported) Entered as Reported by: CANDELARIO GARCIA on 10/08/211252 Last Action: Continued Potassium Chloride (Potassium Chloride) 20 Meq Tab.er.prt, 20 MEQ PO DAILY, (Reported) Entered as Reported by: CANDELARIO GARCIA on 04/06/22 113 Last Action: Held Sertraline HCl (Sertraline HCl) 50 Mg Tablet, 50 MG PO DAILY, (Reported) Entered as Reported by: CANDELARIO GARCIA on 10/08/211252 Last Action: Continued Simvastatin (Simvastatin) 20 Mg Tablet, 20 MG PO HS, (Reported) Entered as Reported by: CANDELARIO GARCIA on 10/08/211252 Last Action: Converted Sodium Bicarbonate (Sodium Bicarbonate) 650 Mg Tablet, 1,300 MG PO TID, (Reported) Entered as Reported by: CANDELARIO GARCIA on 04/06/22 115 Last Action: Continued Sodium Chloride (Pratt) 0.65 % Cherry Log, 1 SPRAY NSEACH BID, (Reported) Entered as Reported by: CANDELARIO GARCIA on 10/08/211252 Last Action: Held Tramadol HCl (Tramadol HCl) 50 Mg Tablet, 100 MG PO HS, (Reported) Entered as Reported by: CANDELARIO GARCIA on 10/08/211252 Last Action: Continued Discontinued Medications Amiodarone HCl (Amiodarone HCl) 400 Mg Tablet, 200 MG PO BID, (Reported) Discontinued Reason: Duplicate Order Entered as Reported by: CANDELARIO GARCIA on 10/08/211252 Last Action: Discontinued Ferrous Sulfate (Ferrous Sulfate) 325 Mg (65 Mg Iron) Tablet, 325 MG PO Q48H Discontinued Reason: Duplicate Order Prescribed by: ONEIDA BLANCHARD on 11/02/21940 Last Action: Discontinued Furosemide (Furosemide) 20 Mg Tablet, 20 MG PO DAILY, (Reported) Discontinued Reason: No Longer Taking Entered as Reported by: CANDELARIO GARCIA on 10/08/211252 Last Action: Discontinued Lorazepam (Ativan) 0.5 Mg Tablet, 0.5 MG PO TID, (Reported) Discontinued Reason: Duplicate Order Entered as Reported by: CANDELARIO GARCIA on 10/08/211252 Last Action: Discontinued Menthol/Lanolin/Calamine/Znox (Calmoseptine Ointment) 0.44 %-20.6 % Oint, 1 APPLIC TP BID, (Reported) Discontinued Reason: Duplicate Order Entered as Reported by: CANDELARIO GARCIA on 10/08/211252 Last Action: Discontinued Nystatin (Nystatin) 100,000 Unit/Gram Oint...g., 1 APPLIC TP Q6H PRN for RASH, (Reported) Discontinued Reason: No Longer Taking Entered as Reported by: CANDELARIO GARCIA on 10/08/211252 Last Action: Discontinued Past Yjhmwgx-Ebjmsw-Nspvhy Hx Patient Social History Tobacco Use?: No Pt feels they are or have been: No Immunizations Up To Date Influenza Vaccine Up-to-Date: Yes; Up-to-Date First/Initial COVID19 Vaccinat: 2020 Second COVID19 Vaccination Julio: 2020 Past Medical History Surgery/Hospitalization HX: COPD, Hypertension, Chronic Atrial Fibrillation, Hypothyroid, Bipolar/Schizophrenia, Chronic Anemia, Seizures, Type II Diabetes, Chronic hypocalcemia COPD Atrial Fibrillation, Hypertension Seizure Disorder Renal Failure Hypothyroidsim Family Medical History No Pertinent Family Hx All provided history is obtained via previous records. Patient unable to give any history. Review of Systems-General Constitutional: see HPI Physical Exam-General Problems Physical Exam Vital Signs Vital Signs - First Documented 04/06/22 04/06/22 03:27 03:50 Temp 37.3 Pulse 134 Resp 44 B/P (MAP) 159/68 (98) Pulse Ox 92 O2 Delivery NIV CPAP O2 Flow Rate 15.00 FiO2 60 Capillary Refill : Less Than 3 Seconds General Appearance: no apparent distress Neck: normal inspection Respiratory: no respiratory distress Cardiovascular: No no edema Neurologic/Psychiatric: alert Skin: normal color Assessment/Plan Assessment/Plan Admission Diagnosis/Plan TRICE on CKD3 baseline creatinine 2.8 TRICE due to infection agree with holding diuretics to avoid volume depletion continue supportive care monitor urine outpt closely avoid use of nsaids, bactrim and contrast as well as acei/arb renally dose meds Cr peaking today will need to establish care in clinic for post hospital follow up with repeat labs tentatively plan for 04/16/21 in our [place] office or 04/22/21 agree with stopping IVF to avoid overloading; has ble edema can use prn fluid boluses for hypotension if needed can also use prn lasix if pt is soa Met acidosis started on na bicarb 1300 bid goal 22- Anemia monitor for bleeding transfuse prn will check iron studies as outpt Acute Resp failure supportive care Influenza A + Consult was done via secure video chat. Discussed with Dr. Blanchard 04/08/22. ROSA PIERSON MD Apr 09, 2022 16:41
[2022-04-09] MEDS: DONEPEZIL 10 MG (ARICEPT) TAB PO SCH (18:34)
[2022-04-09] MEDS: AtorvaSTATin TABLET 10 MG TABLET PO SCH (22:00)
[2022-04-10 00:34] VITALS: BP 139/65
[2022-04-10 04:00] VITALS: BP 124/59
[2022-04-10] MEDS: CEFEPIME INJECTION 1,000 MG in NS (IVPB) 50 ML IV SCH ×2 (05:23→17:28)
[2022-04-10] MEDS: LEVOTHYROXINE 88 MCG (LEVOTHORID) TAB PO SCH (06:00)
[2022-04-10] MEDS: predniSONE 20 MG TAB PO SCH (06:00)
[2022-04-10 06:36] LABS: BASOPHILS % (AUTO) 0 % (0-10); EOSINOPHILS % (AUTO) 0 % (0-10); HEMATOCRIT 24 % (35-52); HEMOGLOBIN 8.4 g/dL (11.5-16.0); LYMPHOCYTES # (AUTO) 1.3 10^3/uL (1.0-4.0); LYMPHOCYTES % (AUTO) 11 % (12-44); MEAN CORPUSCULAR HEMOGLOBIN 31 pg (25-34); MEAN CORPUSCULAR HGB CONC 35 g/dL (32-36); MEAN CORPUSCULAR VOLUME 89 fL (80-99); MEAN PLATELET VOLUME 10.6 fL (9.0-12.2); MONOCYTES # (AUTO) 1.1 10^3/uL (0.0-1.0); MONOCYTES % (AUTO) 10 % (0-12); NEUTROPHILS # (AUTO) 9.1 10^3/uL (1.8-7.8); NEUTROPHILS % (AUTO) 77 % (42-75); PLATELET COUNT 273 10^3/uL (130-400); WHITE BLOOD COUNT 11.7 10^3/uL (4.3-11.0)
[2022-04-10 06:50] LABS: POTASSIUM 3.4 MMOL/L (3.6-5.0)
[2022-04-10 06:55] LABS: CALCIUM 5.5 MG/DL (8.5-10.1); CREATININE SERUM 3.11 MG/DL (0.60-1.30); PHOSPHORUS 4.9 MG/DL (2.3-4.7)
[2022-04-10 06:57] LABS: MAGNESIUM 1.6 MG/DL (1.6-2.4)
[2022-04-10 07:30] VITALS: BP 137/62
[2022-04-10] MEDS: RT-ALBUTEROL HFA 8.5 GM INHALER IH SCH ×2 (07:34→20:06)
[2022-04-10] MEDS ORDERED: VANCOMYCIN INJECTION 0.1 MG in NS (IVPB) 250 ML IV SCH (09:30)
[2022-04-10 09:50] LABS: ABG BASE EXCESS -2.7 MMOL/L (-2.5-2.5); ABG OXYGEN SATURATION 97 % (94-100); ABG PCO2 32 MMHG (35-45); ABG PH 7.43 (7.37-7.43); ABG TCO2 21.9 MMOL/L (21.0-31.0)
[2022-04-10 09:51] LABS: ALLENS TEST YES-POS; PATIENT TEMP 37.3; VENTILATOR NO
[2022-04-10 09:52] LABS: INSPIRED O2 2 L
[2022-04-10 09:54] LABS: ABG PO2 82 MMHG (79-93)
--- NOTE | 2022-04-10 09:57 | Diagnostic Imaging Report ---
INDICATION: Shortness of breath. Comparison is made with prior exam of 04/06/2022 FINDINGS: There is cardiomegaly and some central pulmonary venous congestion. There is a right basal infiltrate. No pleural effusion or pneumothorax. The mediastinum is unremarkable. IMPRESSION: Right basal infiltrate suspect for pneumonia. Cardiomegaly and some central pulmonary venous congestion . Dictated by: Dictated on workstation # [id number]
--- NOTE | 2022-04-10 10:28 | Progress Note ---
MEÑO MCBRIDE 04/10/22 10:28am: Subjective Date Seen by a Provider: Apr 10, 2022 Time Seen by a Provider: 08:10 Subjective/Events-last exam Ms. Sharma is an 81 year old female with a PMHx of COPD, HTN, atrial fibrillation, T2 DM, chronic anemia, seizure disorder, hypothyroidism, and bipolar/schizophrenia who presented to [facility] via EMS transfer with acute respiratory failure with hypoxia on 04/06. Patient is resting in bed this morning with a respiratory rate of 40, diaphoretic, and is not responsive to voice. Patient's SpO2 was 92% on room air. Patient was place on 2L high flow nasal cannula with SpO2 of 94%. Patient's temperature was 37.4, temporal. Patient's disposition was communicated with Dr. Martin. Patient was then transferred to ICU for possible BiPap therapy, CXR, and ABG. Patient will be closely monitored. Review of Systems Unable to obtain Objective Exam Last Set of Vital Signs Vital Signs Date Time Temp Pulse Resp B/P (MAP) Pulse Ox O2 Delivery O2 Flow Rate FiO2 04/10/22 07:34 93 Nasal Cannula 2.00 04/10/22 07:30 37.1 80 18 137/62 (87) 04/09/22 08:47 21 Capillary Refill : Less Than 3 Seconds I&O Intake and Output 04/10/22 00:00 Intake Total 1530 ml Output Total 425 ml Balance 1105 ml Intake Oral 1480 ml IV Total 50 ml Output Urine Total 425 ml # Voids 2 # Bowel Movements 1 General: Moderate Distress (respiratory rate of 40, respiratory distress), Other (diaphoretic) Lungs: Other (coarse breath sounds bilaterally) Heart: Regular Rate Abdomen: Normal Bowel Sounds, Soft, No Tenderness Extremities: Other (bilateral pedal edema +2) Neuro: Other (not responsive to voice or gentle movement) Results Lab Laboratory Tests 04/10/22 06:09: White Blood Count 11.7H, Red Blood Count 2.72L, Hemoglobin 8.4L, Hematocrit 24L, Mean Corpuscular Volume 89, Mean Corpuscular Hemoglobin 31, Mean Corpuscular Hemoglobin Concent 35, Red Cell Distribution Width 14.5, Platelet Count 273, Mean Platelet Volume 10.6, Immature Granulocyte % (Auto) 2, Neutrophils (%) (Auto) 77H, Lymphocytes (%) (Auto) 11L, Monocytes (%) (Auto) 10, Eosinophils (%) (Auto) 0, Basophils (%) (Auto) 0, Neutrophils # (Auto) 9.1H, Lymphocytes # (Auto) 1.3, Monocytes # (Auto) 1.1H, Eosinophils # (Auto) 0.0, Basophils # (Auto) 0.0, Immature Granulocyte # (Auto) 0.2H, Sodium Level 136, Potassium Level 3.4L, Chloride Level 97L, Carbon Dioxide Level 19L, Anion Gap 20H, Blood Urea Nitrogen 92H, Creatinine 3.11H, Estimat Glomerular Filtration Rate 15, BUN/Creatinine Ratio 30, Glucose Level 101, Calcium Level 5.5*L, Phosphorus Level 4.9H, Magnesium Level 1.6 04/10/22 09:44: Blood Gas Puncture Site R BRACHIAL, Blood Gas Patient Temperature 37.3, Arterial Blood pH 7.43, Arterial Blood Partial Pressure CO2 32L, Arterial Blood Partial Pressure O2 82, Arterial Blood HCO3 21L, Arterial Blood Total CO2 21.9, Arterial Blood Oxygen Saturation 97, Arterial Blood Base Excess -2.7L, John Test YES- POS, Blood Gas Ventilator Setting NO, Blood Gas Inspired Oxygen 2 L Microbiology 04/06/22 Urine Culture - Preliminary, Resulted Enterococcus faecium Susceptibility To Follow See Comments 04/06/22 Blood Culture - Preliminary, Resulted No growth Radiology NAME: VADIM SHARMA [facility] REC#: [id number] PT STATUS: ADM IN : 1940 PHYSICIAN: ONEIDA MARTIN MD ADMIT DATE: 04/06/22 Signed Date of Exam:04/10/22 CHEST 1 VIEW, AP/PA ONLY INDICATION: Shortness of breath. Comparison is made with prior exam of 04/06/2022 FINDINGS: There is cardiomegaly and some central pulmonary venous congestion. There is a right basal infiltrate. No pleural effusion or pneumothorax. The mediastinum is unremarkable. IMPRESSION: Right basal infiltrate suspect for pneumonia. Cardiomegaly and some central pulmonary venous congestion . Dictated by: Dictated on workstation # [id number] Dict: 04/10/22 [id number] Trans: 04/10/[address] [place] [address] [id number] Interpreted by: ADALI WANG MD Electronically signed by: ADALI WANG MD 04/10/22 1002 Assessment/Plan Assessment/Plan Assess & Plan/Chief Complaint 1. Acute respiratory failure with hypoxia likely secondary to pneumonia vs. COPD exacerbation vs. CHF exacerbation -Respiratory support with supplemental O2, nasal cannula. Transition to BiPap if needed -Solumedrol 62.5mg Q8H IV -Duoneb 3ml RTQ4H IH -Flu A positive - administer Tamiflu 30mg PO BID x5 days -D/C PT -Appreciate plan per Critical Care 2. Heart failure -ProBNP of 10,307 on 04/06 with significant bilateral LE edema -Echocardiogram -Appreciate plan per Cardiology 3. Left lower lobe pneumonia - health care associated due to patient's residence in correction -Cefepime 1000mg - 50mls @ 1000mls/hr Q8H IV -Supplemental O2 for respiratory support, place on BiPap if needed 4. Hypocalcemia - Ca 5.5 on 04/10 -Replace with calcium glutamate 1gm IV -AM BMP 5. Hypomagnesemia - Mg 1.4 on 04/09 -Continue to monitor, replace if Mg <1.7 -Replace with magnesium sulfate 2gm IV -AM Mg 6. Possible acute cystitis - +3 leuk. esterase, neg nitrite on 04/06 -Coverage with cefepime, send urine for culture -> gram + cocci in chains -Monitor for symptoms -Repeat UA on 04/10 7. Hyponatremia - Na 133 on 04/09 -Monitor with AM CMP 8. Bipolar & Schizophrenia -Resume home medication aripiprazole 10mg PO qd 9. HTN -Monitor BP -Resume home medications and appreciate plan per Cardiology 10. Chronic anemia, likely secondary to CKD -> Hgb stable at 8.4 on 04/10 s/p blood transfusion x2 -Monitor with AM CBC -Blood transfusion administered 04/07, 04/08 -Monitor for signs/symptoms of bleeding ie hypotension, tachycardia, hematemasis, hemoptysis, hematochezia/melena, pallor -FOBT negative on 04/07 11. Elevated anion gap - 20 on 04/09 -Likely secondary to uremia with BUN 91, Cr 3.22 -Monitor with AM BMP 12. Acute on chronic kidney injury/disease -Monitor BUN, Cr -Do not initiate IV fluids due to CHF -Continue to replace electrolytes -Appreciate plan per Nephrology; evaluate Vitamin D level, bicarbonate therapy -Vitamin D 21.3 on 04/09 13. Hyperphosphatemia - 4.9 on 04/10 -Likely secondary to CKD -Continue to monitor, consider calcium acetate if kidney function continues to decline with increasing PO4 14. Pulmonary hypertension with pulm artery pressure of 25-30mmHg -Continue plan per Cardiology 15. Transition diet to soft foods to prevent aspiration Clinical Quality Measures Admission Status Admission Dx 1. Acute respiratory failure with hypoxia likely secondary to pneumonia vs. COPD exacerbation vs. CHF exacerbation -BiPap therapy and monitoring. Wean as tolerated -Solumedrol 62.5mg Q8H IV -Duoneb 3ml RTQ4H IH 2. Heart failure -ProBNP of 10,307 on 04/06 with significant bilateral LE edema -Echocardiogram -Lasix therapy after afternoon labs have resulted to prevent further electrolyte imbalance 3. Left lower lobe pneumonia - health care associated due to patient's residence in correction -Cefepime 1000mg - 50mls @ 1000mls/hr Q8H IV -BiPap therapy for respiratory support 4. Hypocalcemia - Corrected Ca 6.2 on 04/06 -04/06 PM BMP -Calcium glutamate 1gm once IV administered in [place] [facility] 5. Hypomagnesemia - Mg 1.0 on 04/06 -04/06 PM Mg -Magnesium sulfate 1gm once IV administered in [place] ED - confirm with ED, patient should receive 2gm total for initial replacement 6. Possible acute cystitis - +3 leuk. esterase, neg nitrite on 04/06 -Coverage with cefepime, send urine for culture -Monitor for symptoms 7. Hyponatremia - Na 132 on 04/06 -Monitor with AM CMP 8. Bipolar & Schizophrenia -Resume home medication aripiprazole 10mg PO qd 9. HTN -Monitor BP 10. Chronic anemia - Hgb 8.5 -Monitor with AM CBC 11. Elevated anion gap - 24 on 04/06 -Likely secondary to lactic acidosis (lactic acid 2.69 -> 1.35 on 04/06) and/or uremia with BUN 67, Cr 2.82 -Monitor with AM BMP 12. Acute on chronic kidney injury/disease -Monitor BUN, Cr -Do not initiate IV fluids due to CHF ONEIDA MARTIN MD 04/10/22 12:59pm: Assessment/Plan Assessment/Plan Assess & Plan/Chief Complaint Called to bedside this morning due to change in patient's status. She was quite diaphoretic and tachypneic. ABG ordered which actually shows respiratory alkalosis consistent with her tachypnea. She was not mentating as well as yesterday. Chest x-ray ordered and vancomycin added for Enterococcus in urine. Transferred back up to the ICU due to tachypnea. Discussed with her ICU nurse and will repeat COVID testing as she was exposed to her roommate at the correction. Continue to monitor closely. Supervisory-Addendum Brief Verification & Attestation Participated in pt care: history, MDM, physical Personally performed: exam, history, MDM, supervision of care Care discussed with: Medical Student Procedures: n/a Results interpretation: Verified all documentation Verification and Attestation of Medical Student E/M Service A medical student performed and documented this service in my presence. I reviewed and verified all information documented by the medical student and made modifications to such information, when appropriate. I personally performed the physical exam and medical decision making. Oneida Martin, Apr 10, 2022,12:57 MEÑO MCBRIDE Apr 10, 2022 10:28 am ONEIDA MARTIN MD Apr 10, 2022 12:59 pm
[2022-04-10] MEDS ORDERED: VANCOMYCIN 1,750 MG/NS 500 ML IVPB IV NR ×2 (10:30)
[2022-04-10] MEDS: FLUTICASONE 100 MCG 14's (ARNUITY) IH SCH ×2 (11:25→20:02)
[2022-04-10] MEDS: AMIODARONE 200 MG (CORDARONE) TAB PO SCH ×2 (11:26→21:00)
[2022-04-10] MEDS: MONTELUKAST 10 MG (SINGULAIR) TAB PO SCH (11:26)
[2022-04-10] MEDS: SODIUM BICARBONATE 650 MG TABLET PO SCH ×3 (11:26→21:00)
[2022-04-10] MEDS: PHENYTOIN 100 MG (DILANTIN) CAP PO SCH ×2 (11:26→21:00)
[2022-04-10] MEDS: LORATADINE (CLARITIN) 10 MG TAB PO SCH (11:26)
[2022-04-10] MEDS: OXYBUTYNIN (DITROPAN) 5 MG TAB PO SCH (11:26)
[2022-04-10] MEDS: VITAMIN D3 125 MCG (5,000 UNITS) CAPSULE PO SCH (11:27)
[2022-04-10] MEDS: OSELTAMIVIR 30 MG (TAMIFLU) CAPSULE PO SCH (11:27)
[2022-04-10] MEDS: SERTRALINE 50 MG (ZOLOFT) TABLET PO SCH (11:27)
--- NOTE | 2022-04-10 12:29 | Tele-ICU Progress Note ---
Subjective Date Seen by a Provider: Apr 10, 2022 Time Seen by a Provider: 12:24 Subjective/Events-last exam Date of Service 04/10/2022 17:23 HPI/Events of Note (Tele-ICU Physician , consultation) Available chart/ vitals / labs / Images reviewed H&P is from ER notes Patient's information available about PMH, allergy reviewed in EMR. ROS as per chart and RN report Video assessment done using teleICU camera, rest of exam as per RN Discussed with RN. She is a 81-year-old female with past medical history of COPD hypertension atrial fibrillation type 2 diabetes mellitus and dementia admitted on 04/06/2022 with h ypoxia and anemia requiring blood transfusion. During this admission she is found to have a influenza A infection. She is started on treatment and subsequently transferred to medical floor. Today on the medical floor she is found to have a decrease in mental status and rapid breathing. She is transferred to ICU for possible BiPAP ventilation but after coming to ICU she is somewhat stabilized and required only 2 L of nasal cannula. I have done a Ddimer which is elevated which is concerning for any pulmonary embolism. Impression 1. Acute hypoxic respiratory failure 2. Influenza A infection 3. Respiratory distress earlier, needs to rule out any pulmonary embolism in this patient with obesity and bedridden status. 4. History of atrial fibrillation was not on any anticoagulant therapy prior to admission. Recommendations 1. Continue supplemental oxygen via nasal cannula 2. We will start on IV full dose heparin as we are not able to get VQ scan over the weekend 3. We will get a VQ scan on Tuesday 4. Antibiotic therapy per primary MD Care coordination with bedside consultants and primary IM MD. Diagnosis: ___ patient provided consent for the telehealth visit _x__patient is not able to provide consent for the telehealth visit, service provided to critically care patient using implied consent doctrine. A total of _20 _ minutes of critical care time was devoted to this patient, including reviewing this patient's available data, including medical history, events of note and test results. I have overseen the activities of other members of the care team under my direct supervision during events of the note . This was required to treat and/or prevent further deterioration of critical care conditions ( Page 1 of 2 VADIM SHARMA [facility] This is a permanent part of the medical record. Do not discard. 04/10/2022 17:24 [facility] Physician - Brief Progress Note Date/Time: PID: [id number] as above ). Service provided to a patient admitted to ICU bed via interactive E-CARE system with real-time audio and video telecommunications from [facility]-ICU hub located in [place], [place] Interventions Major-Respiratory failure - evaluation and management Intermediate-Other: pneumonia, influenza a infection. AMS Page 2 of 2 VADIM SHARMA [facility] This is a permanent part of the medical record. Do not discard. 04/10/2022 17:24 [facility] Physician - Brief Progress Note Sepsis Event Evaluation Height, Weight, BMI Height: '" Weight: lbs. oz. kg; 33.60 BMI Method: Exam Exam Patient acknowledged, consented, and participated in this virtual visit which was conducted using real time audio/video Vital Signs Date Time Temp Pulse Resp B/P (MAP) Pulse Ox O2 Delivery O2 Flow Rate FiO2 04/10/22 12:00 80 22 133/63 (86) 97 Nasal Cannula 2.00 04/10/22 11:33 Nasal Cannula 2.00 04/10/22 11:00 84 23 135/65 (88) 98 Nasal Cannula 2.00 04/10/22 10:42 74 04/10/22 10:00 84 20 123/60 (81) 96 Nasal Cannula 2.00 04/10/22 08:00 93 Room Air 04/10/22 07:34 93 Nasal Cannula 2.00 04/10/22 07:30 37.1 80 18 137/62 (87) 96 High Flow N/C 2.00 04/10/22 04:00 37.4 80 16 124/59 (80) 93 High Flow N/C 2.00 04/10/22 00:34 37.4 83 20 139/65 (89) 92 Room Air 04/09/22 22:38 93 Room Air 04/09/22 19:10 37.4 84 20 139/63 (88) 91 Room Air 0.00 0.00 04/09/22 15:21 37.4 87 18 156/70 (98) 90 Room Air 1.00 1.00 I & O 04/10/22 07:00 Intake Total 1630 ml Output Total 425 ml Balance 1205 ml Height & Weight Height: '" Weight: lbs. oz. kg; 33.60 BMI Method: General Appearance: No Apparent Distress, Other (Resting in bed with BiPap therapy.) HEENT: PERRL/EOMI, TMs Normal Neck: Full Range of Motion Respiratory: No Accessory Muscle Use, Crackles (bilateral and diffuse, more significant in the R upper and lower lung gifford) Cardiovascular: Regular Rate, Rhythm; No No Edema (+3 bilateral LE edema); Oth er Capillary Refill: Less Than 3 Seconds Extremity: No Calf Tenderness; No No Pedal Edema; Pedal Edema (+3 bilateral), Other (Erythema of bilateral LE) Neurologic/Psychiatric: No Alert; Other (Oriented to person and place) Skin: Warm/Dry Results Lab Laboratory Tests 04/08/22 16:25 04/09/22 06:00 04/10/22 06:09 Assessment/Plan Assessment/Plan as above Critical Care: Critically Ill Patient Time spent with patient (mins): 15 IVETH PAPPAS MD Apr 10, 2022 12:29
[2022-04-10] MEDS ORDERED: CALC GLUC 1 GM/100 ML IVPB 100 ML IV ONE ×2 (12:30→14:15)
[2022-04-10] MEDS: MAGNESIUM 1 GM/100 ML IVPB 100 ML IV SCH ×2 (13:16→16:20)
[2022-04-10 15:32] LABS: BILIRUBIN,URINE NEGATIVE (NEGATIVE); CLARITY,URINE CLOUDY; COLOR,URINE YELLOW; GLUCOSE, URINE (UA) NEGATIVE (NEGATIVE); KETONES,URINE NEGATIVE (NEGATIVE); LEUKOCYTE ESTERASE ,URINE 3+ (NEGATIVE); NITRITE,URINE NEGATIVE (NEGATIVE); PROTEIN,URINE 2+ (NEGATIVE)
[2022-04-10 15:41] LABS: BACTERIA,URINE FEW /HPF; RBC,URINE RARE /HPF
[2022-04-10 15:42] LABS: SQUAMOUS EPITHELIAL CELL,UR 0-2 /HPF
[2022-04-10 16:52] LABS: HEMATOCRIT 24 % (35-52); HEMOGLOBIN 8.2 g/dL (11.5-16.0); MEAN CORPUSCULAR HEMOGLOBIN 31 pg (25-34); MEAN CORPUSCULAR HGB CONC 35 g/dL (32-36); MEAN CORPUSCULAR VOLUME 89 fL (80-99); MEAN PLATELET VOLUME 10.5 fL (9.0-12.2); PLATELET COUNT 256 10^3/uL (130-400); WHITE BLOOD COUNT 9.1 10^3/uL (4.3-11.0)
[2022-04-10 17:07] LABS: INR 1.1 (0.8-1.4); PROTHROMBIN TIME PATIENT 14.9 SEC (12.2-14.7)
[2022-04-10] MEDS: DONEPEZIL 10 MG (ARICEPT) TAB PO SCH (17:16)
[2022-04-10] MEDS: HEParin 1000 UNIT/ML (10ML VIAL) FOR BOLUS IV SCH (17:29)
[2022-04-10] MEDS: HEParin DRIP 25000 UNIT/500ML 500 ML IV SCH (17:39)
[2022-04-10] MEDS: LINEZOLID (ZYVOX) 600 MG TAB PO SCH (21:00)
[2022-04-10] MEDS: AtorvaSTATin TABLET 10 MG TABLET PO SCH (21:00)
[2022-04-11 04:59] LABS: BASOPHILS % (AUTO) 0 % (0-10); EOSINOPHILS # (AUTO) 0.1 10^3/uL (0.0-0.3); EOSINOPHILS % (AUTO) 1 % (0-10); HEMATOCRIT 26 % (35-52); HEMOGLOBIN 8.8 g/dL (11.5-16.0); LYMPHOCYTES % (AUTO) 10 % (12-44); MEAN CORPUSCULAR HEMOGLOBIN 31 pg (25-34); MEAN CORPUSCULAR HGB CONC 34 g/dL (32-36); MEAN CORPUSCULAR VOLUME 90 fL (80-99); MEAN PLATELET VOLUME 10.5 fL (9.0-12.2); MONOCYTES # (AUTO) 0.9 10^3/uL (0.0-1.0); MONOCYTES % (AUTO) 9 % (0-12); NEUTROPHILS % (AUTO) 78 % (42-75); PLATELET COUNT 283 10^3/uL (130-400); WHITE BLOOD COUNT 10.2 10^3/uL (4.3-11.0)
[2022-04-11 05:13] LABS: POTASSIUM 3.3 MMOL/L (3.6-5.0)
[2022-04-11 05:14] LABS: CALCIUM 6.4 MG/DL (8.5-10.1)
[2022-04-11 05:18] LABS: CREATININE SERUM 2.92 MG/DL (0.60-1.30); PHOSPHORUS 5.1 MG/DL (2.3-4.7)
[2022-04-11 05:21] LABS: MAGNESIUM 1.9 MG/DL (1.6-2.4)
[2022-04-11] MEDS: MAGNESIUM 1 GM/100 ML IVPB 100 ML IV SCH (06:00)
[2022-04-11] MEDS: KCL 20 MEQ TAB (K-DUR) PO SCH (06:00)
[2022-04-11] MEDS: POTASSIUM CL 10MEQ/50ML IVPB 50 ML IV SCH ×5 (06:00→11:08)
[2022-04-11] MEDS ORDERED: NS IV 500 ML 500 ML IV PRN (06:00)
[2022-04-11] MEDS: LEVOTHYROXINE 88 MCG (LEVOTHORID) TAB PO SCH (06:30)
[2022-04-11] MEDS: predniSONE 20 MG TAB PO SCH (06:52)
[2022-04-11] MEDS: CEFEPIME INJECTION 1,000 MG in NS (IVPB) 50 ML IV SCH (06:53)
[2022-04-11] MEDS: RT-ALBUTEROL HFA 8.5 GM INHALER IH SCH ×2 (07:04→18:44)
--- NOTE | 2022-04-11 07:45 | Tele-ICU Progress Note ---
Subjective Date Seen by a Provider: Apr 11, 2022 Time Seen by a Provider: 07:40 Subjective/Events-last exam She is a 81-year-old female with past medical history of COPD hypertension atrial fibrillation type 2 diabetes mellitus and dementia admitted on 04/06/2022 with hypoxia and anemia requiring blood transfusion. During this admission she is found to have a influenza A infection. She is started on treatment and subsequently transferred to medical floor On day 4 of Tamiflu Today on the medical floor she is found to have a decrease in mental status and rapid breathing. She is transferred to ICU for possible BiPAP ventilation but after coming to ICU she is somewhat stabilized and required only 2 L of nasal cannula. SpO2 98%, I reviewed CXR form yesterday, showss RLL infiltrate I have done a Ddimer which is elevated which is concerning for any pulmonary embolism. On IV heparin with PTT this am of 184 now 78, back on IV heparin @ 10.1 U/kg/h CTA not done due to Cr of almost 3, V/Q not likely to be helpful Impression 1. Acute hypoxic respiratory failure 2. Influenza A infection 3. Respiratory distress earlier, will keep on IV heparin, if possible would do V/Q scan but likely to be indeterminate 4. History of atrial fibrillation was not on any anticoagulant therapy prior to admission Sepsis Event Evaluation Height, Weight, BMI Height: '" Weight: lbs. oz. kg; 33.02 BMI Method: Exam Exam Patient acknowledged, consented, and participated in this virtual visit which was conducted using real time audio/video Vital Signs Date Time Temp Pulse Resp B/P (MAP) Pulse Ox O2 Delivery O2 Flow Rate FiO2 04/11/22 07:04 98 Nasal Cannula 2.00 04/11/22 06:00 68 31 146/65 (92) 97 Nasal Cannula 2.00 04/11/22 05:00 78 21 158/75 (102) 96 Nasal Cannula 2.00 04/11/22 04:00 95 Nasal Cannula 2.00 04/11/22 04:00 74 33 131/69 (89) 92 Nasal Cannula 2.00 04/11/22 03:00 65 9 151/80 (103) 98 Nasal Cannula 2.00 04/11/22 02:00 75 24 152/70 (97) 96 Nasal Cannula 2.00 04/11/22 01:00 62 23 149/68 (95) 98 Nasal Cannula 2.00 04/11/22 01:00 62 04/11/22 00:00 95 Nasal Cannula 2.00 04/11/22 00:00 73 23 156/77 (103) 97 Nasal Cannula 2.00 04/10/22 23:00 73 16 142/66 (91) 99 Nasal Cannula 2.00 04/10/22 22:00 75 20 151/73 (99) 96 Nasal Cannula 2.00 04/10/22 21:00 75 32 148/65 (92) 98 Nasal Cannula 2.00 04/10/22 20:06 98 Nasal Cannula 2.00 04/10/22 20:00 96 Nasal Cannula 2.00 04/10/22 20:00 72 26 150/70 (96) 96 Nasal Cannula 2.00 04/10/22 19:47 36.2 04/10/22 19:00 71 04/10/22 19:00 71 24 140/67 (91) 97 Nasal Cannula 2.00 04/10/22 18:00 81 27 156/73 (100) 97 Nasal Cannula 2.00 04/10/22 17:00 79 19 134/63 (86) 98 Nasal Cannula 2.00 04/10/22 16:44 36.5 04/10/22 16:10 Nasal Cannula 2.00 04/10/22 16:00 80 11 145/69 (94) 98 Nasal Cannula 2.00 04/10/22 15:00 74 22 133/65 (87) 98 Nasal Cannula 2.00 04/10/22 14:00 87 26 145/69 (94) 97 Nasal Cannula 2.00 04/10/22 13:00 79 24 133/66 (88) 97 Nasal Cannula 2.00 04/10/22 12:54 Nasal Cannula 2.00 04/10/22 12:36 73 04/10/22 12:00 80 22 133/63 (86) 97 Nasal Cannula 2.00 04/10/22 11:33 Nasal Cannula 2.00 04/10/22 11:00 84 23 135/65 (88) 98 Nasal Cannula 2.00 04/10/22 10:42 74 04/10/22 10:18 97 Nasal Cannula 2.00 04/10/22 10:00 84 20 123/60 (81) 96 Nasal Cannula 2.00 04/10/22 08:00 93 Room Air I & O 04/11/22 07:00 Intake Total 200 ml Output Total 2525 ml Balance -2325 ml Height & Weight Height: '" Weight: lbs. oz. kg; 33.02 BMI Method: General Appearance: No Apparent Distress, Other (Resting in bed with BiPap therapy.) HEENT: PERRL/EOMI, TMs Normal Neck: Full Range of Motion Respiratory: No Accessory Muscle Use, Crackles (bilateral and diffuse, more significant in the R upper and lower lung gifford), Rhonci Cardiovascular: Regular Rate, Rhythm; No No Edema (+3 bilateral LE edema); Other Capillary Refill: Less Than 3 Seconds Gastrointestinal: normal bowel sounds, non tender, soft Extremity: No Calf Tenderness; No No Pedal Edema; Pedal Edema (+3 bilateral), Other (Erythema of bilateral LE) Neurologic/Psychiatric: No Alert; Disoriented, Other (Oriented to person and place) Skin: Warm/Dry Results Lab Laboratory Tests 04/10/22 06:09 04/10/22 16:42 04/11/22 04:28 Assessment/Plan Assessment/Plan Influenza A, will complete course of Tamiflu, last day 04/12 continue IV Cefepime and po linezsolid, from NH A fib-chronic, will continue on po amiodarone, V rate this am 68 COPD, will taper prednisone now on 40 mg/d, taper over 7days Critical Care: Critically Ill Patient Time spent with patient (mins): 25 ADILENE MATUTE MD Apr 11, 2022 07:45
--- NOTE | 2022-04-11 10:27 | Cardiology Progress Note ---
Subjective Date Seen by Provider: Apr 11, 2022 Time Seen by Provider: 10:26 Subjective/Events-last exam Patient is sleeping. Lethargic. Review of Systems General: Other (Unable to provide review of system) Objective-Cardiology Exam Last Set of Vital Signs Vital Signs 04/09/22 04/11/22 08:47 09:00 Pulse 82 Resp 21 B/P (MAP) 165/85 (111) Pulse Ox 96 O2 Delivery Nasal Cannula O2 Flow Rate 2.00 FiO2 21 I&O Intake and Output 04/10/22 23:59 Intake Total 980 ml Output Total 1325 ml Balance -345 ml Intake Oral 780 ml IV Total 200 ml Output Urine Total 1325 ml # Voids 2 General: Moderate Distress (respiratory rate of 40, respiratory distress), Other (diaphoretic) HEENT: Atraumatic Lungs: Other (coarse breath sounds bilaterally) Heart: Regular Rate Abdomen: Normal Bowel Sounds, Soft, No Tenderness Extremities: Other (bilateral pedal edema +2) Skin: No Rashes Neuro: Other (not responsive to voice or gentle movement) Psych/Mental Status: Mood NL Results Lab Laboratory Tests 04/10/22 16:42 04/11/22 04:28 A/P-Cardiology Admission Diagnosis Acute respiratory failure Pneumonia Congestive heart failure Paroxysmal atrial fibrillation Assessment/Plan Influenza A +, acute respiratory insufficiency, improving slowly. Pneumonia, managed by medical team Congestive heart failure, acute left ventricular systolic dysfunction 2D Echo done 04/06/22 showing EF 40-45%, grade 1 diastolic dysfunction, mild MR, Pa 25-30mmHg. Bilateral pleural effusions noted. Patient has been on metolazone as an outpatient. Currently metolazone and Lasix are on hold. Continue to monitor renal function Paroxysmal atrial fibrillation, patient was noted to be on amiodarone. There was questionable transient episode of atrial fibrillation on telemetry. Could be artifact. We will continue monitoring for now. Has not been on oral anticoagulation, will use DVT prophylaxis for now and monitor Acute on chronic renal failure, history of chronic kidney disease. Worsening at this time, Discontinue metolazone, discontinue lisinopril Continue to monitor renal function UTI, managed by medical team History of bipolar disorder and schizophrenia, managed by medical team Hypertension, monitor blood pressure Hyperlipidemia maintained on simvastatin Hypothyroidism, maintained on levothyroxine, managed by medical team Anemia, transfuse and continue to monitor H&H EV ARMANDO MD Apr 11, 2022 10:27
[2022-04-11] MEDS ORDERED: VANCOMYCIN 500 MG/NS 100 ML IV SCH ×2 (12:00)
[2022-04-11] MEDS: LORATADINE (CLARITIN) 10 MG TAB PO SCH (13:11)
[2022-04-11] MEDS: OXYBUTYNIN (DITROPAN) 5 MG TAB PO SCH (13:11)
[2022-04-11] MEDS: AMIODARONE 200 MG (CORDARONE) TAB PO SCH ×2 (13:11→20:49)
[2022-04-11] MEDS: PHENYTOIN 100 MG (DILANTIN) CAP PO SCH ×2 (13:11→20:49)
[2022-04-11] MEDS: VITAMIN D3 125 MCG (5,000 UNITS) CAPSULE PO SCH (13:12)
[2022-04-11] MEDS: SODIUM BICARBONATE 650 MG TABLET PO SCH ×3 (13:12→20:50)
[2022-04-11] MEDS: LINEZOLID (ZYVOX) 600 MG TAB PO SCH ×2 (13:12→20:50)
[2022-04-11] MEDS: MONTELUKAST 10 MG (SINGULAIR) TAB PO SCH (13:12)
[2022-04-11] MEDS: SERTRALINE 50 MG (ZOLOFT) TABLET PO SCH (13:12)
[2022-04-11] MEDS: predniSONE 10 MG TAB PO SCH (13:12)
[2022-04-11] MEDS: OSELTAMIVIR 30 MG (TAMIFLU) CAPSULE PO SCH (13:12)
--- NOTE | 2022-04-11 13:27 | Progress Note ---
MEÑO MCBRIDE 04/11/22 1327: Subjective Date Seen by a Provider: Apr 11, 2022 Time Seen by a Provider: 10:45 Subjective/Events-last exam Ms. Abreu is an 81 year old female with a PMHx of COPD, HTN, atrial fibrillation, T2 DM, chronic anemia, seizure disorder, hypothyroidism, and bipolar/schizophrenia who presented to [facility] via EMS transfer with acute respiratory failure with hypoxia on 04/06. Patient remains in ICU for close monitoring. Patient opened her eyes during encounter once. Throughout the encounter patient was not responsive to voice or sternal rub. On 04/10 patient's d-dimer was 2.60. Heparin therapy has been initiated. Plan is to proceed with non-contrast CT today to assess if patient has had a CVA. V/Q scan will be attempted tomorrow if patient appears as though she can tolerate it to assess for PE. Review of Systems Unable to obtain Objective Exam Last Set of Vital Signs Vital Signs Date Time Temp Pulse Resp B/P (MAP) Pulse Ox O2 Delivery O2 Flow Rate FiO2 04/11/22 12:34 80 04/11/22 12:00 36.1 04/11/22 12:00 149/77 (101) 96 Nasal Cannula 2.00 04/11/22 11:00 25 04/09/22 08:47 21 Capillary Refill : Less Than 3 Seconds I&O Intake and Output 04/11/22 00:00 Intake Total 980 ml Output Total 1325 ml Balance -345 ml Intake Oral 780 ml IV Total 200 ml Output Urine Total 1325 ml # Voids 2 General: Other (patient is not responsive to voice or sternal rub) Lungs: Other (coarse breath sounds bilaterally) Heart: Other (distant heart sounds) Abdomen: Normal Bowel Sounds, Soft Extremities: Other (+2 pedal edema bilaterally) Results Lab Laboratory Tests 04/10/22 13:38: Influenza Type A (RT-PCR) Not Detected, Influenza Type B (RT-PCR) Not Detected, SARS-CoV-2 RNA (RT-PCR) Not Detected 04/10/22 14:34: Urine Color YELLOW, Urine Clarity CLOUDY, Urine pH 6.0, Urine Specific [place] 1.010L, Urine Protein 2+H, Urine Glucose (UA) NEGATIVE, Urine Ketones NEGATIVE, Urine Nitrite NEGATIVE, Urine Bilirubin NEGATIVE, Urine Urobilinogen 0.2, Urine Leukocyte Esterase 3+H, Urine RBC (Auto) 2+H, Urine RBC RARE, Urine WBC 10-25H, Urine Squamous Epithelial Cells 0-2, Urine Crystals NONE, Urine Bacteria FEWH, Urine Casts NONE, Urine Mucus NEGATIVE, Urine Culture Indicated YES 04/10/22 16:42: White Blood Count 9.1, Red Blood Count 2.67L, Hemoglobin 8.2L, Hematocrit 24L, Mean Corpuscular Volume 89, Mean Corpuscular Hemoglobin 31, Mean Corpuscular Hemoglobin Concent 35, Red Cell Distribution Width 14.3, Platelet Count 256, Mean Platelet Volume 10.5, Prothrombin Time 14.9H, INR Comment 1.1, Activated Pa rtial Thromboplast Time 33 04/10/22 20:23: 04/10/22 23:40: Activated Partial Thromboplast Time 184*H 04/11/22 04:28: White Blood Count 10.2, Red Blood Count 2.88L, Hemoglobin 8.8L, Hematocrit 26L, Mean Corpuscular Volume 90, Mean Corpuscular Hemoglobin 31, Mean Corpuscular Hemoglobin Concent 34, Red Cell Distribution Width 14.4, Platelet Count 283, Mean Platelet Volume 10.5, Immature Granulocyte % (Auto) 2, Neutrophils (%) (Auto) 78H, Lymphocytes (%) (Auto) 10L, Monocytes (%) (Auto) 9, Eosinophils (%) (Auto) 1, Basophils (%) (Auto) 0, Neutrophils # (Auto) 8.0H, Lymphocytes # (Auto) 1.0, Monocytes # (Auto) 0.9, Eosinophils # (Auto) 0.1, Basophils # (Auto) 0.0, Immature Granulocyte # (Auto) 0.2H, Sodium Level 140, Potassium Level 3.3L, Chloride Level 102, Carbon Dioxide Level 19L, Anion Gap 19H, Blood Urea Nitrogen 90H, Creatinine 2.92H, Estimat Glomerular Filtration Rate 16, BUN/Creatinine Ratio 31, Glucose Level 105, Calcium Level 6.4L, Phosphorus Level 5.1H, Magnesium Level 1.9 04/11/22 07:43: Activated Partial Thromboplast Time 78H Microbiology 04/06/22 Urine Culture - Preliminary, Resulted Enterococcus faecium See Comments 04/06/22 Blood Culture - Preliminary, Resulted No growth Assessment/Plan Assessment/Plan Assess & Plan/Chief Complaint 1. Acute respiratory failure with hypoxia likely secondary to pneumonia vs. COPD exacerbation vs. CHF exacerbation -Respiratory support with supplemental O2, nasal cannula. Transition to BiPap if needed -Solumedrol 62.5mg Q8H IV -Duoneb 3ml RTQ4H IH -Flu A positive - administer Tamiflu 30mg PO BID x5 days -D/C PT -Appreciate plan per Critical Care 2. Heart failure -ProBNP of 10,307 on 04/06 with significant bilateral LE edema -Echocardiogram -Appreciate plan per Cardiology 3. Left lower lobe pneumonia - health care associated due to patient's residence in longterm -Cefepime 1000mg - 50mls @ 1000mls/hr Q8H IV -Supplemental O2 for respiratory support, place on BiPap if needed 4. Hypocalcemia - Ca 6.4 on 04/11 -Replace with calcium glutamate 1gm IV -AM BMP 5. Hypomagnesemia - Mg 1.4 on 04/09 -Continue to monitor, replace if Mg <1.7 -Replace with magnesium sulfate 2gm IV -AM Mg 6. Possible acute cystitis - +3 leuk. esterase, neg nitrite on 04/06 -Coverage with cefepime, send urine for culture -> gram + cocci in chains -Monitor for symptoms -UA on 04/10: +3 leuk. esterase, WBC 10-25, urine lexus - few. Send for culture 7. Hyponatremia - Na 140 on 04/11, resolved -Monitor with AM CMP 8. Bipolar & Schizophrenia -Resume home medication aripiprazole 10mg PO qd 9. HTN -Monitor BP -Resume home medications and appreciate plan per Cardiology 10. Chronic anemia, likely secondary to CKD -> Hgb stable at 8.8 on 04/11 s/p blood transfusion x2 -Monitor with AM CBC -Blood transfusion administered 04/07, 04/08 -Monitor for signs/symptoms of bleeding ie hypotension, tachycardia, hematemasis, hemoptysis, hematochezia/melena, pallor -FOBT negative on 04/07 11. Elevated anion gap - 20 on 04/09 -Likely secondary to uremia with BUN 91, Cr 3.22 -Monitor with AM BMP 12. Acute on chronic kidney injury/disease -Monitor BUN, Cr -Do not initiate IV fluids due to CHF -Continue to replace electrolytes -Appreciate plan per Nephrology; evaluate Vitamin D level, bicarbonate therapy -Vitamin D 21.3 on 04/09 13. Hyperphosphatemia - 5.1 on 04/11 -Likely secondary to CKD -Continue to monitor, consider calcium acetate if kidney function continues to decline with increasing PO4 14. Pulmonary hypertension with pulm artery pressure of 25-30mmHg -Continue plan per Cardiology 15. Transition diet to soft foods to prevent aspiration 16. Elevated d-dimer, 2.60 on 04/10 -Heparin drip -non-contrast CT of head to assess for CVA -V/Q scan to assess for PE Clinical Quality Measures Admission Status Admission Dx 1. Acute respiratory failure with hypoxia likely secondary to pneumonia vs. COPD exacerbation vs. CHF exacerbation -BiPap therapy and monitoring. Wean as tolerated -Solumedrol 62.5mg Q8H IV -Duoneb 3ml RTQ4H IH 2. Heart failure -ProBNP of 10,307 on 04/06 with significant bilateral LE edema -Echocardiogram -Lasix therapy after afternoon labs have resulted to prevent further electrolyte imbalance 3. Left lower lobe pneumonia - health care associated due to patient's residence in longterm -Cefepime 1000mg - 50mls @ 1000mls/hr Q8H IV -BiPap therapy for respiratory support 4. Hypocalcemia - Corrected Ca 6.2 on 04/06 -04/06 PM BMP -Calcium glutamate 1gm once IV administered in [place] [facility] 5. Hypomagnesemia - Mg 1.0 on 04/06 -04/06 PM Mg -Magnesium sulfate 1gm once IV administered in [place] [facility] - confirm with ED, patient should receive 2gm total for initial replacement 6. Possible acute cystitis - +3 leuk. esterase, neg nitrite on 04/06 -Coverage with cefepime, send urine for culture -Monitor for symptoms 7. Hyponatremia - Na 132 on 04/06 -Monitor with AM CMP 8. Bipolar & Schizophrenia -Resume home medication aripiprazole 10mg PO qd 9. HTN -Monitor BP 10. Chronic anemia - Hgb 8.5 -Monitor with AM CBC 11. Elevated anion gap - 24 on 04/06 -Likely secondary to lactic acidosis (lactic acid 2.69 -> 1.35 on 04/06) and/or uremia with BUN 67, Cr 2.82 -Monitor with AM BMP 12. Acute on chronic kidney injury/disease -Monitor BUN, Cr -Do not initiate IV fluids due to CHF LO,ONEIDA M MD 04/11/222051: Assessment/Plan Assessment/Plan Assess & Plan/Chief Complaint Patient remains altered today. She did track with her eyes but otherwise did not speak to me. Rn reports this varies throughout the day and pending on exam. eICU placed on heparin gtt given elevated d-dimer and concern for possible PE. I will get a CT head to evaluate for CVA though unlikelygiven no focal findings. Likely metabolic encephalopathy from illness. V/Q scan ordered for tomorrow as wel. Discussed all of this with ICU physician [facility] e[facility] consultant, Dr Vinson. Continue on IV abx. Supervisory-Addendum Brief Verification & Attestation Participated in pt care: history, MDM, physical Personally performed: exam, history, MDM, supervision of care Care discussed with: Medical Student Procedures: n/a Results interpretation: Verified all documentation Verification and Attestation of Medical Student E/M Service A medical student performed and documented this service in my presence. I reviewed and verified all information documented by the medical student and made modifications to such information, when appropriate. I personally performed the physical exam and medical decision making. Oneida Martin, Apr 11, 2022,20:50 MEÑO MCBRIDE Apr 11, 2022 13:27 ONEIDA MARTIN MD Apr 11, 2022 20:52
[2022-04-11] MEDS: HEParin 1000 UNIT/ML (10ML VIAL) FOR BOLUS IV SCH (14:36)
[2022-04-11] MEDS: FLUTICASONE 100 MCG 14's (ARNUITY) IH SCH (14:59)
--- NOTE | 2022-04-11 16:05 | Diagnostic Imaging Report ---
PROCEDURE: CT head without contrast. TECHNIQUE: Multiple contiguous axial images were obtained through the brain without the use of intravenous contrast. Auto Exposure Controls were utilized during the CT exam to meet ALARA standards for radiation dose reduction. INDICATION: Stroke. Influenza. Acute respiratory failure. Altered mental status. COMPARISON: None. FINDINGS: Advanced generalized parenchymal volume loss. 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 No CT evidence of an acute territorial infarction. Moderate leukoaraiosis. No intracranial hemorrhage, mass effect, hydrocephalus or extra-axial fluid collection. Osseous structures are intact. Hyperostosis frontalis. Visualized paranasal sinuses and mastoids are clear. IMPRESSION: 1. No acute intracranial CT finding. 2. Advanced generalized parenchymal volume loss and moderate leukoaraiosis. 3. 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 Dictated by: Dictated on workstation # [id number]
[2022-04-11] MEDS: DONEPEZIL 10 MG (ARICEPT) TAB PO SCH (18:02)
[2022-04-11] MEDS: HEParin DRIP 25000 UNIT/500ML 500 ML IV SCH (19:55)
[2022-04-11] MEDS: AtorvaSTATin TABLET 10 MG TABLET PO SCH (20:49)
[2022-04-12 02:34] LABS: BASOPHILS % (AUTO) 0 % (0-10); EOSINOPHILS # (AUTO) 0.2 10^3/uL (0.0-0.3); EOSINOPHILS % (AUTO) 2 % (0-10); HEMATOCRIT 26 % (35-52); HEMOGLOBIN 8.9 g/dL (11.5-16.0); LYMPHOCYTES % (AUTO) 9 % (12-44); MEAN CORPUSCULAR HEMOGLOBIN 31 pg (25-34); MEAN CORPUSCULAR HGB CONC 34 g/dL (32-36); MEAN CORPUSCULAR VOLUME 91 fL (80-99); MEAN PLATELET VOLUME 10.5 fL (9.0-12.2); MONOCYTES % (AUTO) 9 % (0-12); NEUTROPHILS # (AUTO) 8.8 10^3/uL (1.8-7.8); NEUTROPHILS % (AUTO) 79 % (42-75); PLATELET COUNT 297 10^3/uL (130-400); WHITE BLOOD COUNT 11.1 10^3/uL (4.3-11.0)
[2022-04-12 02:46] LABS: CALCIUM 6.9 MG/DL (8.5-10.1); CREATININE SERUM 2.62 MG/DL (0.60-1.30); MAGNESIUM 1.8 MG/DL (1.6-2.4); PHOSPHORUS 4.6 MG/DL (2.3-4.7); POTASSIUM 3.6 MMOL/L (3.6-5.0)
[2022-04-12] MEDS: MAGNESIUM 1 GM/100 ML IVPB 100 ML IV SCH (03:03)
[2022-04-12] MEDS: KCL 20 MEQ TAB (K-DUR) PO SCH (03:03)
[2022-04-12] MEDS: POTASSIUM CL 10MEQ/50ML IVPB 50 ML IV SCH ×2 (03:20→04:21)
[2022-04-12] MEDS: LEVOTHYROXINE 88 MCG (LEVOTHORID) TAB PO SCH (06:44)
[2022-04-12] MEDS: predniSONE 10 MG TAB PO SCH (06:44)
[2022-04-12] MEDS: RT-ALBUTEROL HFA 8.5 GM INHALER IH SCH (07:00)
[2022-04-12] MEDS ORDERED: FUROSEMIDE 40 MG/4 ML INJ (LASIX) IVP NR ×2 (07:30→14:00)
--- NOTE | 2022-04-12 07:40 | Tele-ICU Progress Note ---
Subjective Date Seen by a Provider: Apr 12, 2022 Time Seen by a Provider: 07:35 Subjective/Events-last exam HPI/Events of Note (Tele-ICU Physician , consultation) Available chart/ vitals / labs / Images reviewed H&P is from ER notes Patient's information available about PMH, allergy reviewed in EMR. ROS as per chart and RN report Video assessment done using teleICU camera, rest of exam as per RN Discussed with RN. She is a 81-year-old female with past medical history of COPD hypertension atrial fibrillation type 2 diabetes mellitus and dementia admitted on 04/06/2022 with hypoxia and anemia requiring blood transfusion. During this admission she is found to have a influenza A infection. She is started on treatment and subsequently transferred to medical floor. Today on the medical floor she is found to have a decrease in mental status and rapid breathing. She is transferred to ICU for possible BiPAP ventilation but after coming to ICU she is somewhat stabilized and required only 2 L of nasal cannula. I have done a Ddimer which is elevated which is concerning for any pulmonary embolism. 04/12/22 today she developed respiratory distress , on oxymask. Per rn she has coarse breathsounds with wheezing. o2 sat 94%. CT brain shoed chr. 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 Impression 1. Acute hypoxic respiratory failure, suspect fluid over load. Needed bipap 24/01 today 2. Influenza A infection 3. Respiratory distress earlier, needs to rule out any pulmonary embolism in this patient with obesity and bedridden status. 4. History of atrial fibrillation was not on any anticoagulant therapy prior to admission. 5. VRE cystitis. Recommendations 1. Start Bipap ventilation 24/01 2. We will continue on IV full dose heparin as we are not able to get VQ scan over the weekend 3. We will get a VQ scan hopefully tomorrow 4. Change Zyvox as pt npo. 5. Additional dose of lasix and see the response. Care coordination with bedside consultants and primary IM MD. Sepsis Event Evaluation Height, Weight, BMI Height: '" Weight: lbs. oz. kg; 30.92 BMI Method: Exam Exam Patient acknowledged, consented, and participated in this virtual visit which was conducted using real time audio/video Vital Signs Date Time Temp Pulse Resp B/P (MAP) Pulse Ox O2 Delivery O2 Flow Rate FiO2 04/12/22 06:00 89 29 162/82 (108) 97 Nasal Cannula 2.00 04/12/22 05:00 96 33 178/96 (123) 95 Nasal Cannula 2.00 04/12/22 04:00 96 Nasal Cannula 2.00 04/12/22 04:00 36.1 04/12/22 04:00 96 33 181/106 (131) 95 Nasal Cannula 2.00 04/12/22 03:00 87 24 163/80 (107) 96 Nasal Cannula 2.00 04/12/22 02:00 84 20 154/76 (102) 99 Nasal Cannula 2.00 04/12/22 01:00 80 04/12/22 01:00 80 18 148/66 (93) 99 Nasal Cannula 2.00 04/12/22 00:48 36.2 04/12/22 00:00 97 Nasal Cannula 2.00 04/12/22 00:00 83 18 152/80 (104) 96 Nasal Cannula 2.00 04/11/22 23:00 83 21 157/85 (109) 94 Nasal Cannula 2.00 04/11/22 22:00 81 21 155/104 (121) 94 Nasal Cannula 2.00 04/11/22 21:00 76 20 153/75 (101) 98 Nasal Cannula 2.00 04/11/22 20:00 97 Nasal Cannula 2.00 04/11/22 20:00 75 10 149/77 (101) 97 Nasal Cannula 2.00 04/11/22 19:56 36.1 04/11/22 19:00 83 04/11/22 19:00 76 23 153/74 (100) 98 Nasal Cannula 2.00 04/11/22 18:44 97 Nasal Cannula 2.00 04/11/22 18:00 80 29 168/88 (114) 95 Nasal Cannula 2.00 04/11/22 17:00 72 24 154/74 (100) 98 Nasal Cannula 2.00 04/11/22 16:02 36.1 04/11/22 16:00 81 16 161/84 (109) 92 Nasal Cannula 2.00 04/11/22 16:00 97 Nasal Cannula 2.00 04/11/22 15:00 77 23 152/74 (100) 100 Nasal Cannula 2.00 04/11/22 14:00 79 36 152/79 (103) 97 Nasal Cannula 2.00 04/11/22 13:00 74 22 151/82 (105) 100 Nasal Cannula 2.00 04/11/22 12:34 80 04/11/22 12:00 96 Nasal Cannula 2.00 04/11/22 12:00 36.1 04/11/22 12:00 81 149/77 (101) 96 Nasal Cannula 2.00 04/11/22 11:00 73 25 142/67 (92) 100 Nasal Cannula 2.00 04/11/22 10:00 77 22 145/67 (93) 98 Nasal Cannula 2.00 04/11/22 09:00 82 21 165/85 (111) 96 Nasal Cannula 2.00 04/11/22 08:00 36.0 04/11/22 08:00 95 Nasal Cannula 2.00 04/11/22 08:00 79 25 152/76 (101) 96 Nasal Cannula 2.00 I & O 04/12/22 07:00 Intake Total 800 ml Output Total 2100 ml Balance -1300 ml Height & Weight Height: '" Weight: lbs. oz. kg; 30.92 BMI Method: General Appearance: No Apparent Distress, Other (Resting in bed with BiPap therapy.) HEENT: PERRL/EOMI, TMs Normal Neck: Full Range of Motion Respiratory: No Accessory Muscle Use, Crackles (bilateral and diffuse, more significant in the R upper and lower lung gifford), Rhonci Cardiovascular: Regular Rate, Rhythm; No No Edema (+3 bilateral LE edema); Other Capillary Refill: Less Than 3 Seconds Gastrointestinal: normal bowel sounds, non tender, soft Extremity: No Calf Tenderness; No No Pedal Edema; Pedal Edema (+3 bilateral), Other (Erythema of bilateral LE) Neurologic/Psychiatric: No Alert; Disoriented, Other (Oriented to person and place) Skin: Warm/Dry Other comments PE PER RN Results Lab Laboratory Tests 04/10/22 16:42 04/11/22 04:28 04/12/22 02:20 Assessment/Plan Assessment/Plan as above Critical Care: Critically Ill Patient Time spent with patient (mins): 30 IVETH CHAUHAN MD Apr 12, 2022 07:40
--- NOTE | 2022-04-12 07:44 | Diagnostic Imaging Report ---
EXAMINATION: Chest 1 view HISTORY: Respiratory distress. Shortness of breath. COMPARISON: 04/10/2022. FINDINGS: There is stable cardiomegaly with worsening central pulmonary vascular congestion and increasing patchy opacities throughout the lungs. Small left-sided pleural effusion is seen. No pneumothorax. IMPRESSION: 1. Cardiomegaly with worsening pulmonary edema. Multifocal pneumonia could also have this appearance. 2. Small left pleural effusion. Dictated by: Dictated on workstation # [id number]
[2022-04-12] MEDS: SODIUM BICARBONATE 650 MG TABLET PO SCH ×3 (08:00→20:25)
[2022-04-12] MEDS: LORATADINE (CLARITIN) 10 MG TAB PO SCH (08:00)
[2022-04-12] MEDS: PHENYTOIN 100 MG (DILANTIN) CAP PO SCH ×2 (08:00→20:25)
[2022-04-12] MEDS: MONTELUKAST 10 MG (SINGULAIR) TAB PO SCH (08:00)
[2022-04-12] MEDS: AMIODARONE 200 MG (CORDARONE) TAB PO SCH ×2 (08:00→20:25)
[2022-04-12] MEDS: VITAMIN D3 125 MCG (5,000 UNITS) CAPSULE PO SCH (08:00)
[2022-04-12] MEDS: OXYBUTYNIN (DITROPAN) 5 MG TAB PO SCH (08:00)
[2022-04-12] MEDS: SERTRALINE 50 MG (ZOLOFT) TABLET PO SCH (08:01)
[2022-04-12 08:50] VITALS: BP 168/85
[2022-04-12] MEDS: FLUTICASONE 100 MCG 14's (ARNUITY) IH SCH (08:54)
[2022-04-12] MEDS ORDERED: RT-ALBUTEROL SULF 2.5 MG/3 ML PRE-MIX VIAL INH PRN (10:30)
[2022-04-12 10:45] VITALS: BP 136/71
[2022-04-12] MEDS: LINEZOLID IVPB 300 ML IV SCH ×2 (10:55→20:59)
[2022-04-12 10:56] LABS: ABG BASE EXCESS -3.9 MMOL/L (-2.5-2.5); ABG OXYGEN SATURATION 99 % (94-100); ABG PCO2 34 MMHG (35-45); ABG PH 7.39 (7.37-7.43); ABG PO2 140 MMHG (79-93); ABG TCO2 21.3 MMOL/L (21.0-31.0)
[2022-04-12 10:57] LABS: ALLENS TEST YES-POS; INSPIRED O2 40%; PATIENT TEMP 36.4; VENTILATOR NO
--- NOTE | 2022-04-12 11:23 | Cardiology Progress Note ---
Subjective Date Seen by Provider: Apr 12, 2022 Time Seen by Provider: 11:22 Subjective/Events-last exam Patient was seen at bedside, lethargic, maintained on BiPAP. Review of Systems General: Fatigue, Malaise Pulmonary: Dyspnea Objective-Cardiology Exam Last Set of Vital Signs Vital Signs 04/12/22 04/12/22 04/12/22 04/12/22 08:00 10:00 10:56 11:19 Temp 36.5 Pulse 90 Resp 29 B/P (MAP) 136/74 (94) Pulse Ox 96 O2 Delivery NIV Bilevel O2 Flow Rate 35.00 FiO2 35 I&O Intake and Output 04/12/22 00:00 Intake Total 700 ml Output Total 2650 ml Balance -1950 ml Intake Oral 0 ml IV Total 700 ml Tube Feeding 0 ml Output Urine Total 2650 ml General: Other (Arousable but not following commands or answering questions) HEENT: Atraumatic Lungs: Other (coarse breath sounds bilaterally) Heart: Other (distant heart sounds) Abdomen: Normal Bowel Sounds, Soft Extremities: Other (+2 pedal edema bilaterally) Skin: No Rashes Neuro: Other (Not answering questions or following commands) Psych/Mental Status: Mood NL, Other (Not following commands) Results Lab Laboratory Tests 04/12/22 02:20 A/P-Cardiology Admission Diagnosis Acute respiratory failure Pneumonia Congestive heart failure Paroxysmal atrial fibrillation Assessment/Plan Influenza A +, acute respiratory insufficiency, improving slowly. Pneumonia, managed by medical team Congestive heart failure, acute left ventricular systolic dysfunction 2D Echo done 04/06/22 showing EF 40-45%, grade 1 diastolic dysfunction, mild MR, Pa 25-30mmHg. Bilateral pleural effusions noted. Patient has been on metolazone as an outpatient. Currently metolazone and Lasix are on hold. Continue to monitor renal function Paroxysmal atrial fibrillation, patient was noted to be on amiodarone. There was questionable transient episode of atrial fibrillation on telemetry. Could be artifact. We will continue monitoring for now. Has not been on oral anticoagulation, will use DVT prophylaxis for now and monitor Acute on chronic renal failure, history of chronic kidney disease. Worsening at this time, Discontinue metolazone, discontinue lisinopril Continue to monitor renal function UTI, managed by medical team History of bipolar disorder and schizophrenia, managed by medical team Hypertension, monitor blood pressure Hyperlipidemia maintained on simvastatin Hypothyroidism, maintained on levothyroxine, managed by medical team Anemia, transfuse and continue to monitor H&H EV ARMANDO MD Apr 12, 2022 11:23
[2022-04-12 15:00] VITALS: BP 138/85
[2022-04-12] MEDS: RT-ALBUTEROL SULF 2.5 MG/3 ML PRE-MIX VIAL INH SCH ×3 (15:00→21:41)
[2022-04-12] MEDS: HEParin DRIP 25000 UNIT/500ML 500 ML IV SCH (17:14)
[2022-04-12] MEDS: DONEPEZIL 10 MG (ARICEPT) TAB PO SCH (18:06)
--- NOTE | 2022-04-12 18:13 | Progress Note - Hospitalist ---
Subjective HPI/CC On Admission Date Seen by Provider: Apr 12, 2022 Time Seen by Provider: 10:20 Subjective/Events-last exam She is sedated on BiPAP. Objective Exam Vital Signs Vital Signs Date Time Temp Pulse Resp B/P (MAP) Pulse Ox O2 Delivery O2 Flow Rate FiO2 04/12/22 16:15 36.8 04/12/22 16:00 88 26 136/81 (99) 96 NIV Bilevel 30.00 04/12/22 15:19 30 Capillary Refill : Less Than 3 Seconds General Appearance: No Apparent Distress, Obese Respiratory: No Respiratory Distress, Decreased Breath Sounds, Other (wearing BiPAP) Cardiovascular: Regular Rate, Rhythm, No Murmur Gastrointestinal: Normal Bowel Sounds, Soft Extremity: Normal Inspection, Pedal Edema Neurologic/Psychiatric: Other (sedated) Skin: Normal Color, Warm/Dry Results/Procedures Lab Laboratory Tests 04/12/22 02:20 Patient resulted labs reviewed. Imaging: Reviewed Imaging Report Assessment/Plan Assessment and Plan Assess & Plan/Chief Complaint Acute respiratory failure with hypoxia Influenza A Elevated d-dimer Acute HFrEF wth diastolic dysfunction Pulmonary HTN COPD UTI TRICE on CKD Electrolyte abnormalities HTN Obesity Bipolar Schizophrenia TeleICU following BiPAP Heparin gtt VQ scan ordered, unable to give contrast due to renal failure Lasix Zyvox for UTI Hold Zoloft and Tramadol while on Zyvox s/p Tamiflu Remove isolation s/p Cefepime Critical Care Critically Ill Patient Diagnosis/Problems Diagnosis/Problems (1) Acute respiratory failure with hypoxia Status: Acute (2) Influenza A Status: Acute (3) Acute exacerbation of CHF (congestive heart failure) Status: Acute Qualifiers: Heart failure type: unspecified Qualified Codes: I50.9 - Heart failure, unspecified (4) Acute kidney injury superimposed on CKD Status: Acute (5) UTI (urinary tract infection) Status: Acute (6) Elevated d-dimer Status: Acute DAVID BALTAZAR MD Apr 12, 2022 18:13
[2022-04-12 18:46] VITALS: BP 157/85
[2022-04-12] MEDS: AtorvaSTATin TABLET 10 MG TABLET PO SCH (20:25)
[2022-04-12] MEDS ORDERED: LINEZOLID IVPB 300 ML IV SCH (21:00)
[2022-04-12 21:42] VITALS: BP 137/79
[2022-04-13] MEDS: AtorvaSTATin TABLET 10 MG TABLET PO SCH (00:46)
[2022-04-13] MEDS: PHENYTOIN 100 MG (DILANTIN) CAP PO SCH ×2 (00:47→20:04)
[2022-04-13] MEDS: SODIUM BICARBONATE 650 MG TABLET PO SCH ×3 (00:47→20:04)
[2022-04-13] MEDS: AMIODARONE 200 MG (CORDARONE) TAB PO SCH ×2 (00:47→20:04)
[2022-04-13 02:33] LABS: BASOPHILS % (AUTO) 0 % (0-10); EOSINOPHILS # (AUTO) 0.1 10^3/uL (0.0-0.3); EOSINOPHILS % (AUTO) 1 % (0-10); HEMATOCRIT 28 % (35-52); HEMOGLOBIN 9.1 g/dL (11.5-16.0); LYMPHOCYTES # (AUTO) 1.1 10^3/uL (1.0-4.0); LYMPHOCYTES % (AUTO) 9 % (12-44); MEAN CORPUSCULAR HEMOGLOBIN 30 pg (25-34); MEAN CORPUSCULAR HGB CONC 33 g/dL (32-36); MEAN CORPUSCULAR VOLUME 92 fL (80-99); MEAN PLATELET VOLUME 10.6 fL (9.0-12.2); MONOCYTES # (AUTO) 1.2 10^3/uL (0.0-1.0); MONOCYTES % (AUTO) 10 % (0-12); NEUTROPHILS # (AUTO) 9.4 10^3/uL (1.8-7.8); NEUTROPHILS % (AUTO) 78 % (42-75); PLATELET COUNT 309 10^3/uL (130-400)
[2022-04-13 02:46] LABS: INR 1.2 (0.8-1.4); PROTHROMBIN TIME PATIENT 15.3 SEC (12.2-14.7)
[2022-04-13 02:48] LABS: POTASSIUM 4.1 MMOL/L (3.6-5.0)
[2022-04-13 02:49] LABS: CALCIUM 7.5 MG/DL (8.5-10.1)
[2022-04-13 02:53] LABS: CREATININE SERUM 2.78 MG/DL (0.60-1.30)
[2022-04-13 02:56] LABS: MAGNESIUM 1.7 MG/DL (1.6-2.4)
[2022-04-13] MEDS: RT-ALBUTEROL SULF 2.5 MG/3 ML PRE-MIX VIAL INH SCH ×4 (03:04→18:51)
[2022-04-13] MEDS: HEParin 1000 UNIT/ML (10ML VIAL) FOR BOLUS IV SCH (03:58)
[2022-04-13] MEDS: POTASSIUM CL 10MEQ/50ML IVPB 50 ML IV SCH (04:53)
[2022-04-13] MEDS: MAGNESIUM 1 GM/100 ML IVPB 100 ML IV SCH (04:53)
[2022-04-13] MEDS: KCL 20 MEQ TAB (K-DUR) PO SCH (04:53)
[2022-04-13] MEDS: LEVOTHYROXINE 88 MCG (LEVOTHORID) TAB PO SCH (06:07)
[2022-04-13] MEDS: predniSONE 10 MG TAB PO SCH (06:07)
[2022-04-13] MEDS: FLUTICASONE 100 MCG 14's (ARNUITY) IH SCH (08:23)
--- NOTE | 2022-04-13 08:35 | Cardiology Progress Note ---
Subjective Date Seen by Provider: Apr 13, 2022 Time Seen by Provider: 08:32 Subjective/Events-last exam Patient is in bed, still unresponsive. Review of Systems General: Other (Unable to provide review of system) Objective-Cardiology Exam Last Set of Vital Signs Vital Signs 04/13/22 04/13/22 04/13/22 04/13/22 04:00 06:00 07:17 07:23 Temp 36.8 Pulse 79 Resp 23 B/P (MAP) 144/79 (100) Pulse Ox 97 O2 Delivery NIV Bilevel O2 Flow Rate 30.00 FiO2 30 I&O Intake and Output 04/13/22 00:00 Intake Total 1150 ml Output Total 1825 ml Balance -675 ml IV Total 1150 ml Output Urine Total 1825 ml General: Other (Arousable but not following commands or answering questions) HEENT: Atraumatic Lungs: Other (coarse breath sounds bilaterally) Heart: Normal S1, Normal S2, Other (distant heart sounds) Abdomen: Normal Bowel Sounds, Soft Extremities: Other (+2 pedal edema bilaterally) Skin: No Rashes Neuro: Other (Not answering questions or following commands) Psych/Mental Status: Mood NL, Other (Not following commands) Results Lab Laboratory Tests 04/13/22 02:20 A/P-Cardiology Admission Diagnosis Acute respiratory failure Pneumonia Congestive heart failure Paroxysmal atrial fibrillation Assessment/Plan Influenza A +, acute respiratory insufficiency, improving slowly. Pneumonia, managed by medical team Congestive heart failure, acute left ventricular systolic dysfunction 2D Echo done 04/06/22 showing EF 40-45%, grade 1 diastolic dysfunction, mild MR, Pa 25-30mmHg. Bilateral pleural effusions noted. Patient has been on metolazone as an outpatient. Currently metolazone and Lasix are on hold. Twelve-lead EKG showed diffuse T wave inversion, new finding most probably secondary to significant hypoxemia. Underlying coronary artery disease cannot be excluded. Will consider cardiac catheterization once patient is awake and responsive. Paroxysmal atrial fibrillation, patient was noted to be on amiodarone. There was questionable transient episode of atrial fibrillation on telemetry. Could be artifact. We will continue monitoring for now. Has not been on oral anticoagulation, will use DVT prophylaxis for now and monitor Acute on chronic renal failure, history of chronic kidney disease. Worsening at this time, Discontinue metolazone, discontinue lisinopril Continue to monitor renal function UTI, managed by medical team History of bipolar disorder and schizophrenia, managed by medical team Hypertension, monitor blood pressure Hyperlipidemia maintained on simvastatin Hypothyroidism, maintained on levothyroxine, managed by medical team Anemia, transfuse and continue to monitor H&H EV ARMANDO MD Apr 13, 2022 08:35
--- NOTE | 2022-04-13 09:05 | Tele-ICU Progress Note ---
Subjective Date Seen by a Provider: Apr 13, 2022 Time Seen by a Provider: 12:35 Subjective/Events-last exam HPI/Events of Note (Tele-ICU Physician , consultation) Available chart/ vitals / labs / Images reviewed H&P is from ER notes Patient's information available about PMH, allergy reviewed in EMR. ROS as per chart and RN report Video assessment done using teleICU camera, rest of exam as per RN Discussed with RN. She is a 81-year-old female with past medical history of COPD hypertension atrial fibrillation type 2 diabetes mellitus and dementia admitted on 04/06/2022 with hypoxia and anemia requiring blood transfusion. During this admission she is found to have a influenza A infection. She is started on treatment and subsequently transferred to medical floor. Today on the medical floor she is found to have a decrease in mental status and rapid breathing. She is transferred to ICU for possible BiPAP ventilation but after coming to ICU she is somewhat stabilized and required only 2 L of nasal cannula. I have done a Ddimer which is elevated which is concerning for any pulmonary embolism. 04/12/22 today she developed respiratory distress , on oxymask. Per rn she has coarse breathsounds with wheezing. o2 sat 94%. CT brain shoed chr. 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 04/13/22 today is able to come off bipap and tolerating 2l n/c. bun/cr stable. Impression 1. Acute hypoxic respiratory failure, suspect fluid over load. came off bipap on 04/13/22. on nc2L 2. Influenza A infection 3. Respiratory distress earlier, needs to rule out any pulmonary embolism in this patient with obesity and bedridden status. 4. History of atrial fibrillation was not on any anticoagulant therapy prior to admission. 5. VRE cystitis. Recommendations 1. Continue O2 with n/c 2. We will continue on IV full dose heparin as we are not able to get VQ scan over the weekend, 3. We will get a VQ scan hopefully today 4. Change Zyvox to iv as pt npo. 5. Continue monitor BUN?CR Care coordination with bedside consultants and primary IM MD. Sepsis Event Evaluation Height, Weight, BMI Height: '" Weight: lbs. oz. kg; 30.78 BMI Method: Exam Exam Patient acknowledged, consented, and participated in this virtual visit which was conducted using real time audio/video Vital Signs Date Time Temp Pulse Resp B/P (MAP) Pulse Ox O2 Delivery O2 Flow Rate FiO2 04/13/22 07:23 36.8 04/13/22 07:17 79 04/13/22 06:00 85 23 144/79 (100) 97 NIV Bilevel 30.00 04/13/22 05:00 90 25 140/79 (99) 97 NIV Bilevel 30.00 04/13/22 04:15 95 25 143/76 (98) 97 NIV Bilevel 30.00 04/13/22 04:00 96 NIV Bilevel 30 04/13/22 03:59 36.2 87 21 148/81 (103) 96 NIV Bilevel 30.00 04/13/22 03:05 88 26 96 30.00 04/13/22 03:00 95 24 153/91 (111) 97 NIV Bilevel 30.00 04/13/22 02:00 86 23 146/81 (102) 97 NIV Bilevel 30.00 04/13/22 01:00 85 26 147/82 (103) 97 NIV Bilevel 30.00 04/13/22 01:00 85 04/13/22 00:00 87 23 139/76 (97) 97 NIV Bilevel 30.00 04/12/22 23:46 97 NIV Bilevel 30 04/12/22 23:45 36.4 88 24 143/78 (99) 96 NIV Bilevel 30.00 04/12/22 23:00 89 25 140/73 (95) 97 NIV Bilevel 30.00 04/12/22 22:00 86 37 140/74 (96) 97 NIV Bilevel 30.00 04/12/22 21:42 89 28 97 30.00 04/12/22 21:00 95 34 150/84 (106) 96 NIV Bilevel 30.00 04/12/22 20:18 37.1 04/12/22 20:00 95 28 148/88 (108) 96 NIV Bilevel 30.00 04/12/22 19:49 37.1 04/12/22 19:39 95 NIV Bilevel 30 04/12/22 19:00 97 25 153/86 (108) 97 NIV Bilevel 30.00 04/12/22 19:00 97 04/12/22 18:46 93 32 97 30.00 04/12/22 18:00 92 23 143/87 (105) 97 NIV Bilevel 30.00 04/12/22 17:00 92 22 143/84 (103) 96 NIV Bilevel 30.00 04/12/22 16:15 36.8 04/12/22 16:00 88 26 136/81 (99) 96 NIV Bilevel 30.00 04/12/22 15:19 96 NIV Bilevel 30 04/12/22 15:10 NIV Bilevel 30.00 04/12/22 15:00 93 131/76 (94) 97 NIV Bilevel 35.00 04/12/22 15:00 91 28 97 30.00 04/12/22 14:00 101 32 149/87 (107) 97 NIV Bilevel 35.00 04/12/22 13:00 93 28 133/75 (94) 97 NIV Bilevel 35.00 04/12/22 12:26 93 04/12/22 12:00 89 24 139/79 (99) 97 NIV Bilevel 35.00 04/12/22 12:00 36.8 04/12/22 11:19 96 NIV Bilevel 35 04/12/22 11:00 93 27 139/82 (101) 96 NIV Bilevel 35.00 04/12/22 10:56 NIV Bilevel 35.00 04/12/22 10:45 97 28 96 35.00 04/12/22 10:00 90 29 136/74 (94) 96 NIV Bilevel 40.00 I & O 04/13/22 07:00 Intake Total 1110 ml Output Total 1475 ml Balance -365 ml Height & Weight Height: '" Weight: lbs. oz. kg; 30.78 BMI Method: General Appearance: No Apparent Distress, Obese HEENT: PERRL/EOMI, TMs Normal Neck: Full Range of Motion Respiratory: No Respiratory Distress, Decreased Breath Sounds, Other (wearing BiPAP) Cardiovascular: Regular Rate, Rhythm, No Murmur Capillary Refill: Less Than 3 Seconds Gastrointestinal: normal bowel sounds, non tender, soft Extremity: Normal Inspection, Pedal Edema Neurologic/Psychiatric: Other (sedated) Skin: Normal Color, Warm/Dry Results Lab Laboratory Tests 04/12/22 02:20 04/13/22 02:20 Assessment/Plan Assessment/Plan as above Critical Care: Critically Ill Patient Time spent with patient (mins): 28 IVETH CHAUHAN MD Apr 13, 2022 09:05
--- NOTE | 2022-04-13 09:07 | Progress Note - Hospitalist ---
SARITHA FRANCOIS 04/13/22 0907: Subjective HPI/CC On Admission Date Seen by Provider: Apr 13, 2022 Time Seen by Provider: 09:07 Subjective/Events-last exam Ms. Abreu is an 81 year old female with a PMHx of COPD, HTN, atrial fibrillation, T2 DM, chronic anemia, seizure disorder, hypothyroidism, and bipolar/schizophrenia who presented to [facility] via EMS transfer with acute respiratory failure with hypoxia on 04/06. Pt is currently unresponsive on BiPAP. Pt opens eyes upon palpation, but closes them shortly after. Interview was unable to be completed. Objective Exam Vital Signs Vital Signs Date Time Temp Pulse Resp B/P (MAP) Pulse Ox O2 Delivery O2 Flow Rate FiO2 04/13/22 07:23 36.8 04/13/22 07:17 79 04/13/22 06:00 23 144/79 (100) 97 NIV Bilevel 30.00 04/13/22 04:00 30 Capillary Refill : Less Than 3 Seconds General Appearance: No Apparent Distress Respiratory: Lungs Clear, Normal Breath Sounds Cardiovascular: Regular Rate, Rhythm, No Murmur, Normal Peripheral Pulses Gastrointestinal: Soft Rectal: Deferred Skin: Normal Color, Warm/Dry Results/Procedures Lab Laboratory Tests 04/13/22 02:20 Patient resulted labs reviewed. Imaging: Reviewed Imaging Report Assessment/Plan Assessment and Plan Assess & Plan/Chief Complaint Acute respiratory failure with hypoxia Influenza A Elevated d-dimer Acute HFrEF wth diastolic dysfunction Pulmonary HTN COPD UTI TRICE on CKD Electrolyte abnormalities HTN Obesity Bipolar Schizophrenia TeleICU following BiPAP Heparin gtt Lasix Zyvox for UTI; Hold Zoloft while on Zyvox DAVID BALTAZAR MD 04/13/22 1226: Subjective HPI/CC On Admission Time Seen by Provider: 09:40 Objective Exam General Appearance: No Apparent Distress, Obese Respiratory: Lungs Clear, No Respiratory Distress Cardiovascular: Regular Rate, Rhythm, No Murmur Gastrointestinal: Normal Bowel Sounds, Soft Extremity: Normal Inspection, Pedal Edema Neurologic/Psychiatric: Other (opens eyes to sternal rub, not following commands) Skin: Cool, Pallor Assessment/Plan Assessment and Plan Assess & Plan/Chief Complaint Remains on BiPAP, possibly try to transition off today. Remains on heparin gtt, attempt to obtain VQ scan today. Critical Care: Critically Ill Patient Diagnosis/Problems Diagnosis/Problems (1) Acute respiratory failure with hypoxia Status: Acute (2) Elevated d-dimer Status: Acute (3) Influenza A Status: Acute (4) Acute exacerbation of CHF (congestive heart failure) Status: Acute Qualifiers: Qualified Codes: I50.9 - Heart failure, unspecified (5) Acute kidney injury superimposed on CKD Status: Acute (6) Urinary tract obstruction Status: Acute Supervisory-Addendum Brief Verification & Attestation Participated in pt care: history, MDM, physical Personally performed: exam, history, MDM, supervision of care Care discussed with: Medical Student Procedures: n/a Results interpretation: Verified all documentation A medical student performed and documented this service in my presence. I reviewed and verified all information documented by the medical student and made modifications to such information, when appropriate. I personally performed the physical exam and medical decision making. SARITHA FRANCOIS Apr 13, 2022 09:07 DAVID BALTAZAR MD Apr 13, 2022 12:26
[2022-04-13] MEDS: LINEZOLID IVPB 300 ML IV SCH ×2 (10:22→20:05)
--- NOTE | 2022-04-13 10:24 | Physician Query Clarification ---
Physician Query-General Query to Physician: The medical record reflects the following clinical scenario: The patient, in the setting of History/Risk factors, healthcare acquired pneumonia, influenza AHF with elevated ProBNP, UTI Clinical Findings admission VS/Labs: HR 134, RR 44, BP 159/68, SpO2 92% sat on 15 L T 37.3, WBC 14.6 lactic acid 2.69 then 1.35 proBNP 10,307, Urine culture with Entercoccus faecium, Treatment Day of admission: NS 500ML given in setting of Heart failure, Cefepime on admission and daily IV, Ceftriaxone X 1, Question: Do you agree with the impression of Sepsis/Severe Sepsis per Dr. Umesh Bourgeois and Dr. Finn Camarillo? 1. Yes; will document Severe Sepsis, present on admission in the Progress Notes 2. No; will continue current documentation in the Progress Notes 3. Other; will document explanation of clinical findings 4. Clinically undetermined; no explanation for clinical findings Please clarify and document your clinical opinion in the Progress Notes and Discharge Summary including the definitive and/or presumptive diagnosis, (suspected or probable), related to the above clinical findings. Please include clinical findings supporting your diagnosis. In responding to this query, please exercise your independent professional judgment. The purpose of this communication is to more accurately reflect the complexity of your patients condition. The fact that a question is asked does not imply that any particular answer is desired or expected. Thank you for timely response to this clarification. Hailey Gallardo RN, MSN Clinical Pantograph Operator [phone] PHYSICIAN RESPONSE: Based on the clinical findings in the record, please respond to the query above on this document as an addendum. Physician Response: Physician Response 1 If you have questions please contact: Insurance Claim Auditor: Ext: Thank you for your time and cooperation. Clinical Pantograph Operator/Insurance Claim Auditor This is a permanent part of the medical record HAILEY GALLARDO Apr 13, 2022 10:24 DAVID BALTAZAR MD Apr 20, 2022 20:50
[2022-04-13] MEDS: VITAMIN D3 125 MCG (5,000 UNITS) CAPSULE PO SCH (10:25)
[2022-04-13] MEDS: LORATADINE (CLARITIN) 10 MG TAB PO SCH (10:26)
[2022-04-13] MEDS: OXYBUTYNIN (DITROPAN) 5 MG TAB PO SCH (10:26)
[2022-04-13] MEDS: MONTELUKAST 10 MG (SINGULAIR) TAB PO SCH (10:27)
--- NOTE | 2022-04-13 13:20 | Diagnostic Imaging Report ---
Indication: Elevated D-dimer. Patient was administered 5.5 mCi technetium 99m MAA intravenously and imaging over the chest was performed. Study is severely limited due to patient being contracted and bedridden. Only a single perfusion image over the chest was obtained. On this single supine image there appears to be fairly homogeneous perfusion to the right lung. Left lung is small. Part of this may be owing to slight patient rotation. No definite perfusion defect is identified. IMPRESSION: Significantly limited study. No gross abnormality is detected. Dictated by: Dictated on workstation # [id number]
[2022-04-13] MEDS: DONEPEZIL 10 MG (ARICEPT) TAB PO SCH (18:14)
[2022-04-14] MEDS: RT-ALBUTEROL SULF 2.5 MG/3 ML PRE-MIX VIAL INH SCH ×5 (02:35→21:18)
[2022-04-14 05:14] LABS: BASOPHILS % (AUTO) 0 % (0-10); EOSINOPHILS # (AUTO) 0.1 10^3/uL (0.0-0.3); EOSINOPHILS % (AUTO) 2 % (0-10); HEMATOCRIT 25 % (35-52); LYMPHOCYTES # (AUTO) 1.2 10^3/uL (1.0-4.0); LYMPHOCYTES % (AUTO) 14 % (12-44); MEAN CORPUSCULAR HEMOGLOBIN 30 pg (25-34); MEAN CORPUSCULAR HGB CONC 32 g/dL (32-36); MEAN CORPUSCULAR VOLUME 93 fL (80-99); MONOCYTES % (AUTO) 11 % (0-12); NEUTROPHILS # (AUTO) 6.1 10^3/uL (1.8-7.8); NEUTROPHILS % (AUTO) 72 % (42-75); PLATELET COUNT 259 10^3/uL (130-400); WHITE BLOOD COUNT 8.5 10^3/uL (4.3-11.0)
[2022-04-14 05:22] LABS: ALBUMIN 3.1 GM/DL (3.2-4.5); POTASSIUM 3.7 MMOL/L (3.6-5.0)
[2022-04-14 05:24] LABS: CALCIUM 7.1 MG/DL (8.5-10.1)
[2022-04-14 05:25] LABS: TOTAL PROTEIN 6.8 GM/DL (6.4-8.2)
[2022-04-14] MEDS: POTASSIUM CL 10MEQ/50ML IVPB 50 ML IV SCH (05:25)
[2022-04-14] MEDS: KCL 20 MEQ TAB (K-DUR) PO SCH (05:26)
[2022-04-14 05:27] LABS: BILIRUBIN,TOTAL 0.3 MG/DL (0.1-1.0)
[2022-04-14 05:28] LABS: PHOSPHORUS 4.7 MG/DL (2.3-4.7)
[2022-04-14 05:29] LABS: CREATININE SERUM 3.01 MG/DL (0.60-1.30)
[2022-04-14 05:30] LABS: BILIRUBIN,DIRECT 0.2 MG/DL (0.0-0.3); BILIRUBIN,INDIRECT 0.1 MG/DL
[2022-04-14 05:31] LABS: MAGNESIUM 1.6 MG/DL (1.6-2.4)
[2022-04-14] MEDS: MAGNESIUM 1 GM/100 ML IVPB 100 ML IV SCH (05:54)
[2022-04-14] MEDS: predniSONE 10 MG TAB PO SCH (05:58)
[2022-04-14] MEDS: LEVOTHYROXINE 88 MCG (LEVOTHORID) TAB PO SCH (05:58)
[2022-04-14] MEDS: OXYBUTYNIN (DITROPAN) 5 MG TAB PO SCH (08:08)
[2022-04-14] MEDS: PHENYTOIN 100 MG (DILANTIN) CAP PO SCH ×2 (08:08→21:45)
[2022-04-14] MEDS: SODIUM BICARBONATE 650 MG TABLET PO SCH ×3 (08:08→21:45)
[2022-04-14] MEDS: LINEZOLID IVPB 300 ML IV SCH (08:08)
[2022-04-14] MEDS: LORATADINE (CLARITIN) 10 MG TAB PO SCH (08:08)
[2022-04-14] MEDS: MONTELUKAST 10 MG (SINGULAIR) TAB PO SCH (08:08)
[2022-04-14] MEDS: AMIODARONE 200 MG (CORDARONE) TAB PO SCH ×2 (08:08→21:46)
[2022-04-14] MEDS: VITAMIN D3 125 MCG (5,000 UNITS) CAPSULE PO SCH (08:08)
--- NOTE | 2022-04-14 08:21 | Tele-ICU Progress Note ---
Subjective Date Seen by a Provider: Apr 14, 2022 Subjective/Events-last exam HPI/Events of Note (Tele-ICU Physician , consultation) Available chart/ vitals / labs / Images reviewed H&P is from ER notes Patient's information available about PMH, allergy reviewed in EMR. ROS as per chart and RN report Video assessment done using teleICU camera, rest of exam as per RN Discussed with RN. She is a 81-year-old female with past medical history of COPD hypertension atrial fibrillation type 2 diabetes mellitus and dementia admitted on 04/06/2022 with hypoxia and anemia requiring blood transfusion. During this admission she is found to have a influenza A infection. She is started on treatment and subsequently transferred to medical floor. Today on the medical floor she is found to have a decrease in mental status and rapid breathing. She is transferred to ICU for possible BiPAP ventilation but after coming to ICU she is somewhat stabilized and required only 2 L of nasal cannula. I have done a Ddimer which is elevated which is concerning for any pulmonary embolism. 04/12/22 today she developed respiratory distress , on oxymask. Per rn she has coarse breathsounds with wheezing. o2 sat 94%. CT brain shoed chr. 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 04/13/22 today is able to come off bipap and tolerating 2l n/c. bun/cr stable. Impression 04/14/22 resting comfortably, v/q scan suboptimal but no singificant abnormalities. off iv heparin. Cr increased to 3.0. 1. Acute hypoxic respiratory failure, suspect fluid over load. came off bipap on 04/13/22. on nc2L 2. Influenza A infection 3. Respiratory distress earlier,PE ruled out.. 4. History of atrial fibrillation was not on any anticoagulant therapy prior to admission. 5. VRE cystitis. Recommendations 1. Continue O2 with n/c 2. Heparin changed o S/Q 3Continue Zyvox for another 48hrs. 4. Continue monitor BUN&CR 5. overall prognosis is poor. needs to talk to family regarding goals of therapy. DNR status now Care coordination with bedside consultants and primary IM MD. Sepsis Event Evaluation Height, Weight, BMI Height: '" Weight: lbs. oz. kg; 30.44 BMI Method: Exam Exam Patient acknowledged, consented, and participated in this virtual visit which was conducted using real time audio/video Vital Signs Date Time Temp Pulse Resp B/P (MAP) Pulse Ox O2 Delivery O2 Flow Rate FiO2 04/14/22 07:45 36.5 04/14/22 07:40 78 04/14/22 06:00 89 24 157/81 (106) 94 Nasal Cannula 2.00 04/14/22 05:00 84 22 137/69 (91) 95 Nasal Cannula 2.00 04/14/22 04:00 81 21 122/69 (86) 94 Nasal Cannula 2.00 04/14/22 03:46 95 Nasal Cannula 2.00 04/14/22 03:46 36.6 75 22 124/66 (85) 96 Nasal Cannula 2.00 04/14/22 03:00 84 24 137/69 (91) 96 Nasal Cannula 2.00 04/14/22 02:37 96 Nasal Cannula 2.00 04/14/22 02:00 91 24 142/73 (96) 96 Nasal Cannula 2.00 04/14/22 01:00 81 04/14/22 01:00 81 21 118/62 (80) 96 Nasal Cannula 2.00 04/14/22 00:00 82 20 125/61 (82) 95 Nasal Cannula 2.00 04/13/22 23:34 96 Nasal Cannula 2.00 04/13/22 23:33 36.8 89 19 140/81 (100) 98 Nasal Cannula 2.00 04/13/22 23:00 91 15 127/72 (90) 96 Nasal Cannula 2.00 04/13/22 22:00 87 23 132/68 (89) 97 Nasal Cannula 2.00 04/13/22 21:00 85 22 125/59 (81) 95 Nasal Cannula 2.00 04/13/22 20:00 94 22 141/80 (100) 97 Nasal Cannula 2.00 04/13/22 19:49 36.6 04/13/22 19:44 97 Nasal Cannula 2.00 04/13/22 19:12 36.6 04/13/22 19:00 84 04/13/22 19:00 84 132/66 (88) 95 Nasal Cannula 2.00 04/13/22 18:00 88 14 133/74 (93) 97 Nasal Cannula 2.00 04/13/22 17:00 86 14 135/79 (97) 98 Nasal Cannula 2.00 04/13/22 16:11 Nasal Cannula 2.00 04/13/22 16:00 96 23 131/74 (93) 96 Nasal Cannula 2.00 04/13/22 16:00 36.9 04/13/22 15:00 87 29 118/60 (79) 95 Nasal Cannula 2.00 04/13/22 14:00 92 6 123/60 (81) 97 Nasal Cannula 2.00 04/13/22 13:00 81 22 115/56 (75) 96 Nasal Cannula 2.00 04/13/22 12:55 Nasal Cannula 2.00 04/13/22 12:50 93 04/13/22 12:00 86 24 115/57 (76) 96 Nasal Cannula 2.00 04/13/22 11:54 36.5 04/13/22 11:07 95 Nasal Cannula 2.00 04/13/22 11:00 85 33 139/64 (89) 96 NIV Bilevel 25.00 04/13/22 10:00 81 18 134/74 (94) 96 NIV Bilevel 25.00 04/13/22 09:00 88 20 141/86 (104) 95 NIV Bilevel 25.00 04/13/22 08:33 NIV Bilevel 25 I & O 04/14/22 07:00 Intake Total 880 ml Output Total 610 ml Balance 270 ml Height & Weight Height: '" Weight: lbs. oz. kg; 30.44 BMI Method: General Appearance: No Apparent Distress, Obese HEENT: PERRL/EOMI, TMs Normal Neck: Full Range of Motion Respiratory: No Respiratory Distress, Decreased Breath Sounds, Other (wearing BiPAP) Cardiovascular: Regular Rate, Rhythm, No Murmur Capillary Refill: Less Than 3 Seconds Gastrointestinal: normal bowel sounds, non tender, soft Extremity: Normal Inspection, Pedal Edema Neurologic/Psychiatric: Other (sedated) Skin: Normal Color, Warm/Dry Results Lab Laboratory Tests 04/13/22 02:20 04/14/22 04:37 04/14/22 04:45 Assessment/Plan Assessment/Plan as above Critical Care: Critically Ill Patient Time spent with patient (mins): 15 IVETH CHAHUAN MD Apr 14, 2022 08:21
--- NOTE | 2022-04-14 10:19 | Cardiology Progress Note ---
Subjective Date Seen by Provider: Apr 14, 2022 Time Seen by Provider: 10:18 Subjective/Events-last exam Patient was seen at bedside, laying down comfortably Not responsive to verbal stimuli Review of Systems General: Other (Unable to provide review of system) Objective-Cardiology Exam Last Set of Vital Signs Vital Signs 04/13/22 04/14/22 04/14/22 08:33 07:45 08:00 Temp 36.5 Pulse 80 Resp 20 B/P (MAP) 137/72 (93) Pulse Ox 93 O2 Delivery Nasal Cannula O2 Flow Rate 2.00 FiO2 25 I&O Intake and Output 04/14/22 00:00 Intake Total 940 ml Output Total 775 ml Balance 165 ml IV Total 600 ml Other 340 ml Output Urine Total 775 ml General: Other (Arousable but not following commands or answering questions) HEENT: Atraumatic Lungs: Other (coarse breath sounds bilaterally) Heart: Normal S1, Normal S2, Other (distant heart sounds) Abdomen: Normal Bowel Sounds, Soft Extremities: Other (+2 pedal edema bilaterally) Skin: No Rashes Neuro: Other (Not answering questions or following commands) Psych/Mental Status: Mood NL, Other (Not following commands) Results Lab Laboratory Tests 04/14/22 04:37 04/14/22 04:45 A/P-Cardiology Admission Diagnosis Acute respiratory failure Pneumonia Congestive heart failure Paroxysmal atrial fibrillation Assessment/Plan Influenza A +, acute respiratory insufficiency, improving slowly. Pneumonia, managed by medical team Congestive heart failure, acute left ventricular systolic dysfunction 2D Echo done 04/06/22 showing EF 40-45%, grade 1 diastolic dysfunction, mild MR, Pa 25-30mmHg. Bilateral pleural effusions noted. Patient has been on metolazone as an outpatient. Currently metolazone and Lasix are on hold. Twelve-lead EKG showed diffuse T wave inversion, new finding most probably secondary to significant hypoxemia. Underlying coronary artery disease cannot be excluded. Will consider cardiac catheterization once patient is awake and responsive. Paroxysmal atrial fibrillation, patient was noted to be on amiodarone. There was questionable transient episode of atrial fibrillation on telemetry. Could be artifact. We will continue monitoring for now. Has not been on oral anticoagulation, will use DVT prophylaxis for now and monitor Acute on chronic renal failure, history of chronic kidney disease. Worsening at this time, Discontinue metolazone, discontinue lisinopril Continue to monitor renal function UTI, managed by medical team History of bipolar disorder and schizophrenia, managed by medical team Hypertension, monitor blood pressure Hyperlipidemia maintained on simvastatin Hypothyroidism, maintained on levothyroxine, managed by medical team Anemia, transfuse and continue to monitor H&H EV ARMANDO MD Apr 14, 2022 10:19
[2022-04-14] MEDS: FLUTICASONE 100 MCG 14's (ARNUITY) IH SCH (11:07)
[2022-04-14 14:59] VITALS: BP 136/71
--- NOTE | 2022-04-14 14:59 | Progress Note - Hospitalist ---
SARITHA FRANCOIS 04/14/22 1459: Subjective HPI/CC On Admission Date Seen by Provider: Apr 14, 2022 Time Seen by Provider: 07:50 Subjective/Events-last exam Joi Abreu is a 81yo female admitted for acute respiratory failure. Pt was taken off BiPAP yesterday and is now breathing on her own while being on 2L o xygen via NC. Pt will open her eyes upon sternal rub but doesn't follow commands. Pt does seem to have a gag and cough reflex. Interview was unable to be obtained due to unresponsive nature. Objective Exam Vital Signs Vital Signs Date Time Temp Pulse Resp B/P (MAP) Pulse Ox O2 Delivery O2 Flow Rate FiO2 04/14/22 13:43 92 04/14/22 12:15 94 Nasal Cannula 2.00 04/14/22 11:00 28 153/87 (109) 04/14/22 07:45 36.5 04/13/22 08:33 25 Capillary Refill : Less Than 3 Seconds Respiratory: Lungs Clear, Normal Breath Sounds Cardiovascular: Regular Rate, Rhythm, No Murmur, Normal Peripheral Pulses Gastrointestinal: Normal Bowel Sounds, Soft Rectal: Deferred Skin: Normal Color, Warm/Dry Results/Procedures Lab Laboratory Tests 04/14/22 04:37 04/14/22 04:45 Patient resulted labs reviewed. Imaging: Reviewed Imaging Report Assessment/Plan Assessment and Plan Assess & Plan/Chief Complaint Acute respiratory failure with hypoxia TeleICU Following UTI Consider Doxycycline over Zyvox for Tx or UTI. TRICE on CKD Consider Acute hemodialysis Due to patients kidney function, she would be a good candidate for hospice. DAVID BALTAZAR MD 04/14/22 8463: Subjective HPI/CC On Admission Time Seen by Provider: 10:00 Objective Exam General Appearance: No Apparent Distress, Chronically ill, Obese Respiratory: Lungs Clear, No Respiratory Distress Cardiovascular: Regular Rate, Rhythm, No Murmur Gastrointestinal: Normal Bowel Sounds, Soft Extremity: Normal Inspection, Pedal Edema Neurologic/Psychiatric: Alert, Aphasia, Other (opens eyes, not following commands) Skin: Normal Color, Warm/Dry Assessment/Plan Assessment and Plan Assess & Plan/Chief Complaint Respiratory failure improved, now off BiPAP. Transition to Doxycycline for VRE UTI. Remains encephalopathic, possibly due to UTI. Renal function appears to be at baseline, CKD 4/5, no indication for acute hemodialysis. Diagnosis/Problems Diagnosis/Problems (1) Acute encephalopathy Status: Acute (2) VRE (vancomycin-resistant Enterococci) infection Status: Acute (3) UTI (urinary tract infection) Status: Acute (4) Acute respiratory failure with hypoxia Status: Acute (5) Acute kidney injury superimposed on CKD Status: Acute Supervisory-Addendum Brief Verification & Attestation Participated in pt care: history, MDM, physical Personally performed: exam, history, MDM, supervision of care Care discussed with: Medical Student Procedures: n/a Results interpretation: Verified all documentation A medical student performed and documented this service in my presence. I reviewed and verified all information documented by the medical student and made modifications to such information, when appropriate. I personally performed the physical exam and medical decision making. SARITHA FRANCOIS Apr 14, 2022 14:59 DAVID BALTAZAR MD Apr 14, 2022 15:53
[2022-04-14] MEDS: DOXYCYCLINE INJECTION 100 MG in NS (IVPB) 100 ML IV SCH (18:06)
[2022-04-14] MEDS: DONEPEZIL 10 MG (ARICEPT) TAB PO SCH (18:06)
[2022-04-14 19:25] VITALS: BP 163/72
[2022-04-14] MEDS: AtorvaSTATin TABLET 10 MG TABLET PO SCH (21:46)
[2022-04-15 00:01] VITALS: BP 155/78
[2022-04-15] MEDS: RT-ALBUTEROL SULF 2.5 MG/3 ML PRE-MIX VIAL INH SCH ×4 (02:36→22:13)
[2022-04-15 04:07] VITALS: BP 156/84
[2022-04-15] MEDS: DOXYCYCLINE INJECTION 100 MG in NS (IVPB) 100 ML IV SCH ×2 (05:14→17:18)
[2022-04-15 06:28] LABS: BASOPHILS % (AUTO) 0 % (0-10); EOSINOPHILS # (AUTO) 0.1 10^3/uL (0.0-0.3); EOSINOPHILS % (AUTO) 1 % (0-10); HEMATOCRIT 26 % (35-52); HEMOGLOBIN 8.5 g/dL (11.5-16.0); LYMPHOCYTES % (AUTO) 10 % (12-44); MEAN CORPUSCULAR HEMOGLOBIN 31 pg (25-34); MEAN CORPUSCULAR HGB CONC 33 g/dL (32-36); MEAN CORPUSCULAR VOLUME 94 fL (80-99); MONOCYTES # (AUTO) 1.1 10^3/uL (0.0-1.0); MONOCYTES % (AUTO) 11 % (0-12); NEUTROPHILS # (AUTO) 7.6 10^3/uL (1.8-7.8); NEUTROPHILS % (AUTO) 77 % (42-75); PLATELET COUNT 261 10^3/uL (130-400); WHITE BLOOD COUNT 9.9 10^3/uL (4.3-11.0)
[2022-04-15] MEDS: LEVOTHYROXINE 88 MCG (LEVOTHORID) TAB PO SCH (06:48)
[2022-04-15 06:53] LABS: CALCIUM 7.3 MG/DL (8.5-10.1); CREATININE SERUM 3.27 MG/DL (0.60-1.30); MAGNESIUM 1.7 MG/DL (1.6-2.4); PHOSPHORUS 4.5 MG/DL (2.3-4.7); POTASSIUM 3.5 MMOL/L (3.6-5.0)
[2022-04-15] MEDS: KCL 20 MEQ TAB (K-DUR) PO SCH (06:57)
[2022-04-15] MEDS ORDERED: predniSONE 10 MG TAB PO SCH (07:00)
[2022-04-15 07:32] VITALS: BP 172/80
[2022-04-15] MEDS ORDERED: KCL 20 MEQ TAB (K-DUR) PO ONE (08:00)
[2022-04-15] MEDS: LORATADINE (CLARITIN) 10 MG TAB PO SCH (08:13)
[2022-04-15] MEDS: VITAMIN D3 125 MCG (5,000 UNITS) CAPSULE PO SCH (08:13)
[2022-04-15] MEDS: AMIODARONE 200 MG (CORDARONE) TAB PO SCH ×2 (08:13→20:29)
[2022-04-15] MEDS: PHENYTOIN 100 MG (DILANTIN) CAP PO SCH ×2 (08:13→20:29)
[2022-04-15] MEDS: MONTELUKAST 10 MG (SINGULAIR) TAB PO SCH (08:13)
[2022-04-15] MEDS: SODIUM BICARBONATE 650 MG TABLET PO SCH ×3 (08:14→20:29)
[2022-04-15] MEDS: OXYBUTYNIN (DITROPAN) 5 MG TAB PO SCH (08:14)
--- NOTE | 2022-04-15 08:25 | Cardiology Progress Note ---
Subjective Date Seen by Provider: Apr 15, 2022 Time Seen by Provider: 08:22 Subjective/Events-last exam Patient asleep in bed, appears to be in NAD. Objective-Cardiology Exam Last Set of Vital Signs Vital Signs 04/14/22 04/15/22 04/15/22 14:59 07:32 09:07 Temp 37.1 Pulse 88 Resp 24 B/P (MAP) 172/80 (110) Pulse Ox 92 O2 Delivery Nasal Cannula O2 Flow Rate 2.00 FiO2 21 I&O Intake and Output 04/15/22 00:00 Intake Total 70 ml Output Total 585 ml Balance -515 ml Intake Oral 0 ml Other 70 ml Output Urine Total 585 ml # Bowel Movements 2 General: Other (Arousable but not following commands or answering questions) HEENT: Atraumatic Lungs: Other (coarse breath sounds bilaterally) Heart: Normal S1, Normal S2, Other (distant heart sounds) Abdomen: Normal Bowel Sounds, Soft Skin: No Rashes Neuro: Other (Not answering questions or following commands) Psych/Mental Status: Mood NL, Other (Not following commands) Results Lab Laboratory Tests 04/15/22 05:42 A/P-Cardiology Admission Diagnosis Acute respiratory failure Pneumonia Congestive heart failure Paroxysmal atrial fibrillation Assessment/Plan Influenza A +, acute respiratory insufficiency, improving slowly. Chest x-ray showed complete opacification of the left lung. Pleural effusion versus atelectasis Lethargic and sedated, managed by medical team Congestive heart failure, acute left ventricular systolic dysfunction 2D Echo done 04/06/22 showing EF 40-45%, grade 1 diastolic dysfunction, mild MR, Pa 25-30mmHg. Bilateral pleural effusions noted. Patient has been on metolazone as an outpatient. Currently metolazone and Lasix are on hold. Twelve-lead EKG showed diffuse T wave inversion, new finding most probably secondary to significant hypoxemia. Underlying coronary artery disease cannot be excluded. Will consider cardiac catheterization once patient is awake and responsive. Paroxysmal atrial fibrillation, patient was noted to be on amiodarone. There was questionable transient episode of atrial fibrillation on telemetry. Could be artifact. We will continue monitoring for now. Has not been on oral anticoagulation, will use DVT prophylaxis for now and monitor Acute on chronic renal failure, history of chronic kidney disease. Worsening at this time, Discontinue metolazone, discontinue lisinopril Continue to monitor renal function UTI, managed by medical team History of bipolar disorder and schizophrenia, managed by medical team Hypertension, I started her on amlodipine 10 mg daily and monitor blood pressure Hyperlipidemia maintained on simvastatin Hypothyroidism, maintained on levothyroxine, managed by medical team Anemia, transfuse and continue to monitor H&H Supervisory-Addendum Brief Supervisory Addendum Participated in pt care: history, MDM, physical Personally performed: exam, history, MDM Care discussed with: ODIN Results interpretation: Verified all documentation Notes: Patient was seen and evaluated with Evin, examination performed, management plan was discussed, agree with the current scribed note, I made few changes to the note using Italic font Patient has complete opacification of the left lung Receiving antibiotic Recommend CT scan evaluation Started on amlodipine and monitor blood pressure EVIN SIMON Apr 15, 2022 08:25 EV ARMANDO MD Apr 15, 2022 11:46
[2022-04-15] MEDS: amLODIPine 10 MG (NORVASC) TAB PO SCH (09:19)
--- NOTE | 2022-04-15 10:48 | Diagnostic Imaging Report ---
INDICATION: NG tube placement. Time of Exam: 10:24 AM Correlation is made with prior chest 04/12/2012. NG tube passes below the diaphragm. There has been development of near complete opacification left hemithorax. There appears to be significant consolidation in the left lung. There may be pleural fluid present as well. Only a small amount of aerated lung in the left upper chest is noted. Right lung appears fairly clear. No pneumothorax is seen. IMPRESSION: 1. Development of near complete opacification left hemithorax. 2. NG tube placement, as described. Dictated by: Dictated on workstation # [id number]
[2022-04-15 11:52] VITALS: BP 142/67
--- NOTE | 2022-04-15 13:15 | Diagnostic Imaging Report ---
PROCEDURE: CT chest without contrast. TECHNIQUE: Multiple contiguous axial images were obtained through the chest without the use of intravenous contrast. Auto Exposure Controls were utilized during the CT exam to meet ALARA standards for radiation dose reduction. INDICATION: Acute respiratory failure, unresponsive. Its interpreting correlation with most recent chest x-ray dated 10/07/2021. FINDINGS: Previously, there was nonspecific consolidation in the left lower lobe. Today, at CT, the left lower lobe is completely airless and there is occlusive debris throughout the left lower lobe bronchi. There is near complete partial atelectasis of the left lung with partial aeration of its apical portion. There is at least some debris within left upper lobe airways. Findings suggest mucus impactions. No appreciable soft tissue density or chest mass at this uninfused exam. No pathological appearing lymph nodes. Infection superimposed could not be excluded in the appropriate scenario but the primary pathology is one of volume loss and atelectasis with leftward cardiomediastinal shift. There are small pleural effusions bilaterally without evidence further loculation. There is no pneumothorax. The heart is enlarged. No pericardial effusion. There is aortic and coronary artery atherosclerotic vascular calcifications. There is an OG catheter in the stomach. IMPRESSION: Near complete left lung atelectasis progressed from correlative chest x-ray, only partial aeration of the apical left upper lobe. There is a low-density material largely occluding left lower lobe airways and partially occluding multiple left upper lobe airways. Volume loss and ipsilateral leftward cardiomediastinal shift bilateral nonloculated pleural effusions. If not already performed, consultation for consideration for bronchoscopy suggested. Dictated by: Dictated on workstation # [id number]
[2022-04-15 15:56] VITALS: BP 160/70
--- NOTE | 2022-04-15 16:07 | Progress Note - Hospitalist ---
Subjective HPI/CC On Admission Date Seen by Provider: Apr 15, 2022 Time Seen by Provider: 10:25 Subjective/Events-last exam She remains confused and aphasic. She opens her eyes and tries to talk but only babbles. I called and discussed her status with her DPOA, Shelby. We discussed her poor prognosis with her current state and kidney disease. If she fails to improve then we will plan to move toward a comfort based approach. Objective Exam Vital Signs Vital Signs Date Time Temp Pulse Resp B/P (MAP) Pulse Ox O2 Delivery O2 Flow Rate FiO2 04/15/22 15:45 94 Nasal Cannula 1.00 04/15/22 11:52 37.1 91 26 142/67 (92) 04/14/22 14:59 21 Capillary Refill : Less Than 3 Seconds General Appearance: No Apparent Distress, Obese Respiratory: No Respiratory Distress, Decreased Breath Sounds Cardiovascular: Regular Rate, Rhythm, No Murmur Gastrointestinal: Normal Bowel Sounds, Soft Extremity: Normal Inspection, Pedal Edema Neurologic/Psychiatric: Alert, Aphasia (babbles incomprehensibly), Disoriented Skin: Warm/Dry, Pallor Results/Procedures Lab Laboratory Tests 04/15/22 05:42 Patient resulted labs reviewed. Imaging: Reviewed Imaging Report Assessment/Plan Assessment and Plan Assess & Plan/Chief Complaint VRE UTI Acute encephalopathy Transitioned to Doxycycline TRICE on CKD CKD 4/5 at baseline Renal function worsened slightly Continue to monitor Acute respiratory failure with hypoxia Atelectastis Improved, off BiPAP, minimal oxygen requirement Chest imaging with atelectasis MAT protocol Poor prognosis Goals of care discussion Discussed with DPShelby FLORES Remains confused with worsening kidney function and atelectasis Continue current management Will likely benefit from hospice on discharge even if improvement Palliative care following Elevated d-dimer VQ negative Heparin stopped Acute HFrEF wth diastolic dysfunction Pulmonary HTN COPD Hypokalemia HTN Obesity Bipolar Schizophrenia Continue home meds DVT prophylaxis: Heparin Influenza A, resolved Diagnosis/Problems Diagnosis/Problems (1) Acute encephalopathy Status: Acute (2) VRE (vancomycin-resistant Enterococci) infection Status: Acute (3) UTI (urinary tract infection) Status: Acute (4) Acute respiratory failure with hypoxia Status: Acute (5) Acute kidney injury superimposed on CKD Status: Acute (6) Poor prognosis Status: Acute (7) Goals of care, counseling/discussion Status: Acute DAVID BALTAZAR MD Apr 15, 2022 16:07
[2022-04-15] MEDS: DONEPEZIL 10 MG (ARICEPT) TAB PO SCH (17:18)
[2022-04-15 19:04] VITALS: BP 136/96
[2022-04-15] MEDS: AtorvaSTATin TABLET 10 MG TABLET PO SCH (20:29)
[2022-04-16 00:21] VITALS: BP 135/74
[2022-04-16] MEDS: RT-ALBUTEROL SULF 2.5 MG/3 ML PRE-MIX VIAL INH SCH ×2 (03:22→07:22)
[2022-04-16 03:56] VITALS: BP 129/73
[2022-04-16] MEDS: DOXYCYCLINE INJECTION 100 MG in NS (IVPB) 100 ML IV SCH ×2 (05:26→18:26)
[2022-04-16] MEDS: LEVOTHYROXINE 88 MCG (LEVOTHORID) TAB PO SCH (05:28)
[2022-04-16 05:32] LABS: BASOPHILS % (AUTO) 0 % (0-10); EOSINOPHILS # (AUTO) 0.1 10^3/uL (0.0-0.3); EOSINOPHILS % (AUTO) 0 % (0-10); HEMATOCRIT 27 % (35-52); HEMOGLOBIN 8.7 g/dL (11.5-16.0); LYMPHOCYTES # (AUTO) 1.2 10^3/uL (1.0-4.0); LYMPHOCYTES % (AUTO) 11 % (12-44); MEAN CORPUSCULAR HEMOGLOBIN 31 pg (25-34); MEAN CORPUSCULAR HGB CONC 32 g/dL (32-36); MEAN CORPUSCULAR VOLUME 96 fL (80-99); MEAN PLATELET VOLUME 11.1 fL (9.0-12.2); MONOCYTES # (AUTO) 1.1 10^3/uL (0.0-1.0); MONOCYTES % (AUTO) 10 % (0-12); NEUTROPHILS # (AUTO) 8.9 10^3/uL (1.8-7.8); NEUTROPHILS % (AUTO) 78 % (42-75); PLATELET COUNT 246 10^3/uL (130-400); WHITE BLOOD COUNT 11.3 10^3/uL (4.3-11.0)
[2022-04-16 05:48] LABS: CALCIUM 7.4 MG/DL (8.5-10.1); CREATININE SERUM 3.31 MG/DL (0.60-1.30); MAGNESIUM 1.6 MG/DL (1.6-2.4); PHOSPHORUS 4.7 MG/DL (2.3-4.7); POTASSIUM 3.7 MMOL/L (3.6-5.0)
[2022-04-16] MEDS: KCL 20 MEQ TAB (K-DUR) PO SCH (05:56)
[2022-04-16 08:05] VITALS: BP 146/72
[2022-04-16] MEDS: VITAMIN D3 125 MCG (5,000 UNITS) CAPSULE PO SCH (10:35)
[2022-04-16] MEDS: SODIUM BICARBONATE 650 MG TABLET PO SCH (10:36)
[2022-04-16] MEDS: PHENYTOIN 100 MG (DILANTIN) CAP PO SCH (10:36)
[2022-04-16] MEDS: OXYBUTYNIN (DITROPAN) 5 MG TAB PO SCH (10:36)
[2022-04-16] MEDS: AMIODARONE 200 MG (CORDARONE) TAB PO SCH (10:36)
[2022-04-16] MEDS: MONTELUKAST 10 MG (SINGULAIR) TAB PO SCH (10:36)
[2022-04-16] MEDS: amLODIPine 10 MG (NORVASC) TAB PO SCH (10:36)
[2022-04-16] MEDS ORDERED: morphine INJ 4 MG/ML 1 ML (VIAL/SYRINGE) ONE (11:13)
[2022-04-16] MEDS ORDERED: GLYCOPYRROLATE 0.2 MG/ML (ROBINUL) 2 ML VIAL ONE (11:13)
[2022-04-16] MEDS ORDERED: ACETAMINOPHEN 650 MG SUPP (TYLENOL) PR PRN (11:15)
[2022-04-16] MEDS ORDERED: ONDANSETRON 4 MG/2 ML (SDV) Z0FRAN IVP PRN (11:15)
[2022-04-16] MEDS ORDERED: PROMETHAZINE INJ 25 MG/ML (PHENERGAN) AMP IVP PRN (11:15)
[2022-04-16] MEDS ORDERED: ARTIFICAL TEARS 0.4 ML UNIT DOSE (REFRESH PLUS) OU PRN (11:15)
[2022-04-16] MEDS ORDERED: RT-ALBUTEROL/IPRATROPIUM 3 ML (DUONEB) VIAL INH PRN (11:15)
[2022-04-16] MEDS ORDERED: BISACODYL 10 MG SUPP (DULCOLAX) PR PRN (11:15)
[2022-04-16] MEDS: morphine INJ 4 MG/ML 1 ML (VIAL/SYRINGE) IV PRN ×4 (11:15→22:07)
[2022-04-16] MEDS ORDERED: SALIVA SUBSTITUTE 60 ML SPRAY(MOUTHKOTE) MM PRN (11:15)
[2022-04-16] MEDS: GLYCOPYRROLATE 0.2 MG/ML (ROBINUL) 2 ML VIAL IV PRN ×3 (11:16→18:27)
--- NOTE | 2022-04-16 12:37 | Progress Note - Hospitalist ---
Subjective HPI/CC On Admission Date Seen by Provider: Apr 16, 2022 Time Seen by Provider: 11:10 Subjective/Events-last exam She is worsening this morning. She is breathing rapidly. She is talking but unable to tell me if she is having any problems or pain. Objective Exam Vital Signs Vital Signs Date Time Temp Pulse Resp B/P (MAP) Pulse Ox O2 Delivery O2 Flow Rate FiO2 04/16/22 08:05 36.7 90 19 146/72 (96) 97 Nasal Cannula 1.00 04/14/22 14:59 21 Capillary Refill : Less Than 3 Seconds General Appearance: Moderate Distress (tachypnea), Obese Respiratory: Decreased Breath Sounds, Rhonci Cardiovascular: Regular Rate, Rhythm, No Murmur Gastrointestinal: Normal Bowel Sounds, Soft Extremity: Normal Inspection, No Pedal Edema Neurologic/Psychiatric: Alert, Disoriented Skin: Warm/Dry, Pallor Results/Procedures Lab Laboratory Tests 04/16/22 05:05 Patient resulted labs reviewed. Imaging: Reviewed Imaging Report Assessment/Plan Assessment and Plan Assess & Plan/Chief Complaint VRE UTI Acute encephalopathy TRICE on CKD Acute respiratory failure with hypoxia Atelectastis Poor prognosis Goals of care discussion Worsening respiratory failure with tachypnea this morning Respiratory therapy performing suctioning Renal failure continues to worsen Discussed with Shelby ANTONIO, will transition to comfort measures only Elevated d-dimer Acute HFrEF wth diastolic dysfunction Pulmonary HTN COPD Hypokalemia HTN Obesity Bipolar Schizophrenia DVT prophylaxis: Heparin Influenza A, resolved Diagnosis/Problems Diagnosis/Problems (1) Acute encephalopathy Status: Acute (2) VRE (vancomycin-resistant Enterococci) infection Status: Acute (3) UTI (urinary tract infection) Status: Acute (4) Acute respiratory failure with hypoxia Status: Acute (5) Acute kidney injury superimposed on CKD Status: Acute (6) Poor prognosis Status: Acute (7) Goals of care, counseling/discussion Status: Acute DAVID BALTAZAR MD Apr 16, 2022 12:37
[2022-04-16] MEDS: LORazepam 1 MG (ATIVAN) TAB SL PRN ×2 (14:25→18:28)
--- NOTE | 2022-04-16 18:37 | Progress Note ---
Standard Progress Note Progress Notes/Assess & Plan Date Seen by a Provider: Apr 16, 2022 Time Seen by a Provider: 18:36 Progress/Assessment & Plan The patient has been made comfort care. Cardiology will sign off. Please call if there is a change in her clinical status. IZAIAH MARTINEZ JR, MD Apr 16, 2022 18:37
[2022-04-17] MEDS: LORazepam 1 MG (ATIVAN) TAB SL PRN ×3 (00:03→04:34)
[2022-04-17] MEDS: GLYCOPYRROLATE 0.2 MG/ML (ROBINUL) 2 ML VIAL IV PRN ×4 (00:03→19:48)
[2022-04-17] MEDS: morphine INJ 4 MG/ML 1 ML (VIAL/SYRINGE) IV PRN ×5 (00:21→09:04)
[2022-04-17] MEDS: DOXYCYCLINE INJECTION 100 MG in NS (IVPB) 100 ML IV SCH ×2 (04:34→17:26)
[2022-04-17] MEDS ORDERED: LORazepam INJ 2 MG/ML (ATIVAN) VIAL IVP PRN (09:30)
--- NOTE | 2022-04-17 17:25 | Progress Note - Hospitalist ---
Subjective HPI/CC On Admission Date Seen by Provider: Apr 17, 2022 Time Seen by Provider: 10:55 Subjective/Events-last exam She is sleeping. She does not wake up to verbal stimuli. Objective Exam Vital Signs Vital Signs Date Time Temp Pulse Resp B/P (MAP) Pulse Ox O2 Delivery O2 Flow Rate FiO2 04/17/22 08:00 Nasal Cannula 5.00 04/16/22 08:05 36.7 90 19 146/72 (96) 97 04/14/22 14:59 21 Capillary Refill : Less Than 3 Seconds General Appearance: No Apparent Distress, Chronically ill Respiratory: Crackles, Decreased Breath Sounds Cardiovascular: Regular Rate, Rhythm, No Murmur Gastrointestinal: Normal Bowel Sounds, Soft Extremity: Normal Inspection, No Pedal Edema Neurologic/Psychiatric: Other (does not respond to verbal stimuli, sleeping) Skin: Normal Color, Warm/Dry Results/Procedures Lab Patient resulted labs reviewed. Imaging: Reviewed Imaging Report Assessment/Plan Assessment and Plan Assess & Plan/Chief Complaint VRE UTI Acute encephalopathy TRICE on CKD Acute respiratory failure with hypoxia Atelectastis Poor prognosis Goals of care discussion Comfort measures only status Continue comfort care Continue doxycycline Elevated d-dimer Acute HFrEF wth diastolic dysfunction Pulmonary HTN COPD Hypokalemia HTN Obesity Bipolar Schizophrenia DVT prophylaxis: Heparin Influenza A, resolved Diagnosis/Problems Diagnosis/Problems (1) Acute encephalopathy Status: Acute (2) VRE (vancomycin-resistant Enterococci) infection Status: Acute (3) UTI (urinary tract infection) Status: Acute (4) Acute respiratory failure with hypoxia Status: Acute (5) Acute kidney injury superimposed on CKD Status: Acute (6) Poor prognosis Status: Acute (7) Goals of care, counseling/discussion Status: Acute DAVID BALTAZAR MD Apr 17, 2022 17:25
[2022-04-18] MEDS: DOXYCYCLINE INJECTION 100 MG in NS (IVPB) 100 ML IV SCH ×2 (05:45→17:29)
[2022-04-18] MEDS: GLYCOPYRROLATE 0.2 MG/ML (ROBINUL) 2 ML VIAL IV PRN (05:46)
[2022-04-18] MEDS: morphine INJ 4 MG/ML 1 ML (VIAL/SYRINGE) IV PRN (05:46)
--- NOTE | 2022-04-18 13:08 | Progress Note - Hospitalist ---
Subjective HPI/CC On Admission Date Seen by Provider: Apr 18, 2022 Time Seen by Provider: 11:10 Subjective/Events-last exam She opens her eyes but does not speak. She appears comfortable. Objective Exam Vital Signs Vital Signs Date Time Temp Pulse Resp B/P (MAP) Pulse Ox O2 Delivery O2 Flow Rate FiO2 04/18/22 08:57 Nasal Cannula 5.00 04/16/22 08:05 36.7 90 19 146/72 (96) 97 04/14/22 14:59 21 Capillary Refill : Less Than 3 Seconds General Appearance: No Apparent Distress, Chronically ill, Obese Respiratory: Crackles, Decreased Breath Sounds Cardiovascular: Regular Rate, Rhythm, No Murmur Gastrointestinal: Normal Bowel Sounds, Soft Extremity: Normal Inspection, No Pedal Edema Results/Procedures Lab Patient resulted labs reviewed. Imaging: Reviewed Imaging Report Assessment/Plan Assessment and Plan Assess & Plan/Chief Complaint VRE UTI Acute encephalopathy TRICE on CKD Acute respiratory failure with hypoxia Atelectastis Poor prognosis Goals of care discussion Comfort measures only status Continue comfort care Continue doxycycline Elevated d-dimer Acute HFrEF wth diastolic dysfunction Pulmonary HTN COPD Hypokalemia HTN Obesity Bipolar Schizophrenia DVT prophylaxis: Heparin Influenza A, resolved Diagnosis/Problems Diagnosis/Problems (1) Acute encephalopathy Status: Acute (2) VRE (vancomycin-resistant Enterococci) infection Status: Acute (3) UTI (urinary tract infection) Status: Acute (4) Acute respiratory failure with hypoxia Status: Acute (5) Acute kidney injury superimposed on CKD Status: Acute (6) Poor prognosis Status: Acute (7) Goals of care, counseling/discussion Status: Acute DAVID BALTAZAR MD Apr 18, 2022 13:08
[2022-04-19] MEDS: DOXYCYCLINE INJECTION 100 MG in NS (IVPB) 100 ML IV SCH (05:35)
[2022-04-19] MEDS: morphine INJ 4 MG/ML 1 ML (VIAL/SYRINGE) IV PRN (05:35)
--- NOTE | 2022-04-19 09:46 | Discharge Summary ---
Diagnosis/Chief Complaint Date of Admission Apr 06, 2022 at 7:03 am Date of Discharge Primary Care Peng Cueva MD Discharge Diagnosis (1) Acute encephalopathy Status: Acute (2) VRE (vancomycin-resistant Enterococci) infection Status: Acute (3) UTI (urinary tract infection) Status: Acute (4) Acute respiratory failure with hypoxia Status: Acute (5) Acute kidney injury superimposed on CKD Status: Acute (6) Poor prognosis Status: Acute (7) Goals of care, counseling/discussion Status: Acute Discharge Summary Discharge Physical Exam Allergies: Coded Allergies: aspirin (Verified Allergy, Unknown, 08/21/05) diazepam (Verified Allergy, Unknown, 08/21/05) ibuprofen (Verified Allergy, Unknown, 08/21/05) phenobarbital (Verified Allergy, Unknown, 08/21/05) Vitals & I&Os Vital Signs Date Time Temp Pulse Resp B/P (MAP) Pulse Ox O2 Delivery O2 Flow Rate FiO2 04/19/22 07:44 Nasal Cannula 3.00 04/16/22 08:05 36.7 90 19 146/72 (96) 97 04/14/22 14:59 21 Hospital Course Labs (last 24 hrs) Microbiology 04/10/22 Urine Culture - Final, Complete Probable Enterococcus Species See Comments 04/06/22 Blood Culture - Final, Complete No growth Patient resulted labs reviewed. Imaging: Reviewed Imaging Report Discharge Home Medications: Active Scripts Active Reported Sodium Bicarbonate 650 Mg Tablet 1,300 Mg PO TID TAKES 2 (650MG) TABS Bisacodyl 10 Mg Supp.rect 10 Mg RC Q12H PRN Ativan (Lorazepam) 0.5 Mg Tablet 0.25 Mg PO TID TAKES OF A 0.5MG TAB Ferrous Sulfate 325 Mg (65 Mg Iron) Tablet 325 Mg PO Q48H Amiodarone HCl 200 Mg Tablet 200 Mg PO BID Vitamin C (Ascorbate Calcium) 500 Mg Tablet 500 Mg PO BID Potassium Chloride 20 Meq Tab.er.prt 20 Meq PO DAILY Furosemide 40 Mg Tablet 40 Mg PO DAILY Calmoseptine Ointment (Menthol/Lanolin/Calamine/Znox) 0.44 %-20.6 % Oint 1 Applic TP Q6H PRN Biofreeze (Menthol) 4 % Gel..ml. 1 Applic TP Q4H PRN APPLY NECK Tussin Dm Syrup (Guaifenesin/Dextromethorphan) 100 Mg-10 Mg/5 Ml Syrup 10 Ml PO Q4H PRN Miralax (Polyethylene Glycol 3350) 17 Gram Powd.pack 17 Gm PO Q12H PRN Maalox Advanced Suspension (Mag Hydrox/Aluminum Hyd/Simeth) 200 Mg-200 Mg-20 Mg/5 Ml Oral.susp 30 Ml PO Q4H PRN Loperamide (Loperamide HCl) 2 Mg Capsule 2 Mg PO Q4H PRN MDD 8 CAPS Hydrocodone-Acetamin 5-325 mg (Hydrocodone/Acetaminophen) 5 Mg-325 Mg Tablet 1 Tab PO Q6H PRN Tylenol (Acetaminophen) 325 Mg Tablet 650 Mg PO Q4H PRN Tramadol HCl 50 Mg Tablet 100 Mg PO HS TAKES 2 (50MG) TABS Hydrocodone-Acetamin 5-325 mg (Hydrocodone/Acetaminophen) 5 Mg-325 Mg Tablet 1 Tab PO DAILY Proair Respiclick (Albuterol Sulfate) 90 Mcg Aer.pow.ba 2 Puff IH Q4H PRN Cephalexin 500 Mg Capsule 500 Mg PO TID Phenytoin Sodium Extended 100 Mg Capsule 200 Mg PO BID TAKES 2 (100MG) CAPS [place] (Sodium Chloride) 0.65 % Pierre Part 1 Pierre Part NSEACH BID Flovent Hfa 110 mcg (Fluticasone Propionate) 110 Mcg/Actuation Aero 2 Puff IH BID Cyclobenzaprine HCl 10 Mg Tablet 10 Mg PO BID Cetirizine HCl 10 Mg Tablet 10 Mg PO DAILY Vitamin B-12 (Cyanocobalamin (Vitamin B-12)) 1,000 Mcg Tablet 1,000 Mcg PO DAILY One Daily Plus Minerals (Multivitamin with Minerals) 1 Each Tablet 1 Each PO DAILY Simvastatin 20 Mg Tablet 20 Mg PO HS Sertraline HCl 50 Mg Tablet 50 Mg PO DAILY Oxybutynin Chloride 5 Mg Tablet 5 Mg PO DAILY Montelukast Sodium 10 Mg Tablet 10 Mg PO DAILY Miralax (Polyethylene Glycol 3350) 17 Gram Powd.pack 17 Gm PO DAILY Metolazone 2.5 Mg Tablet 2.5 Mg PO DAILY Lisinopril 2.5 Mg Tablet 2.5 Mg PO DAILY HOLD IS SBP IS LESS THAN 100 Levothyroxine Sodium 88 Mcg Tablet 88 Mcg PO DAILY Latuda (Lurasidone HCl) 40 Mg Tablet 40 Mg PO 1700 ADMINISTER WITH FOOD Donepezil HCl 10 Mg Tablet 10 Mg PO 1800 Aripiprazole 10 Mg Tablet 10 Mg PO DAILY Instructions to patient/family Please see electronic discharge instructions given to patient. Clinical Quality Measures Admission Status Admission Dx Patient is being admitted to the hospital due to acute respiratory failure that is likely multifactorial from pneumonia and COPD exacerbation with a component of CHF. She does not not have a known history here of heart failure but does take amiodarone so likely has a history of atrial fibrillation. I will get a 2D echo we will consult cardiology. She does have a leukocytosis and will be treated with cefepime given consolidation on x-ray. She does have known COPD and we will continue steroids as well. Her roommate in the group home is positive for COVID so will discuss with pharmacy about prophylactic therapy for her exposure. She had multiple electrolyte abnormalities in the emergency room which were replaced and appear to be somewhat chronic. I will repeat a BMP now. We will continue care in the ICU and consult telemetry ICU. She will be placed on COVID precautions given exposure. I will consider repeating COVID swab in a couple of days as today's test was negative. ONEIDA BLANCHARD MD Apr 19, 2022 9:46 am
--- NOTE | 2022-04-19 09:47 | Discharge Inst-Simple/Standard ---
Discharge Inst-Standard Patient Instructions/Follow Up Plan of Care/Instructions/FU: Please continue to take your medications as written. Please follow up with your primary care doctor to follow up this hospital stay. Activity as Tolerated: Yes Discharge Diet: Soft Diet Return to The Hospital For: Chest pain, shortness of breath, fever, weakness, if you feel you are getting worse. ONEIDA BLANCHARD MD Apr 19, 2022 9:47 am
[2022-04-19] MEDS ORDERED: DOXY50CA2 PO (11:00)
[2022-04-19] MEDS: LORazepam 1 MG (ATIVAN) TAB SL PRN (11:56)
== END 2022-04-19 11:30 | DRG 871 ==
LOC: EDUNIT# 03:07 → ER FS 03:25 → ICU 07:03 → 4TH 04-07 13:22 → ICU 04-10 10:15 → 4TH 04-14 17:00
PROVIDERS: ADMIT Internal Medicine; ATTEND Internal Medicine
PROC: 5A09457 Assistance with Respiratory Ventilation, 24-96 Consecutive Hours, Continuous Positive Airway Pressure (ICD-10-PCS; principal; 2022-04-12)
DX: A41.9 Sepsis, unspecified organism (principal); I50.23 Acute on chronic systolic (congestive) heart failure; J18.9 Pneumonia, unspecified organism; J96.01 Acute respiratory failure with hypoxia; J44.0 Chronic obstructive pulmonary disease with (acute) lower respiratory infection; J44.1 Chronic obstructive pulmonary disease with (acute) exacerbation; I13.0 Hypertensive heart and chronic kidney disease with heart failure and stage 1 through stage 4 chronic kidney disease, or unspecified chronic kidney disease; N17.9 Acute kidney failure, unspecified; Z16.21 Resistance to vancomycin; E87.1 Hypo-osmolality and hyponatremia; E87.20 Acidosis, unspecified; G93.40 Encephalopathy, unspecified; Z66 Do not resuscitate; Z51.5 Encounter for palliative care; Z20.822 Contact with and (suspected) exposure to COVID-19; E11.22 Type 2 diabetes mellitus with diabetic chronic kidney disease; N18.30 Chronic kidney disease, stage 3 unspecified; N30.90 Cystitis, unspecified without hematuria; B95.2 Enterococcus as the cause of diseases classified elsewhere; E83.51 Hypocalcemia; E83.42 Hypomagnesemia; I48.0 Paroxysmal atrial fibrillation; E78.5 Hyperlipidemia, unspecified; F03.90 Unspecified dementia, unspecified severity, without behavioral disturbance, psychotic disturbance, mood disturbance, and anxiety; I34.0 Nonrheumatic mitral (valve) insufficiency; I27.20 Pulmonary hypertension, unspecified; E66.9 Obesity, unspecified; Z68.30 Body mass index [BMI] 30.0-30.9, adult; F31.9 Bipolar disorder, unspecified; F20.9 Schizophrenia, unspecified; D64.9 Anemia, unspecified; G40.909 Epilepsy, unspecified, not intractable, without status epilepticus; H54.7 Unspecified visual loss; J10.1 Influenza due to other identified influenza virus with other respiratory manifestations; E03.9 Hypothyroidism, unspecified; Z88.6 Allergy status to analgesic agent; Z88.5 Allergy status to narcotic agent; Z88.8 Allergy status to other drugs, medicaments and biological substances
CPT/HCPCS: 36415; 36600; 70450; 71045; 71250; 80048; 80053; 80076; 81000; 82248; 82274; 82306; 82805; 82947; 83605; 83735; 83880; 84100; 84484; 85007; 85014; 85018; 85025; 85027; 85379; 85610; 85730; 86701; 86706; 86803; 86850; 86900; 86901; 86920; 87040; 87077; 87088; 87184; 87389; 87636; 93005; 93041; 93306; 94640; 94660; 94760; 94799; 96365; 96367; 96368; 96375; 99291; 99292